=== PATIENT | male | born 1940 | race Caucasian/White ===

== ENCOUNTER 2018-10-15 21:47 | Emergency (ER) | payer MEDICARE, BC ==
[2018-10-15 22:12] LABS: Bilirubin Negative (Negative); Blood, Urine Negative (Negative); Clarity CLEAR (Clear); Glucose, Urine (Dipstick) Negative (Negative); Leukocyte Negative (Negative); Nitrite Negative (Negative); Protein, Urine (Dipstick) Negative (Neg-Trace); Urobilinogen 0.2 mg/dL (0.2-1.0); pH, Urine 6.5 (5.0-9.0)
[2018-10-15 23:38] LABS: Band 2 % (5-11); Eosinophils 27 % (0-10); Hemoglobin 13.1 g/dL (14.0-18.0); Lymphocytes 12 % (21-51); MDiff Complete? YES; Mean Corpuscular HGB CONC 35.3 g/dL (32.0-36.0); Mean Corpuscular Hemoglobin 30.9 pg (27.0-31.0); Mean Corpuscular Volume 87.5 fL (78.0-98.0); Mean Platelet Volume 6.9 fL (7.4-10.4); Monocytes 7 % (0-10); Neutrophil 52 % (42-75); PLT Morphology Comment Appears Adequate; Platelet Count 162 thou/uL (130-400); RBC Distribution Width 11.8 % (11.5-14.5); Red Blood Cell (RBC) Count 4.23 mill/uL (4.70-6.10); White Blood Cell (WBC) Count 9.7 thou/uL (4.8-10.8)
[2018-10-15 23:39] LABS: ALT (SGPT) 16 U/L (8-55); AST (SGOT) 17 U/L (5-34); Albumin 3.8 g/dL (3.4-4.8); Alkaline Phosphatase 55 U/L (40-150); Anion Gap 15 mmol/L (10-20); BUN (Urea Nitrogen) 11 mg/dL (8.4-25.7); Bilirubin, Total 0.4 mg/dL (0.2-1.2); Calc. Creatinine Clearance 0 mL/min (70-130); Calcium 8.9 mg/dL (7.8-10.44); Carbon Dioxide 23 mmol/L (23-31); Chloride 95 mmol/L (98-107); Estimated GFR-MDRD 65; Globulin 2.9 g/dL (2.4-3.5); Glucose 101 mg/dL (83-110); Potassium 4.1 mmol/L (3.5-5.1); Protein, Total 6.7 g/dL (5.8-8.1); Sodium 129 mmol/L (136-145)
--- NOTE | 2018-10-15 23:53 | RAD ---
CHEST TWO VIEWS: 10/15/18 HISTORY: Diminished right lower lobe breath sounds. COMPARISON: 09/08/17 FINDINGS: Normal cardiac silhouette. Lungs and pleural spaces are clear. No pneumothorax or osseous abnormaliti es. No evidence of a right lower lobe consolidation or atelectasis. IMPRESSION: No acute cardiopulmonary process. POS: [facility]
== END 2018-10-16 00:35 | disposition home or self-care (01) ==
LOC: ERS 21:47
DX: R30.0 Dysuria (principal); M54.9 Dorsalgia, unspecified; G89.29 Other chronic pain; R60.9 Edema, unspecified; I25.10 Atherosclerotic heart disease of native coronary artery without angina pectoris; I25.2 Old myocardial infarction; I48.91 Unspecified atrial fibrillation; E11.40 Type 2 diabetes mellitus with diabetic neuropathy, unspecified; E78.5 Hyperlipidemia, unspecified; I10 Essential (primary) hypertension; Z87.891 Personal history of nicotine dependence; Z79.82 Long term (current) use of aspirin; Z79.84 Long term (current) use of oral hypoglycemic drugs; Z79.899 Other long term (current) drug therapy
CPT/HCPCS: 36415; 71046; 80053; 81003; 83880; 85025; 87086

== ENCOUNTER 2018-11-02 15:56 | Inpatient (IN) | payer MEDICARE, BC ==
[~2018-11-02 15:56] MED LIST: ISOVUE-370 76%-LOCM 1 ML ONE
[2018-11-02 17:34] LABS: #Eosinphils 1.1 thou/uL (0.0-0.7); #Lymphocytes 0.9 thou/uL (1.20-3.40); #Monocytes 0.7 thou/uL (0.11-0.59); #Neutrophils 7.7 thou/uL (1.40-6.50); %Basophils 0.2 % (0.0-1.0); %Eosinophils 10.9 % (0.0-10.0); %Lymphocytes 8.7 % (21.0-51.0); %Monocytes 6.9 % (0.0-10.0); %Neutrophils 73.3 % (42.0-75.0); Hemoglobin 14.4 g/dL (14.0-18.0); Mean Corpuscular HGB CONC 34.7 g/dL (32.0-36.0); Mean Corpuscular Hemoglobin 30.5 pg (27.0-31.0); Mean Platelet Volume 6.7 fL (7.4-10.4); Platelet Count 189 thou/uL (130-400); White Blood Cell (WBC) Count 10.5 thou/uL (4.8-10.8)
[2018-11-02 17:55] LABS: ALT (SGPT) 19 U/L (8-55); AST (SGOT) 21 U/L (5-34); Albumin 3.9 g/dL (3.4-4.8); Alkaline Phosphatase 75 U/L (40-150); Anion Gap 16 mmol/L (10-20); BUN (Urea Nitrogen) 19 mg/dL (8.4-25.7); Bilirubin, Total 0.4 mg/dL (0.2-1.2); Calc. Creatinine Clearance 0 mL/min (70-130); Calcium 9.2 mg/dL (7.8-10.44); Carbon Dioxide 20 mmol/L (23-31); Chloride 96 mmol/L (98-107); Estimated GFR-MDRD 49; Glucose 147 mg/dL (83-110); Potassium 4.3 mmol/L (3.5-5.1); Protein, Total 6.9 g/dL (5.8-8.1); Sodium 128 mmol/L (136-145)
[2018-11-02 17:56] LABS: Bilirubin Small (Negative); Blood, Urine Negative (Negative); Clarity CLEAR (Clear); Glucose, Urine (Dipstick) Negative (Negative); Leukocyte Trace (Negative); Nitrite Negative (Negative); Protein, Urine (Dipstick) 30 mg/dL (Neg-Trace); Specific Gravity, Urine 1.022 (1.002-1.036); Urobilinogen 0.2 mg/dL (0.2-1.0); pH, Urine 5.5 (5.0-9.0)
[2018-11-02 17:57] LABS: Bacteria/HPF None Seen HPF (None Seen); Pathc Cast-AUWi Flag 1.88 (0-2.49)
--- NOTE | 2018-11-02 18:08 | CT ---
CT BRAIN NONCONTRAST: 11/02/18 HISTORY: 77-year-old male status post acute head trauma from fall. FINDINGS: There is no midline shift or any other mass effect. There is no evidence of acute intracranial hemor rhage, large cortical infarct, obstructive hydrocephalus, or extraaxial fluid collection. The calvar ium is intact. Visualized portions of the right maxillary sinus are severely partially opacified. IMPRESSION: 1. No acute intracranial findings. 2. Mucosal disease of right maxillary sinus. angie girard POS: [facility]
[2018-11-02 18:11] LABS: Hyaline Casts/LPF 0-3 HYALINE CAST LPF (0-3 Hyaline); RBC/HPF 0-3 HPF (0-3)
--- NOTE | 2018-11-02 19:13 | CT ---
CT CERVICAL SPINE NONCONTRAST: 11/02/18 HISTORY: 77-year-old male status post acute cervical trauma from fall. FINDINGS: There are no jumped or perched facets. There is no evidence of acute fracture. The vertebral body h eights are maintained. There is no prevertebral soft tissue swelling. IMPRESSION: No evidence of acute fracture or acute traumatic subluxation. angie [] POS: [facility]
--- NOTE | 2018-11-02 20:15 | CT ---
CT THORAX WITH CONTRAST CT ABDOMEN WITH CONTRAST CT PELVIS WITH CONTRAST: (trauma protocol) 11/02/18 HISTORY: 77-year-old male with metastatic melanoma, presents with trauma to the chest, abdomen and pelvis from fall. Low back pain, urinary frequency, dysuria, urinary retention, chills. COMPARISON: 01/09/16 CTs of the thorax, abdomen, and pelvis. TECHNIQUE: IV administration of iodinated contrast media. No oral contrast media. Single phase scans of thorax, abdomen, and pelvis. Sagittal reconstructions of thoracic and lumbar spine. FINDINGS: Thoracic and lumbar spine: No compression fracture. Vertebral body heights are maintained. DISH. Thorax: Lungs are clear. No pleural effusion or pneumothorax. No mediastinal or hilar lymphadenopathy. No med iastinal hematoma. No thoracic aortic aneurysm or dissection. There is a right thyroid nodule which is unchanged. Abdomen: Small, slightly greater than 1 cm round hypodense lesion at upper pole cortex of left kidney. Small, approximately 1 cm hypodense lesion at left renal lower pole cortex. These are too small to character ize definitively, but are probably cysts. They have both grown since the previous CT. No other abnorm ality of bilateral kidneys. Atherosclerotic calcification of nonaneurysmal abdominal aorta without di ssection or rupture. No retroperitoneal, ugo hepatis, or mesenteric lymphadenopathy. No retroperito naren hematoma or free intraperitoneal fluid. No small bowel dilation. The liver, pancreas, adrenals a nd spleen, are essentially normal. Pelvis: Distended urinary bladder. Enlarged prostate with process that extends superiorly into the base of th e bladder. Normal wall thickness of the bladder. Multiple sigmoid and descending colonic diverticulos is without diverticulitis. Normal appendix. No pelvic fracture or dislocation. No intrapelvic free fl uid or extrapelvic hematoma. IMPRESSION: 1. No evidence of acute traumatic injury in the chest, abdomen or pelvis. 2. Stable right thyroid nodule. 3. Benign prostatic hyperplasia associated with distended urinary bladder is evidence for chroni c bladder outlet obstruction. 4. Colonic diverticulosis without diverticulitis. 5. Two small left renal lesions that have grown since 2016. Too small to characterize but probab ly cysts. JULIA Arellano POS: [facility]
[2018-11-02 22:12] VITALS: BMI 33.9
[2018-11-03] MEDS ORDERED: Dextrose 50% Abboject 50 ML SYRINGE SLOW IVP PRN (07:38)
[2018-11-03] MEDS ORDERED: Artificial Tears 18 DROP/0.9 ML EA EYE PRN (07:38)
[2018-11-03] MEDS ORDERED: Acetaminophen 325 MG TAB PO PRN (07:38)
[2018-11-03] MEDS ORDERED: Senokot S 8.6-50 MG TAB PO PRN (07:38)
[2018-11-03] MEDS ORDERED: Zolpidem Tartrate 5 MG TAB PO PRN (07:38)
[2018-11-03] MEDS ORDERED: Eucerin (Mineral Oil/Petrolatum,White) 30 gm Jar TOP PRN (07:38)
[2018-11-03] MEDS ORDERED: Sodium Chloride 0.65% Nasal 44 ML BOT EA NARE PRN (07:38)
[2018-11-03] MEDS ORDERED: Cepastat Lozenges 1 LOZ PO PRN (07:38)
[2018-11-03] MEDS ORDERED: Bisacodyl 5 MG TAB PO PRN (07:38)
[2018-11-03] MEDS ORDERED: Dextrose 5% in Water 1,000 ML IV PRN (07:38)
[2018-11-03] MEDS ORDERED: Bisacodyl 10 MG SUPP PR PRN (07:38)
[2018-11-03] MEDS ORDERED: Metoclopramide HCl 10 MG/2 ML VIAL IVP PRN (07:38)
[2018-11-03] MEDS ORDERED: Calcium Carbonate 500 MG ChewTAB PO PRN (07:38)
[2018-11-03] MEDS ORDERED: HumaLOG 300 UNITS/3 ML VIAL SC PRN (07:38)
[2018-11-03] MEDS ORDERED: hydrALAZINE 20 MG/ML VIAL SLOW IVP PRN (07:38)
[2018-11-03] MEDS ORDERED: Loperamide HCl 2 MG CAP PO PRN (07:38)
[2018-11-03] MEDS ORDERED: Hydrocortisone 10 mg Tablet PO SCH (09:00)
[2018-11-03] MEDS ORDERED: Levothyroxine Sodium 50 MCG TAB PO SCH (09:00)
[2018-11-03] MEDS ORDERED: Dabigatran 150 mg Capsule PO SCH (09:00)
[2018-11-03] MEDS ORDERED: EXENATIDE MICROSPHERES 2 MG SQ SCH (09:00)
[2018-11-03] MEDS ORDERED: Prevnar 13-Val Conj/PF 0.5 ML SYRINGE IM ONE (09:00)
[2018-11-03] MEDS: Sodium Chloride 0.9% 1,000 ML IV SCH ×2 (09:32→21:35)
[2018-11-03] MEDS: Famotidine 20 MG TAB PO SCH ×2 (09:34→21:29)
[2018-11-03] MEDS: Gabapentin 300 MG CAP PO SCH ×2 (09:34→21:35)
[2018-11-03] MEDS: Amlodipine 10 MG TAB PO SCH (09:34)
[2018-11-03] MEDS: Sotalol HCl 80 MG TAB PO SCH ×2 (10:35→21:29)
[2018-11-03] MEDS: Levothyroxine Sodium 100 MCG TAB PO SCH (10:35)
--- NOTE | 2018-11-03 11:15 | HP ---
PRIMARY CARE PHYSICIAN: Brandy Montana MD REASON FOR ADMISSION: Gross hematuria, urinary retention, urinary tract infection, acute kidney injury, unsteadiness. HISTORY OF PRESENT ILLNESS: This is a 77-year-old male, who has multiple medical problems including metastatic malignant melanoma, on oral immunotherapy, who came to emergency room because, for last one week, he was having increasing unsteadiness and he was falling frequently at home. Last night, he had a fall and he had a scrap on posterior aspect of the head, did not require any suturing in the emergency room , and CT of brain in the emergency room did not show any acute process. He also had CT of cervical spine, which was negative for any fracture or dislocation. The patient was also having dysuria, increased frequency, and he was having difficulty with urination. In the emergency room, CT of chest, abdomen and pelvis showed bladder enlargement and obstructive uropathy. The patient also found with hyponatremia, acute kidney injury. The patient has chronic neck pain and back pain, and the patient's and the patient report that nowadays, he feels radicular symptoms with numbness in both hand, more on the left side. The patient's family member also reports that they evaluated by Dr. Wiggins, neurosurgeon, and they did MRI as an outpatient basis, and they wanted to see neurosurgeon while in hospital as well. At this point, the patient is unsteady and he appears very weak and that is why he was admitted overnight from ER to medical floor. When I saw this morning , the patient was having gross hematuria. He was unsteady on his feet and he appeared very weak. The patient denies any chest pain, palpitation, or shortness of breath. He denies any constipation, diarrhea, melena, or hematochezia. He denies any flu-like symptoms. Last night, he had retention with a significant amount of residual volume, that is why he required Chinchilla catheter. The patient is getting chemotherapy from [facility] for his metastatic melanoma, and the family member reports that he had all investigation done in recent past in August 2018 including MRI of brain. PAST MEDICAL HISTORY: 1. Metastatic malignant melanoma, on oral immunotherapy. 2. Chronic atrial fibrillation. 3. Chronic anticoagulation with Pradaxa. 4. Hypertension. 5. Coronary artery disease. 6. History of [place]. 7. Dyslipidemia. 8. Obesity. 9. Benign enlargement of prostate. 10. Former smoker. 11. Adrenal insufficiency. 12. Hypothyroidism. PAST SURGICAL HISTORY: Cardiac catheterization with a stent placement to RCA. PAST PSYCHIATRIC HISTORY: Reviewed and negative. ALLERGY: No known drug allergy. CURRENT HOME MEDICATIONS: 1. Exenatide 2 mg every 7 days. 2. Tylenol Arthritis at bedtime. 3. Amlodipine 10 mg daily. 4. Aspirin 81 mg daily. 5. Pradaxa 150 mg b.i.d. 6. Lasix 40 mg daily. 7. Gabapentin 300 mg at bedtime. 8. Glyburide 5 mg p.r.n. 9. Hydrocortisone 10 mg in the afternoon and 20 mg in the morning. 10. Synthroid 100 mcg daily. 11. Metformin 500 mg b.i.d. 12. Multivitamin 1 tablet daily. 13. Sotalol 80 mg b.i.d. 14. Terazosin 10 mg p.o. at bedtime. SOCIAL HISTORY: The patient is . Currently, lives at home with . No history of tobacco, alcohol, or illicit drug abuse at this point, but he is a former smoker, quit several years ago. FAMILY HISTORY: Positive for hypertension and diabetes. REVIEW OF SYSTEMS: CONSTITUTIONAL: Negative for weight loss or gain, ability to conduct usual activities. SKIN: Negative for rash, itching. EYES: Negative for double vision, pain. ENT/MOUTH: Negative for nose bleeding, neck stiffness, pain, tenderness. CARDIOVASCULAR: Negative for palpitations, dyspnea on exertion, orthopnea. RESPIRATORY: Negative for shortness of breath, wheezing, cough, hemoptysis, fever or night sweats. GASTROINTESTINAL: Negative for poor appetite, abdominal pain, heartburn, nausea , vomiting, constipation, or diarrhea. GENITOURINARY: Negative for urgency, frequency, dysuria, nocturia. MUSCULOSKELETAL: Negative for pain, swelling. NEUROLOGIC/PSYCHIATRIC: Negative for anxiety, depression. ALLERGY/IMMUNOLOGIC: Negative for skin rash, bleeding tendency. See my HPI for pertinent positive and negative. All other review of systems reviewed and negative except as mentioned in HPI. EMERGENCY ROOM COURSE: Reviewed. PHYSICAL EXAMINATION: VITAL SIGNS: On arrival, blood pressure 133/70, pulse 89 and irregular, respiratory rate 18, temperature 98.2, saturation 98% on room air. Weight 99.8 kg. GENERAL: The patient is currently alert, awake, appears weak. No obvious acute distress. HEENT: Head; normocephalic. The patient does have scrap from fall on the posterior aspect of occiput region, which is dressed. Eyes; pupils round, reactive to light. The patient feels diplopia with eye movement. ENT; oropharynx within normal limits. Moist mucous membranes. No oral lesion. No pharyngeal erythema. No exudate. NECK: Supple. No JVD. No thyromegaly. No carotid bruit. LUNGS: Clear to auscultation without any rhonchi or rales. CARDIAC: S1 and S2, irregular. No murmur elicited. No gallop. No rub. ABDOMEN: Soft. Bowel sounds present. Suprapubic discomfort noted. GENITALIA: Chinchilla catheter in place with gross hematuria. BACK: The patient does have scab wound on the right upper back, abrasion on right lower back. No point tenderness. EXTREMITIES: Upper extremities; passive movements of all joints are normal. Lower extremities; no edema. Good distal pulsation. SKIN: No skin rash. HEMATOLOGIC: No lymphadenopathy. NEUROLOGIC: The patient does have decreased sensation on the hand. The patient has unsteady gait. Cerebellar sign is difficult to perform. SIGNIFICANT IMAGING STUDIES: EKG showing normal sinus rhythm, nonspecific ST-T changes. CT of brain, based on my review, no acute intracranial process. CT of cervical spine negative for any fracture or dislocation. CT of chest, abdomen and pelvis showing benign enlargement of prostate, obstructive uropathy, and diverticulosis. SIGNIFICANT LABORATORY DATA: WBC 10.5, hemoglobin 14.4, platelets 189. BMP; sodium 128, potassium 4.3, chloride 96, carbon dioxide 20, anion gap 16, BUN 19, creatinine 1.41, glucose 147, calcium 9.2. LFT; AST 21, ALT 19, alkaline phosphatase 75, albumin 3.9. Cardiac enzyme negative. Urinalysis consistent with urinary tract infection. ASSESSMENT AND PLAN: Impression: 1. Acute kidney injury, likely due to prerenal etiology. The patient will be given IV fluid with NS 75 mL/hour, and we will repeat BMP tomorrow. 2. Hyponatremia, likely due to volume depletion. The patient will be given IV fluid with NS and we will repeat BMP. If the patient has persistent hyponatremia, then we will do necessary workup as needed. 3. Acute urinary retention due to benign enlargement of prostate. The patient requires Chinchilla catheterization. We will consult Urology for their opinion. We will continue with terazosin 10 mg p.o. daily. 4. Gross hematuria, likely due to urinary tract infection versus benign enlargement of prostate. The patient may need bladder irrigation that will be deferred to Urology. Urology consulted. Further plans will be deferred to them. 5. Urinary tract infection. We will send urine culture and start Rocephin 1 g q.24 hours. 6. Bladder outlet obstruction, which is chronic from benign enlargement of prostate. 7. Benign enlargement of prostate, which is chronic. We will continue with terazosin 10 mg daily. 8. Paroxysmal atrial fibrillation. The patient is on sotalol 80 mg p.o. b.i.d. and chronic anticoagulation with Pradaxa. Because of his gross hematuria, we will hold on Pradaxa therapy for now until bleeding stops. We will also discontinue aspirin because of gross hematuria. 9. Diabetes type 2, insulin as per sliding scale protocol. We will hold on metformin and glyburide because of renal failure. 10. Hypothyroidism. We will continue Synthroid 100 mcg p.o. daily. 11. Hypertension. We will continue amlodipine 10 mg p.o. daily. 12. Diabetic neuropathy. We will continue gabapentin 300 mg p.o. at bedtime. 13. Metastatic melanoma. The patient is taking immunotherapy, which we will continue while in hospital. 14. Adrenal insufficiency. We will continue hydrocortisone as per home dosage. 15. Obesity with BMI 33. Dietary education given. Weight loss education given. 16. Acute on chronic low back pain with radiculopathy. The patient and family member requesting neurosurgery consultation and that is why we will consult Dr. Wiggins. 17. Deep venous thrombosis prophylaxis, SCD boots. 18. GI prophylaxis, Pepcid 20 mg p.o. b.i.d. 19. Code Status, the patient is full code. The patient's is surrogate decision maker. DISPOSITION PLAN: The patient may need rehabilitation and that is why we will place PT/OT consultation and rehab screen. We are expecting the patient's stay in hospital more than two midnights. Plan of care discussed with the patient and family member at bedside. Job ID: [id number] [facility]
[2018-11-03] MEDS ORDERED: Finasteride 5 MG TAB PO SCH (12:45)
[2018-11-03] MEDS: Hydrocortisone 10 mg Tablet PO SCH (13:19)
[2018-11-03] MEDS: HumaLOG 300 UNITS/3 ML VIAL SC PRN (13:20)
[2018-11-03] MEDS: cefTRIAXone\\ROCEPHIN 1 GM in Sodium Chloride 0.9% 100 ML IVPB SCH (14:47)
--- NOTE | 2018-11-03 16:25 | CON ---
DATE OF CONSULTATION: HISTORY OF PRESENT ILLNESS: This is a 77-year-old gentleman with a past medical history of multiple medical issues who was recently seen in our office last week on 10/28/2018 for neck pain, arm dysesthesias and low back pain. During that visit, the patient reported a longstanding history of low back pain for greater than 20 years. He had seen Dr. Lim years ago and was diagnosed with lumbar degenerative disk disease, but no surgical recommendations were made at that time. Since then, he has had intermittent low back pain, which is mechanical in nature. He reports he was generally at his baseline until approximately two weeks ago when he was working on an [employer] desk. Following this activity, he developed some pain in the neck and numbness and tingling to bilateral upper extremities, left greater than right with elements of C7 and C8. He reports his left upper hand dysesthesias progressed to diffuse numbness and tingling throughout the hand and weakness with his left ambulatory technologist. He reported dropping things often and feeling off balance, particularly with walking. He has fallen several times and was using a wheelchair for longer distances and a cane or walker for shorter distances within his home. At that visit, he was also reporting increasing back pain, but no classic radicular features or new bowel or bladder issues. He was sent for outpatient noncontrast lumbar and cervical MRIs. He was supposed to follow up with us on 11/02/2018 in the office to go over these results and further formulate plan of care. However, he reports he became increasingly weak and was having difficulty urinating, so he presented to the emergency department instead. Upon evaluation in the emergency department, he was found to have some urinary retention, UA suggestive of UTI ,as well as acute kidney injury and hyponatremia. He was admitted to the hospitalist service for further management of these medical issues. Neurosurgery was also consulted to evaluate him with regard to his progressive upper extremity dysesthesias and overall difficulty ambulating. PAST MEDICAL HISTORY: Metastatic melanoma on oral immunotherapy, atrial fibrillation, hypertension, hyperlipidemia, coronary artery disease with prior ND, obesity, prostate enlargement, renal insufficiency, hypothyroidism. PAST SURGICAL HISTORY: Cardiac catheterization with cardiac stent placement. ALLERGIES: HE HAS NO KNOWN DRUG ALLERGIES. SOCIAL HISTORY: Lives at home with his . He is . He is a former smoker. He does not currently drink or use any drugs. FAMILY HISTORY: Noncontributory. REVIEW OF SYSTEMS: Per HPI. PHYSICAL EXAMINATION: VITAL SIGNS: Temperature is 98.7, pulse is 86. The patient is 98% on room air. His blood pressure is 120/67. CONSTITUTIONAL: Awake, alert, in no acute distress, lying in the bed comfortably. HEENT: HEAD, normocephalic, atraumatic. Eyes, PERRLA. Extraocular movements intact. ENT, oral mucosa is pink, intact and moist. He has normal voice. NECK: Nontender to palpation. Free active range of motion. No meningismus or nuchal rigidity. CARDIAC: Regular rate and rhythm. LUNGS: He is breathing comfortably with symmetric chest expansion. MUSCULOSKELETAL: He has free active range of motion of bilateral upper and lower extremity. He does have some slight weakness noted in the upper extremity, particularly over the left deltoid, biceps, triceps, and hand intrinsics. Deltoid triceps and biceps are 4+/5 and left hand intrinsics are 4-/5. On the right side, he has 5/5 strength throughout. He has normal reflexes throughout. He does not have Jurgen sign or ankle clonus. NEURO: He is A and O x4. He has weakness in the left upper extremity as noted on my musculoskeletal exam. ASSESSMENT AND PLAN: I reviewed his MRI images with Dr. Wiggins as well as the patient's presentation and current condition. MRI of the cervical spine is notable for multilevel degenerative changes, most pronounced at C5-C6 and C6-C7. There appears to be slightly more right-sided foraminal stenosis at these levels, but there is also an element of left-sided foraminal stenosis involved as well. With regard to the lumbar spine , he has degenerative disk disease, most pronounced at L5-L6 and L6-S1. There is no significant central compression; however, there is lateral recess stenosis bilaterally at these levels. Considering the patient's age and extensive medical comorbidities, Neurosurgery is recommending conservative approach with this current spinal pathology. We are recommending inpatient rehabilitation to help with mobilization. We will follow closely with outpatient followup in our office. We are in agreement with gabapentin 300 daily as well as p.r.n. hydrocodone as needed for pain. If this is not adequate in pain control, he may benefit from the Pain Management consult and consideration of RED. I have discussed this plan with Dr. Wiggins, who is in agreement. Please reach out Neurosurgery for additional questions or concerns. Job ID: [id number] [facility]
[2018-11-03] MEDS ORDERED: Non-Formulary Item 1 EACH (Terazosin Hcl [Hytrin] 10 MG) PO SCH (21:00)
[2018-11-03] MEDS: Terazosin HCl 5 MG CAP PO SCH (21:29)
[2018-11-03] MEDS: Tamsulosin HCl 0.4 MG CAP PO SCH (21:29)
[2018-11-03] MEDS: HYDROcodone/Acetaminophen 5/325 mg Tablet PO PRN (23:20)
--- NOTE | 2018-11-04 00:45 | CON ---
DATE OF CONSULTATION: 11/03/2018 REASON FOR CONSULTATION: Consultation was requested for retention and hematuria. HISTORY OF PRESENT ILLNESS: The patient is a 77-year-old male who normally has frequency every 1-2 hours and nocturia times 0-1. He does admit to hesitancy and weak stream, but denies that he has to strain and feels as though he empties. He has not taken medication for his urinary habits previously and this is the first time he has had retention. He denies any prior gross hematuria and prior to the hospitalization, he was not having any. He has no history of stones. He had UTI back in January of 2017, which he had to be reminded of it as this was not a significant occurrence for him, but agrees that was his only infection at that time. He is aware of prior PSAs and then being normal. At the time of the infection , it was elevated and he knows he has had it checked since then and subsequently they have been normal. PAST MEDICAL HISTORY: Significant for metastatic melanoma on oral immunotherapy at this time, which was diagnosed with in May of 2018. He has an adrenal insufficiency, atrial fibrillation, hypertension, high cholesterol, coronary artery disease and [place] in 2007 and hypothyroid and diabetes. PAST SURGICAL HISTORY: Includes a coronary artery stent x2 around 2007 and 2011 , none since. MEDICATIONS: Include: 1. Exenatide 2 mg every seven days. 2. Tylenol Arthritis. 3. Amlodipine 10 mg. 4. Aspirin 81 mg. 5. Pradaxa 150 mg b.i.d. 6. Lasix 40 mg. 7. Gabapentin 300 at bedtime. 8. Glyburide 5 mg as needed. 9. Hydrocortisone 10 mg in the afternoon and 20 in the morning. 10. Synthroid 100 mcg daily. 11. Metformin 500 mg b.i.d. 12. Multivitamin daily. 13. Sotalol 80 mg b.i.d. 14. Terazosin 10 mg at night. REVIEW OF SYSTEMS: Reveals he had a colonoscopy in the remote past that was normal. As previously mentioned, his PSAs have been normal. He has no shortness of breath, cough or chest pain. He has no nausea, vomiting, or diarrhea, but has had occasional constipation. He had a bowel movement today, but it has been worse in the past 2-3 weeks. He does admit to phimosis in last 3-4 months and he has been having more recent falls lately. SOCIAL HISTORY: Reveals 25 pack year, quit in 1985. Question on alcohol abuse , but now at this point he has maybe a six pack over summer. No other drugs. 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 FAMILY HISTORY: Significant for diabetes and hypertension. His mother and father in their 80s of old age and cancer. PHYSICAL EXAMINATION: VITAL SIGNS: Temperature 99.2, heart rate 85, blood pressure of 115/76, saturating 97% on room air. The patient had voided 300 in the ER and then early this morning had a PVR of 647, so a catheter was placed for 700, which was initially clear and then turned bloody. GENERAL: He is lying comfortably in bed. He does have pale skin, but no obvious scleral icterus or JVD. HEART: Regular rate and rhythm. No obvious murmurs, gallops, or rubs. LUNGS: Clear to auscultation bilaterally. ABDOMEN: Softly distended without any tenderness and normoactive bowel sounds. GENITOURINARY: Testes were descended bilaterally, but atrophic. The penis was uncircumcised with phimosis and I was unable to fully retract it to further inspect. There was Chinchilla catheter in place that was not secured appropriately, so I changed this and ensured that the balloon was not stuck in the prostate. There was burgundy colored urine draining without any clots. LABORATORY DATA: CBC reveals a normal blood count. His BUN and creatinine 19 and 1.4 with the highest it has been previously 1.37 in 2016. Otherwise, in September is 1.11. His PSA in January of 2017 was 12.72. I do not have any others, but again he does report that it has been checked since then and normal. Urinalysis from was inspected and grew Citrobacter koseri. Urinalysis this day revealed 4-6 wbc 's, 0-3 rbc's, no bacteria, and 4-6 squamous cells. DIAGNOSTIC STUDIES: CT scan from 11/02/2018 with contrast revealed a small simple cyst. No hydronephrosis, stones or masses. The distended bladder and enlarged prostate with an intravesical component more on the right than left. ASSESSMENT: We have a 77-year-old male admitted with retention, but no concern for urinary tract infection, so likely just related to BPH who now has hematuria after catheter placement only. So, again, is likely related to BPH and blood thinners. I will start tamsulosin and finasteride and hand irrigate the catheter as needed. I suspect this will clear with better hydration and/or diuresis. Certainly the catheter needs to be well secured and not on tension or pulled. Depending on how long his stay is, will decide whether he has a voiding trial before leaving. Otherwise, he will likely leave with the catheter and follow up in the office for both cystoscopy and voiding trial. Start tamsulosin and finsteride now. Job ID: [id number] [facility]
[2018-11-04 05:22] LABS: #Eosinphils 1.6 thou/uL (0.0-0.7); #Lymphocytes 1.1 thou/uL (1.20-3.40); #Monocytes 0.7 thou/uL (0.11-0.59); #Neutrophils 4.4 thou/uL (1.40-6.50); %Basophils 0.2 % (0.0-1.0); %Lymphocytes 14.1 % (21.0-51.0); %Monocytes 9.2 % (0.0-10.0); %Neutrophils 56.5 % (42.0-75.0); Hemoglobin 12.3 g/dL (14.0-18.0); Mean Corpuscular HGB CONC 33.9 g/dL (32.0-36.0); Mean Corpuscular Hemoglobin 30.1 pg (27.0-31.0); Mean Corpuscular Volume 88.7 fL (78.0-98.0); Mean Platelet Volume 6.5 fL (7.4-10.4); Platelet Count 176 thou/uL (130-400); RBC Distribution Width 11.9 % (11.5-14.5); Red Blood Cell (RBC) Count 4.09 mill/uL (4.70-6.10); White Blood Cell (WBC) Count 7.8 thou/uL (4.8-10.8)
[2018-11-04] MEDS: Levothyroxine Sodium 100 MCG TAB PO SCH (05:22)
[2018-11-04] MEDS: Hydrocortisone 10 mg Tablet PO SCH ×2 (05:27→13:24)
[2018-11-04 05:42] LABS: Anion Gap 14 mmol/L (10-20); BUN (Urea Nitrogen) 16 mg/dL (8.4-25.7); Calc. Creatinine Clearance 79 mL/min (70-130); Calcium 8.1 mg/dL (7.8-10.44); Carbon Dioxide 18 mmol/L (23-31); Chloride 102 mmol/L (98-107); Estimated GFR-MDRD 64; Glucose 131 mg/dL (83-110); Potassium 3.8 mmol/L (3.5-5.1); Sodium 130 mmol/L (136-145)
[2018-11-04] MEDS: HYDROcodone/Acetaminophen 5/325 mg Tablet PO PRN (09:30)
[2018-11-04] MEDS: Famotidine 20 MG TAB PO SCH ×2 (09:33→21:09)
[2018-11-04] MEDS: Amlodipine 10 MG TAB PO SCH (09:34)
[2018-11-04] MEDS: Finasteride 5 MG TAB PO SCH (09:34)
[2018-11-04] MEDS: cefTRIAXone\\ROCEPHIN 1 GM in Sodium Chloride 0.9% 100 ML IVPB SCH (09:34)
[2018-11-04] MEDS: Gabapentin 300 MG CAP PO SCH ×2 (09:34→22:02)
--- NOTE | 2018-11-04 10:18 | PRG ---
DATE OF SERVICE: 11/04/2018 SUBJECTIVE: The patient did well overnight. He has had no complaints. He has had no trouble with the catheter. His back pain is better. OBJECTIVE: VITAL SIGNS: His vitals have been stable. He has had 650 of urine output and vitals stable with a T-max of 99.8, and now it is 99.7, heart rate 85, blood pressure 128/79, and 96% on room air saturating with a respiratory rate of 18. The urine is now draining yellow in the tubing and is secured appropriately. LABORATORY DATA: His H and H has gone down slightly to 12.3 and 36.3, which is likely in part from the hematuria, but also hydration. His creatinine is back down to normal at 1.12 and his sodium has improved to 130. ASSESSMENT: We have a 77-year-old male with benign prostatic hypertrophy and retention for a bladder that was distended to 700 mL and hematuria that only started after the catheter was placed. Continue tamsulosin and finasteride. Ultimately need outpatient cystoscopy. If he is discharged to rehab tomorrow, then he would go with the catheter and follow up with me as an outpatient for both a voiding trial and cystoscopy. If he is not discharged until Thursday, then we can do a voiding trial at that time. Job ID: [id number]
--- NOTE | 2018-11-04 10:29 | PDOC.PN ---
- Subjective Encounter Start Date: 11/04/18 Encounter Start Time: 08:50 -: old records requested/rev Patient seen and examined. No new complaints. No overnight events has rey and hematuria clearing - Objective Resuscitation Status - Order Detail: 11/03/18 07:33 Resuscitation Status Routine Resuscitation Status: FULL: Full Resuscitation MAR Reviewed: Yes Vital Signs & Weight: Vital Signs (12 hours) Temp Pulse Resp BP BP BP Pulse Ox 11/04/18 09:34 85 128/79 11/04/18 07:40 99.7 F H 85 18 128/79 96 11/04/18 04:00 99.2 F 83 20 95/57 L 94 L Weight Weight 216 lb 11.43 oz I&O: 11/03/18 11/04/18 11/05/18 06:59 06:59 06:59 Intake Total 2940 Output Total 650 Balance 2290 Result Diagrams: 11/04/18 04:57 11/04/18 04:57 Additional Labs: Accuchecks 11/04/18 11/03/18 11/03/18 04:38 20:06 16:20 POC Glucose 139 H 148 H 147 H 11/03/18 12:05 POC Glucose 154 H Phys Exam - Physical Examination Constitutional: NAD HEENT: PERRLA, moist MMs, sclera anicteric Neck: no JVD, supple Respiratory: no wheezing, no rales, no rhonchi Cardiovascular: RRR, no significant murmur, no rub Gastrointestinal: soft, non-tender, no distention, positive bowel sounds Musculoskeletal: no edema, pulses present Neurological: non-focal, normal sensation Lymphatic: no nodes Psychiatric: normal affect, A&O x 3 Skin: no rash, normal turgor Dx/Plan (1) Acute kidney injury Code(s): N17.9 - ACUTE KIDNEY FAILURE, UNSPECIFIED Status: Resolved (2) Hyponatremia Code(s): E87.1 - HYPO-OSMOLALITY AND HYPONATREMIA Status: Acute Comment: improving (3) UTI (urinary tract infection) Status: Acute (4) Urinary retention due to benign prostatic hyperplasia Code(s): N40.1 - BENIGN PROSTATIC HYPERPLASIA WITH LOWER URINARY TRACT SYMP; R33.8 - OTHER RETENTION OF URINE Status: Acute (5) BPH (benign prostatic hypertrophy) Code(s): N40.0 - BENIGN PROSTATIC HYPERPLASIA WITHOUT LOWER URINRY TRACT SYMP Status: Chronic (6) Bladder outlet obstruction Code(s): N32.0 - BLADDER-NECK OBSTRUCTION Status: Chronic (7) CAD (coronary artery disease) Code(s): I25.10 - ATHSCL HEART DISEASE OF [place] CORONARY ARTERY W/O ANG PCTRS Status: Chronic (8) DM type 2 (diabetes mellitus, type 2) Status: Chronic (9) Diverticulosis of colon Code(s): K57.30 - DVRTCLOS OF LG INT W/O PERFORATION OR ABSCESS W/O BLEEDING Status: Chronic (10) Dyslipidemia Code(s): E78.5 - HYPERLIPIDEMIA, UNSPECIFIED Status: Chronic (11) HTN (hypertension) Code(s): I10 - ESSENTIAL (PRIMARY) HYPERTENSION Status: Chronic (12) Obesity (BMI 30.0-34.9) Code(s): E66.9 - OBESITY, UNSPECIFIED Status: Chronic (13) Chronic low back pain Code(s): M54.5 - LOW BACK PAIN; G89.29 - OTHER CHRONIC PAIN Status: Acute (14) Frequent falls Code(s): R29.6 - REPEATED FALLS Status: Acute - Plan cont current plan of care, plan discussed w/ family, continue antibiotics, PT/OT , social work msw * medication reviewed as below * symptomatic treatment * continue rey on discharge * will need rehab * continue rocephin * discussed with * all bank consultant recommendation appreciated. * DC IVF Review of Systems - Review of Systems Eyes: negative: Pain, Vision Change, Conjunctivae Inflammation, Eyelid Inflammation, Redness, Other ENT: negative: Ear Pain, Ear Discharge, Nose Pain, Nose Discharge, Nose Congestion, Mouth Pain, Mouth Swelling, Throat Pain, Throat Swelling, Other Respiratory: negative: Cough, Dry, Shortness of Breath, Hemoptysis, SOB with Excertion, Pleuritic Pain, Sputum, Wheezing Cardiovascular: negative: chest pain, palpitations, orthopnea, paroxysmal nocturnal dyspnea, edema, light headedness, other Gastrointestinal: negative: Nausea, Vomiting, Abdominal Pain, Diarrhea, Constipation, Melena, Hematochezia, Other Genitourinary: Hematuria, Retention. negative: Dysuria, Frequency, Incontinence , Other Musculoskeletal: Neck Pain, Back Pain. negative: Shoulder Pain, Arm Pain, Hand Pain, Leg Pain, Foot Pain, Other - Medications/Allergies Allergies/Adverse Reactions: Allergies Allergy/AdvReac Type Severity Reaction Status Date / Time No Known Allergies Allergy Verified 11/02/18 22:01 Medications: Current Medications Acetaminophen (Tylenol) 650 mg PO Q4H PRN PRN Reason: Headache/Fever/Mild Pain (1-3) Hydrocodone Bitart/Acetaminophen ([place] 5/325) 1 tab PO Q4H PRN PRN Reason: Moderate Pain (4-6) Last Admin: 11/04/18 09:30 Dose: 1 tab Amlodipine Besylate (Norvasc) 10 mg PO DAILY [facility] Last Admin: 11/04/18 09:34 Dose: 10 mg Artificial Tears (Tears Naturale) 2 drop EA EYE PRN PRN PRN Reason: Dry Eyes Bisacodyl (Dulcolax) 10 mg PO DAILYPRN PRN PRN Reason: Constipation Bisacodyl (Dulcolax) 10 mg [place] DAILYPRN PRN PRN Reason: Constipation Calcium Carbonate (Tums) 1,000 mg PO Q4H PRN PRN Reason: Heartburn or Indigestion Dextrose/Water (Dextrose 50%) 25 gm SLOW IVP PRN PRN PRN Reason: Hypoglycemia Famotidine (Pepcid) 20 mg PO BID [facility] Last Admin: 11/04/18 09:33 Dose: 20 mg Finasteride (Proscar) 5 mg PO DAILY [facility] Last Admin: 11/04/18 09:34 Dose: 5 mg Gabapentin (Neurontin) 300 mg PO DAILY [facility] Last Admin: 11/04/18 09:34 Dose: Not Given Glucagon (Glucagon) 1 mg IM PRN PRN PRN Reason: Hypoglycemia Guaifenesin (Robitussin Sf) 200 mg PO Q4H PRN PRN Reason: Cough Hydralazine HCl (Apresoline) 10 mg SLOW IVP Q4H PRN PRN Reason: SBP > 180 and HR < 70 Hydrocortisone (Cortef) 10 mg PO 1400 [facility] Last Admin: 11/03/18 13:19 Dose: 10 mg Hydrocortisone (Cortef) 20 mg PO DAILY [facility] Last Admin: 11/04/18 05:27 Dose: 20 mg Ceftriaxone Sodium 1 gm/ (Sodium Chloride) 100 mls @ 200 mls/hr IVPB Q24HR [facility] Last Admin: 11/04/18 09:34 Dose: 100 mls Dextrose/Water (D5w) 1,000 mls @ 0 mls/hr IV .Q0M PRN PRN Reason: Hypoglycemia Sodium Chloride (Normal Saline 0.9%) 1,000 mls @ 75 mls/hr IV .[id number] [facility] Last Admin: 11/03/18 21:35 Dose: 1,000 mls Insulin Human Lispro (Humalog) 0 units SC .MODERATE SLIDING SC PRN PRN Reason: Moderate Correctional Scale Last Admin: 11/03/18 13:20 Dose: 2 unit Insulin Human Lispro (Humalog) 0 units SC .BEDTIME SLIDING SC PRN PRN Reason: Bedtime Correctional Scale Levothyroxine Sodium (Synthroid) 100 mcg PO 0600 [facility] Last Admin: 11/04/18 05:22 Dose: 100 mcg Loperamide HCl (Imodium) 2 mg PO PRN PRN PRN Reason: Diarrhea/Loose Stools Metoclopramide HCl (Reglan) 10 mg IVP Q6H PRN PRN Reason: Nausea/Vomiting Mineral Oil/White Petrolatum (Eucerin Cream) 0 gm TOP BIDPRN PRN PRN Reason: Dry Skin [Bydureon] 2 Mg 0 each SC Q7DAYS [facility] Senna/Docusate Sodium (Senokot S) 2 tab PO BID PRN PRN Reason: Constipation Sodium Chloride ([place] Nasal [place] 0.65%) 0 ml EA NARE QIDPRN PRN PRN Reason: Nasal Congestion Sodium Chloride (Flush - Normal Saline) 10 ml IVF Q12HR [facility] Last Admin: 11/04/18 09:35 Dose: 10 ml Sodium Chloride (Flush - Normal Saline) 10 ml IVF PRN PRN PRN Reason: Saline Flush Sotalol HCl (Betapace) 80 mg PO BID [facility] Last Admin: 11/03/18 21:29 Dose: 80 mg Tamsulosin HCl (Flomax) 0.4 mg PO BID [facility] Last Admin: 11/03/18 21:29 Dose: 0.4 mg Terazosin HCl (Hytrin) 10 mg PO HS [facility] Last Admin: 11/03/18 21:29 Dose: 10 mg Throat Lozenges (Cepastat Lozenges) 1 coleen PO Q2H PRN PRN Reason: Sore Throat Zolpidem Tartrate (Ambien) 5 mg PO HSPRN PRN PRN Reason: Insomnia
[2018-11-04] MEDS: Sodium Chloride 0.9% 1,000 ML IV SCH (12:28)
[2018-11-04] MEDS: Tamsulosin HCl 0.4 MG CAP PO SCH ×2 (13:24→21:10)
[2018-11-04] MEDS: Sotalol HCl 80 MG TAB PO SCH ×2 (13:24→21:09)
[2018-11-04] MEDS: Diabetic Tussin 200 MG/10 ML UDCUP PO PRN ×2 (18:18→22:12)
[2018-11-04] MEDS: Terazosin HCl 5 MG CAP PO SCH (21:10)
[2018-11-05] MEDS: Levothyroxine Sodium 100 MCG TAB PO SCH (05:22)
[2018-11-05] MEDS: Amlodipine 10 MG TAB PO SCH (08:50)
[2018-11-05] MEDS: Famotidine 20 MG TAB PO SCH ×2 (08:51→20:23)
[2018-11-05] MEDS: Finasteride 5 MG TAB PO SCH (08:51)
[2018-11-05] MEDS: Tamsulosin HCl 0.4 MG CAP PO SCH ×2 (08:51→20:24)
[2018-11-05] MEDS: Hydrocortisone 10 mg Tablet PO SCH ×2 (08:52→14:38)
[2018-11-05] MEDS: Sotalol HCl 80 MG TAB PO SCH ×2 (09:42→20:23)
[2018-11-05] MEDS: cefTRIAXone\\ROCEPHIN 1 GM in Sodium Chloride 0.9% 100 ML IVPB SCH (09:42)
[2018-11-05] MEDS: Diabetic Tussin 200 MG/10 ML UDCUP PO PRN ×2 (09:43→20:28)
--- NOTE | 2018-11-05 09:47 | PDOC.PN ---
- Subjective Encounter Start Date: 11/05/18 Encounter Start Time: 08:10 Patient seen and examined. No new complaints. No overnight events - Objective Resuscitation Status - Order Detail: 11/03/18 07:33 Resuscitation Status Routine Resuscitation Status: FULL: Full Resuscitation MAR Reviewed: Yes Vital Signs & Weight: Vital Signs (12 hours) Temp Pulse Resp BP Pulse Ox 11/05/18 09:42 85 11/05/18 08:50 85 11/05/18 07:31 99.6 F 85 16 144/80 H 95 11/05/18 04:00 98.0 F Weight Weight 216 lb 11.43 oz I&O: 11/04/18 11/05/18 11/06/18 06:59 06:59 06:59 Intake Total 2940 350 Output Total 650 1300 Balance 2290 -950 Result Diagrams: 11/04/18 04:57 11/04/18 04:57 Additional Labs: Accuchecks 11/05/18 11/04/18 11/04/18 05:22 21:09 16:28 POC Glucose 166 H 219 H 167 H 11/04/18 11:38 POC Glucose 170 H Phys Exam - Physical Examination Constitutional: NAD HEENT: PERRLA, moist MMs, sclera anicteric Neck: no JVD, supple Respiratory: no wheezing, no rales, no rhonchi Cardiovascular: RRR, no significant murmur, no rub Gastrointestinal: soft, non-tender, no distention, positive bowel sounds Musculoskeletal: no edema, pulses present Neurological: non-focal, normal sensation, moves all 4 limbs Lymphatic: no nodes Psychiatric: normal affect Skin: no rash, normal turgor Dx/Plan (1) Acute kidney injury Code(s): N17.9 - ACUTE KIDNEY FAILURE, UNSPECIFIED Status: Resolved (2) Hyponatremia Code(s): E87.1 - HYPO-OSMOLALITY AND HYPONATREMIA Status: Acute Comment: improving (3) UTI (urinary tract infection) Status: Acute (4) Urinary retention due to benign prostatic hyperplasia Code(s): N40.1 - BENIGN PROSTATIC HYPERPLASIA WITH LOWER URINARY TRACT SYMP; R33.8 - OTHER RETENTION OF URINE Status: Acute (5) BPH (benign prostatic hypertrophy) Code(s): N40.0 - BENIGN PROSTATIC HYPERPLASIA WITHOUT LOWER URINRY TRACT SYMP Status: Chronic (6) Bladder outlet obstruction Code(s): N32.0 - BLADDER-NECK OBSTRUCTION Status: Chronic (7) CAD (coronary artery disease) Code(s): I25.10 - ATHSCL HEART DISEASE OF [place] CORONARY ARTERY W/O ANG PCTRS Status: Chronic (8) DM type 2 (diabetes mellitus, type 2) Status: Chronic (9) Diverticulosis of colon Code(s): K57.30 - DVRTCLOS OF LG INT W/O PERFORATION OR ABSCESS W/O BLEEDING Status: Chronic (10) Dyslipidemia Code(s): E78.5 - HYPERLIPIDEMIA, UNSPECIFIED Status: Chronic (11) HTN (hypertension) Code(s): I10 - ESSENTIAL (PRIMARY) HYPERTENSION Status: Chronic (12) Obesity (BMI 30.0-34.9) Code(s): E66.9 - OBESITY, UNSPECIFIED Status: Chronic (13) Chronic low back pain Code(s): M54.5 - LOW BACK PAIN; G89.29 - OTHER CHRONIC PAIN Status: Acute (14) Frequent falls Code(s): R29.6 - REPEATED FALLS Status: Acute - Plan cont current plan of care, plan discussed w/ family, continue antibiotics, 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 Review of Systems - Review of Systems ENT: negative: Ear Pain, Ear Discharge, Nose Pain, Nose Discharge, Nose Congestion, Mouth Pain, Mouth Swelling, Throat Pain, Throat Swelling, Other Respiratory: negative: Cough, Dry, Shortness of Breath, Hemoptysis, SOB with Excertion, Pleuritic Pain, Sputum, Wheezing Cardiovascular: negative: chest pain, palpitations, orthopnea, paroxysmal nocturnal dyspnea, edema, light headedness, other Gastrointestinal: negative: Nausea, Vomiting, Abdominal Pain, Diarrhea, Constipation, Melena, Hematochezia, Other Genitourinary: negative: Dysuria, Frequency, Incontinence, Hematuria, Retention , Other Musculoskeletal: negative: Neck Pain, Shoulder Pain, Arm Pain, Back Pain, Hand Pain, Leg Pain, Foot Pain, Other - Medications/Allergies Allergies/Adverse Reactions: Allergies Allergy/AdvReac Type Severity Reaction Status Date / Time No Known Allergies Allergy Verified 11/02/18 22:01 Medications: Current Medications Acetaminophen (Tylenol) 650 mg PO Q4H PRN PRN Reason: Headache/Fever/Mild Pain (1-3) Hydrocodone Bitart/Acetaminophen ([place] 5/325) 1 tab PO Q4H PRN PRN Reason: Moderate Pain (4-6) Last Admin: 11/04/18 09:30 Dose: 1 tab Amlodipine Besylate (Norvasc) 10 mg PO DAILY [facility] Last Admin: 11/05/18 08:50 Dose: 10 mg Artificial Tears (Tears Naturale) 2 drop EA EYE PRN PRN PRN Reason: Dry Eyes Bisacodyl (Dulcolax) 10 mg PO DAILYPRN PRN PRN Reason: Constipation Bisacodyl (Dulcolax) [address] DAILYPRN PRN PRN Reason: Constipation Calcium Carbonate (Tums) 1,000 mg PO Q4H PRN PRN Reason: Heartburn or Indigestion Dextrose/Water (Dextrose 50%) 25 gm SLOW IVP PRN PRN PRN Reason: Hypoglycemia Famotidine (Pepcid) 20 mg PO BID [facility] Last Admin: 11/05/18 08:51 Dose: 20 mg Finasteride (Proscar) 5 mg PO DAILY [facility] Last Admin: 11/05/18 08:51 Dose: 5 mg Gabapentin (Neurontin) 300 mg PO 2100 [facility] Last Admin: 11/04/18 22:02 Dose: 300 mg Glucagon (Glucagon) 1 mg IM PRN PRN PRN Reason: Hypoglycemia Guaifenesin (Robitussin Sf) 200 mg PO Q4H PRN PRN Reason: Cough Last Admin: 11/05/18 09:43 Dose: 200 mg Hydralazine HCl (Apresoline) 10 mg SLOW IVP Q4H PRN PRN Reason: SBP > 180 and HR < 70 Hydrocortisone (Cortef) 10 mg PO 1400 [facility] Last Admin: 11/04/18 13:24 Dose: 10 mg Hydrocortisone (Cortef) 20 mg PO DAILY [facility] Last Admin: 11/05/18 08:52 Dose: 20 mg Ceftriaxone Sodium 1 gm/ (Sodium Chloride) 100 mls @ 200 mls/hr IVPB Q24HR [facility] Last Admin: 11/05/18 09:42 Dose: 100 mls Dextrose/Water (D5w) 1,000 mls @ 0 mls/hr IV .Q0M PRN PRN Reason: Hypoglycemia Insulin Human Lispro (Humalog) 0 units SC .MODERATE SLIDING SC PRN PRN Reason: Moderate Correctional Scale Last Admin: 11/03/18 13:20 Dose: 2 unit Insulin Human Lispro (Humalog) 0 units SC .BEDTIME SLIDING SC PRN PRN Reason: Bedtime Correctional Scale Levothyroxine Sodium (Synthroid) 100 mcg PO 0600 [facility] Last Admin: 11/05/18 05:22 Dose: 100 mcg Loperamide HCl (Imodium) 2 mg PO PRN PRN PRN Reason: Diarrhea/Loose Stools Metoclopramide HCl (Reglan) 10 mg IVP Q6H PRN PRN Reason: Nausea/Vomiting Mineral Oil/White Petrolatum (Eucerin Cream) 0 gm TOP BIDPRN PRN PRN Reason: Dry Skin [Bydureon] 2 Mg 0 each SC Q7DAYS [facility] Senna/Docusate Sodium (Senokot S) 2 tab PO BID PRN PRN Reason: Constipation Sodium Chloride ([place] Nasal [place] 0.65%) 0 ml EA NARE QIDPRN PRN PRN Reason: Nasal Congestion Sodium Chloride (Flush - Normal Saline) 10 ml IVF Q12HR [facility] Last Admin: 11/05/18 08:52 Dose: 10 ml Sodium Chloride (Flush - Normal Saline) 10 ml IVF PRN PRN PRN Reason: Saline Flush Sotalol HCl (Betapace) 80 mg PO BID [facility] Last Admin: 11/05/18 09:42 Dose: 80 mg Tamsulosin HCl (Flomax) 0.4 mg PO BID [facility] Last Admin: 11/05/18 08:51 Dose: 0.4 mg Terazosin HCl (Hytrin) 10 mg PO HS [facility] Last Admin: 11/04/18 21:10 Dose: 10 mg Throat Lozenges (Cepastat Lozenges) 1 coleen PO Q2H PRN PRN Reason: Sore Throat Zolpidem Tartrate (Ambien) 5 mg PO HSPRN PRN PRN Reason: Insomnia
--- NOTE | 2018-11-05 10:32 | PRG ---
DATE OF SERVICE: 11/05/2018 SUBJECTIVE: The patient did well overnight. Urine has been clear. He has no trouble. We discussed changing to a leg bag and a large bag depending on how mobile he is as well as a voiding trial on Thursday whether he is in rehab or on in-house still. PHYSICAL EXAMINATION: He has been afebrile with vital signs stable. Urine is clear in the tubing. LABORATORY DATA: There are no new labs this morning. ASSESSMENT: We have a 77-year-old male with BPH, retention and hematuria related to catheter and presumably a prostate deserve a workup as an outpatient for cystoscopy and leave the catheter in over the weekend and try a voiding trial on Thursday if he is in the facility, we can follow up to ensure that he voids adequately. If he is in the hospital, I order for the catheter to come out Thursday morning and ensure he is adequately emptying. Of note, he has phimosis and ultimately would benefit from circumcision. Job ID: [id number]
[2018-11-05] MEDS: HumaLOG 300 UNITS/3 ML VIAL SC PRN (16:35)
[2018-11-05] MEDS: HYDROcodone/Acetaminophen 5/325 mg Tablet PO PRN (17:16)
[2018-11-05] MEDS: Gabapentin 300 MG CAP PO SCH (20:23)
[2018-11-05] MEDS: Terazosin HCl 5 MG CAP PO SCH (20:24)
[2018-11-06] MEDS: Levothyroxine Sodium 100 MCG TAB PO SCH (05:26)
[2018-11-06] MEDS: Famotidine 20 MG TAB PO SCH (09:09)
[2018-11-06] MEDS: Amlodipine 10 MG TAB PO SCH (09:09)
[2018-11-06] MEDS: Finasteride 5 MG TAB PO SCH (09:09)
[2018-11-06] MEDS: Sotalol HCl 80 MG TAB PO SCH (09:09)
[2018-11-06] MEDS: Tamsulosin HCl 0.4 MG CAP PO SCH (09:10)
[2018-11-06] MEDS: Hydrocortisone 10 mg Tablet PO SCH ×2 (09:10→14:24)
[2018-11-06] MEDS: cefTRIAXone\\ROCEPHIN 1 GM in Sodium Chloride 0.9% 100 ML IVPB SCH (09:14)
[2018-11-06] MEDS ORDERED: NORCO 7.5/325 PO PRN (09:31)
--- NOTE | 2018-11-06 09:46 | PDOC.PN ---
- Subjective Encounter Start Date: 11/06/18 Encounter Start Time: 08:20 Patient seen and examined. No new complaints. No overnight events - Objective Resuscitation Status - Order Detail: 11/03/18 07:33 Resuscitation Status Routine Resuscitation Status: FULL: Full Resuscitation MAR Reviewed: Yes Vital Signs & Weight: Vital Signs (12 hours) Temp Pulse Resp BP BP BP Pulse Ox 11/06/18 09:09 72 145/83 H 11/06/18 07:54 98.9 F 72 18 145/88 H 95 11/06/18 05:27 98.5 F 72 20 143/86 H 95 Weight Weight 216 lb 11.43 oz I&O: 11/05/18 11/06/18 11/07/18 06:59 06:59 06:59 Intake Total 350 240 Output Total 1300 200 500 Balance -950 40 -500 Result Diagrams: 11/04/18 04:57 11/04/18 04:57 Additional Labs: Accuchecks 11/05/18 11/05/18 11/05/18 20:01 15:44 11:20 POC Glucose 302 H 243 H 247 H Phys Exam - Physical Examination Constitutional: NAD HEENT: PERRLA, moist MMs, sclera anicteric Neck: no JVD, supple Respiratory: no wheezing, no rales, no rhonchi Cardiovascular: RRR, no significant murmur, no rub Gastrointestinal: soft, non-tender, no distention, positive bowel sounds Musculoskeletal: no edema, pulses present Neurological: non-focal, normal sensation, moves all 4 limbs Lymphatic: no nodes Psychiatric: normal affect, A&O x 3 Skin: no rash, normal turgor Dx/Plan (1) Acute kidney injury Code(s): N17.9 - ACUTE KIDNEY FAILURE, UNSPECIFIED Status: Resolved (2) Hyponatremia Code(s): E87.1 - HYPO-OSMOLALITY AND HYPONATREMIA Status: Acute Comment: improving (3) UTI (urinary tract infection) Status: Acute (4) Urinary retention due to benign prostatic hyperplasia Code(s): N40.1 - BENIGN PROSTATIC HYPERPLASIA WITH LOWER URINARY TRACT SYMP; R33.8 - OTHER RETENTION OF URINE Status: Acute (5) BPH (benign prostatic hypertrophy) Code(s): N40.0 - BENIGN PROSTATIC HYPERPLASIA WITHOUT LOWER URINRY TRACT SYMP Status: Chronic (6) Bladder outlet obstruction Code(s): N32.0 - BLADDER-NECK OBSTRUCTION Status: Chronic (7) CAD (coronary artery disease) Code(s): I25.10 - ATHSCL HEART DISEASE OF [place] CORONARY ARTERY W/O ANG PCTRS Status: Chronic (8) DM type 2 (diabetes mellitus, type 2) Status: Chronic (9) Diverticulosis of colon Code(s): K57.30 - DVRTCLOS OF LG INT W/O PERFORATION OR ABSCESS W/O BLEEDING Status: Chronic (10) Dyslipidemia Code(s): E78.5 - HYPERLIPIDEMIA, UNSPECIFIED Status: Chronic (11) HTN (hypertension) Code(s): I10 - ESSENTIAL (PRIMARY) HYPERTENSION Status: Chronic (12) Obesity (BMI 30.0-34.9) Code(s): E66.9 - OBESITY, UNSPECIFIED Status: Chronic (13) Chronic low back pain Code(s): M54.5 - LOW BACK PAIN; G89.29 - OTHER CHRONIC PAIN Status: Acute (14) Frequent falls Code(s): R29.6 - REPEATED FALLS Status: Acute - Plan cont current plan of care, plan discussed w/ family, PT/OT, social services designee * pt can take his home hydrocodone as he does not tolerate norco * medication reviewed as below * symptomatic treatment * await placement * stable medically. Review of Systems - Review of Systems ENT: negative: Ear Pain, Ear Discharge, Nose Pain, Nose Discharge, Nose Congestion, Mouth Pain, Mouth Swelling, Throat Pain, Throat Swelling, Other Respiratory: negative: Cough, Dry, Shortness of Breath, Hemoptysis, SOB with Excertion, Pleuritic Pain, Sputum, Wheezing Cardiovascular: negative: chest pain, palpitations, orthopnea, paroxysmal nocturnal dyspnea, edema, light headedness, other Gastrointestinal: negative: Nausea, Vomiting, Abdominal Pain, Diarrhea, Constipation, Melena, Hematochezia, Other Genitourinary: negative: Dysuria, Frequency, Incontinence, Hematuria, Retention , Other Musculoskeletal: negative: Neck Pain, Shoulder Pain, Arm Pain, Back Pain, Hand Pain, Leg Pain, Foot Pain, Other - Medications/Allergies Allergies/Adverse Reactions: Allergies Allergy/AdvReac Type Severity Reaction Status Date / Time No Known Allergies Allergy Verified 11/02/18 22:01 Medications: Current Medications Acetaminophen (Tylenol) 650 mg PO Q4H PRN PRN Reason: Headache/Fever/Mild Pain (1-3) Last Admin: 11/06/18 06:50 Dose: 650 mg Hydrocodone Bitart/Acetaminophen ([place] 5/325) 1 tab PO Q4H PRN PRN Reason: Moderate Pain (4-6) Last Admin: 11/05/18 17:16 Dose: 1 tab Amlodipine Besylate (Norvasc) 10 mg PO DAILY [facility] Last Admin: 11/06/18 09:09 Dose: 10 mg Artificial Tears (Tears Naturale) 2 drop EA EYE PRN PRN PRN Reason: Dry Eyes Bisacodyl (Dulcolax) 10 mg PO DAILYPRN PRN PRN Reason: Constipation Bisacodyl (Dulcolax) 10 mg HI DAILYPRN PRN PRN Reason: Constipation Calcium Carbonate (Tums) 1,000 mg PO Q4H PRN PRN Reason: Heartburn or Indigestion Dextrose/Water (Dextrose 50%) 25 gm SLOW IVP PRN PRN PRN Reason: Hypoglycemia Famotidine (Pepcid) 20 mg PO BID [facility] Last Admin: 11/06/18 09:09 Dose: 20 mg Finasteride (Proscar) 5 mg PO DAILY [facility] Last Admin: 11/06/18 09:09 Dose: 5 mg Gabapentin (Neurontin) 300 mg PO 2100 [facility] Last Admin: 11/05/18 20:23 Dose: 300 mg Glucagon (Glucagon) 1 mg IM PRN PRN PRN Reason: Hypoglycemia Guaifenesin (Robitussin Sf) 200 mg PO Q4H PRN PRN Reason: Cough Last Admin: 11/05/18 20:28 Dose: 200 mg Hydralazine HCl (Apresoline) 10 mg SLOW IVP Q4H PRN PRN Reason: SBP > 180 and HR < 70 Hydrocortisone (Cortef) 10 mg PO 1400 [facility] Last Admin: 11/05/18 14:38 Dose: 10 mg Hydrocortisone (Cortef) 20 mg PO DAILY [facility] Last Admin: 11/06/18 09:10 Dose: 20 mg Ceftriaxone Sodium 1 gm/ (Sodium Chloride) 100 mls @ 200 mls/hr IVPB Q24HR [facility] Last Admin: 11/06/18 09:14 Dose: 100 mls Dextrose/Water (D5w) 1,000 mls @ 0 mls/hr IV .Q0M PRN PRN Reason: Hypoglycemia Insulin Human Lispro (Humalog) 0 units SC .MODERATE SLIDING SC PRN PRN Reason: Moderate Correctional Scale Last Admin: 11/05/18 16:35 Dose: 4 unit Insulin Human Lispro (Humalog) 0 units SC .BEDTIME SLIDING SC PRN PRN Reason: Bedtime Correctional Scale Last Admin: 11/05/18 20:40 Dose: 4 unit Levothyroxine Sodium (Synthroid) 100 mcg PO 0600 [facility] Last Admin: 11/06/18 05:26 Dose: 100 mcg Loperamide HCl (Imodium) 2 mg PO PRN PRN PRN Reason: Diarrhea/Loose Stools Metoclopramide HCl (Reglan) 10 mg IVP Q6H PRN PRN Reason: Nausea/Vomiting Mineral Oil/White Petrolatum (Eucerin Cream) 0 gm TOP BIDPRN PRN PRN Reason: Dry Skin [Bydureon] 2 Mg 0 each SC Q7DAYS [facility] [place] 7.5/325 0 each PO Q6H PRN PRN Reason: Pain Senna/Docusate Sodium (Senokot S) 2 tab PO BID PRN PRN Reason: Constipation Sodium Chloride ([place] Nasal [place] 0.65%) 0 ml EA NARE QIDPRN PRN PRN Reason: Nasal Congestion Sodium Chloride (Flush - Normal Saline) 10 ml IVF Q12HR [facility] Last Admin: 11/06/18 09:16 Dose: 10 ml Sodium Chloride (Flush - Normal Saline) 10 ml IVF PRN PRN PRN Reason: Saline Flush Sotalol HCl (Betapace) 80 mg PO BID [facility] Last Admin: 11/06/18 09:09 Dose: 80 mg Tamsulosin HCl (Flomax) 0.4 mg PO BID [facility] Last Admin: 11/06/18 09:10 Dose: 0.4 mg Terazosin HCl (Hytrin) 10 mg PO HS [facility] Last Admin: 11/05/18 20:24 Dose: 10 mg Throat Lozenges (Cepastat Lozenges) 1 coleen PO Q2H PRN PRN Reason: Sore Throat Zolpidem Tartrate (Ambien) 5 mg PO HSPRN PRN PRN Reason: Insomnia
--- NOTE | 2018-11-06 11:14 | EKG ---
Test Reason : Blood Pressure : / mmHG Vent. Rate : 088 BPM Atrial Rate : 088 BPM P-R Int : 180 ms QRS Dur : 092 ms QT Int : 438 ms P-R-T Axes : 081 076 068 degrees QTc Int : 529 ms Normal sinus rhythm Nonspecific ST abnormality Prolonged QT Abnormal ECG Confirmed by GLENIS ALICEA ([id number]), editor in chief newspaper MARCOS CAMPOS ([id number]) on 11/06/2018 11:14:21 AM Referred By: Confirmed By:GLENIS ALICEA
[2018-11-06] MEDS: HumaLOG 300 UNITS/3 ML VIAL SC PRN ×2 (11:48→16:37)
--- NOTE | 2018-11-06 12:31 | DIS ---
DATE OF ADMISSION: 11/03/2018 DATE OF DISCHARGE: 11/06/2018 PRIMARY CARE PHYSICIAN: Brandy Montana MD. DISCHARGE DISPOSITION: [facility] rehab. PRIMARY DISCHARGE DIAGNOSES: 1. Acute urinary retention due to benign enlargement of prostate. 2. Gross hematuria, resolved. 3. Urinary tract infection. 4. Acute kidney injury, improved. 5. Frequent falls. 6. Hyponatremia. 7. Paroxysmal atrial fibrillation. 8. Adrenal insufficiency. 9. Hypothyroidism. 10. Chronic anticoagulation. SECONDARY DISCHARGE DIAGNOSIS: 1. Chronic low back pain. 2. Benign enlargement of prostate. 3. Obstructive uropathy. 4. Coronary artery disease. 5. Diabetes, type 2. 6. Diverticulosis of colon. 7. Dyslipidemia. 8. Hypertension. 9. Obesity with BMI 33. 10. History of metastatic malignant melanoma. PRIMARY PROCEDURE/OPERATION: None. RADIOLOGICAL INVESTIGATION: CT brain negative for any acute intracranial process. CT cervical spine negative for any fracture or dislocation. Chest, abdomen, and pelvis CT scan showed enlarged prostate, diverticulosis. SIGNIFICANT LABORATORY DATA: WBC 7.8, hemoglobin 12.3, and platelet 176. Sodium 130, potassium 3.8, BUN 16, creatinine 1.12, and calcium 8.1. LFT normal. Urinalysis suggestive of UTI. Urine culture negative. DISCHARGE MEDICATIONS: 1. Macrobid 100 mg p.o. b.i.d. for 7 days. 2. Flomax 0.4 mg p.o. b.i.d. 3. Proscar 5 mg p.o. daily. Continue following medication: 1. Exenatide 2 mg subcu every 7 days. 2. Amlodipine 10 mg daily. 3. Aspirin 81 mg daily. 4. Pradaxa 150 mg p.o. b.i.d. 5. Lasix 40 mg daily. 6. Gabapentin 300 mg p.o. at bedtime. 7. Glyburide 5 mg p.o. daily as directed. 8. Hydrocortisone 20 mg in the morning and 10 mg in the evening. 9. Synthroid 100 mcg p.o. daily. 10. Metformin 500 mg p.o. b.i.d. 11. Multivitamin 1 tablet daily. 12. Sotalol 80 mg p.o. b.i.d. CONTRAINDICATION: None. CODE STATUS: Full code. INPATIENT CHAINMAN: Dr. Francine Rodriguez was consulted for urinary retention. Katharina Mccray PA-C, saw this patient because the patient missed neurosurgery appointment as an outpatient basis while in the hospital. TEST RESULT PENDING ON DISCHARGE: None. ALLERGIES: NO KNOWN DRUG ALLERGIES. DISCHARGE PLAN: Posthospital, the patient is discharged to [facility] with Chinchilla catheter. The patient will need a voiding trial next week. HOSPITAL COURSE: A 77-year-old male with above-mentioned medical problem, who was having UTI symptoms. He was having frequent fall. He was found with dehydration and acute kidney injury. He was given IV fluid and his renal function improved. His sodium was also improving. We started empiric antibiotic therapy with Rocephin and Levaquin while in the hospital. Urology was consulted for gross hematuria and urinary retention. Dr. Francine Rodriguez recommended to leave Chinchilla catheter on discharge and she will follow up with him as an outpatient basis for voiding trial. While in hospital, he had chest, abdomen, and pelvis CT scan as well as CT cervical spine and CT of brain, which was essentially unremarkable for any acute major problem. The patient was having frequent fall and physical deconditioning and that is why family member requested to place him to rehab. With the help of assistant case manager, we arranged rehabilitation. The patient is seen and examined at bedside today. The patient will continue his metastatic malignant melanoma treatment at rehab. He prefers to take his own hydrocodone therapy. The patient is seen and examined at bedside today. Please see my progress note from today for further detail. Paperwork for discharge done and discharge medication reconciliation done. TIME SPENT: Total time spent on discharge day, 31 minutes. Job ID: [id number]
[2018-11-06] MEDS: Diabetic Tussin 200 MG/10 ML UDCUP PO PRN (12:42)
[2018-11-06 16:41] VITALS: BP 145/78; TEMP 97.7
== END 2018-11-06 17:58 | DRG 683 ==
LOC: ERS 15:56 → T4-A 21:20 → OBSVTOIN 11-03 09:53
PROVIDERS: ADMIT Emergency Medicine; ATTEND Emergency Medicine
DX: N17.9 Acute kidney failure, unspecified (principal); C79.9 Secondary malignant neoplasm of unspecified site; E87.1 Hypo-osmolality and hyponatremia; N39.0 Urinary tract infection, site not specified; E27.40 Unspecified adrenocortical insufficiency; I10 Essential (primary) hypertension; I25.10 Atherosclerotic heart disease of native coronary artery without angina pectoris; E78.5 Hyperlipidemia, unspecified; E66.9 Obesity, unspecified; N40.1 Benign prostatic hyperplasia with lower urinary tract symptoms; E03.9 Hypothyroidism, unspecified; R33.8 Other retention of urine; R31.0 Gross hematuria; N32.0 Bladder-neck obstruction; I48.0 Paroxysmal atrial fibrillation; E11.40 Type 2 diabetes mellitus with diabetic neuropathy, unspecified; G89.29 Other chronic pain; M54.5 Low back pain; M51.36 Other intervertebral disc degeneration, lumbar region; M50.323 Other cervical disc degeneration at C6-C7 level; K57.30 Diverticulosis of large intestine without perforation or abscess without bleeding; N13.9 Obstructive and reflux uropathy, unspecified; R29.6 Repeated falls; I25.2 Old myocardial infarction; Z92.21 Personal history of antineoplastic chemotherapy; Z79.01 Long term (current) use of anticoagulants; Z87.891 Personal history of nicotine dependence; Z98.61 Coronary angioplasty status; Z79.82 Long term (current) use of aspirin; Z79.899 Other long term (current) drug therapy; Z68.33 Body mass index [BMI] 33.0-33.9, adult
CPT/HCPCS: 36415; 36416; 70450; 71260; 72125; 74177; 80048; 80053; 81003; 81015; 84484; 85025; 87086; 93005; J0696; J7050

== ENCOUNTER 2018-11-24 16:11 | Inpatient (IN) | payer MEDICARE, BC ==
[2018-11-24 16:55] LABS: #Eosinphils 0.2 thou/uL (0.0-0.7); #Lymphocytes 1.6 thou/uL (1.20-3.40); #Monocytes 0.9 thou/uL (0.11-0.59); #Neutrophils 5.9 thou/uL (1.40-6.50); %Basophils 0.6 % (0.0-1.0); %Eosinophils 2.5 % (0.0-10.0); %Lymphocytes 18.3 % (21.0-51.0); %Monocytes 10.6 % (0.0-10.0); Hemoglobin 12.9 g/dL (14.0-18.0); Mean Corpuscular Hemoglobin 29.5 pg (27.0-31.0); Mean Corpuscular Volume 89.5 fL (78.0-98.0); Mean Platelet Volume 6.2 fL (7.4-10.4); Platelet Count 249 thou/uL (130-400); RBC Distribution Width 12.2 % (11.5-14.5); Red Blood Cell (RBC) Count 4.38 mill/uL (4.70-6.10); White Blood Cell (WBC) Count 8.6 thou/uL (4.8-10.8)
--- NOTE | 2018-11-24 17:01 | RAD ---
PORTABLE CHEST 1 VIEW: Date: 11/24/18 Time: 1642 hours HISTORY: Near syncope, dizziness. FINDINGS: Comparison made with exam of 11/15/18. The heart size is normal. The lungs are expanded without focal areas of consolidation, pneumothoraces , or pleural effusions. IMPRESSION: No radiographic evidence of acute cardiopulmonary process. POS: [facility]
[2018-11-24 17:17] LABS: ALT (SGPT) 21 U/L (8-55); AST (SGOT) 22 U/L (5-34); Albumin 3.8 g/dL (3.4-4.8); Alkaline Phosphatase 66 U/L (40-150); Anion Gap 15 mmol/L (10-20); BUN (Urea Nitrogen) 27 mg/dL (8.4-25.7); Bilirubin, Total 0.4 mg/dL (0.2-1.2); CK (CPK) 17 U/L (30-200); Calc. Creatinine Clearance 0 mL/min (70-130); Calcium 9.5 mg/dL (7.8-10.44); Carbon Dioxide 20 mmol/L (23-31); Chloride 98 mmol/L (98-107); Estimated GFR-MDRD 44; Glucose 131 mg/dL (83-110); Potassium 5.1 mmol/L (3.5-5.1); Protein, Total 6.8 g/dL (5.8-8.1); Sodium 128 mmol/L (136-145)
[2018-11-24 20:08] LABS: Bilirubin Small (Negative); Blood, Urine Large (Negative); Clarity CLOUDY (Clear); Glucose, Urine (Dipstick) Negative (Negative); Leukocyte Small (Negative); Nitrite Negative (Negative); Protein, Urine (Dipstick) 100 mg/dL (Neg-Trace); Specific Gravity, Urine 1.027 (1.002-1.036); Urobilinogen 0.2 mg/dL (0.2-1.0)
[2018-11-24 20:12] LABS: Bacteria/HPF None Seen HPF (None Seen); Hyaline Casts/LPF 4-6 HYALINE CAST LPF (0-3 Hyaline); RBC/HPF GREATER THAN 50-TNTC HPF (0-3); Squamous Epithelial 0-3 HPF (0-3); WBC/HPF 21-50 HPF (0-3)
[2018-11-24 20:15] LABS: Renal Epithelial None Seen HPF (0-3); Transitional Epithelial NONE SEEN HPF (0-3)
[2018-11-24 21:24] LABS: Troponin I Less than 0.010 ng/mL (< 0.028)
[2018-11-24 22:15] VITALS: BMI 31.9
[2018-11-24 23:49] LABS: Troponin I Less than 0.010 ng/mL (< 0.028)
--- NOTE | 2018-11-25 00:51 | HP ---
CHIEF COMPLAINT: 1. Dizziness. 2. Low blood pressure. PRIMARY CARE PHYSICIAN: Dr. Montana. HISTORY OF PRESENT ILLNESS: The patient is a 77-year-old male with past medical history of falls, AFib, CAD, BPH, diabetes type 2, hypertension, melanoma who presented to the Emergency Department for concerns of dizziness and syncope. The patient reported that his blood pressure was very low. The patient was discharged yesterday from the rehab after he was admitted 3 weeks ago for falls. Review of the chart indicated that patient's blood pressure medication was stopped at discharge. The patient's Lasix was also stopped at discharge. The patient decided to take his Pradaxa from today. The patient is also taking sotalol for his AFib at this point. The patient denies any chest pain, shortness of breath at this point right now. The patient does not have any further complaints at this point. The patient was seen in the ER and was admitted for further workup. PAST MEDICAL HISTORY: 1. AFib. 2. Coronary artery disease. 3. BPH. 4. Diabetes type 2. 5. Hypertension. PAST SURGICAL HISTORY: Stent placement to RCA. ALLERGIES: NO KNOWN DRUGS. SOCIAL HISTORY: Denies smoking, stopped years ago, . FAMILY HISTORY: Positive for hypertension and diabetes. CURRENT MEDICATIONS: 1. Pradaxa 150 mg b.i.d. 2. Metformin. 3. Sotalol. 4. Aspirin. 5. Hydrocodone. 6. Amitriptyline. 7. Levothyroxine. REVIEW OF SYSTEMS: CONSTITUTIONAL: No fevers or headache. HEENT: No headaches, no blurry vision. CARDIOVASCULAR: No chest pain. GASTROINTESTINAL: No abdominal pain, nausea or vomiting. RESPIRATORY: Denies any shortness of breath. GENITOURINARY: Denies dysuria. NEUROLOGIC: Dizziness. SKIN: Denies any new rashes. LOWER EXTREMITIES: Denies any edema. PHYSICAL EXAMINATION: VITAL SIGNS: Blood pressure 112/73, pulse 75, respirations 16, 100% on room air. GENERAL: Alert and oriented x3. HEENT: No acute changes with vision, PERRLA, atraumatic. NECK: No lymphadenopathy noted. RESPIRATORY: No wheezes heard bilaterally. CARDIOVASCULAR: No murmurs, rubs or gallops. Regular rate and rhythm. ABDOMEN: Bowel sounds positive. Soft, nontender. LOWER EXTREMITIES: No edema. Neurological: Cranial nerves II through XII grossly intact. Alert and oriented. SKIN: No acute rashes noted. PSYCHIATRIC: Normal mood. IMAGING: Chest x-ray negative. LABORATORY DATA: CBC negative for significant abnormalities. BMP: Sodium 128, potassium 5.1, chloride 98, carbon dioxide 20, anion gap 15, BUN is 27, creatinine 1.57, glucose 131, lactic acid 1.6, creatinine kinase 17, C-reactive protein 20. Other labs within normal limits. ASSESSMENT AND PLAN: 1. Syncope. Suspect orthostatic hypotension given patient's orthostatically positive. Blood pressure within normal limits. The patient's BP medication was stopped before discharge. Creatinine within normal limit at this point. We will get CT of the head without contrast, echocardiogram, ultrasound carotid, fall precautions, PT/OT. At this point gentle IV fluids. 2. Hyponatremia. [id number], seems to be chronic. Sodium 128, at this point, the patient's Lasix was stopped before he was discharged from the rehab yesterday, gentle IVF. We will get AM cortisol, TSH and trend labs in the morning. 3. Chronic atrial fibrillation. We will continue Pradaxa and sotalol. 4. Hypertension. Continue to hold home medications at this point. P.r.n. hydralazine. 5. Chronic kidney disease. It looks like the patient has a history of chronic kidney disease, creatinine seemed to around baseline. Trend labs. 6. Continue rest of home medications once it has been verified. 7. Diabetes type 2. We will hold metformin, low dose sliding scale insulin with hypoglycemia protocol. 8. The patient is a full code. 9. The patient's medical power of real estate attorney will be his and then his children. 10. Prophylaxis. We will continue home Pradaxa at this point. Job ID: [id number]
[2018-11-25] MEDS ORDERED: Dextrose 50% Abboject 50 ML SYRINGE IVP PRN (01:24)
[2018-11-25] MEDS ORDERED: HYDROcodone/Acetaminophen 7.5/325 mg Tablet PO PRN (01:24)
[2018-11-25] MEDS ORDERED: Dextrose 5% in Water 1,000 ML IV PRN (01:24)
[2018-11-25] MEDS: Sodium Chloride 0.9% 1,000 ML IV SCH ×2 (03:21→21:01)
[2018-11-25 06:07] LABS: #Basophils 0.1 thou/uL (0.0-0.2); #Eosinphils 0.4 thou/uL (0.0-0.7); #Lymphocytes 1.8 thou/uL (1.20-3.40); #Monocytes 0.8 thou/uL (0.11-0.59); #Neutrophils 3.6 thou/uL (1.40-6.50); %Basophils 1.1 % (0.0-1.0); %Eosinophils 6.4 % (0.0-10.0); %Lymphocytes 26.7 % (21.0-51.0); %Monocytes 12.2 % (0.0-10.0); %Neutrophils 53.5 % (42.0-75.0); Mean Corpuscular HGB CONC 34.5 g/dL (32.0-36.0); Mean Corpuscular Hemoglobin 30.8 pg (27.0-31.0); Mean Corpuscular Volume 89.2 fL (78.0-98.0); Mean Platelet Volume 6.1 fL (7.4-10.4); Platelet Count 244 thou/uL (130-400); RBC Distribution Width 12.2 % (11.5-14.5); White Blood Cell (WBC) Count 6.8 thou/uL (4.8-10.8)
[2018-11-25 06:24] LABS: Anion Gap 12 mmol/L (10-20); BUN (Urea Nitrogen) 24 mg/dL (8.4-25.7); Calc. Creatinine Clearance 63 mL/min (70-130); Calcium 9.1 mg/dL (7.8-10.44); Carbon Dioxide 22 mmol/L (23-31); Chloride 101 mmol/L (98-107); Estimated GFR-MDRD 52; Glucose 121 mg/dL (83-110); Potassium 4.1 mmol/L (3.5-5.1); Sodium 131 mmol/L (136-145)
[2018-11-25] MEDS ORDERED: Cosyntropin 250 MCG VIAL SLOW IVP SCH (08:30)
--- NOTE | 2018-11-25 08:41 | ULT ---
CAROTID DOPPLER ULTRASOUND: Date: 11/25/18 HISTORY: Orthostasis. Near syncope. COMPARISON: None. TECHNIQUE: Real-time Regan scale, color Doppler, and spectral analysis of the extracranial carotid and vertebral arteries was performed. FINDINGS: Mild atherosclerotic plaque both carotid bulbs. Antegrade flow both vertebral arteries. No elevated p eak systolic velocities within the internal carotid arteries. Right ICA/CCA ratio is 0.8. Left ICA/CCA ratio is 0.7. IMPRESSION: No hemodynamically significant stenosis. POS: [facility]
[2018-11-25] MEDS: Dabigatran 150 mg Capsule PO SCH ×2 (08:54→20:46)
--- NOTE | 2018-11-25 09:02 | PDOC.PN ---
- Subjective Encounter Start Date: 11/25/18 Encounter Start Time: 09:01 Patient has a history of metastatic melanoma. Has a confirmed diagnosis of adrenal insufficiency as a result of chemo and cancer therapy. On Hydrocortisone 20 q am and 10 q pm. - Objective Vital Signs & Weight: Vital Signs (12 hours) Temp Pulse Resp BP BP BP BP 11/25/18 07:21 98.6 F 78 16 102/55 L 92/60 152/70 H 11/25/18 03:44 98.8 F 75 13 124/59 L 11/24/18 21:22 98.7 F 80 18 147/73 H Pulse Ox 11/25/18 07:21 97 11/25/18 03:44 94 L 11/24/18 21:22 100 Weight Weight 204 lb 3.2 oz I&O: 11/24/18 11/25/18 11/26/18 06:59 06:59 06:59 Intake Total 480 Output Total 200 Balance 280 Result Diagrams: 11/25/18 05:38 11/25/18 05:38 Additional Labs: Accuchecks 11/25/18 05:48 POC Glucose 137 H Phys Exam - Physical Examination Constitutional: NAD Right lower lid crusting and atropy. (hx of melanoma lesion) Respiratory: no wheezing, no rales, no rhonchi Cardiovascular: RRR, no significant murmur, no rub Gastrointestinal: soft, non-tender, no distention, positive bowel sounds Musculoskeletal: no edema Psychiatric: normal affect, A&O x 3 Dx/Plan (1) Orthostasis Code(s): I95.1 - ORTHOSTATIC HYPOTENSION Status: Acute (2) Adrenal insufficiency ([place]'s disease) Code(s): E27.1 - PRIMARY ADRENOCORTICAL INSUFFICIENCY Status: Acute (3) Hyponatremia Code(s): E87.1 - HYPO-OSMOLALITY AND HYPONATREMIA Status: Acute Comment: improving (4) Urinary retention due to benign prostatic hyperplasia Code(s): N40.1 - BENIGN PROSTATIC HYPERPLASIA WITH LOWER URINARY TRACT SYMP; R33.8 - OTHER RETENTION OF URINE Status: Acute (5) BPH (benign prostatic hypertrophy) Code(s): N40.0 - BENIGN PROSTATIC HYPERPLASIA WITHOUT LOWER URINRY TRACT SYMP Status: Chronic (6) Bladder outlet obstruction Code(s): N32.0 - BLADDER-NECK OBSTRUCTION Status: Chronic (7) CAD (coronary artery disease) Code(s): I25.10 - ATHSCL HEART DISEASE OF [place] CORONARY ARTERY W/O ANG PCTRS Status: Chronic (8) DM type 2 (diabetes mellitus, type 2) Status: Chronic (9) Dyslipidemia Code(s): E78.5 - HYPERLIPIDEMIA, UNSPECIFIED Status: Chronic (10) HTN (hypertension) Code(s): I10 - ESSENTIAL (PRIMARY) HYPERTENSION Status: Chronic - Plan * Continuing workup with CT head. Carotids negative. * Looks like it is fairly well defined Fortino's. Will give higher dose of HCT today (20 tid) and see if his symptoms improve. * Will talk with his clay house worker (Lizy) to see if there may be an alternative to Sotalol as I am afraid it may be exacerbating the problem. * Continue gently hydration.
[2018-11-25] MEDS ORDERED: Sotalol HCl 80 MG TAB PO SCH ×2 (09:13→09:30)
[2018-11-25] MEDS ORDERED: metFORMIN 500 MG TAB PO SCH ×2 (09:13→09:30)
[2018-11-25] MEDS ORDERED: FLUTICASONE FUROATE 50 MCG IH SCH (09:13)
[2018-11-25] MEDS ORDERED: ENCORAFENIB 450 MG PO SCH (09:13)
[2018-11-25] MEDS ORDERED: Non-Formulary Item 1 EACH (Exenatide Microspheres [Bydureon Pen] 2 MG) SQ SCH (09:13)
--- NOTE | 2018-11-25 09:42 | CT ---
EXAM: BRAIN CT WITHOUT IV CONTRAST: History: Dizziness, injury following multiple falls. Comparison: 11-02-18 FINDINGS: Atrophy and chronic white matter ischemic change. No focal mass or midline shift. No intra or extraax ial hemorrhage. Bilateral maxillary sinus mucosal changes and probable left maxillary sinus fluid, wo rsening from the prior study of 11-02-18. The mastoids are clear of acute process. There is some very mild stable partial right mastoid opacification. IMPRESSION: Bilateral sinus mucosal disease, worsening from prior study. No mass or bleed or other significant ac tatum intracranial process. POS: [facility]
[2018-11-25] MEDS: Hydrocortisone 10 mg Tablet PO SCH ×3 (09:44→20:46)
[2018-11-25] MEDS: traMADol HCl 50 MG TAB PO PRN (10:41)
[2018-11-25] MEDS: metFORMIN 500 MG TAB PO SCH (17:21)
[2018-11-25] MEDS: cefTRIAXone\\ROCEPHIN 2 GM in Sodium Chloride 0.9% 100 ML IVPB SCH (17:26)
[2018-11-25] MEDS: Insulin Regular 300 UNITS/3 ML VIAL SC PRN (18:27)
[2018-11-25] MEDS: Gabapentin 300 MG CAP PO SCH (20:46)
[2018-11-25] MEDS: Sotalol HCl 80 MG TAB PO SCH (20:47)
[2018-11-25] MEDS ORDERED: BINIMETINIB 45 MG PO SCH (21:00)
--- NOTE | 2018-11-25 23:21 | CON ---
DATE OF CONSULTATION: 11/25/2018 HISTORY OF PRESENT ILLNESS: The patient was actually supposed to see me in the office which we need to check his emptying as I removed his catheter 2 days prior and wanted to ensure it was still adequately emptying because he had been urinating without difficulties. The patient was admitted with significant back pain, dizziness, and feeling as though he might pass out due to low blood pressure. He is not having any urinary complaints. He was still having some hematuria. He had no fever or chills. No nausea, vomiting, diarrhea, or constipation. Of note, the tamsulosin BID is new , and could be affecting his BP. As previously reviewed and his most recent consultation, he had a urinary tract infection back in January of 2017, but that was not something that he significantly remembered until it was brought up. He has had normal PSAs previously. He had not had prior retention, but did have obvious sounds of BPH and bladder outlet obstruction prior to his episode of retention and hematuria in the middle of October, at which point, he left with a catheter and saw him in the office for cystoscopy and then had it removed the next day. He also had concern for infections at that time and he is currently on antibiotics which was Bactrim and then I added Omnicef because there was still some bacteria present on the sample from 2018. PAST MEDICAL HISTORY: Significant for metastatic melanoma on oral immunotherapy was diagnosed in May 2018, adrenal insufficiency, atrial fibrillation, hypertension, high cholesterol, coronary artery disease and [place] in 2007, hypothyroid, and diabetes. PAST SURGICAL HISTORY: Includes coronary artery stents around 2007 and 2011. MEDICATIONS: Include, 1. Exenatide. 2. Tylenol Arthritis. 3. Amlodipine 10. 4. Aspirin 81. 5. Pradaxa 150 b.i.d. 6. Lasix 40. 7. Gabapentin 300 at bedtime. 8. Glyburide 5 mg. 9. Hydrocortisone 10 in the afternoon and 20 in the morning. 10. Synthroid 100 mcg daily. 11. Metformin 500 b.i.d. 12. Multivitamin daily. 13. Sotalol 80 b.i.d. 14. Terazosin 10 mg at night. 15. In the recent addition in the past month, the tamsulosin twice a day and finasteride once a day. 16. The above-mentioned Bactrim and Omnicef. SOCIAL HISTORY: He had a 25-pack year history, but quit in . Question of prior alcohol abuse, but at this point, he has a six pack over the summer. No other drugs. 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 FAMILY HISTORY: Significant for diabetes and hypertension. His mother and father in their 80s of old age and cancer. PHYSICAL EXAMINATION: GENERAL: He is afebrile at 98.4, blood pressure 102/55, heart rate 78, respiratory rate 16, saturating 96% on room air. He has urinated approximately 200, but there is not a bladder scan, so we will have to check that. HEART: He has regular rate and rhythm. No murmurs, gallops, or rubs. LUNGS: Actually coarse more on the right than left, and he did have a cough when asked to breathe deeply, but he denied any significant trouble with this or productive cough. ABDOMEN: Soft, nondistended, and nontender. There is no urgency with palpation in the suprapubic area. : Testes are descended bilaterally without masses. Phallus is uncircumcised with phimosis noted. RECTAL: Deferred. He had no lower extremity edema. HEENT: He had no scleral icterus. NECK: He had no JVD. LABORATORY VALUES: Reveal a CBC with mild anemia of 12.0 and 34.8, and a creatinine of 1.33, down from 1.56. Urinalysis upon admission showed 21 to 50 wbc's, pjx-[id number]-nr-count rbc's, but no bacteria and no squamous cells. Most recent culture was positive for Proteus on the 09 of November, but subsequent culture from the was negative and the sample from my office showing some Bettie. He had no new pertinent imaging this admission, but he did have the recent CT scan from last month which showed small simple cyst without any hydro, stones, or masses. The bladder was distended at that time with an enlarged prostate and intravesical component more on the right than left. ASSESSMENT: We have a 77-year-old male, admitted for other reasons other than with recent retention and catheter removal voiding adequately. We do need to document that this is the case of a bladder scan. He has been getting Bactrim and Omnicef, and I would keep him on these--or just give him Rocephin-- and finasteride for now. Hold the tamsulosin. If his hematuria increases, then his aspirin and/or Pradaxa may need to be held. Job ID: [id number] MTDD
[2018-11-25] MEDS: Mometasone/Formoterol 120 PUFF INHALER INH SCH (23:27)
[2018-11-26] MEDS: Sodium Chloride 0.9% 1,000 ML IV SCH ×2 (03:37→21:37)
[2018-11-26] MEDS: BINIMETINIB 15 MG PO SCH ×3 (05:01→20:15)
[2018-11-26] MEDS: Mometasone/Formoterol 120 PUFF INHALER INH SCH ×2 (07:08→19:56)
[2018-11-26] MEDS: Magnesium Oxide 400 MG TAB PO SCH (08:45)
[2018-11-26] MEDS: Sotalol HCl 80 MG TAB PO SCH ×2 (08:45→20:16)
[2018-11-26] MEDS: Aspirin Chewable 81 MG TAB PO SCH (08:45)
[2018-11-26] MEDS: Dabigatran 150 mg Capsule PO SCH ×2 (08:45→20:15)
[2018-11-26] MEDS: Glimepiride 2 MG TAB PO SCH (08:45)
[2018-11-26] MEDS: Levothyroxine Sodium 100 MCG TAB PO SCH (08:45)
[2018-11-26] MEDS: Hydrocortisone 10 mg Tablet PO SCH ×3 (08:45→20:15)
[2018-11-26] MEDS: metFORMIN 500 MG TAB PO SCH ×2 (08:46→17:16)
[2018-11-26] MEDS: Loratadine 10 MG TAB PO SCH (08:46)
[2018-11-26] MEDS: Finasteride 5 MG TAB PO SCH (08:46)
[2018-11-26] MEDS ORDERED: Cetirizine HCl 10 MG TAB PO SCH (09:00)
[2018-11-26] MEDS ORDERED: Non-Formulary Item 1 EACH (Magnesium Oxide [Magnesium] 400 MG) PO SCH (09:00)
[2018-11-26] MEDS ORDERED: Encorafenib [Braftovi] 75 MG PO SCH (09:00)
[2018-11-26] MEDS ORDERED: Fludrocortisone Acetate 0.1 MG TAB PO SCH (12:00)
--- NOTE | 2018-11-26 14:13 | PRG ---
DATE OF SERVICE: 11/26/2018 SUBJECTIVE: The patient was voiding hematuria yesterday, but the PVR was greater than 350, so I asked for the catheter to be replaced. It drained approximately whatever I guess is 400 since it was not completely documented and it was hematuric, but now is cleared. The patient still reports significant back pain, for which he cannot move air well and wants that addressed and is supposed to see Neurology. His orthostatic hypotension is still problematic, but his numbers are improving. He has continued the finasteride, but the tamsulosin is held right now, and I would hold off on any alpha blockers until his blood pressure is more stable. OBJECTIVE: VITAL SIGNS: Vitals have been stable with his blood pressure improved to 128/58. I think he had about 700 out after the catheter was placed and currently there is maroon urine in the bag, but the tubing is nice and clear, light yellow. LABORATORY DATA: There are no new labs. ASSESSMENT: We have a 77-year-old male with significant incomplete emptying and hematuria likely related to benign prostatic hypertrophy, unable tolerate alpha blockers at this time, but on finasteride. If he stays through the weekend, then I will order a voiding trial on Thursday. If not, then he will go home with a catheter, and he can call my office Thursday morning to get definitive followup for another voiding trial. Job ID: [id number]
[2018-11-26] MEDS: cefTRIAXone\\ROCEPHIN 2 GM in Sodium Chloride 0.9% 100 ML IVPB SCH (17:15)
[2018-11-26] MEDS: Insulin Regular 300 UNITS/3 ML VIAL SC PRN (17:16)
[2018-11-26] MEDS: Gabapentin 300 MG CAP PO SCH (20:15)
--- NOTE | 2018-11-26 20:26 | PDOC.PN ---
- Subjective Encounter Start Date: 11/26/18 Encounter Start Time: 11:00 Doing well in general. Still symptomatic with standing or sitting. Does not feel significantly improved. - Objective Vital Signs & Weight: Vital Signs (12 hours) Temp Pulse Pulse Pulse Resp BP BP 11/26/18 19:56 85 18 11/26/18 15:56 97.4 F L 82 16 11/26/18 12:10 82 78 146/70 H 137/73 11/26/18 11:48 98.2 F 79 18 11/26/18 08:45 73 BP BP BP Pulse Ox Pulse Ox Pulse Ox 11/26/18 19:56 97 11/26/18 15:56 146/70 H 96 11/26/18 12:10 98 96 11/26/18 11:48 116/59 L 125/57 L 142/66 H 97 11/26/18 08:45 Weight Weight 204 lb 3.2 oz I&O: 11/25/18 11/26/18 11/27/18 06:59 06:59 06:59 Intake Total 480 840 980 Output Total 200 700 500 Balance 280 140 480 Result Diagrams: 11/25/18 05:38 11/25/18 05:38 Additional Labs: Accuchecks 11/26/18 11/26/18 11/26/18 16:30 10:46 05:00 POC Glucose 195 H 201 H 146 H 11/25/18 20:18 POC Glucose 213 H Phys Exam - Physical Examination Constitutional: NAD Respiratory: no wheezing, no rales, no rhonchi, clear to auscultation bilateral Cardiovascular: RRR, no significant murmur Gastrointestinal: soft, non-tender, no distention, positive bowel sounds Musculoskeletal: no edema Dx/Plan (1) Orthostasis Code(s): I95.1 - ORTHOSTATIC HYPOTENSION Status: Acute (2) Adrenal insufficiency (Fortino's disease) Code(s): E27.1 - PRIMARY ADRENOCORTICAL INSUFFICIENCY Status: Acute (3) Hyponatremia Code(s): E87.1 - HYPO-OSMOLALITY AND HYPONATREMIA Status: Acute Comment: improving (4) Urinary retention due to benign prostatic hyperplasia Code(s): N40.1 - BENIGN PROSTATIC HYPERPLASIA WITH LOWER URINARY TRACT SYMP; R33.8 - OTHER RETENTION OF URINE Status: Acute (5) BPH (benign prostatic hypertrophy) Code(s): N40.0 - BENIGN PROSTATIC HYPERPLASIA WITHOUT LOWER URINRY TRACT SYMP Status: Chronic (6) Bladder outlet obstruction Code(s): N32.0 - BLADDER-NECK OBSTRUCTION Status: Chronic (7) CAD (coronary artery disease) Code(s): I25.10 - ATHSCL HEART DISEASE OF [place] CORONARY ARTERY W/O ANG PCTRS Status: Chronic (8) DM type 2 (diabetes mellitus, type 2) Status: Chronic (9) Dyslipidemia Code(s): E78.5 - HYPERLIPIDEMIA, UNSPECIFIED Status: Chronic (10) HTN (hypertension) Code(s): I10 - ESSENTIAL (PRIMARY) HYPERTENSION Status: Chronic - Plan * Still symptomatic with orthostasis. * Did not improve with holding the tamsulosin, increasing the hydrocortisone and gently hydrating. * Discussed with Dr. Rodriguez. Continue to hold tamsulosin. * Neuro consult. * Add abhishek.
[2018-11-27] MEDS: Mometasone/Formoterol 120 PUFF INHALER INH SCH ×2 (07:31→19:47)
[2018-11-27] MEDS: Dabigatran 150 mg Capsule PO SCH ×2 (09:07→21:45)
[2018-11-27] MEDS: Hydrocortisone 10 mg Tablet PO SCH ×3 (09:08→21:46)
[2018-11-27] MEDS: Fludrocortisone Acetate 0.1 MG TAB PO SCH (09:08)
[2018-11-27] MEDS: metFORMIN 500 MG TAB PO SCH ×2 (09:08→18:02)
[2018-11-27] MEDS: Glimepiride 2 MG TAB PO SCH (09:08)
[2018-11-27] MEDS: Finasteride 5 MG TAB PO SCH (09:08)
[2018-11-27] MEDS: Magnesium Oxide 400 MG TAB PO SCH (09:08)
[2018-11-27] MEDS: Loratadine 10 MG TAB PO SCH (09:08)
[2018-11-27] MEDS: Sotalol HCl 80 MG TAB PO SCH ×2 (09:08→21:48)
[2018-11-27] MEDS: BINIMETINIB 15 MG PO SCH ×2 (09:09→21:43)
[2018-11-27] MEDS: Aspirin Chewable 81 MG TAB PO SCH (09:10)
[2018-11-27] MEDS: Levothyroxine Sodium 100 MCG TAB PO SCH (09:15)
[2018-11-27 09:16] LABS: #Eosinphils 0.1 thou/uL (0.0-0.7); #Lymphocytes 3.2 thou/uL (1.20-3.40); #Monocytes 0.8 thou/uL (0.11-0.59); #Neutrophils 4.5 thou/uL (1.40-6.50); %Basophils 0.1 % (0.0-1.0); %Monocytes 9.3 % (0.0-10.0); %Neutrophils 52.6 % (42.0-75.0); Hemoglobin 11.3 g/dL (14.0-18.0); Mean Corpuscular HGB CONC 33.8 g/dL (32.0-36.0); Mean Corpuscular Hemoglobin 30.3 pg (27.0-31.0); Mean Corpuscular Volume 89.7 fL (78.0-98.0); Mean Platelet Volume 6.2 fL (7.4-10.4); Platelet Count 264 thou/uL (130-400); RBC Distribution Width 12.1 % (11.5-14.5); Red Blood Cell (RBC) Count 3.74 mill/uL (4.70-6.10); White Blood Cell (WBC) Count 8.6 thou/uL (4.8-10.8)
[2018-11-27 09:29] LABS: Anion Gap 12 mmol/L (10-20); BUN (Urea Nitrogen) 14 mg/dL (8.4-25.7); Calc. Creatinine Clearance 90 mL/min (70-130); Calcium 8.7 mg/dL (7.8-10.44); Carbon Dioxide 21 mmol/L (23-31); Chloride 108 mmol/L (98-107); Estimated GFR-MDRD 81; Glucose 120 mg/dL (83-110); Sodium 137 mmol/L (136-145)
[2018-11-27] MEDS: traMADol HCl 50 MG TAB PO PRN ×2 (09:30→21:51)
[2018-11-27] MEDS ORDERED: ISOVUE-370 76%-LOCM 1 ML ONE (12:41)
--- NOTE | 2018-11-27 12:55 | PDOC.PN ---
- Subjective Encounter Start Date: 11/27/18 Encounter Start Time: 11:00 Doing ok, but still has significant postural lightheadedness. Has not had any improvement with fludrocortisone so far. Is able to sit up and stay that way or to lie down and stay that way. Changing from lying to sitting is problematic. - Objective Vital Signs & Weight: Vital Signs (12 hours) Temp Pulse Resp BP Pulse Ox 11/27/18 09:08 69 11/27/18 08:00 98.2 F 84 18 164/85 H 96 11/27/18 07:31 69 16 11/27/18 04:00 97.5 F L 69 20 165/74 H 97 Weight Weight 204 lb 3.2 oz I&O: 11/26/18 11/27/18 11/28/18 06:59 06:59 06:59 Intake Total 840 1940 Output Total 700 1300 Balance 140 640 Result Diagrams: 11/27/18 08:27 11/27/18 08:27 Additional Labs: Accuchecks 11/27/18 11/26/18 11/26/18 05:30 20:14 16:30 POC Glucose 166 H 160 H 195 H Phys Exam - Physical Examination Constitutional: NAD Respiratory: no wheezing, no rales, no rhonchi, clear to auscultation bilateral Cardiovascular: no significant murmur, irregular Gastrointestinal: soft, non-tender, no distention, positive bowel sounds Musculoskeletal: no edema Psychiatric: normal affect Skin: no rash, normal turgor Dx/Plan (1) Orthostasis Code(s): I95.1 - ORTHOSTATIC HYPOTENSION Status: Acute (2) Adrenal insufficiency ([place]'s disease) Code(s): E27.1 - PRIMARY ADRENOCORTICAL INSUFFICIENCY Status: Acute (3) Hyponatremia Code(s): E87.1 - HYPO-OSMOLALITY AND HYPONATREMIA Status: Resolved Comment: improving (4) Urinary retention due to benign prostatic hyperplasia Code(s): N40.1 - BENIGN PROSTATIC HYPERPLASIA WITH LOWER URINARY TRACT SYMP; R33.8 - OTHER RETENTION OF URINE Status: Acute (5) BPH (benign prostatic hypertrophy) Code(s): N40.0 - BENIGN PROSTATIC HYPERPLASIA WITHOUT LOWER URINRY TRACT SYMP Status: Chronic (6) Bladder outlet obstruction Code(s): N32.0 - BLADDER-NECK OBSTRUCTION Status: Chronic (7) CAD (coronary artery disease) Code(s): I25.10 - ATHSCL HEART DISEASE OF [place] CORONARY ARTERY W/O ANG PCTRS Status: Chronic (8) DM type 2 (diabetes mellitus, type 2) Status: Chronic (9) Dyslipidemia Code(s): E78.5 - HYPERLIPIDEMIA, UNSPECIFIED Status: Chronic (10) HTN (hypertension) Code(s): I10 - ESSENTIAL (PRIMARY) HYPERTENSION Status: Chronic - Plan * Orthostatic symptoms not resolved with increasing the hydrocortisone, holding the tamsulosin, IVF and fludrocortisone. * Consult Neuro for any further suggestions. * May just be substantial autonomic dysfunction. * Leaving Chinchilla in. May be able to try to DC on Thursday for a definitive voiding trial per Urology. * Blood sugars well controlled.
--- NOTE | 2018-11-27 12:59 | CT ---
CT ARTERIOGRAM NECK WITH IV CONTRAST AND 3D MIP IMAGING CT ARTERIOGRAM HEAD WITH IV CONTRAST AND 3D MIP IMAGING CT BRAIN WITH AND WITHOUT IV CONTRAST: HISTORY: Dizziness. Melanoma. COMPARISON: 11/25/2018. FINDINGS: There is no evidence of acute intracranial hemorrhage or infarct. The ventricles appear normal in si ze, shape, and position. There is no mass effect or shift of midline structures. No abnormal areas of contrast enhancement. Fluid layers within the left maxillary sinus. There is complete opacificat ion of the right maxillary sinus. Normal branching of the great vessels at the aortic arch. Good flow into each carotid and vertebral system. Mild calcification at each proximal internal carotid artery without significant stenosis. Calcificat ion is also present within the carotid siphons intracranially. [place] is intact. Good joshua w into each cerebral system. No evidence of aneurysm or embolus. IMPRESSION: 1. Minimal atherosclerosis. No acute vascular abnormalities are demonstrated. 2. Severe bilateral maxillary sinusitis. POS: [facility]
--- NOTE | 2018-11-27 14:00 | CON ---
DATE OF CONSULTATION: CHIEF COMPLAINT: Fall. HISTORY OF PRESENT ILLNESS: The patient thinks he sat for a very long time before he got up. He is a very pleasant 78-year-old right-handed man who reports he has had low blood pressures, but no prior dizziness. He thinks this started of this year on October 20. He was going to [facility], [place]. He stopped at a gas station. He stepped off the curb and fell. The week of 04 of November, he fell 2 to 3 times in his bedroom. His back flared up all at once. It has been hurting. He has excruciating back pain and it is affecting his back muscles. He was admitted to the hospital at that time and had x-rays. From the information he showed he has degenerative changes in the lumbar spine with spurs. He had a bladder infection and was in [facility], [place]. He had fallen this time and came into this hospital. Right now, he has taken a pain medication as well. 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 He has lymph node and lung METS from it. He goes to [facility], [place] for treatment of this melanoma which has remained stable since 06/2017, and patient also has previous medical history of cardiac problems with atrial fibrillation, hypertension, hypercholesterolemia, coronary artery disease and HI in 2007, hypothyroidism, diabetes, and adrenal insufficiency. PAST SURGICAL HISTORY: Includes coronary artery disease with stent placement in 2007 and 2011. MEDICATIONS: At home include exenatide, Tylenol, amlodipine, aspirin, Pradaxa, Lasix, gabapentin, glyburide, hydrocortisone, Synthroid, metformin, multivitamin, sotalol, terazosin, tamsulosin, Bactrim, and Omnicef. SOCIAL HISTORY: He quit smoking in 1985. Question of prior alcohol use, but not drinking now. He has been drinking 6 pack over the summer. No other drugs. 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 FAMILY HISTORY: Positive for hypertension and diabetes. His parents in their 80s from old age and cancer. LABORATORY DATA: Workup so far, white count 8.6, hemoglobin 11.3, hematocrit 33.5, platelet count 264. Sodium 137, potassium 4.0, chloride 108, bicarb 21, and BUN 14, creatinine 0.91, glucose 120. Urine positive for small leukocyte esterase. In other workup, CT of the head was completed which showed bilateral sinus disease. No mass or bleed or any acute intracranial findings. Carotid Dopplers were completed and noted there is no hemodynamically significant stenosis. Echocardiogram showed EF of 60% to 65%. REVIEW OF SYSTEMS: PULMONARY: Negative for shortness of breath or cough. CARDIAC: Negative for any chest pain. GI: Negative for nausea, vomiting, or diarrhea. NEUROLOGICAL: Positive for a fall and dizziness in the past. ENDOCRINE: Positive for adrenal insufficiency and diabetes. DERMATOLOGIC: Negative for any acute rash. HEMATOLOGIC: Negative for bleeding diatheses or clotting disorder. PHYSICAL EXAMINATION: VITAL SIGNS: Blood pressure 164/85, temperature 98.2, pulse 84, respiratory rate 18. CHEST: Clear vesicular breathing. CARDIOVASCULAR: S1, S2 heard. No murmurs. ABDOMEN: Soft and nontender. NEUROLOGICAL: Higher intellectual functions. Normal orientation to time, place, and person. Cranial nerves, pupils are 3 mm. No facial asymmetry. He had mild slight change in the left nasolabial fold. Extraocular movements, he had mild weakness of the medial rectus muscle. He has decreased hearing bilaterally. Tongue midline. No atrophy noted. Normal elevation of palate. Motor exam, he is unable to lift his left shoulder. He has 5/5 strength in the right upper extremity in deltoid, biceps, triceps on the left side. He has 5/5 strength in triceps and biceps and strength was 5/5 in wrist extension, flexion, finger extension, flexion, iliopsoas, hamstrings, quadriceps, ankle dorsiflexion and plantar flexion bilaterally. Sensory examination was normal bilaterally. He had loss of sensation on the left side to touch. Proprioception was normal except for his right toe. Cerebellar exam normal [id number], [id number]. IMPRESSION: The patient is a 78-year-old man who fell. He has had prior history of melanoma for which he has been receiving treatment at [facility], [place] and he has remained stable with regards to his melanoma. He thinks he sat down for too long and might have had low blood pressure. He has no prior history of dizziness. He fell a few times in the past. His neurological examination shows mild sensory loss in the right lower extremity to touch and impairment of proprioception in the right toe. Differential diagnosis for fall would be unstable gait due to lower lumbar pain, which he is reporting as severe low back pain. He might have fallen due to orthostatic hypotension and his carotid are clear. Echocardiogram is normal. RECOMMENDATIONS: I will go ahead and request a CT angiogram of the head and neck to look at his posterior circulation as well. If that is normal, we can consider obtaining an MRI of the lower back to see why he has this much pain in the lower back. He also will need EMG nerve conduction studies as outpatient to evaluate for neuropathy. Please obtain orthostatic vitals. I will follow up the patient with you tomorrow. Job ID: [id number]
[2018-11-27] MEDS: cefTRIAXone\\ROCEPHIN 2 GM in Sodium Chloride 0.9% 100 ML IVPB SCH (18:02)
[2018-11-27] MEDS ORDERED: Encorafenib [Braftovi] 75 MG PO SCH (21:00)
[2018-11-27] MEDS: Encorafenib [Braftovi] 75 MG PO SCH (21:43)
[2018-11-27] MEDS: Gabapentin 300 MG CAP PO SCH (21:46)
[2018-11-28] MEDS: hydrALAZINE 20 MG/ML VIAL SLOW IVP PRN (04:38)
[2018-11-28] MEDS: Mometasone/Formoterol 120 PUFF INHALER INH SCH ×2 (08:39→19:22)
[2018-11-28] MEDS: Ondansetron PF 4 MG/2 ML Vial SLOW IVP PRN (09:09)
[2018-11-28] MEDS: metFORMIN 500 MG TAB PO SCH ×2 (09:30→18:20)
[2018-11-28] MEDS: Sotalol HCl 80 MG TAB PO SCH ×2 (09:31→21:47)
[2018-11-28] MEDS: Finasteride 5 MG TAB PO SCH (09:31)
[2018-11-28] MEDS: Aspirin Chewable 81 MG TAB PO SCH (09:31)
[2018-11-28] MEDS: Fludrocortisone Acetate 0.1 MG TAB PO SCH (09:31)
[2018-11-28] MEDS: Glimepiride 2 MG TAB PO SCH (09:31)
[2018-11-28] MEDS: Magnesium Oxide 400 MG TAB PO SCH (09:31)
[2018-11-28] MEDS: Hydrocortisone 10 mg Tablet PO SCH ×2 (09:31→21:47)
[2018-11-28] MEDS: Loratadine 10 MG TAB PO SCH (09:31)
[2018-11-28] MEDS: Dabigatran 150 mg Capsule PO SCH ×2 (09:32→21:47)
[2018-11-28] MEDS: Levothyroxine Sodium 100 MCG TAB PO SCH (09:36)
[2018-11-28] MEDS: BINIMETINIB 15 MG PO SCH ×2 (09:36→21:46)
--- NOTE | 2018-11-28 10:50 | PDOC.PN ---
- Subjective Encounter Start Date: 11/28/18 Encounter Start Time: 10:35 Feeling some better today. Less lightheaded with sitting up. Has some nausea associated with his oral chemo meds. Chronic, brief. Resolved now. Denies any current maxillary sinus pain. Reports long standing problems with his sinuses. - Objective Vital Signs & Weight: Vital Signs (12 hours) Temp Pulse Resp BP BP Pulse Ox 11/28/18 09:31 82 161/72 H 11/28/18 08:00 97.8 F 18 98 11/28/18 04:38 87 11/28/18 04:00 98.3 F 72 20 96 11/27/18 23:40 98.3 F 87 18 165/78 H 97 Weight Weight 195 lb 8 oz I&O: 11/27/18 11/28/18 11/29/18 06:59 06:59 06:59 Intake Total 1940 1160 Output Total 1300 1725 Balance 640 -565 Result Diagrams: 11/27/18 08:27 11/27/18 08:27 Additional Labs: Accuchecks 11/28/18 11/27/18 11/27/18 05:50 20:18 16:45 POC Glucose 151 H 164 H 256 H 11/27/18 10:59 POC Glucose 139 H Phys Exam - Physical Examination Constitutional: NAD HEENT: PERRLA No maxillary sinus TTP. Respiratory: no wheezing, no rales, no rhonchi Cardiovascular: RRR, no significant murmur Gastrointestinal: soft, non-tender, no distention, positive bowel sounds Musculoskeletal: no edema Psychiatric: normal affect, A&O x 3 Skin: normal turgor Dx/Plan (1) Orthostasis Code(s): I95.1 - ORTHOSTATIC HYPOTENSION Status: Acute (2) Adrenal insufficiency (Fortino's disease) Code(s): E27.1 - PRIMARY ADRENOCORTICAL INSUFFICIENCY Status: Acute (3) Hyponatremia Code(s): E87.1 - HYPO-OSMOLALITY AND HYPONATREMIA Status: Resolved Comment: improving (4) Urinary retention due to benign prostatic hyperplasia Code(s): N40.1 - BENIGN PROSTATIC HYPERPLASIA WITH LOWER URINARY TRACT SYMP; R33.8 - OTHER RETENTION OF URINE Status: Acute (5) BPH (benign prostatic hypertrophy) Code(s): N40.0 - BENIGN PROSTATIC HYPERPLASIA WITHOUT LOWER URINRY TRACT SYMP Status: Chronic (6) Bladder outlet obstruction Code(s): N32.0 - BLADDER-NECK OBSTRUCTION Status: Chronic (7) CAD (coronary artery disease) Code(s): I25.10 - ATHSCL HEART DISEASE OF [place] CORONARY ARTERY W/O ANG PCTRS Status: Chronic (8) DM type 2 (diabetes mellitus, type 2) Status: Chronic (9) Dyslipidemia Code(s): E78.5 - HYPERLIPIDEMIA, UNSPECIFIED Status: Chronic (10) HTN (hypertension) Code(s): I10 - ESSENTIAL (PRIMARY) HYPERTENSION Status: Chronic (11) Chronic low back pain Code(s): M54.5 - LOW BACK PAIN; G89.29 - OTHER CHRONIC PAIN Status: Acute (12) Frequent falls Code(s): R29.6 - REPEATED FALLS Status: Acute (13) Sinusitis Code(s): J32.9 - CHRONIC SINUSITIS, UNSPECIFIED Status: Acute - Plan * Neuro ordered CTA. No obstructive disease, but confirms the sinusitis. * Continue abx for sinusitis. * Rechecking orthostatic BP's * Continue the florinef. Hold on adding midodrine. * Change the hydrocortisone dose back to his usual. * PT/INR, PTT for the LP ordered by neuro. * May need L-spine MRI as well. * Will need outpatient follow up for EMG/PNCV * Chinchilla drainage is much clearer. * Anticipate removing the Chinchilla tomorrow to definitively determine if he will continue to retain. If so, will need Urologic intervention.
[2018-11-28] MEDS: Acetaminophen 325 MG TAB PO PRN ×2 (12:55→18:20)
[2018-11-28] MEDS: Insulin Regular 300 UNITS/3 ML VIAL SC PRN (12:55)
[2018-11-28 14:04] LABS: INR-International Normal Ratio 1.4; Prothrombin Time 16.9 SEC (12.0-14.7)
[2018-11-28 14:05] LABS: PTT 45.6 SEC (22.9-36.1)
--- NOTE | 2018-11-28 14:05 | MRI ---
MRI OF THE LUMBAR SPINE WITHOUT CONTRAST: COMPARISON: None. HISTORY: Low back pain for several years. TECHNIQUE: Multiplanar, multisequence MRI images were obtained of the lumbar spine without contrast. FINDINGS: There is disk desiccation of L4-5 and L5-S1 intervertebral disks. Height loss is seen at L5-S1 with end plate degenerative changes surrounding this level. Vertebral bodies demonstrate normal height wi thout fracture or subluxation. The conus medullaris terminates normally at T12. There is a cyst in the left kidney. The other prev ertebral and paraspinal soft tissues are unremarkable. T12-L1: No significant posterior bulge or protrusion. Moderate posterior facet arthrosis. Mild misty tral canal stenosis. Mild bilateral neural foraminal stenosis. L1-2: Unremarkable. L2-3: Unremarkable. L3-4: A minimal generalized concentric disk bulge is seen. Mild bilateral posterior facet arthrosis . No central canal stenosis. Mild bilateral neural foraminal stenosis. L4-5: A minimal generalized concentric disk bulge is seen. Mild bilateral posterior facet arthrosis . Mild central canal stenosis. Mild left and moderate right neural foraminal stenosis. L5-S1: A moderate disk-osteophyte complex is seen. No posterior facet arthrosis. Mild central roque l stenosis. Moderate bilateral neural foraminal stenosis. IMPRESSION: Degenerative changes of the lumbar spine as above. POS: [facility]
--- NOTE | 2018-11-28 14:33 | RAD ---
THREE VIEWS OF THE LEFT SHOULDER: COMPARISON: None. HISTORY: Left shoulder pain. FINDINGS: Three views of the left shoulder show no evidence of acute fracture or dislocation. No degenerative changes are seen. No soft tissue swelling is present. IMPRESSION: Unremarkable exam. POS: [facility]
--- NOTE | 2018-11-28 19:37 | PRG ---
DATE OF SERVICE: 11/28/2018 CHIEF COMPLAINT: Syncope. INTERVAL HISTORY: I spoke to his primary admitting physician as well. The patient has reported syncope and he has orthostatic hypotension and the plan was to start him on Florinef. At this time, the patient is reporting he is stable, but he still is worried about his back as well as left shoulder. LABORATORY DATA: Today, white count 8.6, hemoglobin 11.3, hematocrit 33.5, platelets 264. Chemistry: Sodium 137, potassium 4, chloride 108, bicarb 21, BUN 14, creatinine 0.91, glucose 120. Urine, leukocyte esterase is positive, bilirubin in urine is positive, urine protein 100. His MRI of the lumbar spine was reviewed and he has multilevel degenerative changes on the MRI, which could contribute to his back pain. His shoulder x-ray on the left side was unremarkable. PHYSICAL EXAMINATION: VITAL SIGNS: Orthostatics, sitting blood pressure 133/63, standing blood pressure 132/72, supine 137/70, temperature 98.4, pulse 83. NEUROLOGIC: Higher intellectual functions. Normal orientation to time, place, person. Cranial nerves: Normal extraocular movements. No facial asymmetry. Tongue midline. Motor, bulk normal, tone normal. Strength 5/5 in upper and lower extremities. IMPRESSION: The patient is a 78-year-old man with orthostatic hypotension and syncopal event. He is currently being started on Florinef once a day, which seems to help with this situation and for now, please continue the plan of management with Florinef. He will need EMG nerve conduction studies as outpatient to look into neuropathy. The patient reports he does have neuropathy and he might have autonomic dysfunction along with his peripheral neuropathy and he can see Dr. Stanford for the same. Please call Neurology if you have any further questions. Job ID: [id number]
[2018-11-28] MEDS: Gabapentin 300 MG CAP PO SCH (21:47)
[2018-11-28] MEDS: Encorafenib [Braftovi] 75 MG PO SCH (21:47)
[2018-11-29] MEDS: hydrALAZINE 20 MG/ML VIAL SLOW IVP PRN (04:06)
[2018-11-29] MEDS: Mometasone/Formoterol 120 PUFF INHALER INH SCH ×2 (07:08→19:09)
[2018-11-29] MEDS: metFORMIN 500 MG TAB PO SCH ×2 (08:13→16:49)
[2018-11-29] MEDS: Dabigatran 150 mg Capsule PO SCH ×2 (08:14→20:55)
[2018-11-29] MEDS: Loratadine 10 MG TAB PO SCH (08:14)
[2018-11-29] MEDS: Magnesium Oxide 400 MG TAB PO SCH (08:14)
[2018-11-29] MEDS: Fludrocortisone Acetate 0.1 MG TAB PO SCH (08:14)
[2018-11-29] MEDS: Hydrocortisone 10 mg Tablet PO SCH ×2 (08:14→20:55)
[2018-11-29] MEDS: Sotalol HCl 80 MG TAB PO SCH ×2 (08:14→20:56)
[2018-11-29] MEDS: Glimepiride 2 MG TAB PO SCH (08:14)
[2018-11-29] MEDS: Aspirin Chewable 81 MG TAB PO SCH (08:14)
[2018-11-29] MEDS: Levothyroxine Sodium 100 MCG TAB PO SCH (08:14)
[2018-11-29] MEDS: Finasteride 5 MG TAB PO SCH (08:14)
[2018-11-29] MEDS: BINIMETINIB 15 MG PO SCH ×2 (08:17→20:56)
--- NOTE | 2018-11-29 10:14 | RAD ---
PORTABLE CHEST: Date: 11-29-18 Provided Clinical History: Adventitious breath sounds. FINDINGS: Comparison 11-24-18. Cardiac and mediastinal silhouette is unchanged in appearance. No focal consolidation, pleural fluid or pneumothorax apparent. IMPRESSION: No evidence for an acute cardiopulmonary process. POS: [facility]
[2018-11-29] MEDS: Acetaminophen 325 MG TAB PO PRN ×2 (10:59→23:24)
--- NOTE | 2018-11-29 13:04 | DIS ---
DATE OF ADMISSION: 11/25/2018 DATE OF DISCHARGE: 11/29/2018 DISCHARGE DIAGNOSES: 1. Orthostatic hypotension, multifactorial, improved. 2. Adrenal insufficiency, improved. 3. Hyponatremia, resolved. 4. Urinary retention secondary to benign prostatic hyperplasia. 5. Diabetes mellitus type 2, insulin requiring. 6. Hypertension, stable. 7. Coronary artery disease, chronic and stable. 8. Deconditioning. 9. Bilateral maxillary sinusitis. CONSULTATIONS: Dr. Adamson with Neurology Service. PERTINENT LAB AND X-RAY FINDINGS: Sodium ranged between 128 and 137, creatinine ranged between 0.91 and 1.56, estimated GFR ranged between 44 and 81. Troponin I negative x3. TSH 1.85. Serum cortisol level 1.70. CBC showed a white blood cell count ranged between 6.8 and 8.6, hemoglobin ranged between 11.3 and 12.9. Urine culture dated 11/22/2018 showed presumptive Bettie albicans. Portable chest x-ray dated 11/24/2018 showed no acute cardiopulmonary process. Carotid Doppler study dated 11/25/2018 showed no hemodynamically significant stenosis. CT of the brain without contrast dated 11/25/2018 showed bilateral sinus mucosal disease without acute process. 2D transthoracic echocardiogram dated 11/25/2018 showed ejection fraction of 60% to 65%. Diastolic dysfunction noted. CT angiogram of the head and neck dated 11/27/2018 showed severe bilateral maxillary sinusitis with minimal atherosclerosis. Lumbar spine MRI dated 11/28/2018 showed degenerative changes of the lumbar spine. Three views of the left shoulder dated 11/28/2018 negative. HOSPITAL COURSE: The patient was initially admitted after presenting with dizziness and hypotension with near syncope. The patient underwent extensive evaluation with multiple studies to include neurogenic and cardiogenic workup. The patient was noted with orthostatic hypotension, likely mediated due to dehydration in addition to adrenal insufficiency. The patient was initiated on Florinef 0.1 mg daily in addition to adjustment to current hydrocortisone dosing to 30 mg total daily. The patient was evaluated by the Neurology Service, undergoing multiple evaluations including angiograms of the head and neck showing no focal stenosis. The patient was noted with mild hyponatremia, correcting with discontinuation of hydrochlorothiazide and low volume intravenous fluids. The patient continued to receive general supportive management and was also evaluated by the Urology Service due to an indwelling Chinchilla catheter inserted due to bladder outlet obstruction due to benign prostatic hyperplasia. The patient underwent subsequent Chinchilla catheter removal and has been monitored for voiding after removal of the catheter. The patient was also noted with severe bilateral maxillary sinusitis, initiated on Augmentin 500 mg b.i.d. Current recommendations are to complete a 14-day course of antibiotics on an outpatient basis. The patient was also evaluated by the Physical Therapy and Occupational Therapy Services and deemed an appropriate candidate for ongoing home physical therapy after discharge. I have examined the patient at the time of discharge and discussed followup instructions. The patient verbalizes understanding and agreement and ready for discharge on 11/29/2018. DISCHARGE MEDICATIONS: 1. Augmentin 500 mg 1 tablet p.o. b.i.d. x14 days. 2. Albuterol sulfate 3 mL nebulized q.4 hours p.r.n. 3. Enteric-coated aspirin 81 mg p.o. daily. 4. Mektovi 45 mg p.o. b.i.d. 5. Zyrtec 10 mg p.o. daily. 6. Braftovi 450 mg p.o. daily. 7. Exenatide 2 mg subcutaneously q.7 days. 8. Finasteride 5 mg p.o. daily. 9. Arnuity Ellipta 50 mcg inhaled daily. 10. Neurontin 300 mg p.o. at bedtime. 11. Amaryl 2 mg p.o. q.a.m. 12. Levothyroxine 100 mcg p.o. daily. 13. Magnesium oxide 400 mg p.o. daily. 14. Metformin 1000 mg p.o. b.i.d. 15. Multivitamin 1 tablet p.o. daily. 16. [place]-3 fatty acids 1000 mg p.o. daily. 17. Sotalol 80 mg p.o. b.i.d. 18. Flomax 0.4 mg p.o. b.i.d. 19. Tramadol 50 mg p.o. q.4 hours p.r.n. 20. Florinef 0.1 mg p.o. daily. 21. Hydrocortisone 10 mg p.o. b.i.d. FOLLOWUP: The patient may follow up with his primary care provider, Dr. Brandy Montana, within 7 days of discharge. The patient may follow up with Dr. Max Leggett with Neurology Service. CONDITION ON DISCHARGE: Fair. ACTIVITY: Rolling walker with standby/contact guard assistance with ongoing physical and occupational therapy through home health services. DIET: ADA and heart healthy. CODE STATUS: Full. DISPOSITION: Home with home health with [facility] including physical and occupational therapy. TIME SPENT: Total time preparing and coordinating discharge is 35 minutes. Job ID: [id number]
--- NOTE | 2018-11-29 14:26 | PRG ---
DATE OF SERVICE: 11/29/2018 SUBJECTIVE: The patient did well over the weekend and the urine cleared. The catheter was removed about 6 o'clock this morning. He has had the urge, but the urinal was close by so he did not go and no longer has the urge. He has not voided yet. We reviewed clean intermittent catheterization and if he is in-house, this may be better for him, at which point, he may be able to void and not need the catheter versus learning how to do it himself, which would eliminate the need for the indwelling; however, if he does void and have less than 250 or so continuously, then I am okay with leaving the catheter out. I just do not want that amount to increase over time. We reviewed all of this today. OBJECTIVE: His vitals have been stable. He has had good urine output. Previously, it was clear. There was no catheter currently and he has not voided yet. LABORATORY DATA: Most recent labs from the showed H and H 11.3 and 33.3 with a creatinine of 0.91 and a PTT of 45.6 and INR of 1.4. ASSESSMENT: We have a 78-year-old male with benign prostatic hypertrophy and retention and gross hematuria, likely related to that as outpatient cystoscopy ruled out another source already. He may or may not be voiding adequately at this time, and we are still awaiting his current voiding trial. Depending on his discharge situation, he may or may not need to go home with an indwelling versus learning and doing clean intermittent catheteriation (CIC). Otherwise, if he does go home with an indwelling, we can do a voiding trial as an outpatient. If he goes home doing intermittent catheterization, then he can continue this as long as he is getting consistently more than 200 each time. Job ID: [id number] [facility]
[2018-11-29] MEDS: traMADol HCl 50 MG TAB PO PRN ×2 (14:35→21:10)
--- NOTE | 2018-11-29 15:53 | PDOC.PN ---
- Subjective Encounter Start Date: 11/29/18 Encounter Start Time: 15:00 Subjective: f/u for orthostasis, deconditioning and adrenal insufficiency. Feels weak -: but overall better. Appetite ok. Chinchilla catheter removed today and -: now with voiding trial. - Objective MAR Reviewed: Yes Vital Signs & Weight: Vital Signs (12 hours) Temp Pulse Pulse Pulse Resp BP BP 11/29/18 12:30 98.3 F 84 19 11/29/18 10:41 78 92 113/68 11/29/18 08:14 83 120/71 11/29/18 08:08 98.5 F 83 18 11/29/18 07:08 86 18 11/29/18 04:06 83 11/29/18 04:00 97.9 F 80 20 BP BP BP Pulse Ox Pulse Ox Pulse Ox 11/29/18 12:30 142/80 H 98 11/29/18 10:41 140/69 116/71 96 96 11/29/18 08:14 11/29/18 08:08 120/71 95 11/29/18 07:08 96 11/29/18 04:06 11/29/18 04:00 186/109 H 94 L Weight Weight 195 lb 8 oz I&O: 11/28/18 11/29/18 11/30/18 06:59 06:59 06:59 Intake Total 1160 1147 Output Total 1725 1380 Balance -565 -233 Result Diagrams: 11/27/18 08:27 11/27/18 08:27 Additional Labs: Accuchecks 11/29/18 11/29/18 11/29/18 11:03 10:34 06:06 POC Glucose 118 H 111 H 112 H 11/28/18 11/28/18 20:05 17:14 POC Glucose 192 H 133 H Radiology Reviewed by me: Yes (PCXR - no acute process) EKG Reviewed by me: Yes (Tele - SR) Phys Exam - Physical Examination Constitutional: NAD HEENT: PERRLA, sclera anicteric, oral pharynx no lesions Neck: no nodes, no JVD, supple, full ROM few scatttered coarse sounds bilat Respiratory: no wheezing S1, S2 Cardiovascular: RRR, no significant murmur, no rub, gallop Gastrointestinal: soft, non-tender, no distention, positive bowel sounds Musculoskeletal: no edema, pulses present Neurological: normal sensation, moves all 4 limbs Psychiatric: A&O x 3 Skin: normal turgor, cap refill <2 seconds Dx/Plan (1) Urinary retention due to benign prostatic hyperplasia Code(s): N40.1 - BENIGN PROSTATIC HYPERPLASIA WITH LOWER URINARY TRACT SYMP; R33.8 - OTHER RETENTION OF URINE Status: Acute Comment: Chinchilla catheter removed today, voiding trials, education on CIC (2) Adrenal insufficiency (Fortino's disease) Code(s): E27.1 - PRIMARY ADRENOCORTICAL INSUFFICIENCY Status: Acute Comment : Continue Hydrocortisone, Florinef (3) Orthostasis Code(s): I95.1 - ORTHOSTATIC HYPOTENSION Status: Acute Comment: Improving overall trend, continue Florinef, Hydrocortisone (4) Sinusitis Code(s): J32.9 - CHRONIC SINUSITIS, UNSPECIFIED Status: Acute Qualifiers: Sinusitis location: maxillary Comment: Augementin 500mg BID (5) Chronic low back pain Code(s): M54.5 - LOW BACK PAIN; G89.29 - OTHER CHRONIC PAIN Status: Chronic Qualifiers: Back pain laterality: bilateral Comment: Supportive mgmt, PT for mobilization, MRI L-spine without spinal stenosis (6) DM type 2 (diabetes mellitus, type 2) Status: Chronic Comment: ISS, continue Metformin 1000mg BID, serial accuchecks - Plan plan discussed w/ family, continue antibiotics, 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
[2018-11-29] MEDS: Ondansetron PF 4 MG/2 ML Vial SLOW IVP PRN (19:41)
[2018-11-29] MEDS: Gabapentin 300 MG CAP PO SCH (20:55)
[2018-11-29] MEDS: Encorafenib [Braftovi] 75 MG PO SCH (20:57)
[2018-11-30] MEDS: traMADol HCl 50 MG TAB PO PRN ×2 (03:33→09:59)
[2018-11-30] MEDS: Acetaminophen 325 MG TAB PO PRN (06:15)
[2018-11-30] MEDS: Mometasone/Formoterol 120 PUFF INHALER INH SCH (07:18)
[2018-11-30] MEDS ORDERED: Lidocaine 5% Patch TD PRN (09:00)
[2018-11-30] MEDS: Ondansetron PF 4 MG/2 ML Vial SLOW IVP PRN (09:02)
[2018-11-30] MEDS: Finasteride 5 MG TAB PO SCH (10:01)
[2018-11-30] MEDS: hydrALAZINE 20 MG/ML VIAL SLOW IVP PRN (10:22)
[2018-11-30] MEDS: Hydrocortisone 10 mg Tablet PO SCH (11:08)
[2018-11-30] MEDS: Glimepiride 2 MG TAB PO SCH (11:08)
[2018-11-30] MEDS: metFORMIN 500 MG TAB PO SCH ×2 (11:08→18:20)
[2018-11-30] MEDS: Fludrocortisone Acetate 0.1 MG TAB PO SCH (11:08)
[2018-11-30] MEDS: Aspirin Chewable 81 MG TAB PO SCH (11:09)
[2018-11-30] MEDS: Magnesium Oxide 400 MG TAB PO SCH (11:09)
[2018-11-30] MEDS: Levothyroxine Sodium 100 MCG TAB PO SCH (11:09)
[2018-11-30] MEDS: BINIMETINIB 15 MG PO SCH (11:09)
[2018-11-30] MEDS: Loratadine 10 MG TAB PO SCH (11:09)
[2018-11-30] MEDS: Sotalol HCl 80 MG TAB PO SCH (11:09)
[2018-11-30] MEDS: Dabigatran 150 mg Capsule PO SCH (11:09)
--- NOTE | 2018-11-30 11:36 | PRG ---
DATE OF SERVICE: 11/30/2018 SUBJECTIVE: The patient voided some yesterday evening, but he was not drinking a significant amount and had poor output and ultimately was straight cathed for about 300 around 6:00 to 7:00 p.m. that was grossly bloody. He did not void overnight, at around 5 in the morning had less than 250 remaining. Then he had significant back pain and pressure and there was concern that possibly this was from the bladder and so an 18-English catheter was placed for hematuria at 400, irrigated and draining fine, thereafter. Unfortunately, did not relieve his pain. PHYSICAL EXAMINATION: VITAL SIGNS: His vitals had been stable up until his pain episode at which point, he had a significant increase in blood pressure, but he has otherwise been afebrile. His heart rate in the 70s and 80s. Blood pressure up to 225/110. His total output has been only about 700 to 800 in the past 24 hours. GENERAL: On exam, he is lying flat in the bed, seems to be uncomfortable, but is able to remain still. The catheter is in place. I ensured that the balloon was not stuck in the prostate and it is now draining clear urine after irrigation. LABORATORY DATA: No new labs. ASSESSMENT: We have a 78-year-old male with significant back pain that is making it more difficult to void in addition to his BPH, with a catheter back in for now until his back pain is under better control, I would leave indwelling as well as continue his finasteride. Job ID: [id number]
--- NOTE | 2018-11-30 15:22 | DIS ---
DATE OF ADMISSION: 11/25/2018 DATE OF DISCHARGE: 11/30/2018 ADDENDUM: HOSPITAL COURSE: The patient's discharge was held for approximately 24 hours due to concern for labile blood pressure as well as urinary retention. The patient was given a voiding trial for approximately 24 hours, but was unable to successfully void consistently. The patient developed increasing low back pain secondarily to urinary retention, at which point, a bladder scan did reveal elevated urine volumes. The patient subsequently underwent Chinchilla catheter replacement with current recommendations to continue Chinchilla catheter for bladder decompression and to follow up on an outpatient basis for voiding trials with his primary urologist. The patient's blood pressure did remain stable through the remainder of the hospital course, and the patient's overall pain control was achieved with oral medications. I have discussed followup instructions with the patient at the time of discharge. He verbalized understanding and in agreement. The patient overall clinically stable and ready for discharge on 11/30/2018. Please see dictated discharge summary on 11/29/2018, for full details and medication history. One additional medication is lidocaine patch transdermally daily. Job ID: [id number]
[2018-11-30 16:19] VITALS: BP 133/73; TEMP 97.1
[2018-11-30] MEDS ORDERED: Lidocaine Patch Removal 1 EACH TOP SCH (21:00)
[2018-12-02] MEDS ORDERED: [Bydureon Pen] 2 MG SC SCH (09:00)
== END 2018-11-30 18:59 | disposition home health service (06) | DRG 644 ==
LOC: ERS 16:11 → 2NO 20:24 → OBSVTOIN 11-25 15:33
PROVIDERS: ADMIT Emergency Medicine; ATTEND Emergency Medicine
DX: E27.1 Primary adrenocortical insufficiency (principal); E87.1 Hypo-osmolality and hyponatremia; I95.1 Orthostatic hypotension; I25.10 Atherosclerotic heart disease of native coronary artery without angina pectoris; E11.22 Type 2 diabetes mellitus with diabetic chronic kidney disease; I12.9 Hypertensive chronic kidney disease with stage 1 through stage 4 chronic kidney disease, or unspecified chronic kidney disease; N18.9 Chronic kidney disease, unspecified; N40.1 Benign prostatic hyperplasia with lower urinary tract symptoms; R33.8 Other retention of urine; E86.0 Dehydration; N32.0 Bladder-neck obstruction; E78.5 Hyperlipidemia, unspecified; M54.5 Low back pain; G89.29 Other chronic pain; R29.6 Repeated falls; J32.9 Chronic sinusitis, unspecified; I48.2 Chronic atrial fibrillation; Z79.01 Long term (current) use of anticoagulants; Z79.84 Long term (current) use of oral hypoglycemic drugs; Z79.82 Long term (current) use of aspirin; I25.2 Old myocardial infarction; Z85.820 Personal history of malignant melanoma of skin; Z95.5 Presence of coronary angioplasty implant and graft; Z83.3 Family history of diabetes mellitus; Z82.49 Family history of ischemic heart disease and other diseases of the circulatory system
CPT/HCPCS: 36415; 36416; 52000; 70450; 70496; 70498; 71045; 72148; 80048; 80053; 81001; 81003; 81015; 82533; 82550; 83605; 84443; 84484; 85025; 85610; 85730; 87086; 93005; 93306; 93880; 94664; 96360; 99213; G0463; J0360; J0696; J1815; J2405; J7050; Q9966

== ENCOUNTER 2018-12-04 16:53 | Emergency (ER) | payer MEDICARE, BC ==
[2018-12-04 18:46] LABS: Bilirubin Moderate (Negative); Blood, Urine Moderate (Negative); Glucose, Urine (Dipstick) Negative (Negative); Leukocyte Trace (Negative); Nitrite Negative (Negative); Protein, Urine (Dipstick) 30 mg/dL (Neg-Trace); Urobilinogen 0.2 mg/dL (0.2-1.0)
[2018-12-04 18:47] LABS: #Basophils 0.1 thou/uL (0.0-0.2); #Lymphocytes 1.5 thou/uL (1.20-3.40); #Monocytes 0.6 thou/uL (0.11-0.59); #Neutrophils 3.4 thou/uL (1.40-6.50); %Basophils 0.8 % (0.0-1.0); %Eosinophils 15.4 % (0.0-10.0); %Lymphocytes 23.6 % (21.0-51.0); %Monocytes 8.5 % (0.0-10.0); %Neutrophils 51.8 % (42.0-75.0); Hemoglobin 13.8 g/dL (14.0-18.0); Mean Corpuscular HGB CONC 33.9 g/dL (32.0-36.0); Mean Corpuscular Volume 88.4 fL (78.0-98.0); Mean Platelet Volume 6.5 fL (7.4-10.4); Platelet Count 254 thou/uL (130-400); RBC Distribution Width 12.7 % (11.5-14.5); Red Blood Cell (RBC) Count 4.58 mill/uL (4.70-6.10); White Blood Cell (WBC) Count 6.5 thou/uL (4.8-10.8)
[2018-12-04 18:49] LABS: Clarity HAZY (Clear)
[2018-12-04 18:59] LABS: Bacteria/HPF 1+ HPF (None Seen); Hyaline Casts/LPF NONE SEEN LPF (0-3 Hyaline); Specific Gravity, Urine 1.022 (1.002-1.036); Squamous Epithelial 0-3 HPF (0-3); Yeast-All Forms 2+ HPF (None Seen)
[2018-12-04 19:09] LABS: ALT (SGPT) 14 U/L (8-55); AST (SGOT) 21 U/L (5-34); Albumin 3.6 g/dL (3.4-4.8); Alkaline Phosphatase 70 U/L (40-150); Anion Gap 18 mmol/L (10-20); BUN (Urea Nitrogen) 12 mg/dL (8.4-25.7); Bilirubin, Total 0.3 mg/dL (0.2-1.2); Calc. Creatinine Clearance 0 mL/min (70-130); Carbon Dioxide 21 mmol/L (23-31); Chloride 94 mmol/L (98-107); Estimated GFR-MDRD 76; Glucose 84 mg/dL (83-110); Lipase 71 U/L (8-78); Potassium 4.7 mmol/L (3.5-5.1); Protein, Total 6.6 g/dL (5.8-8.1); Sodium 128 mmol/L (136-145)
--- NOTE | 2018-12-04 19:26 | CT ---
CT ABDOMEN AND PELVIS WITH IV CONTRAST: 12/04/18 HISTORY: Abdominal pain, diarrhea. FINDINGS: Comparison is made with exam of 11/02/18. The lung bases are unremarkable. The liver, spleen, pancreas, adrenal glands, and right kidney are no rmal. Small cysts in the left kidney are again seen as on 11/02/18. No calcified gallstones are noted. No free air, free fluid, or lymphadenopathy seen in the abdomen or pelvis. There are vascular calcif ications in the aorta without evidence of aneurysmal dilatation of the abdominal aorta. A normal appe aring appendix is seen. There is sigmoid diverticulosis without evidence of diverticulitis. There is a Chinchilla catheter in the urinary bladder. There is fluid in the small bowel loops and the colon and re ctum. Small fat containing inguinal hernia is present. There are degenerative changes in the spine. T here are vascular calcifications without evidence of aneurysmal dilatation of the aorta. IMPRESSION: 1. Fluid in the loops of small and large bowel, consistent with diarrhea. 2. Sigmoid diverticulosis without evidence of diverticulitis. POS: [facility]
== END 2018-12-05 00:19 | disposition home or self-care (01) ==
LOC: ERS 16:53
DX: R19.7 Diarrhea, unspecified (principal); E11.40 Type 2 diabetes mellitus with diabetic neuropathy, unspecified; E78.5 Hyperlipidemia, unspecified; I48.91 Unspecified atrial fibrillation; I10 Essential (primary) hypertension; I25.10 Atherosclerotic heart disease of native coronary artery without angina pectoris; I25.2 Old myocardial infarction; Z85.820 Personal history of malignant melanoma of skin; Z79.84 Long term (current) use of oral hypoglycemic drugs; Z79.899 Other long term (current) drug therapy
CPT/HCPCS: 74177; 80053; 81003; 81015; 82274; 83690; 85025; 87324; 87449; 96360; 96361; Q9966

== ENCOUNTER 2019-01-08 14:59 | Observation (INO) | payer MEDICARE, BC ==
[2019-01-08 15:41] LABS: #Eosinphils 0.1 thou/uL (0.0-0.7); #Monocytes 0.5 thou/uL (0.11-0.59); #Neutrophils 3.7 thou/uL (1.40-6.50); %Basophils 0.4 % (0.0-1.0); %Monocytes 8.5 % (0.0-10.0); %Neutrophils 58.1 % (42.0-75.0); Hemoglobin 11.6 g/dL (14.0-18.0); Mean Corpuscular HGB CONC 32.9 g/dL (32.0-36.0); Mean Corpuscular Hemoglobin 30.7 pg (27.0-31.0); Mean Corpuscular Volume 93.3 fL (78.0-98.0); Mean Platelet Volume 6.5 fL (7.4-10.4); Platelet Count 197 thou/uL (130-400); RBC Distribution Width 13.1 % (11.5-14.5); Red Blood Cell (RBC) Count 3.76 mill/uL (4.70-6.10); White Blood Cell (WBC) Count 6.3 thou/uL (4.8-10.8)
[2019-01-08 16:06] LABS: ALT (SGPT) 12 U/L (8-55); AST (SGOT) 11 U/L (5-34); Albumin 3.2 g/dL (3.4-4.8); Alkaline Phosphatase 63 U/L (40-150); Anion Gap 12 mmol/L (10-20); BUN (Urea Nitrogen) 17 mg/dL (8.4-25.7); Bilirubin, Total 0.4 mg/dL (0.2-1.2); Calc. Creatinine Clearance 0 mL/min (70-130); Calcium 8.8 mg/dL (7.8-10.44); Carbon Dioxide 23 mmol/L (23-31); Chloride 104 mmol/L (98-107); Estimated GFR-MDRD 69; Globulin 2.4 g/dL (2.4-3.5); Glucose 164 mg/dL (83-110); Potassium 3.6 mmol/L (3.5-5.1); Protein, Total 5.6 g/dL (5.8-8.1); Sodium 135 mmol/L (136-145)
[2019-01-08 16:30] LABS: Bilirubin Negative (Negative); Blood, Urine Negative (Negative); Clarity CLOUDY (Clear); Glucose, Urine (Dipstick) 250 mg/dL (Negative); Leukocyte Moderate (Negative); Nitrite Negative (Negative); Protein, Urine (Dipstick) 30 mg/dL (Neg-Trace); Urobilinogen 0.2 mg/dL (0.2-1.0); pH, Urine 7.5 (5.0-9.0)
[2019-01-08 16:33] LABS: Hyaline Casts/LPF 7-10 HYALINE CAST LPF (0-3 Hyaline); Pathc Cast-AUWi Flag 0.81 (0-2.49); RBC/HPF 0-3 HPF (0-3); Squamous Epithelial None Seen HPF (0-3)
[2019-01-08 16:34] LABS: Yeast-AUWi Flag 32.2 (0-25.0)
--- NOTE | 2019-01-08 16:36 | RAD ---
PORTABLE CHEST: 01/08/19 PROVIDED CLINICAL HISTORY: Anemia. FINDINGS: Comparison 11/29/18. The cardiac and mediastinal silhouette is within normal limits. No focal consolidation, pleural fluid or pneumothorax apparent. IMPRESSION: No evidence for an acute cardiopulmonary process. POS: [facility]
[2019-01-08 16:40] LABS: Bacteria/HPF 4+ HPF (None Seen)
[2019-01-08] MEDS ORDERED: Zolpidem Tartrate 5 MG TAB PO PRN (21:27)
[2019-01-08] MEDS ORDERED: HYDROcodone/Acetaminophen 5/325 mg Tablet PO PRN (21:27)
[2019-01-08] MEDS ORDERED: Acetaminophen 325 MG TAB PO PRN (21:27)
[2019-01-08] MEDS ORDERED: Ondansetron PF 4 MG/2 ML Vial IVP PRN (21:27)
[2019-01-08] MEDS ORDERED: HumaLOG 300 UNITS/3 ML VIAL SC PRN ×2 (21:29)
[2019-01-08] MEDS ORDERED: Dextrose 50% Abboject 50 ML SYRINGE SLOW IVP PRN (21:29)
[2019-01-08] MEDS ORDERED: Dextrose 5% in Water 1,000 ML IV PRN (21:29)
[2019-01-08] MEDS ORDERED: Sodium Chloride 0.9% 1,000 ML IV SCH (21:30)
--- NOTE | 2019-01-08 22:51 | HP ---
CHIEF COMPLAINT: Hypotension and dizziness. HISTORY OF PRESENT ILLNESS: This is a 78-year-old male who actually presented to the ER with complaints of fatigue. The patient has had a prior history of melanoma and has been taking oral chemotherapy for this and was found to be hypotensive, has had prior history of hypotension as well, was given 2 L IV fluid and advised to continue with liberal salt intake, was being prepared for discharge from the ER. However, upon the patient standing up, he felt extremely dizzy and almost passed out, so admission was recommended to the observation floor by ER physician. The patient evaluated by the IM team at bedside and the patient states that he feels dizzy, unable to walk and when he stands up, he is feeling extremely, extremely unstable. The patient states that this has recently started to happen. Denies any other associated symptoms. No alleviating or aggravating factors. The patient is seen and examined in the ER. All questions answered. ALLERGIES: NO KNOWN DRUG ALLERGIES. PAST MEDICAL HISTORY: Positive for melanoma as well as neuropathy, diabetes type 2, hypertension, hyperlipidemia. SOCIAL HISTORY: Social drinker. Former smoker, quit about 10 years ago. HOME MEDICATIONS: See MAR. FAMILY HISTORY: Positive for diabetes and hypertension. REVIEW OF SYSTEMS: All systems reviewed, pertinent positives in HPI, otherwise negative. PHYSICAL EXAMINATION: VITAL SIGNS: Blood pressure 105/58, respiratory rate of 16, pulse of 58, O2 saturation 97% on room air, temperature of 97.3. GENERAL: The patient lying in bed, in no acute discomfort. HEENT: Pupils equal, round, and reactive to light and accommodation. Oral cavity moist and pink. NECK: Supple, mobile, nontender. Thyroid appreciated. PULMONARY: Regular respiratory rate. No tachypnea. No wheals, wheezing, rhonchi appreciated. No increase in AP diameter. CARDIOVASCULAR: S1, S2. Borderline sinus bradycardia. No murmurs, rubs, or gallops appreciated. ABDOMEN: Positive bowel sounds. Soft, nontender, nondistended. EXTREMITIES: 2+ peripheral pulses noted bilaterally. No cyanosis, clubbing, edema. NEUROLOGICAL: Cranial nerves 2 through 12 intact. No loss of sensory function. LABORATORY DATA: CBCs within normal limits. Basic metabolic panel within normal limits. Urinalysis shows proteinuria, glucosuria, moderate leukocyte esterase, wbc count, 4+ bacteria and hyaline casts. Chest x-ray shows no cardiopulmonary abnormalities. ASSESSMENT: 1. Fatigue, weakness, and dizziness. 2. Urinary tract infection. 3. History of melanoma. 4. Diabetes mellitus type 2. 5. Hypertension. 6. Hyperlipidemia. 7. Unsteady gait. PLAN: 1. At this point in time, admit the patient to observation unit under Internal Medicine services. We will do insulin sliding scale for diabetes mellitus type 2. 2. We will get Physical Therapy involved for further evaluation and plan as well. 3. We will continue with IV fluids. 4. Advised to have liberal salt intake diet to increase blood pressure. 5. Continue home blood pressure medications to be held if systolic blood pressure less than 120. 6. Repeat blood work tomorrow morning. Case and plan discussed with patient and family at length. They understand and agreed with this plan. Job ID: [id number]
[2019-01-08] MEDS: cefTRIAXone\\ROCEPHIN 1 GM in Sodium Chloride 0.9% 100 ML IVPB SCH (23:01)
[2019-01-09 02:58] VITALS: BMI 26.9
[2019-01-09] MEDS: Levothyroxine Sodium 100 MCG TAB PO SCH (05:59)
[2019-01-09 06:13] LABS: #Eosinphils 0.3 thou/uL (0.0-0.7); #Lymphocytes 2.2 thou/uL (1.20-3.40); #Monocytes 0.6 thou/uL (0.11-0.59); %Basophils 0.5 % (0.0-1.0); %Eosinophils 3.2 % (0.0-10.0); %Lymphocytes 27.1 % (21.0-51.0); %Monocytes 7.3 % (0.0-10.0); %Neutrophils 61.8 % (42.0-75.0); Hemoglobin 10.6 g/dL (14.0-18.0); Mean Corpuscular HGB CONC 33.4 g/dL (32.0-36.0); Mean Corpuscular Volume 92.7 fL (78.0-98.0); Mean Platelet Volume 6.8 fL (7.4-10.4); Platelet Count 182 thou/uL (130-400); RBC Distribution Width 12.9 % (11.5-14.5); Red Blood Cell (RBC) Count 3.41 mill/uL (4.70-6.10)
[2019-01-09 06:35] LABS: Anion Gap 12 mmol/L (10-20); BUN (Urea Nitrogen) 16 mg/dL (8.4-25.7); Calc. Creatinine Clearance 66 mL/min (70-130); Calcium 8.4 mg/dL (7.8-10.44); Carbon Dioxide 23 mmol/L (23-31); Chloride 105 mmol/L (98-107); Estimated GFR-MDRD 66; Glucose 177 mg/dL (83-110); Potassium 3.3 mmol/L (3.5-5.1); Sodium 137 mmol/L (136-145)
[2019-01-09] MEDS ORDERED: Lidocaine 5% Patch TD PRN (07:36)
[2019-01-09] MEDS ORDERED: traMADol HCl 50 MG TAB PO PRN (07:36)
[2019-01-09] MEDS ORDERED: Albuterol Sulfate 2.5 mg/3 ml Neb NEB PRN (07:36)
[2019-01-09] MEDS ORDERED: Sodium Chloride 0.65% Nasal 44 ML BOT EA NARE PRN (07:37)
[2019-01-09] MEDS ORDERED: Calcium Carbonate 500 MG ChewTAB PO PRN (07:37)
[2019-01-09] MEDS ORDERED: Diabetic Tussin 200 MG/10 ML UDCUP PO PRN (07:37)
[2019-01-09] MEDS ORDERED: Eucerin (Mineral Oil/Petrolatum,White) 30 gm Jar TOP PRN (07:37)
[2019-01-09] MEDS ORDERED: Loratadine 10 MG TAB PO PRN (07:37)
[2019-01-09] MEDS ORDERED: Senokot S 8.6-50 MG TAB PO PRN (07:37)
[2019-01-09] MEDS ORDERED: Cepastat Lozenges 1 LOZ PO PRN (07:37)
[2019-01-09] MEDS ORDERED: Loperamide HCl 2 MG CAP PO PRN (07:37)
[2019-01-09] MEDS ORDERED: Artificial Tears 18 DROP/0.9 ML EA EYE PRN (07:37)
[2019-01-09] MEDS ORDERED: Metoclopramide HCl 10 MG/2 ML VIAL IVP PRN (07:38)
[2019-01-09] MEDS ORDERED: HYDROcodone/Acetaminophen 5/325 mg Tablet PO PRN (08:13)
[2019-01-09] MEDS ORDERED: Glimepiride 2 MG TAB PO SCH (08:30)
[2019-01-09] MEDS ORDERED: Hydrocortisone 10 mg Tablet PO SCH (09:00)
[2019-01-09] MEDS: NS 0.9% w/ 20 MEQ KCL 1,000 ML/1,000 ML BAG IV SCH ×2 (09:07→21:11)
[2019-01-09] MEDS: Magnesium Oxide 400 MG TAB PO SCH (09:08)
[2019-01-09] MEDS: Multivitamin W/ Minerals 1 TAB PO SCH (09:08)
[2019-01-09] MEDS: metFORMIN 500 MG TAB PO SCH ×2 (09:08→16:27)
[2019-01-09] MEDS: Fish Oil 1,000 MG CAP PO SCH (09:08)
[2019-01-09] MEDS: Finasteride 5 MG TAB PO SCH (09:09)
[2019-01-09] MEDS: Fludrocortisone Acetate 0.1 MG TAB PO SCH (09:09)
[2019-01-09] MEDS: Sotalol HCl 80 MG TAB PO SCH ×2 (09:09→20:15)
[2019-01-09] MEDS: DULoxetine 30 MG CAP PO SCH ×2 (09:10→20:14)
[2019-01-09] MEDS: Tamsulosin HCl 0.4 MG CAP PO SCH ×2 (09:10→20:15)
[2019-01-09] MEDS: Aspirin Chewable 81 MG TAB PO SCH (09:10)
[2019-01-09] MEDS: Dabigatran 150 mg Capsule PO SCH ×2 (09:10→20:14)
--- NOTE | 2019-01-09 12:43 | PDOC.PN ---
- Subjective Encounter Start Date: 01/09/19 Encounter Start Time: 09:30 -: old records requested/rev Patient seen and examined. No new complaints. No overnight events - Objective MAR Reviewed: Yes Vital Signs & Weight: Vital Signs (12 hours) Temp Pulse Resp BP BP Pulse Ox 01/09/19 10:53 98.3 F 71 16 123/81 96 01/09/19 09:09 64 130/79 01/09/19 07:40 97.9 F 64 16 130/79 97 01/09/19 04:20 97.3 F L 69 16 98/64 95 Weight Weight 177 lb I&O: 01/08/19 01/09/19 01/10/19 06:59 06:59 06:59 Intake Total 1025 Balance 1025 Result Diagrams: 01/09/19 05:31 01/09/19 05:31 Additional Labs: Accuchecks 01/08/19 21:20 POC Glucose 95 Phys Exam - Physical Examination Constitutional: NAD HEENT: PERRLA, moist MMs, sclera anicteric Neck: no JVD, supple Respiratory: no wheezing, no rales, no rhonchi Cardiovascular: RRR, no significant murmur, no rub Gastrointestinal: soft, non-tender, no distention, positive bowel sounds Musculoskeletal: no edema, pulses present Neurological: non-focal, normal sensation Lymphatic: no nodes Psychiatric: normal affect Skin: no rash, normal turgor Dx/Plan (1) Hypokalemia Code(s): E87.6 - HYPOKALEMIA Status: Acute (2) Orthostatic hypotension Code(s): I95.1 - ORTHOSTATIC HYPOTENSION Status: Acute (3) UTI (urinary tract infection) Status: Acute (4) Adrenal insufficiency ([place]'s disease) Code(s): E27.1 - PRIMARY ADRENOCORTICAL INSUFFICIENCY Status: Chronic Comment: Continue Hydrocortisone, Florinef (5) Anemia, normocytic normochromic Code(s): D64.9 - ANEMIA, UNSPECIFIED Status: Chronic (6) BPH (benign prostatic hypertrophy) Code(s): N40.0 - BENIGN PROSTATIC HYPERPLASIA WITHOUT LOWER URINRY TRACT SYMP Status: Chronic (7) Bladder outlet obstruction Code(s): N32.0 - BLADDER-NECK OBSTRUCTION Status: Chronic (8) CAD (coronary artery disease) Code(s): I25.10 - ATHSCL HEART DISEASE OF [place] CORONARY ARTERY W/O ANG PCTRS Status: Chronic (9) Chronic low back pain Code(s): M54.5 - LOW BACK PAIN; G89.29 - OTHER CHRONIC PAIN Status: Chronic Comment: (10) DM type 2 (diabetes mellitus, type 2) Status: Chronic Comment: ISS, continue Metformin 1000mg BID, serial accuchecks (11) Diverticulosis of colon Code(s): K57.30 - DVRTCLOS OF LG INT W/O PERFORATION OR ABSCESS W/O BLEEDING Status: Chronic (12) Dyslipidemia Code(s): E78.5 - HYPERLIPIDEMIA, UNSPECIFIED Status: Chronic (13) HTN (hypertension) Code(s): I10 - ESSENTIAL (PRIMARY) HYPERTENSION Status: Chronic - Plan cont current plan of care, plan discussed w/ family, continue antibiotics, PT/OT * continue IVF * home meds reconciled * continue iv antibiotics * follow culture * check orthostatic vitals * medication reviewed as below * symptomatic treatment * discussed with * expecting discharge tomorrow. Review of Systems - Review of Systems ENT: negative: Ear Pain, Ear Discharge, Nose Pain, Nose Discharge, Nose Congestion, Mouth Pain, Mouth Swelling, Throat Pain, Throat Swelling, Other Respiratory: negative: Cough, Dry, Shortness of Breath, Hemoptysis, SOB with Excertion, Pleuritic Pain, Sputum, Wheezing Cardiovascular: negative: chest pain, palpitations, orthopnea, paroxysmal nocturnal dyspnea, edema, light headedness, other Gastrointestinal: negative: Nausea, Vomiting, Abdominal Pain, Diarrhea, Constipation, Melena, Hematochezia, Other Genitourinary: negative: Dysuria, Frequency, Incontinence, Hematuria, Retention , Other Musculoskeletal: negative: Neck Pain, Shoulder Pain, Arm Pain, Back Pain, Hand Pain, Leg Pain, Foot Pain, Other - Medications/Allergies Allergies/Adverse Reactions: Allergies Allergy/AdvReac Type Severity Reaction Status Date / Time No Known Allergies Allergy Verified 01/08/19 22:39 Medications: Current Medications Acetaminophen (Tylenol) 650 mg PO Q4H PRN PRN Reason: Headache/Fever/Mild Pain (1-3) Hydrocodone Bitart/Acetaminophen ([place] 5/325) 1 tab PO Q4H PRN PRN Reason: Severe Pain (7-10) Albuterol Sulfate (Ventolin) 2.5 mg NEB Q8H PRN PRN Reason: SOB &/or Wheezing Artificial Tears (Tears Naturale) 2 drop EA EYE PRN PRN PRN Reason: Dry Eyes Aspirin (Aspirin Chewable) 81 mg PO DAILY [facility] Last Admin: 01/09/19 09:10 Dose: 81 mg Calcium Carbonate (Tums) 1,000 mg PO Q4H PRN PRN Reason: Heartburn or Indigestion Dabigatran (Pradaxa) 150 mg PO BID [facility] Last Admin: 01/09/19 09:10 Dose: 150 mg Dextrose/Water (Dextrose 50%) 25 gm SLOW IVP PRN PRN PRN Reason: Hypoglycemia Duloxetine HCl (Cymbalta) 30 mg PO BID [facility] Last Admin: 01/09/19 09:10 Dose: 30 mg Finasteride (Proscar) 5 mg PO DAILY [facility] Last Admin: 01/09/19 09:09 Dose: 5 mg Fish Oil (Fish Oil) 1,000 mg PO DAILY [facility] Last Admin: 01/09/19 09:08 Dose: 1,000 mg Fludrocortisone Acetate (Florinef) 0.1 mg PO DAILY [facility] Last Admin: 01/09/19 09:09 Dose: 0.1 mg Gabapentin (Neurontin) 600 mg PO HS [facility] Glimepiride (Amaryl) 2 mg PO DAILY-AC [facility] Glucagon (Glucagon) 1 mg IM PRN PRN PRN Reason: Hypoglycemia Guaifenesin (Robitussin Sf) 200 mg PO Q4H PRN PRN Reason: Cough Hydrocortisone (Cortef) 20 mg PO QAM-WM ROBERT Hydrocortisone (Cortef) 10 mg PO QPM [facility] Dextrose/Water (D5w) 1,000 mls @ 0 mls/hr IV .Q0M PRN PRN Reason: Hypoglycemia Ceftriaxone Sodium 1 gm/ (Sodium Chloride) 100 mls @ 200 mls/hr IVPB Q24HR [facility] Last Admin: 01/08/19 23:01 Dose: 100 mls Potassium Chloride/Sodium Chloride (Ns 0.9% W/ 20 Meq Kcl) 1,000 ml in 1,000 mls @ 75 mls/hr IV .[id number] [facility] Last Admin: 01/09/19 09:07 Dose: 1,000 mls Insulin Human Lispro (Humalog) 0 units SC .MILD SLIDING SCALE PRN PRN Reason: Mild Correctional Scale Insulin Human Lispro (Humalog) 0 units SC .BEDTIME SLIDING SC PRN PRN Reason: Bedtime Correctional Scale Iron/Minerals/Multivitamins (Theragran M) 1 tab PO DAILY [facility] Last Admin: 01/09/19 09:08 Dose: 1 tab Levothyroxine Sodium (Synthroid) 100 mcg PO 0600 [facility] Last Admin: 01/09/19 05:59 Dose: 100 mcg Lidocaine (Lidoderm 5% Patch) 1 patch TD DAILY PRN PRN Reason: Pain Loperamide HCl (Imodium) 2 mg PO PRN PRN PRN Reason: Diarrhea/Loose Stools Loratadine (Claritin) 10 mg PO DAILYPRN PRN PRN Reason: Sinus Symptoms Magnesium Oxide (Magnesium Oxide) 400 mg PO DAILY [facility] Last Admin: 01/09/19 09:08 Dose: 400 mg Metformin HCl (Glucophage) 1,000 mg PO BID-[facility] Last Admin: 01/09/19 09:08 Dose: 1,000 mg Metoclopramide HCl (Reglan) 10 mg IVP Q6H PRN PRN Reason: Nausea/Vomiting Mineral Oil/White Petrolatum (Eucerin Cream) 0 gm TOP BIDPRN PRN PRN Reason: Dry Skin Miscellaneous Medication (Lidocaine Patch Removal) 1 each TOP HS [facility] Mometasone Furoate/Formoterol Fumar (Dulera 200 Mcg/5 Mcg Inhaler) 2 puff INH BID-RT [facility] Senna/Docusate Sodium (Senokot S) 2 tab PO BID PRN PRN Reason: Constipation Sodium Chloride ([place] Nasal [place] 0.65%) 0 ml EA NARE QIDPRN PRN PRN Reason: Nasal Congestion Sotalol HCl (Betapace) 80 mg PO BID [facility] Last Admin: 01/09/19 09:09 Dose: 80 mg Tamsulosin HCl (Flomax) 0.4 mg PO BID [facility] Last Admin: 01/09/19 09:10 Dose: 0.4 mg Throat Lozenges (Cepastat Lozenges) 1 coleen PO Q2H PRN PRN Reason: Sore Throat Tramadol HCl (Ultram) 50 mg PO Q4H PRN PRN Reason: Moderate Pain (4-6) Zolpidem Tartrate (Ambien) 5 mg PO HSPRN PRN PRN Reason: Insomnia
[2019-01-09] MEDS: Mometasone/Formoterol 120 PUFF INHALER INH SCH (18:33)
[2019-01-09] MEDS ORDERED: Lidocaine Patch Removal 1 EACH TOP SCH (21:00)
[2019-01-09] MEDS ORDERED: Gabapentin 300 MG CAP PO SCH ×2 (21:00)
[2019-01-09] MEDS: cefTRIAXone\\ROCEPHIN 1 GM in Sodium Chloride 0.9% 100 ML IVPB SCH (21:11)
[2019-01-10] MEDS: Levothyroxine Sodium 100 MCG TAB PO SCH (05:35)
[2019-01-10] MEDS ORDERED: Levothyroxine 150 MCG TAB PO SCH (06:00)
[2019-01-10] MEDS: Mometasone/Formoterol 120 PUFF INHALER INH SCH (07:18)
[2019-01-10] MEDS ORDERED: Glimepiride 2 MG TAB PO SCH (07:30)
[2019-01-10] MEDS ORDERED: Hydrocortisone 10 mg Tablet PO SCH ×2 (08:00→18:00)
[2019-01-10] MEDS: Fish Oil 1,000 MG CAP PO SCH (08:38)
[2019-01-10] MEDS: Aspirin Chewable 81 MG TAB PO SCH (08:39)
[2019-01-10] MEDS: metFORMIN 500 MG TAB PO SCH (08:39)
[2019-01-10] MEDS: Magnesium Oxide 400 MG TAB PO SCH (08:39)
[2019-01-10] MEDS: DULoxetine 30 MG CAP PO SCH (08:39)
[2019-01-10] MEDS: Dabigatran 150 mg Capsule PO SCH (08:40)
[2019-01-10] MEDS: Multivitamin W/ Minerals 1 TAB PO SCH (08:40)
[2019-01-10] MEDS: Tamsulosin HCl 0.4 MG CAP PO SCH (08:40)
[2019-01-10] MEDS: Finasteride 5 MG TAB PO SCH (08:40)
[2019-01-10] MEDS: Sotalol HCl 80 MG TAB PO SCH (08:42)
[2019-01-10] MEDS: Fludrocortisone Acetate 0.1 MG TAB PO SCH (09:43)
--- NOTE | 2019-01-10 11:00 | PDOC.PN ---
- Subjective Encounter Start Date: 01/10/19 Encounter Start Time: 09:30 Patient seen and examined. No new complaints. No overnight events - Objective MAR Reviewed: Yes Vital Signs & Weight: Vital Signs (12 hours) Temp Pulse Resp BP BP Pulse Ox 01/10/19 08:42 64 181/96 H 01/10/19 07:00 98.0 F 64 16 181/96 H 97 01/10/19 04:08 97.7 F 69 14 153/87 H 95 01/10/19 00:15 97.9 F 83 16 161/87 H 97 Weight Weight 177 lb I&O: 01/09/19 01/10/19 01/11/19 06:59 06:59 06:59 Intake Total 1025 1410 180 Balance 1025 1410 180 Result Diagrams: 01/09/19 05:31 01/09/19 05:31 Additional Labs: Accuchecks 01/09/19 01/09/19 01/09/19 16:22 10:54 05:48 POC Glucose 94 115 H 174 H Phys Exam - Physical Examination Constitutional: NAD HEENT: PERRLA, moist MMs, sclera anicteric Neck: no JVD, supple Respiratory: no wheezing, no rales, no rhonchi Cardiovascular: RRR, no significant murmur, no rub Gastrointestinal: soft, non-tender, no distention, positive bowel sounds Musculoskeletal: no edema, pulses present Neurological: non-focal, normal sensation, moves all 4 limbs Lymphatic: no nodes Psychiatric: normal affect, A&O x 3 Skin: no rash, normal turgor Dx/Plan (1) Hypokalemia Code(s): E87.6 - HYPOKALEMIA Status: Acute (2) Orthostatic hypotension Code(s): I95.1 - ORTHOSTATIC HYPOTENSION Status: Acute (3) UTI (urinary tract infection) Status: Acute (4) Adrenal insufficiency ([place]'s disease) Code(s): E27.1 - PRIMARY ADRENOCORTICAL INSUFFICIENCY Status: Chronic Comment: Continue Hydrocortisone, Florinef (5) Anemia, normocytic normochromic Code(s): D64.9 - ANEMIA, UNSPECIFIED Status: Chronic (6) BPH (benign prostatic hypertrophy) Code(s): N40.0 - BENIGN PROSTATIC HYPERPLASIA WITHOUT LOWER URINRY TRACT SYMP Status: Chronic (7) Bladder outlet obstruction Code(s): N32.0 - BLADDER-NECK OBSTRUCTION Status: Chronic (8) CAD (coronary artery disease) Code(s): I25.10 - ATHSCL HEART DISEASE OF [place] CORONARY ARTERY W/O ANG PCTRS Status: Chronic (9) Chronic low back pain Code(s): M54.5 - LOW BACK PAIN; G89.29 - OTHER CHRONIC PAIN Status: Chronic Comment: (10) DM type 2 (diabetes mellitus, type 2) Status: Chronic Comment: ISS, continue Metformin 1000mg BID, serial accuchecks (11) Diverticulosis of colon Code(s): K57.30 - DVRTCLOS OF LG INT W/O PERFORATION OR ABSCESS W/O BLEEDING Status: Chronic (12) Dyslipidemia Code(s): E78.5 - HYPERLIPIDEMIA, UNSPECIFIED Status: Chronic (13) HTN (hypertension) Code(s): I10 - ESSENTIAL (PRIMARY) HYPERTENSION Status: Chronic - Plan cont current plan of care, plan discussed w/ family, continue antibiotics * medication reviewed as below * symptomatic treatment * change to macrobid * see discharge bess. Review of Systems - Review of Systems ENT: negative: Ear Pain, Ear Discharge, Nose Pain, Nose Discharge, Nose Congestion, Mouth Pain, Mouth Swelling, Throat Pain, Throat Swelling, Other Respiratory: negative: Cough, Dry, Shortness of Breath, Hemoptysis, SOB with Excertion, Pleuritic Pain, Sputum, Wheezing Cardiovascular: negative: chest pain, palpitations, orthopnea, paroxysmal nocturnal dyspnea, edema, light headedness, other Gastrointestinal: negative: Nausea, Vomiting, Abdominal Pain, Diarrhea, Constipation, Melena, Hematochezia, Other Genitourinary: negative: Dysuria, Frequency, Incontinence, Hematuria, Retention , Other Musculoskeletal: negative: Neck Pain, Shoulder Pain, Arm Pain, Back Pain, Hand Pain, Leg Pain, Foot Pain, Other - Medications/Allergies Allergies/Adverse Reactions: Allergies Allergy/AdvReac Type Severity Reaction Status Date / Time No Known Allergies Allergy Verified 01/08/19 22:39 Medications: Current Medications Acetaminophen (Tylenol) 650 mg PO Q4H PRN PRN Reason: Headache/Fever/Mild Pain (1-3) Hydrocodone Bitart/Acetaminophen ([place] 5/325) 1 tab PO Q4H PRN PRN Reason: Severe Pain (7-10) Albuterol Sulfate (Ventolin) 2.5 mg NEB Q8H PRN PRN Reason: SOB &/or Wheezing Artificial Tears (Tears Naturale) 2 drop EA EYE PRN PRN PRN Reason: Dry Eyes Aspirin (Aspirin Chewable) 81 mg PO DAILY [facility] Last Admin: 01/10/19 08:39 Dose: 81 mg Calcium Carbonate (Tums) 1,000 mg PO Q4H PRN PRN Reason: Heartburn or Indigestion Dabigatran (Pradaxa) 150 mg PO BID [facility] Last Admin: 01/10/19 08:40 Dose: 150 mg Dextrose/Water (Dextrose 50%) 25 gm SLOW IVP PRN PRN PRN Reason: Hypoglycemia Duloxetine HCl (Cymbalta) 30 mg PO BID [facility] Last Admin: 01/10/19 08:39 Dose: 30 mg Finasteride (Proscar) 5 mg PO DAILY [facility] Last Admin: 01/10/19 08:40 Dose: 5 mg Fish Oil (Fish Oil) 1,000 mg PO DAILY [facility] Last Admin: 01/10/19 08:38 Dose: 1,000 mg Fludrocortisone Acetate (Florinef) 0.1 mg PO DAILY [facility] Last Admin: 01/10/19 09:43 Dose: 0.1 mg Gabapentin (Neurontin) 600 mg PO HS [facility] Last Admin: 01/09/19 20:15 Dose: 600 mg Glimepiride (Amaryl) 2 mg PO DAILY-AC [facility] Last Admin: 01/10/19 08:44 Dose: Not Given Glucagon (Glucagon) 1 mg IM PRN PRN PRN Reason: Hypoglycemia Guaifenesin (Robitussin Sf) 200 mg PO Q4H PRN PRN Reason: Cough Hydrocortisone (Cortef) 20 mg PO QAM-WM [facility] Last Admin: 01/10/19 08:38 Dose: 20 mg Hydrocortisone (Cortef) 10 mg PO 1800 [facility] Dextrose/Water (D5w) 1,000 mls @ 0 mls/hr IV .Q0M PRN PRN Reason: Hypoglycemia Ceftriaxone Sodium 1 gm/ (Sodium Chloride) 100 mls @ 200 mls/hr IVPB Q24HR [facility] Last Admin: 01/09/19 21:11 Dose: 100 mls Potassium Chloride/Sodium Chloride (Ns 0.9% W/ 20 Meq Kcl) 1,000 ml in 1,000 mls @ 75 mls/hr IV .[id number] [facility] Last Admin: 01/09/19 21:11 Dose: 1,000 mls Insulin Human Lispro (Humalog) 0 units SC .MILD SLIDING SCALE PRN PRN Reason: Mild Correctional Scale Insulin Human Lispro (Humalog) 0 units SC .BEDTIME SLIDING SC PRN PRN Reason: Bedtime Correctional Scale Iron/Minerals/Multivitamins (Theragran M) 1 tab PO DAILY [facility] Last Admin: 01/10/19 08:40 Dose: 1 tab Levothyroxine Sodium (Synthroid) 100 mcg PO 0600 [facility] Last Admin: 01/10/19 05:35 Dose: 100 mcg Lidocaine (Lidoderm 5% Patch) 1 patch TD DAILY PRN PRN Reason: Pain Loperamide HCl (Imodium) 2 mg PO PRN PRN PRN Reason: Diarrhea/Loose Stools Loratadine (Claritin) 10 mg PO DAILYPRN PRN PRN Reason: Sinus Symptoms Magnesium Oxide (Magnesium Oxide) 400 mg PO DAILY [facility] Last Admin: 01/10/19 08:39 Dose: 400 mg Metformin HCl (Glucophage) 1,000 mg PO BID-WM [facility] Last Admin: 01/10/19 08:39 Dose: 1,000 mg Metoclopramide HCl (Reglan) 10 mg IVP Q6H PRN PRN Reason: Nausea/Vomiting Mineral Oil/White Petrolatum (Eucerin Cream) 0 gm TOP BIDPRN PRN PRN Reason: Dry Skin Miscellaneous Medication (Lidocaine Patch Removal) 1 each TOP HS [facility] Last Admin: 01/09/19 22:05 Dose: Not Given Mometasone Furoate/Formoterol Fumar (Dulera 200 Mcg/5 Mcg Inhaler) 2 puff INH BID-RT [facility] Last Admin: 01/10/19 07:18 Dose: Not Given Senna/Docusate Sodium (Senokot S) 2 tab PO BID PRN PRN Reason: Constipation Sodium Chloride ([place] Nasal [place] 0.65%) 0 ml EA NARE QIDPRN PRN PRN Reason: Nasal Congestion Sotalol HCl (Betapace) 80 mg PO BID [facility] Last Admin: 01/10/19 08:42 Dose: 80 mg Tamsulosin HCl (Flomax) 0.4 mg PO BID [facility] Last Admin: 01/10/19 08:40 Dose: 0.4 mg Throat Lozenges (Cepastat Lozenges) 1 coleen PO Q2H PRN PRN Reason: Sore Throat Tramadol HCl (Ultram) 50 mg PO Q4H PRN PRN Reason: Moderate Pain (4-6) Zolpidem Tartrate (Ambien) 5 mg PO HSPRN PRN PRN Reason: Insomnia
--- NOTE | 2019-01-10 11:55 | DIS ---
DATE OF ADMISSION: 01/08/2019 DATE OF DISCHARGE: 01/10/2019 PRIMARY CARE PHYSICIAN: [facility] Call admission. DISCHARGE DISPOSITION: Home. PRIMARY DISCHARGE DIAGNOSES: 1. Hypokalemia, corrected. 2. Orthostatic hypotension, corrected. 3. Urinary tract infection due to Enterococcus. SECONDARY DISCHARGE DIAGNOSES: Hypertension, dyslipidemia, diabetes type 2, diverticulosis of colon, chronic low back pain, history of melanoma, coronary artery disease, benign enlargement of prostate, bladder outlet obstruction, normocytic normochromic anemia, and adrenal insufficiency. PRIMARY PROCEDURE/OPERATION: None. RADIOLOGICAL INVESTIGATION: Chest x-ray. SIGNIFICANT LABORATORY DATA: Hemoglobin 10.6. Creatinine 1.08. Cortisol 1.10. Urinalysis suggestive of UTI. Urine culture grew enterococcus. DISCHARGE MEDICATIONS: New medication, Macrobid 100 mg p.o. b.i.d. for 7 days. Continue following medication; 1. Dulera 2 puff inhalation b.i.d. 2. Lidoderm patch topical application daily. 3. Solu-Cortef 20 mg in the morning and 10 mg in the evening. 4. Florinef 0.1 mg daily. 5. Pradaxa 150 mg b.i.d. 6. Flomax 0.4 mg p.o. daily. 7. Sotalol 80 mg p.o. b.i.d. 8. Fish oil 1000 mg p.o. daily. 9. Multivitamin 1 tablet p.o. daily. 10. Metformin 1000 mg p.o. b.i.d. 11. Magnesium oxide 400 mg p.o. daily. 12. Synthroid 100 mcg p.o. daily. 13. Amaryl 2 mg p.o. daily. 14. Gabapentin 600 mg p.o. at bedtime and 300 mg in the morning. 15. Proscar 5 mg p.o. daily. 16. Cymbalta 30 mg p.o. b.i.d. 17. Cetirizine 10 mg p.o. daily. 18. Aspirin 81 mg p.o. daily. 19. Ventolin nebulization q.8 hourly p.r.n. 20. Exenatide 2 mg subcu every 7 days. 21. Tramadol 50 mg q.4 hourly p.r.n. 22. Tylenol 650 mg p.o. q.4 hourly p.r.n. CONTRAINDICATION: None. CODE STATUS: Full code. INPATIENT MEDICAL APPLIANCE MAKER: None. ALLERGIES: NO KNOWN DRUG ALLERGIES. DISCHARGE PLAN: Posthospital, the patient will follow up with primary care physician. HOSPITAL COURSE: A 78-year-old male with above-mentioned medical problem, who was brought to emergency room for dizziness and weakness. He was having UTI symptoms. He was having orthostatic hypotension. He was given IV fluid in the emergency room. The patient was admitted to medical floor for UTI. His urine culture grew Enterococcus faecalis. Based on culture and sensitivity result, we changed to Macrobid on discharge. While in the hospital, he was given Rocephin. The patient's orthostatic hypotension improved. The patient was doing very well with PT/OT while in hospital. The patient is completely asymptomatic today and he wants to go home today. He will continue all his previous medication. We changed to Macrobid upon discharge. The patient is seen and examined at bedside today. Please see my progress note from today for further detail. Job ID: [id number]
[2019-01-10 12:16] VITALS: BP 147/73; TEMP 97.2
== END 2019-01-10 12:47 | disposition home or self-care (01) ==
LOC: ERS 14:59 → T4-B 21:17
PROVIDERS: ADMIT Internal Medicine; ATTEND Internal Medicine
DX: E87.6 Hypokalemia (principal); I95.1 Orthostatic hypotension; N39.0 Urinary tract infection, site not specified; B95.2 Enterococcus as the cause of diseases classified elsewhere; I10 Essential (primary) hypertension; E78.5 Hyperlipidemia, unspecified; G89.29 Other chronic pain; M54.5 Low back pain; I25.10 Atherosclerotic heart disease of native coronary artery without angina pectoris; D64.9 Anemia, unspecified; E11.40 Type 2 diabetes mellitus with diabetic neuropathy, unspecified; N32.0 Bladder-neck obstruction; C43.9 Malignant melanoma of skin, unspecified; E27.1 Primary adrenocortical insufficiency; K57.30 Diverticulosis of large intestine without perforation or abscess without bleeding; N40.1 Benign prostatic hyperplasia with lower urinary tract symptoms; N13.8 Other obstructive and reflux uropathy; Z87.891 Personal history of nicotine dependence; Z79.82 Long term (current) use of aspirin; Z79.52 Long term (current) use of systemic steroids; Z79.84 Long term (current) use of oral hypoglycemic drugs; Z79.02 Long term (current) use of antithrombotics/antiplatelets; Z79.899 Other long term (current) drug therapy
CPT/HCPCS: 71045; 80048; 80053; 82533; 82947; 82962 ×3; 83605; 84484; 85025 ×2; 87077; 87086; 87186; 94640; 96361 ×2; 96365; 96366 ×2; 96367; 96368; 97116; 97139 ×3; 99291; G0378 ×2; 36415; 36416; 81003; 81015; J0696; J1956; J7050

== ENCOUNTER 2019-03-03 12:16 | Outpatient (CLI) | payer MEDICARE, BC ==
--- NOTE | 2019-03-03 14:14 | PET ---
EXAM: PET CT skull apex to the feet COMPARISON : report from Kandy San 09/07/2018 HISTORY: Malignant melanoma of the right eyelid TECHNIQUE: A PET/CT was performed from the apex of the skull through the feet after administration of 11.0 millicuries of F-18 FDG. Evaluation was performed on a [employer] workstation. FINDINGS: INTRACRANIAL: No areas of increased or decreased metabolic activity. NECK: No areas of hypermetabolic activity CHEST: There are trace bilateral pleural effusions. Areas of nodularity are seen in the anterior aspe ct of the lungs. This is more prominent in the lingula and in the right middle lobe. None of these areas of peripheral nodularity have hypermetabolic activity. No areas of hypermetabolic activity ABDOMEN/PELVIS: No areas of hypermetabolic activity SKELETON: No areas of hypermetabolic activity UPPER EXTREMITIES: Uptake in the right wrist soft tissues is from the site of radiopharmaceutical inj ection. LOWER EXTREMITIES: No areas of hypermetabolic activity CT images used for attenuation correction show scattered diverticula in the colon. There are calcific ations in the aorta.. IMPRESSION: No evidence of residual disease
== END 2019-03-03 12:17 | disposition home or self-care (01) ==
LOC: PET 12:16
PROVIDERS: ATTEND Internal Medicine Hematology & Oncology
DX: C43.1 Malignant melanoma of eyelid, including canthus (principal)
CPT/HCPCS: 78816; A9552

== ENCOUNTER 2019-04-11 09:12 | Day surgery (SDC) | payer MEDICARE, BC ==
[2019-04-08 13:30] VITALS: BMI 30.1
[2019-04-11 10:40] LABS: #Eosinphils 0.1 thou/uL (0.0-0.7); #Lymphocytes 1.2 thou/uL (1.20-3.40); #Monocytes 0.5 thou/uL (0.11-0.59); #Neutrophils 7.4 thou/uL (1.40-6.50); %Basophils 0.4 % (0.0-1.0); %Eosinophils 1.5 % (0.0-10.0); %Lymphocytes 12.5 % (21.0-51.0); %Monocytes 5.7 % (0.0-10.0); Mean Corpuscular HGB CONC 30.9 g/dL (32.0-36.0); Mean Corpuscular Hemoglobin 25.7 pg (27.0-31.0); Mean Corpuscular Volume 83.4 fL (78.0-98.0); Mean Platelet Volume 6.4 fL (7.4-10.4); Platelet Count 367 thou/uL (130-400); RBC Distribution Width 15.3 % (11.5-14.5); Red Blood Cell (RBC) Count 3.11 mill/uL (4.70-6.10); White Blood Cell (WBC) Count 9.2 thou/uL (4.8-10.8)
[2019-04-11] MEDS ORDERED: Lidocaine 1% PF 5 ML VIAL ONE (10:45)
[2019-04-11] MEDS ORDERED: PROPOFOL 200 MG/20 ML VIAL ONE (10:45)
--- NOTE | 2019-04-11 13:48 | OP ---
DATE OF PROCEDURE: 04/11/2019 PROCEDURES PERFORMED: Esophagogastroduodenoscopy with biopsy and colonoscopy with biopsy. PREOPERATIVE DIAGNOSES: Anemia on anticoagulation and chronic diarrhea. DESCRIPTION OF PROCEDURE: Informed consent was obtained from the patient. He was sedated with total intravenous anesthesia. The bite block was placed and the endoscope was advanced easily to the second portion of the duodenum and retroflexion was performed in the stomach. The esophagus was normal. The GE junction was normal. The stomach was normal including retroflex views. The pylorus and first and second portions of the duodenum were normal. Biopsies were taken from the second portion of the duodenum to rule out celiac disease. The patient was turned around. Rectal exam was performed and was normal. The colonoscope was advanced easily to the terminal ileum. The mucosa of the terminal ileum was normal. The ileocecal valve and appendiceal orifice were clearly identified. The preparation quality was good. There was moderate diverticulosis in the sigmoid and descending colon. The remainder of the colonic mucosa was normal throughout. Random biopsies were taken from the ascending and descending colon to rule out microscopic colitis. Retroflexed views in the rectum were normal. IMPRESSION: 1. Normal esophagogastroduodenoscopy. Duodenal biopsies taken to rule out celiac disease. 2. Left-sided diverticulosis. 3. Otherwise, normal colonoscopy to the terminal ileum. Random biopsies taken from the colon to rule out microscopic colitis. RECOMMENDATIONS: 1. Await histopathology. 2. Follow up in GI clinic. Job ID: [id number]
== END 2019-04-11 15:16 | disposition home or self-care (01) ==
LOC: SDC 09:12
PROVIDERS: ATTEND Internal Medicine Gastroenterology
PROC: 0DB98ZX Excision of Duodenum, Via Natural or Artificial Opening Endoscopic, Diagnostic (ICD-10-PCS; principal; 2019-04-11)
PROC: 0DBG8ZX Excision of Left Large Intestine, Via Natural or Artificial Opening Endoscopic, Diagnostic (ICD-10-PCS; 2019-04-11)
PROC: 0DBF8ZX Excision of Right Large Intestine, Via Natural or Artificial Opening Endoscopic, Diagnostic (ICD-10-PCS; 2019-04-11)
DX: K52.9 Noninfective gastroenteritis and colitis, unspecified (principal); D64.9 Anemia, unspecified; K57.30 Diverticulosis of large intestine without perforation or abscess without bleeding; K29.80 Duodenitis without bleeding; E11.9 Type 2 diabetes mellitus without complications; E78.00 Pure hypercholesterolemia, unspecified; I25.10 Atherosclerotic heart disease of native coronary artery without angina pectoris; I48.91 Unspecified atrial fibrillation; G47.30 Sleep apnea, unspecified; M19.90 Unspecified osteoarthritis, unspecified site; Z79.82 Long term (current) use of aspirin; Z79.84 Long term (current) use of oral hypoglycemic drugs; Z79.899 Other long term (current) drug therapy; Z87.891 Personal history of nicotine dependence
CPT/HCPCS: 85025; 88305

== ENCOUNTER 2019-05-09 18:09 | Observation (INO) | payer MEDICARE, BC ==
[2019-05-09 19:36] LABS: #Basophils 0.1 thou/uL (0.0-0.2); #Eosinphils 0.3 thou/uL (0.0-0.7); #Lymphocytes 2.1 thou/uL (1.20-3.40); #Monocytes 0.7 thou/uL (0.11-0.59); #Neutrophils 6.2 thou/uL (1.40-6.50); %Basophils 0.6 % (0.0-1.0); %Lymphocytes 22.8 % (21.0-51.0); %Monocytes 7.5 % (0.0-10.0); %Neutrophils 66.1 % (42.0-75.0); Hemoglobin 6.8 g/dL (14.0-18.0); Mean Corpuscular HGB CONC 28.9 g/dL (32.0-36.0); Mean Corpuscular Hemoglobin 22.7 pg (27.0-31.0); Mean Corpuscular Volume 78.7 fL (78.0-98.0); Mean Platelet Volume 6.7 fL (7.4-10.4); Platelet Count 270 thou/uL (130-400); RBC Distribution Width 16.8 % (11.5-14.5); Red Blood Cell (RBC) Count 2.98 mill/uL (4.70-6.10); White Blood Cell (WBC) Count 9.4 thou/uL (4.8-10.8)
[2019-05-09 19:48] LABS: ALT (SGPT) 21 U/L (8-55); AST (SGOT) 11 U/L (5-34); Albumin 3.6 g/dL (3.4-4.8); Alkaline Phosphatase 76 U/L (40-150); Anion Gap 13 mmol/L (10-20); BUN (Urea Nitrogen) 22 mg/dL (8.4-25.7); Bilirubin, Total 0.3 mg/dL (0.2-1.2); Calc. Creatinine Clearance 0 mL/min (70-130); Calcium 8.6 mg/dL (7.8-10.44); Carbon Dioxide 25 mmol/L (23-31); Chloride 103 mmol/L (98-107); Estimated GFR-MDRD 64; Globulin 2.5 g/dL (2.4-3.5); Glucose 119 mg/dL (83-110); Lipase 39 U/L (8-78); Protein, Total 6.1 g/dL (5.8-8.1); Sodium 137 mmol/L (136-145)
--- NOTE | 2019-05-09 19:50 | RAD ---
PORTABLE CHEST: HISTORY: Mental status change. Anxiety and agitation. FINDINGS: The lungs are clear. The heart and mediastinum are unremarkable. Vascular markings are normal. IMPRESSION: Unremarkable chest. POS: [facility]
[2019-05-09 20:04] LABS: Bilirubin Negative (Negative); Blood, Urine Negative (Negative); Clarity Clear (Clear); Glucose, Urine (Dipstick) 50 mg/dL (Negative); Leukocyte Negative Leu/uL (Negative); Nitrite Negative (Negative); Protein, Urine (Dipstick) 10 mg/dL (Neg-Trace); Urobilinogen Normal mg/dL (Less than 2)
--- NOTE | 2019-05-09 20:05 | CT ---
CT HEAD WITHOUT CONTRAST: INDICATIONS: Mental status change. COMPARISON: 11/25/2018 FINDINGS: Mild cortical volume loss is again noted and is stable. No intracranial mass, hemorrhage, or evidenc e of acute infarct. Mild mucosal edema in the right maxillary sinus. The left maxillary sinus is cl ear today. The left maxillary sinus showed diffuse mucosal opacity on the last exam. IMPRESSION: 1. No acute intracranial process. 2. Persistent mucosal edema in the right maxillary sinus. POS: [facility]
[2019-05-09 21:01] LABS: INR-International Normal Ratio 1.6; PTT 47.2 SEC (22.9-36.1); Prothrombin Time 18.5 SEC (12.0-14.7)
[2019-05-10 00:01] VITALS: BMI 31.8
[2019-05-10] MEDS ORDERED: Acetaminophen 325 MG TAB PO PRN (00:18)
[2019-05-10] MEDS ORDERED: Acetaminophen 650 MG Suppository PR PRN (00:18)
[2019-05-10] MEDS ORDERED: Ondansetron ODT 4 MG TAB PO PRN (00:19)
[2019-05-10] MEDS ORDERED: Prochlorperazine Maleate 5 MG TAB PO PRN (00:19)
[2019-05-10] MEDS ORDERED: Magnesium Oxide 400 MG TAB PO PRN (00:19)
[2019-05-10] MEDS ORDERED: Hydrocortisone 10 mg Tablet PO SCH ×3 (00:30→15:00)
[2019-05-10] MEDS ORDERED: Dabigatran 150 mg Capsule PO SCH ×2 (01:00→09:00)
[2019-05-10] MEDS ORDERED: Sotalol HCl 80 MG TAB PO SCH ×2 (01:00→09:00)
[2019-05-10] MEDS: Acetaminophen/Codeine 30-300mg Tablet PO PRN ×2 (01:15→09:27)
[2019-05-10] MEDS ORDERED: Gabapentin 300 MG CAP PO SCH ×4 (01:45→21:00)
[2019-05-10] MEDS ORDERED: Dextrose 50% Abboject 50 ML SYRINGE SLOW IVP PRN (03:50)
[2019-05-10] MEDS ORDERED: Dextrose 5% in Water 1,000 ML IV PRN (03:50)
[2019-05-10] MEDS ORDERED: HumaLOG 300 UNITS/3 ML VIAL SC PRN (03:50)
--- NOTE | 2019-05-10 04:48 | HP ---
PRIMARY CARE PHYSICIAN: Brandy Montana MD CODE STATUS: Full code. TIME OF EVALUATION: 11:20 p.m. CHIEF COMPLAINT: Change in mental status. HISTORY OF PRESENT ILLNESS: This is a 78-year-old male patient with past medical history of coronary artery disease, atrial fibrillation, previous stents, diabetes type 2, hyperlipidemia, came to the hospital after having an episode of change in mental status associated with shaking. No clear triggers, no alleviating factors, symptoms were reported as severe and lasted for a couple of minutes, improved by self. No clear etiology for the symptoms. He was concerned about having symptoms related to chemo/radiation for melanoma that he got before. The patient is following up with Dr. Mederos as outpatient for cancer. REVIEW OF SYSTEMS: CONSTITUTIONAL: No fever, chills, or generalized weakness. RESPIRATORY: No cough, sputum production, or shortness of breath. CARDIOVASCULAR: No chest pain or palpitation. GASTROINTESTINAL: No nausea. No vomiting, diarrhea or abdominal pain. ENDOSCOPY TECHNICAN: The patient has change in mental status. No dizziness, headache, or feeling lightheaded. GENITOURINARY: No burning on urination. EXTREMITIES: No leg swelling. All other systems were reviewed and negative except for the findings mentioned above. PAST MEDICAL HISTORY: As mentioned in the HPI. PAST SURGICAL HISTORY: History of vasectomy. Melanoma removal of the right eye. PSYCHIATRIC HISTORY: No previous psychiatric history. SOCIAL HISTORY: No alcohol. No drugs. No smoking history. FAMILY HISTORY: Reviewed and noncontributory to current presentation. KNOWN ALLERGIES: No known drug allergies. REPORTED MEDICATIONS: 1. Amlodipine. 2. Aspirin. 3. Furosemide. 4. Gabapentin. 5. Levothyroxine. 6. Metformin. 7. Multivitamin. 8. Potassium chloride. 9. Tamsulosin. 10. Zofran. 11. Hydrocortisone. 12. Duloxetine. 13. Finasteride. 14. Glimepiride. 15. Pradaxa. 16. Sotalol. 17. Magnesium. 18. Zyrtec. PHYSICAL EXAMINATION: VITAL SIGNS: On presentation, blood pressure 144/88 with heart rate 87, respiratory rate was 17, temperature 97.9, pain was 0/10, oxygen saturation was 100% on room air. GENERAL APPEARANCE: The patient is alert, oriented, in no acute distress. HEENT: Eyes, normal conjunctivae. Moist oral mucosa. Anicteric. No JVD. RESPIRATORY: Bilateral air entry. No rales or wheezes. Symmetric expansion. CARDIOVASCULAR: Normal rate, regular rhythm. No murmurs. No gallop. No edema. ABDOMEN: Soft, normal bowel sounds. MUSCULOSKELETAL: Baseline range of motion and strength. SKIN: Warm, intact. No pallor. No rash. No redness. Capillary refill seems to be intact. NEURO: No evidence of any new focal weakness. Cranial nerves seems to be intact. Mentation is back to normal. PSYCH: The patient is in good mood. No anxiety. Optimal judgment. DIAGNOSTIC STUDIES: EKG was reviewed. The patient has atrial fibrillation with a rate of 86, QRS 86, QT corrected 459. Brain CT was done. The patient has no acute intracranial process, but seemed to be mucosal edema in the right maxillary sinus. Chest x-ray was done, the patient has a negative chest x-ray. LABORATORY DATA: Labs were reviewed. The patient has white count 9.4, MCV 78.7, platelet count 270. Coagulation 18.5, INR 1.6, PTT 47.2. Sodium 137, potassium 4.0, chloride 103, carbon dioxide 25, anion gap 13, BUN 22, creatinine 1.12, GFR 64, glucose 119, calcium 9.6, total bilirubin 0.3. LFTs were negative. Troponin was negative. TSH was normal. Urine was done, was normal. ASSESSMENT AND PLAN: The patient will be placed in the hospital with following medical problems: 1. Acute encephalopathy that was transient. No clear triggers. No alleviating factors. The patient is back to normal. We will monitor overnight, possible etiologies could be a transient ischemic attack. However, no findings are seen during my examination. The patient is basically back to normal, talking to his . We will treat him accordingly. He is concerned that the chemo and radiation that he got for melanoma has been affecting him. 2. Chronic anticoagulation for atrial fibrillation. The patient is on Pradaxa. No evidence of acute bleeding. We will continue for now. 3. Chronic normocytic anemia, hemoglobin 6.8, previous admission was around 7 to 8. We will monitor. The patient received two PRBCs. No hypotension, no tachycardia, no evidence of acute bleeding, we will treat accordingly. 4. Deep venous thrombosis prophylaxis. 5. History of coronary artery disease. This is chronic, stable, reconcile home medications. 6. History of atrial fibrillation, rate is controlled, this is chronic, stable, reconcile home medications. Continue anticoagulation for now. 7. Uncontrolled diabetes with sugar 119. We will place the patient on sliding scale for optimal control. 8. Hyperlipidemia. Low-cholesterol diet is advised. Reconcile home medications. 9. Uncontrolled hypertension with systolic blood pressure in the 170s, diastolic 110, reconcile home medications. Adjust treatment as needed. 10. Deep venous thrombosis prophylaxis. 11. History of melanoma. The patient has been treated by Dr. Mederos as outpatient. Job ID: [id number]
[2019-05-10] MEDS ORDERED: Levothyroxine Sodium 100 MCG TAB PO SCH (06:00)
[2019-05-10] MEDS ORDERED: Mometasone/Formoterol 120 PUFF INHALER INH SCH (06:30)
[2019-05-10 07:55] VITALS: TEMP 97.7
[2019-05-10 08:49] LABS: #Basophils 0.1 thou/uL (0.0-0.2); #Eosinphils 0.4 thou/uL (0.0-0.7); #Lymphocytes 2.3 thou/uL (1.20-3.40); #Monocytes 0.8 thou/uL (0.11-0.59); #Neutrophils 5.6 thou/uL (1.40-6.50); %Basophils 0.7 % (0.0-1.0); %Eosinophils 4.6 % (0.0-10.0); %Lymphocytes 25.2 % (21.0-51.0); %Monocytes 8.3 % (0.0-10.0); %Neutrophils 61.3 % (42.0-75.0); Hemoglobin 9.6 g/dL (14.0-18.0); Mean Corpuscular HGB CONC 30.5 g/dL (32.0-36.0); Mean Corpuscular Hemoglobin 24.5 pg (27.0-31.0); Mean Corpuscular Volume 80.4 fL (78.0-98.0); Mean Platelet Volume 6.9 fL (7.4-10.4); Platelet Count 274 thou/uL (130-400); RBC Distribution Width 16.6 % (11.5-14.5); Red Blood Cell (RBC) Count 3.93 mill/uL (4.70-6.10); White Blood Cell (WBC) Count 9.1 thou/uL (4.8-10.8)
[2019-05-10 08:59] LABS: Anion Gap 11 mmol/L (10-20); BUN (Urea Nitrogen) 23 mg/dL (8.4-25.7); Calc. Creatinine Clearance 85 mL/min (70-130); Calcium 9.2 mg/dL (7.8-10.44); Carbon Dioxide 25 mmol/L (23-31); Chloride 106 mmol/L (98-107); Estimated GFR-MDRD 73; Glucose 131 mg/dL (83-110); Potassium 4.2 mmol/L (3.5-5.1); Sodium 138 mmol/L (136-145)
[2019-05-10] MEDS ORDERED: Furosemide 20 MG TAB PO SCH (09:00)
[2019-05-10] MEDS ORDERED: Multivitamin W/ Minerals 1 TAB PO SCH (09:00)
[2019-05-10] MEDS ORDERED: Finasteride 5 MG TAB PO SCH (09:00)
[2019-05-10] MEDS ORDERED: Tamsulosin HCl 0.4 MG CAP PO SCH (09:00)
[2019-05-10] MEDS ORDERED: Aspirin Chewable 81 MG TAB PO SCH (09:00)
[2019-05-10] MEDS ORDERED: DULoxetine 30 MG CAP PO SCH (09:00)
[2019-05-10] MEDS ORDERED: Potassium Chloride 20 MEQ TAB PO SCH (09:00)
[2019-05-10] MEDS ORDERED: Amlodipine 10 MG TAB PO SCH (09:00)
[2019-05-10 09:33] LABS: Hypochromia MODERATE=16-30 cells (100X) (0-5/hpf); MDiff Complete? YES; Platelet Morphology Comment Appears Adequate; Polychromasia SLIGHT = 2-3 cells (100X) (0-2/hpf)
[2019-05-10 11:26] VITALS: BP 162/89
--- NOTE | 2019-05-10 11:48 | DIS ---
DATE OF ADMISSION: 05/09/2019 DATE OF DISCHARGE: 05/10/2019 TRANSFER OF CARE. DISPOSITION: Discharged to home. PRIMARY CARE PROVIDER: Brandy Montana MD. FINAL DIAGNOSES: 1. Symptomatic anemia. 2. Day's disease. 3. Benign prostatic hypertrophy. 4. Coronary artery disease. 5. Dyslipidemia. 6. Hypertension. 7. Chronic anticoagulation, post atrial flutter. 8. History of melanoma, metastatic, post chemotherapy and immunotherapy. DISCHARGE MEDICATIONS: 1. Cortef 10 mg two twice a day. 2. Gabapentin 600 mg at bedtime, 300 mg in the morning. 3. Amlodipine 5 mg a day. 4. . 5. Lasix 20 mg once a day. 6. Zofran 8 mg p.o. t.i.d. p.r.n. 7. Levothyroxine 100 mcg a day. 8. Sotalol 80 mg twice a day. 9. Dulera 200/5 two puffs b.i.d. 10. Tylenol with codeine 1 p.o. q.6 hours p.r.n. 11. Aspirin 81 mg a day. 12. Cymbalta 60 mg a day. 13. Proscar 5 mg a day. 14. Pradaxa 150 mg twice a day. 15. Amaryl 2 mg a day. 16. Potassium chloride 20 mEq a day. 17. Metformin 1000 mg p.o. b.i.d. 18. Flomax 0.4 mg two twice a day. ALLERGIES: HYDROCODONE. CODE STATUS: Full. DIET: Diabetic. PENDING AT TIME OF DISCHARGE: Nothing. HOSPITAL COURSE: The patient presented after a brief episode of mental confusion and shaking, resolved rapidly, was seen in the emergency room, found to have a hemoglobin of 6.8. He was given 2 units of packed red blood cells. Hemoglobin is now 9.6. The patient has had upper GI endoscopy and colonoscopy. As I mentioned before, he is post chemotherapy and immunotherapy for metastatic melanoma. Currently feels well, doing well. I have discussed followup with Dr. Montana to follow up his hemoglobin. It is certainly a possibility that he has a slow leak secondary to his chronic anticoagulation, which may have to be reviewed. I would recommend hemoglobin and hematocrit followup. I have discussed with him about his Cortef for Day's disease. No consultations. No procedures. Job ID: [id number]
[2019-05-10] MEDS ORDERED: Loratadine 10 MG TAB PO SCH (21:00)
== END 2019-05-10 11:41 | disposition home or self-care (01) ==
LOC: ERS 18:09 → T4-A 20:45
PROVIDERS: ADMIT Hospitalist; ATTEND Hospitalist
DX: D64.9 Anemia, unspecified (principal); E27.1 Primary adrenocortical insufficiency; N40.0 Benign prostatic hyperplasia without lower urinary tract symptoms; I25.10 Atherosclerotic heart disease of native coronary artery without angina pectoris; E78.5 Hyperlipidemia, unspecified; I10 Essential (primary) hypertension; G93.40 Encephalopathy, unspecified; I48.91 Unspecified atrial fibrillation; E11.9 Type 2 diabetes mellitus without complications; I25.2 Old myocardial infarction; Z95.5 Presence of coronary angioplasty implant and graft; Z85.820 Personal history of malignant melanoma of skin; Z88.5 Allergy status to narcotic agent; Z79.84 Long term (current) use of oral hypoglycemic drugs; Z79.82 Long term (current) use of aspirin; Z79.899 Other long term (current) drug therapy; Z79.01 Long term (current) use of anticoagulants
CPT/HCPCS: 36430; 70450; 71045; 80048; 81003; 82728; 82962; 83540; 83550; 83690; 84484; 85025; 85610; 85730; 86850; 86900; 86901; 86920; 93005; 94640; 94664; 94760; 99285; G0378 ×3; P9016; 36415; 36416; 80053; 84443

== ENCOUNTER 2019-06-02 10:04 | Outpatient (CLI) | payer MEDICARE, BC ==
--- NOTE | 2019-06-02 15:03 | PET ---
Nuclear medicine FDG PET/CT: (Positron emission tomography and computed tomography) DATE: 06/02/2019 HISTORY: 78-year-old male with metastatic melanoma. COMPARISON: 03/03/2019. TECHNIQUE: IV injection of F-18 fluorodeoxyglucose (FDG) dose: 11.0 mCi. PET scan and attenuation correction CT performed from skull base to proximal thighs. PET scan and attenuation correction CT thinner slices performed through head and neck. FINDINGS: SUV (standard uptake values) numbers given are maximum SUVs. QCLR used. There is a new focus of hypermetabolic activity in the soft tissues directly superior to the left gle nohumeral joint with SUV of 6.4. This could represent acute inflammation associated with calcific tendinitis of the rotator cuff. However, with history of melanoma, unusual location of metastasis suc h as this, is another possibility. There is a new noncalcified pulmonary nodule straddling the superior aspect of the left major fissure , involving the adjacent posterior segment of left upper lobe and superior segment of left lower lobe with SUV of 10.3. There is a new finding of a thin, subtle band of soft tissue density along the right lateral edge of the mediastinum with increased uptake, SUV 6.3. There is no hypermetabolic activity involving mediastinal lymph nodes or hilar lymph nodes. Bilateral gynecomastia. No suspicious hypermetabolic activity within the abdominal cavity or pelvic cavity. Subtle finding of mild cutaneous FDG uptake in the skin of right lower quadrant superficial to the ab dominal wall, and also on the left more laterally. SUVs up to 1.8. Nonspecific. No suspicious hypermetabolic activity in the soft tissues of the bilateral lower extremities, upper e xtremities, (except for the left shoulder lesion mentioned above), or skeleton. IMPRESSION: 1) new hypermetabolic pulmonary metastasis straddling the major fissure of the left lung. 2) new hypermetabolic thin band of tissue probably representing metastatic disease involving the righ t medial pleural surface abutting the mediastinum. 3) new hypermetabolic focus in the soft tissues directly superior to the left glenohumeral joint. Pos sibilities include acute tendinitis of the left rotator cuff, inflammation involving recent left rotator cuff tear, or melanoma metastatic deposit.
== END 2019-06-02 10:05 | disposition home or self-care (01) ==
LOC: PET 10:04
PROVIDERS: ATTEND Internal Medicine Hematology & Oncology
DX: C43.1 Malignant melanoma of eyelid, including canthus (principal)
CPT/HCPCS: 78816; A9552

== ENCOUNTER 2019-06-08 13:45 | Outpatient (CLI) | payer MEDICARE, BC | END 2019-06-08 13:46 | disposition home or self-care (01) | LOC: ULT 13:45 | PROVIDERS: ATTEND Internal Medicine Hematology & Oncology | DX: Z51.11 Encounter for antineoplastic chemotherapy (principal); C43.1 Malignant melanoma of eyelid, including canthus; D50.0 Iron deficiency anemia secondary to blood loss (chronic); I08.1 Rheumatic disorders of both mitral and tricuspid valves; I70.0 Atherosclerosis of aorta; Z79.899 Other long term (current) drug therapy | CPT/HCPCS: 93306 ==

== ENCOUNTER 2019-06-20 15:18 | Emergency (ER) | payer MEDICARE, BC ==
[2019-06-20] MEDS ORDERED: Lidocaine 1% (PF) 30 ML VIAL ONE (15:29)
--- NOTE | 2019-06-20 15:53 | RAD ---
Exam: Left hand 3 views: HISTORY: Finger amputation, laceration FINDINGS: There is extensive bandage material over the middle finger. Generalized degenerative changes of the w rist and hand. Minimal intraosseous lucency within several carpal bones including the navicular bone. IMPRESSION: Evidence for soft tissue injury involving the distal fourth finger with overlying bandage material. N o acute fracture or dislocation although subtle injury may be obscured by the bandage material.
[2019-06-20] MEDS ORDERED: Adacel (T-DAP) 0.5 ML SYRINGE ONE (16:45)
== END 2019-06-20 17:04 | disposition home or self-care (01) ==
LOC: ERS 15:18
DX: S61.213A Laceration without foreign body of left middle finger without damage to nail, initial encounter (principal); Z23 Encounter for immunization; I25.10 Atherosclerotic heart disease of native coronary artery without angina pectoris; I25.2 Old myocardial infarction; I49.9 Cardiac arrhythmia, unspecified; I48.91 Unspecified atrial fibrillation; E11.40 Type 2 diabetes mellitus with diabetic neuropathy, unspecified; E78.5 Hyperlipidemia, unspecified; E78.00 Pure hypercholesterolemia, unspecified; I10 Essential (primary) hypertension; Z95.5 Presence of coronary angioplasty implant and graft; Z85.828 Personal history of other malignant neoplasm of skin; W26.0XXA Contact with knife, initial encounter; Z79.82 Long term (current) use of aspirin; Z79.84 Long term (current) use of oral hypoglycemic drugs; Z79.899 Other long term (current) drug therapy
CPT/HCPCS: 12001; 90471; 90715; J2001

== ENCOUNTER 2019-09-01 13:06 | Outpatient (CLI) | payer MEDICARE, BC | END 2019-09-01 13:07 | disposition home or self-care (01) | LOC: ULT 13:06 | PROVIDERS: ATTEND Internal Medicine Hematology & Oncology | DX: Z51.11 Encounter for antineoplastic chemotherapy (principal); C43.1 Malignant melanoma of eyelid, including canthus; D50.0 Iron deficiency anemia secondary to blood loss (chronic); I08.1 Rheumatic disorders of both mitral and tricuspid valves; Z79.899 Other long term (current) drug therapy | CPT/HCPCS: 93306 ==

== ENCOUNTER 2019-09-06 14:07 | Outpatient (CLI) | payer MEDICARE, BC ==
--- NOTE | 2019-09-06 13:32 | PET ---
Nuclear medicine FDG PET/CT whole body: (Positron emission tomography and computed tomography) DATE: 09/06/2019 HISTORY: 78-year-old male with metastatic melanoma. Follow-up. Evaluate response to treatment. COMPARISON: 06/02/2019 TECHNIQUE: IV injection of F-18 fluorodeoxyglucose (FDG) dose: 12.8 mCi. PET scan and attenuation correction CT performed from vertex of head to bottom of feet. FINDINGS: SUV (standard uptake values) numbers given are maximum SUVs. QCLR used. Focus of increased uptake at the left glenohumeral joint with current SUV 4.0 (previous 6.4). Previously demonstrated hypermetabolic neoplastic tumor mass straddling the major fissure of left akbar g has completely resolved. New multifocal soft tissue masses at the interface between the medial aspect of the pleura abutting t he right upper lobe and the right mediastinum, all contiguous with each other. In gradient, this measures approximately 8 x 2 x 6 cm, and is very hypermetabolic, with SUV 9.2. New small right pleural effusion. Within the far medial aspect of the right pleural effusion is a new small focus of increased uptake w ith SUV of 4.5, consistent with metastatic pleural lesion just outside of the right prevertebral space. No suspicious hypermetabolic activity in the neck, abdomen, or pelvis. IMPRESSION: 1) new metastatic large tumor mass at right medial pleural, between right upper lobe and right medias tinum. 2) new small focal right posterior medial pleural metastatic deposit with associated small right pleu ral effusion. 3) interval complete resolution of the previously demonstrated left pulmonary metastatic mass. 4) interval decrease in the degree of uptake, but not resolution, of uptake in the left glenohumeral joint. This could represent degenerative or inflammatory change, or melanoma metastatic deposit, with mild interval improvement.
== END 2019-09-06 14:08 | disposition home or self-care (01) ==
LOC: PET 14:07
PROVIDERS: ATTEND Internal Medicine Hematology & Oncology
DX: C43.9 Malignant melanoma of skin, unspecified (principal); C34.11 Malignant neoplasm of upper lobe, right bronchus or lung; C41.9 Malignant neoplasm of bone and articular cartilage, unspecified; J90 Pleural effusion, not elsewhere classified
CPT/HCPCS: 78816; A9552

== ENCOUNTER 2019-09-20 16:27 | Emergency (ER) | payer MEDICARE, BC ==
[2019-09-20 17:39] LABS: #Basophils 0.1 thou/uL (0.0-0.2); #Lymphocytes 1.4 thou/uL (1.20-3.40); #Monocytes 1.1 thou/uL (0.11-0.59); #Neutrophils 3.9 thou/uL (1.40-6.50); %Basophils 0.7 % (0.0-1.0); %Eosinophils 13.5 % (0.0-10.0); %Lymphocytes 19.1 % (21.0-51.0); %Monocytes 14.3 % (0.0-10.0); %Neutrophils 52.3 % (42.0-75.0); Mean Corpuscular HGB CONC 34.3 g/dL (32.0-36.0); Mean Corpuscular Hemoglobin 30.6 pg (27.0-31.0); Mean Platelet Volume 7.7 fL (7.4-10.4); Platelet Count 158 thou/uL (130-400); RBC Distribution Width 13.3 % (11.5-14.5); Red Blood Cell (RBC) Count 4.27 mill/uL (4.70-6.10); White Blood Cell (WBC) Count 7.5 thou/uL (4.8-10.8)
--- NOTE | 2019-09-20 17:50 | RAD ---
Exam: Chest one view HISTORY:Syncope Comparison: 05/09/2019 FINDINGS: Cardiac silhouette: Normal Aorta: Unremarkable Pulmonary vessels: Normal Costophrenic angles: Clear LUNGS: Bibasilar opacities due to aspiration, atelectasis or pneumonia. Lung volumes are diminished. Pneumothorax: None Osseous abnormalities: None IMPRESSION: 1. Diminished lung volumes, likely due to a poor inspiratory effort. 2. Bibasilar opacities, right greater than left. Correlate for aspiration, atelectasis or pneumonia.
[2019-09-20 18:08] LABS: ALT (SGPT) 9 U/L (8-55); AST (SGOT) 11 U/L (5-34); Albumin 3.8 g/dL (3.4-4.8); Alkaline Phosphatase 60 U/L (40-110); Anion Gap 17 mmol/L (10-20); BUN (Urea Nitrogen) 18 mg/dL (8.4-25.7); Bilirubin, Total 0.3 mg/dL (0.2-1.2); Calc. Creatinine Clearance 0 mL/min (70-130); Calcium 8.7 mg/dL (7.8-10.44); Carbon Dioxide 24 mmol/L (23-31); Chloride 100 mmol/L (98-107); Estimated GFR-MDRD 47; Globulin 2.6 g/dL (2.4-3.5); Glucose 173 mg/dL (83-110); Potassium 3.5 mmol/L (3.5-5.1); Protein, Total 6.4 g/dL (5.8-8.1); Sodium 137 mmol/L (136-145)
== END 2019-09-20 19:05 | disposition home or self-care (01) ==
LOC: ERS 16:27
DX: R55 Syncope and collapse (principal); I25.10 Atherosclerotic heart disease of native coronary artery without angina pectoris; I48.91 Unspecified atrial fibrillation; E11.9 Type 2 diabetes mellitus without complications; E78.5 Hyperlipidemia, unspecified; E78.00 Pure hypercholesterolemia, unspecified; I10 Essential (primary) hypertension; Z79.899 Other long term (current) drug therapy; Z79.82 Long term (current) use of aspirin; Z79.84 Long term (current) use of oral hypoglycemic drugs
CPT/HCPCS: 36415; 71045; 80053; 84484; 85025; 93005

== ENCOUNTER 2019-09-22 08:19 | Inpatient (IN) | payer MEDICARE, BC ==
[2019-09-21 12:34] VITALS: BMI 30.1
[2019-09-22] MEDS ORDERED: Fentanyl 100 MCG/2 ML VIAL ONE ×3 (10:32→15:02)
[2019-09-22] MEDS ORDERED: PROPOFOL 200 MG/20 ML VIAL ONE (12:17)
[2019-09-22] MEDS ORDERED: Rocuronium Bromide 10 MG/ML (10ML VIAL) ONE (12:17)
[2019-09-22] MEDS ORDERED: Dexamethasone 20 MG/5 ML VIAL ONE (12:17)
[2019-09-22] MEDS ORDERED: Glycopyrrolate 0.2 MG/ML 5 ML SYRINGE ONE (12:17)
[2019-09-22] MEDS ORDERED: PHENYLEPHRINE-NS 100 MCG/ML 10 ML SYRINGE ONE (12:17)
[2019-09-22] MEDS ORDERED: Ondansetron PF 4 MG/2 ML Vial ONE (12:17)
[2019-09-22] MEDS ORDERED: ePHEDrine/0.9% NaCl/PF SYRINGE 50 mg/10 ml ONE (12:17)
[2019-09-22] MEDS ORDERED: Lidocaine 1% PF 5 ML VIAL ONE (12:17)
[2019-09-22] MEDS ORDERED: Bupivacaine PF 0.5% 30 ML VIAL ONE (13:02)
[2019-09-22] MEDS ORDERED: Lidocaine 1% w/Epinephrine 1:100K 20 ML VIAL ONE (13:02)
[2019-09-22] MEDS ORDERED: Ondansetron PF 4 MG/2 ML Vial IVP PRN (14:07)
[2019-09-22] MEDS ORDERED: Glimepiride 2 MG TAB PO PRN (14:07)
[2019-09-22] MEDS ORDERED: hydrALAZINE 20 MG/ML VIAL SLOW IVP PRN (14:07)
[2019-09-22] MEDS ORDERED: Fentanyl 100 MCG/2 ML VIAL SLOW IVP PRN (14:07)
[2019-09-22] MEDS ORDERED: PACU-Morphine 4MG/ML VIAL SLOW IVP PRN (14:18)
[2019-09-22] MEDS ORDERED: Promethazine HCl 25 MG/ML VIAL IM PRN (14:18)
[2019-09-22] MEDS ORDERED: Ondansetron HCl/PF 4 MG/2 ML Vial IVP PRN (14:18)
[2019-09-22] MEDS ORDERED: Promethazine HCl 25 MG/ML VIAL SLOW IVP PRN (14:18)
--- NOTE | 2019-09-22 14:34 | RAD ---
PORTABLE AP CHEST XRAY: HISTORY: Post thoracotomy. COMPARISON: 09/20/2019. FINDINGS: There has been interval postsurgical change involving the right hemithorax with surgical clips overly ing the right hilar region. Parenchymal changes are seen within the right perihilar region and right mid lung zone with linear densities of the right lung base which may be related to volume loss and s econdary to recent postsurgical changes. Radiopaque catheter likely related to thoracostomy tube ove rlies the right hemithorax. The left lung remains clear. Cardiac silhouette is magnified by project ion. No other interval change. IMPRESSION: Interval postsurgical changes right hemithorax with associated volume loss and right-sided thoracosto my tube in place. No pneumothorax or pleural fluid is appreciated. POS: OFF
[2019-09-22] MEDS: Sodium Chloride 0.9% 1,000 ML IV SCH (16:30)
[2019-09-22] MEDS: Insulin Regular 300 UNITS/3 ML VIAL SC PRN (16:30)
[2019-09-22] MEDS: Acetaminophen/Codeine 30-300mg Tablet PO PRN (16:40)
[2019-09-22] MEDS: metFORMIN 500 MG TAB PO SCH (16:40)
[2019-09-22] MEDS ORDERED: CEFAZOLIN 2 GM in Premix Bag 1 BAG IVPB SCH (18:00)
[2019-09-22] MEDS: Mometasone/Formoterol 120 PUFF INHALER INH SCH (20:10)
[2019-09-22] MEDS: Sotalol HCl 80 MG TAB PO SCH (20:15)
[2019-09-22] MEDS: CEFAZOLIN 2 GM in Premix Bag 1 BAG IVPB SCH (20:17)
[2019-09-22] MEDS ORDERED: Gabapentin 300 MG CAP PO SCH (21:00)
--- NOTE | 2019-09-22 22:03 | OP ---
DATE OF PROCEDURE: 09/22/2019 PREOPERATIVE DIAGNOSIS: Right-sided mediastinal PET positive lymph nodes in the setting of metastatic melanoma with regression on immunotherapy of primary tumors and all metastatic sites except this new site. POSTOPERATIVE DIAGNOSIS: Metastatic melanoma. PROCEDURES PERFORMED: Right anterior thoracotomy with biopsy of mediastinal lymph nodes. ANESTHESIA: General endotracheal. ESTIMATED BLOOD LOSS: 100. DRAIN: A 19-Bermudian Austyn drain. DESCRIPTION OF PROCEDURE: After consent was obtained, the patient was brought to the operating room and placed in supine position on the operating table. Appropriate central line and monitors were placed, and general endotracheal anesthesia was induced. A flexible fiberoptic bronchoscopy was used to position the double-lumen tube. Right chest wall was prepped and draped in usual sterile fashion. Skin incision was made over the third interspace, and the third rib was divided. Right internal mammary artery and vein were divided between clips. On spreading the ribs, the area in question was easily visible. This abutted the pericardium medially and the lung laterally. It was very friable and fragmented very easily. There were multiple fragments that were sent for frozen section, which returned as metastatic melanoma. We sent another segment, so that special studies could be performed. After hemostasis had been ensured, a 19-Bermudian drain was placed. A pericostal block was performed with ropivacaine mixed with Decadron and lidocaine. The rib was reapproximated with #1 Vicryl. Wounds were then closed in multiple layers, and Dermabond was applied to skin. The patient tolerated the procedure well, was awakened, extubated, and transferred to recovery room in stable condition. Needle, sponge, and instrument counts were all reported as correct at the end of procedure. Job ID: [id number]
[2019-09-22] MEDS ORDERED: Tamsulosin HCl 0.4 MG CAP PO SCH (22:30)
[2019-09-22] MEDS: Fentanyl 100 MCG/2 ML VIAL SLOW IVP PRN (22:57)
[2019-09-23] MEDS: Fentanyl 100 MCG/2 ML VIAL SLOW IVP PRN (04:40)
[2019-09-23] MEDS: Sodium Chloride 0.9% 1,000 ML IV SCH ×2 (04:40→10:42)
[2019-09-23] MEDS: CEFAZOLIN 2 GM in Premix Bag 1 BAG IVPB SCH (05:02)
[2019-09-23 05:42] LABS: #Lymphocytes 0.9 thou/uL (1.20-3.40); #Monocytes 1.3 thou/uL (0.11-0.59); #Neutrophils 8.5 thou/uL (1.40-6.50); %Basophils 0.2 % (0.0-1.0); %Eosinophils 0.3 % (0.0-10.0); %Lymphocytes 8.5 % (21.0-51.0); %Monocytes 11.8 % (0.0-10.0); %Neutrophils 79.2 % (42.0-75.0); Mean Corpuscular HGB CONC 33.7 g/dL (32.0-36.0); Mean Corpuscular Hemoglobin 30.3 pg (27.0-31.0); Mean Platelet Volume 7.2 fL (7.4-10.4); Platelet Count 160 thou/uL (130-400); Red Blood Cell (RBC) Count 3.63 mill/uL (4.70-6.10); White Blood Cell (WBC) Count 10.8 thou/uL (4.8-10.8)
[2019-09-23] MEDS ORDERED: Hydrocortisone 10 mg Tablet PO SCH ×3 (06:00→13:00)
[2019-09-23] MEDS ORDERED: Levothyroxine Sodium 50 MCG TAB PO SCH (06:00)
[2019-09-23] MEDS: Insulin Regular 300 UNITS/3 ML VIAL SC PRN (06:01)
[2019-09-23 06:15] LABS: Anion Gap 12 mmol/L (10-20); BUN (Urea Nitrogen) 16 mg/dL (8.4-25.7); Calc. Creatinine Clearance 73 mL/min (70-130); Calcium 7.9 mg/dL (7.8-10.44); Carbon Dioxide 23 mmol/L (23-31); Chloride 105 mmol/L (98-107); Estimated GFR-MDRD 66; Glucose 262 mg/dL (83-110); Potassium 3.7 mmol/L (3.5-5.1); Sodium 136 mmol/L (136-145)
[2019-09-23] MEDS: Mometasone/Formoterol 120 PUFF INHALER INH SCH (07:18)
[2019-09-23 07:19] VITALS: BP 151/85; TEMP 98.5
--- NOTE | 2019-09-23 07:52 | RAD ---
Chest AP view INDICATION: Status post thoracotomy COMPARISON: September 22, 2019 FINDINGS: Lungs:Right upper lobe lung opacity has diminished. There is improved aeration of the right upper lob e. There is new subsegmental volume loss within the left lower lobe. There is persistent area of scarring versus subsegmental volume loss within the right lower lobe. Cardiac silhouette:Mild cardiac megaly is stable Pulmonary vasculature:Normal Pleural spaces:Right-sided thoracostomy tube is unchanged. No pneumothorax is demonstrated. There are tiny bilateral pleural effusions which are stable. Upper abdomen:No abnormality seen. Osseous structures: No acute osseous abnormality. Additional findings:Surgical clips along the right lateral margin of the mediastinum is stable. IMPRESSION: Improved aeration of the right upper lobe. New subsegmental volume loss within the left l ower lobe. Persistent scar versus subsegmental loss in the right lower lobe. No pneumothorax.
[2019-09-23] MEDS: metFORMIN 500 MG TAB PO SCH (08:04)
[2019-09-23] MEDS: Sotalol HCl 80 MG TAB PO SCH (08:04)
[2019-09-23] MEDS: Acetaminophen/Codeine 30-300mg Tablet PO PRN (08:14)
[2019-09-23] MEDS ORDERED: Tamsulosin HCl 0.4 MG CAP PO SCH (09:00)
[2019-09-23] MEDS ORDERED: Aspirin Chewable 81 MG TAB PO SCH (09:00)
[2019-09-23] MEDS ORDERED: Finasteride 5 MG TAB PO SCH (09:00)
[2019-09-23] MEDS ORDERED: DULoxetine 30 MG CAP PO SCH (09:00)
[2019-09-23] MEDS ORDERED: metFORMIN 500 MG TAB PO SCH (09:00)
[2019-09-23] MEDS ORDERED: Furosemide 40 MG TAB PO SCH (09:00)
--- NOTE | 2019-09-23 12:22 | DIS ---
DATE OF ADMISSION: 09/22/2019 DATE OF DISCHARGE: 09/23/2019 DIAGNOSIS: Recurrent malignant melanoma. PROCEDURE: Right anterior thoracotomy for biopsy of mediastinal mass with frozen section revealing recurrent malignant melanoma. DISCHARGE MEDICATIONS: Per his home regimen. DESCRIPTION OF HOSPITAL STAY: Mr. Bernal was brought in for a biopsy. Excisional biopsy was performed on 09/22 through an anterior thoracotomy approach. Chest tube was left overnight and discontinued today. He is being discharged to home in good condition to follow up with Dr. Mederos for further treatment regimen manipulation for his malignant melanoma. Job ID: [id number]
== END 2019-09-23 11:38 | disposition home or self-care (01) | DRG 825 ==
LOC: SURG A 09:47
PROVIDERS: ADMIT Thoracic Surgery (Cardiothoracic Vascular Surgery); ATTEND Thoracic Surgery (Cardiothoracic Vascular Surgery)
PROC: 07B70ZX Excision of Thorax Lymphatic, Open Approach, Diagnostic (ICD-10-PCS; principal; 2019-09-22)
DX: C77.1 Secondary and unspecified malignant neoplasm of intrathoracic lymph nodes (principal); I10 Essential (primary) hypertension; E11.9 Type 2 diabetes mellitus without complications; C43.111 Malignant melanoma of right upper eyelid, including canthus; E78.2 Mixed hyperlipidemia; Z98.52 Vasectomy status
CPT/HCPCS: 36415; 36416; 71045; 80048; 80053; 84484; 85025; 86850; 86900; 86901; 88307; 88331; 88334; 88341; 88342; 93005; 94664; J0690; J1100; J1642; J1815; J2001; J2405; J2704; J3010; S0020

== ENCOUNTER 2019-09-24 15:12 | Observation (INO) | payer MEDICARE, BC ==
[2019-09-24 15:59] LABS: #Basophils 0.1 thou/uL (0.0-0.2); #Eosinphils 0.3 thou/uL (0.0-0.7); #Monocytes 1.2 thou/uL (0.11-0.59); #Neutrophils 9.8 thou/uL (1.40-6.50); %Basophils 0.5 % (0.0-1.0); %Eosinophils 2.5 % (0.0-10.0); %Lymphocytes 7.7 % (21.0-51.0); %Monocytes 9.8 % (0.0-10.0); %Neutrophils 79.5 % (42.0-75.0); Hemoglobin 12.2 g/dL (14.0-18.0); Mean Corpuscular HGB CONC 33.6 g/dL (32.0-36.0); Mean Corpuscular Hemoglobin 30.8 pg (27.0-31.0); Mean Corpuscular Volume 91.6 fL (78.0-98.0); Mean Platelet Volume 7.3 fL (7.4-10.4); Platelet Count 148 thou/uL (130-400); Red Blood Cell (RBC) Count 3.97 mill/uL (4.70-6.10); White Blood Cell (WBC) Count 12.3 thou/uL (4.8-10.8)
[2019-09-24 16:18] LABS: ALT (SGPT) 8 U/L (8-55); AST (SGOT) 13 U/L (5-34); Albumin 3.6 g/dL (3.4-4.8); Alkaline Phosphatase 58 U/L (40-110); Anion Gap 16 mmol/L (10-20); BUN (Urea Nitrogen) 13 mg/dL (8.4-25.7); Bilirubin, Total 0.7 mg/dL (0.2-1.2); CK (CPK) 61 U/L (30-200); Calc. Creatinine Clearance 0 mL/min (70-130); Calcium 8.5 mg/dL (7.8-10.44); Carbon Dioxide 20 mmol/L (23-31); Chloride 102 mmol/L (98-107); Estimated GFR-MDRD 85; Glucose 270 mg/dL (83-110); Magnesium 1.6 mg/dL (1.6-2.6); Protein, Total 6.6 g/dL (5.8-8.1); Sodium 134 mmol/L (136-145)
[2019-09-24 16:39] LABS: CKMB 0.8 ng/mL (0-6.6)
--- NOTE | 2019-09-24 16:41 | RAD ---
Chest one view HISTORY: Dyspnea. Lung mass. COMPARISON: 09/23/2019. FINDINGS: Cardiac silhouette is magnified and upper limits of normal in size. Pulmonary vasculature r emains upper limits of normal. Opacity at the medial aspect of the right upper lobe and patchy areas of parenchymal opacity througho ut each lung are similar in appearance to the previous exam. No evidence of pneumothorax. IMPRESSION: Right upper lobe atelectasis, borderline pulmonary vascular congestion, and other finding s are stable.
[2019-09-24] MEDS ORDERED: Acetaminophen 325 MG TAB PO PRN (16:50)
[2019-09-24] MEDS ORDERED: Ondansetron ODT 4 MG TAB SL PRN (16:50)
[2019-09-24] MEDS ORDERED: Ondansetron PF 4 MG/2 ML Vial IVP PRN (16:50)
[2019-09-24] MEDS ORDERED: Piperacillin/Tazobactam 4.5 GM VIAL ONE (16:59)
[2019-09-24] MEDS ORDERED: Sodium Chloride For Inhalation 0.9% 3 ML NEB ONE (17:47)
[2019-09-24 19:08] LABS: Bacteria/HPF None Seen HPF (None Seen); Bilirubin Negative (Negative); Blood, Urine Negative (Negative); Clarity Clear (Clear); Glucose, Urine (Dipstick) Greater than 1000 mg/dL (Negative); Leukocyte Negative Leu/uL (Negative); Nitrite Negative (Negative); Protein, Urine (Dipstick) 50 mg/dL (Neg-Trace); RBC/HPF 0-3 HPF (0-3); Squamous Epithelial None Seen HPF (0-3); Urobilinogen Normal mg/dL (Less than 2); WBC/HPF 0-3 HPF (0-3)
--- NOTE | 2019-09-24 20:18 | HP ---
HISTORY OF PRESENT ILLNESS: Mr. Bernal is a 78-year-old man who came to this facility earlier today because of generalized weakness and inability to walk. He was evaluated and found to be in atrial fibrillation with rapid ventricular response. He was admitted for management. He is known to have a history of atrial fibrillation. He is also known to have hypertension, noninsulin dependent diabetes mellitus, and coronary artery disease. PAST SURGICAL HISTORY: Remarkable for tonsillectomy. Right lower eyelid surgery due to melanoma, vasectomy and about two days ago he had some mediastinotomy due to what they think is a metastatic melanoma. He had melanoma involving his right lower eyelid. ALLERGIES: HE DESCRIBES SOME SIDE EFFECT TO HYDROCODONE. SOCIAL HISTORY: He is a former smoker. No history of EtOH abuse. No history of substance abuse. FAMILY HISTORY: Reviewed and is not contributory. HOME MEDICATIONS: Reviewed. REVIEW OF SYSTEMS: CONSTITUTIONAL: He admits to generalized weakness. There is no fever. HEENT: No headache. No ocular pain. No sore throat. No rhinorrhea. No earache. No epistaxis. NECK: No neck pain. No neck stiffness. CARDIOVASCULAR: Some shortness of breath and also some chest pain associated with the recent surgery. PULMONARY: Some dry cough. GASTROINTESTINAL: No nausea. No vomiting. No diarrhea. No abdominal pain. GENITOURINARY: No dysuria. No hematuria. ENDOCRINOLOGY: No heat or cold intolerance. No polyuria, polydipsia, or polyphagia. MUSCULOSKELETAL: Some arthralgia, on and off. HEMATOLOGY: No abnormal bleeding. No ecchymosis. LYMPHATIC: No palpable lymphadenopathy. No painful lymphadenopathy. SKIN: No rash. No itching. ALLERGY: No hay fever. NEUROLOGIC: No seizure. PSYCHIATRIC: Some depression at times. PHYSICAL EXAMINATION: GENERAL: At the current time, he is alert, oriented, in no acute distress. VITAL SIGNS: His latest vital signs show a pulse rate of 104, respiratory rate 18, blood pressure 114/87, and he is afebrile. HEENT: His head is normocephalic and atraumatic. Both his pupils are equal and reactive. He has some edema in the right lower eyelid. Ears and nose are normal. Oral mucosa is moist. Pharyngeal area is clear. NECK: Supple. There is no distention of the jugular vein. No lymphadenopathy felt. Thyroid gland not palpable. There is no carotid bruit. CHEST: Symmetrical with regular S1, S2. LUNGS: Clear. ABDOMEN: Soft. Bowel sounds heard. We could not appreciate any organomegaly. LIMBS: Show +1 edema. NEUROLOGIC: He moves all extremities. LABORATORY DATA: Chemistry and lytes show a sodium of 134, potassium of 4, chloride 102, CO2 20, BUN 13, creatinine 0.87, glucose 270, lactic acid 1.8. Troponin was noticed to be elevated at 0.29. CBC showed WBC of 13.3, hemoglobin of 12.3, hematocrit of 36.4, MCV of 91.6, platelets of 148. Chest x-ray was reported to show borderline pulmonary vascular congestion. Right upper lobe atelectasis, otherwise stable. ASSESSMENT: This is a 78-year-old man with a history of hypertension, diabetes mellitus, coronary artery disease. He was diagnosed with melanoma in his right lower eyelid about 2 years ago and he was treated with chemotherapy. A few days ago, he underwent a mediastinoscopy due to possible melanoma involving the mediastinum for biopsy. He is also known to have hypertension, diabetes mellitus, and coronary artery disease. He came in with atrial fibrillation with rapid ventricular response. His troponin was noticed to be elevated, most likely possible demand ischemia. We will follow up with trend and we will consult Cardiology for further evaluation. He will be on insulin via sliding scale and we will hold his metformin for now. We will continue his glimepiride. Further evaluation and management will depend on the course of his hospitalization and his response to therapy. Job ID: [id number] MTDD
[2019-09-24] MEDS ORDERED: Dextrose 5% in Water 1,000 ML IV PRN (20:55)
[2019-09-24] MEDS ORDERED: Glimepiride 2 MG TAB PO PRN (20:55)
[2019-09-24] MEDS ORDERED: Dextrose 50% Abboject 50 ML SYRINGE SLOW IVP PRN (20:55)
[2019-09-24] MEDS ORDERED: Mometasone/Formoterol 120 PUFF INHALER INH SCH (21:00)
[2019-09-24 21:42] LABS: Troponin I 0.043 ng/mL (< 0.028)
[2019-09-24] MEDS: Dabigatran 150 mg Capsule PO SCH (22:51)
[2019-09-24] MEDS: Sotalol HCl 80 MG TAB PO SCH (22:51)
[2019-09-24] MEDS: Tamsulosin HCl 0.4 MG CAP PO SCH (22:53)
[2019-09-25] MEDS: Levothyroxine Sodium 100 MCG TAB PO SCH (06:18)
[2019-09-25] MEDS: Mometasone/Formoterol 120 PUFF INHALER INH SCH ×2 (07:54→19:25)
[2019-09-25] MEDS: Furosemide 40 MG TAB PO SCH (08:50)
[2019-09-25] MEDS: Tamsulosin HCl 0.4 MG CAP PO SCH ×2 (08:50→20:37)
[2019-09-25] MEDS: Oseltamivir 75 MG CAP PO SCH ×2 (08:50→20:44)
[2019-09-25] MEDS: DULoxetine 60 MG CAP PO SCH (08:51)
[2019-09-25] MEDS: Hydrocortisone 10 mg Tablet PO SCH ×2 (08:51→13:55)
[2019-09-25] MEDS: Aspirin Chewable 81 MG TAB PO SCH (08:51)
[2019-09-25] MEDS: Finasteride 5 MG TAB PO SCH (08:51)
[2019-09-25] MEDS: Sotalol HCl 80 MG TAB PO SCH ×2 (08:51→20:37)
[2019-09-25] MEDS: Dabigatran 150 mg Capsule PO SCH ×2 (08:52→20:37)
--- NOTE | 2019-09-25 10:16 | PDOC.HOSPP ---
- Subjective Encounter Date: 09/25/19 Encounter Time: 08:10 Subjective: Feels better.. Serology positive for influenza - Objective Vital Signs & Weight: Vital Signs (12 hours) Temp Pulse Resp BP BP Pulse Ox 09/25/19 08:45 98.5 F 107 H 18 163/78 H 96 09/25/19 07:54 96 16 09/25/19 04:00 98.9 F 96 20 138/82 91 L 09/24/19 22:51 94 107/59 L Weight Weight 207 lb 3.752 oz I&O: 09/24/19 09/25/19 09/26/19 06:59 06:59 06:59 Intake Total 120 Balance 120 Result Diagrams: 09/24/19 15:28 09/24/19 15:28 Additional Labs: Accuchecks 09/25/19 09/24/19 05:38 23:40 POC Glucose 249 H 254 H Hospitalist ROS - Medication Medications: Active Medications Generic Name Dose Route Start Last Admin Trade Name Freq PRN Reason Stop Dose Admin Aspirin 81 mg 09/25/19 09:00 09/25/19 08:51 Aspirin Chewable PO 81 mg DAILY ROBERT Administration Dabigatran 150 mg 09/24/19 21:00 09/25/19 08:52 Pradaxa PO 150 mg BID ROBERT Administration Duloxetine HCl 60 mg 09/25/19 09:00 09/25/19 08:51 Cymbalta PO 60 mg DAILY ROBERT Administration Finasteride 5 mg 09/25/19 09:00 09/25/19 08:51 Proscar PO 5 mg DAILY ROBERT Administration Furosemide 20 mg 09/25/19 09:00 09/25/19 08:50 Lasix PO 20 mg DAILY ROBERT Administration Hydrocortisone 20 mg 09/25/19 09:00 09/25/19 08:51 Cortef PO 20 mg QAM ROBERT Administration Levothyroxine Sodium 100 mcg 09/25/19 06:00 09/25/19 06:18 Synthroid PO 100 mcg 0600 ROBERT Administration Mometasone Furoate/Formoterol Fumar 2 puff 09/25/19 06:30 09/25/19 07:54 Dulera 200 Mcg/5 Mcg Inhaler INH 2 puff BID-RT ROBERT Administration Oseltamivir Phosphate 75 mg 09/25/19 09:00 09/25/19 08:50 Tamiflu PO 75 mg BID ROBERT Administration Sotalol HCl 80 mg 09/24/19 21:00 09/25/19 08:51 Betapace PO 80 mg BID ROBERT Administration Tamsulosin HCl 0.4 mg 09/24/19 21:00 09/25/19 08:50 Flomax PO 0.4 mg BID ROBERT Administration - Exam General Appearance: NAD Neck: no JVD Heart: irregular Respiratory: CTAB Gastrointestinal: soft Extremities: 1+ LE edema Neurological: no weakness Psychiatric: normal affect Hosp A/P (1) Atrial fibrillation with rapid ventricular response Code(s): I48.91 - UNSPECIFIED ATRIAL FIBRILLATION Status: Acute (2) Metastatic 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 Cardiology to see. On Tamiflu. Home soon.
[2019-09-25] MEDS: Insulin Regular 300 UNITS/3 ML VIAL SC PRN ×2 (13:21→17:56)
[2019-09-25] MEDS ORDERED: Magnesium 2 GM/50 ML 3 GM in Premix Bag 1 BAG IVPB SCH (15:45)
[2019-09-25] MEDS ORDERED: Magnesium Sulfate 3 GM in Sodium Chloride 0.9% 100 ML IVPB SCH (16:00)
[2019-09-25] MEDS ORDERED: Hydrocortisone 10 mg Tablet PO SCH (17:00)
--- NOTE | 2019-09-25 18:27 | CON ---
DATE OF CONSULTATION: PRIMARY SLIVER MACHINE OPERATOR: Alvaro Medel MD REASON FOR CONSULTATION: Atrial fibrillation with a rapid ventricular response. HISTORY OF PRESENT ILLNESS: Mr. Bernal is a very pleasant 78-year-old patient, who recently had a procedure with mediastinoscopy. The patient developed weakness and fatigue, brought back to the emergency room, found to be in atrial fibrillation with a rapid ventricular response. Also later found to have the influenza. PAST SURGICAL HISTORY: 1. Tonsillectomy. 2. Mediastinoscopy. According to the notes, there is a possibility that there is metastatic melanoma. PAST MEDICAL HISTORY: 1. History of coronary artery disease. 2. Paroxysmal atrial fibrillation, followed by Dr. Medel, has undergone cardioversion multiple times and the says the patient also goes in and out of fibrillation. SOCIAL HISTORY: Former smoker. No alcohol. FAMILY HISTORY: Noncontributory. MEDICATIONS: Home medicines reviewed and include; 1. Pradaxa. 2. Sotalol 80 mg twice a day. REVIEW OF SYSTEMS: GENERAL: Generalized weakness. VISION: No changes. HEARING: No changes. PULMONARY: No shortness of breath. CARDIAC: No chest pain. GASTROINTESTINAL: No nausea, vomiting, or diarrhea. SKIN: No rashes. NEUROLOGIC: No unilateral weakness or numbness. PSYCHIATRIC: No unusual depression or anxiety. PHYSICAL EXAMINATION: GENERAL: This is a chronically ill-appearing, pleasant elderly gentleman. VITAL SIGNS: Blood pressure 159/84 and pulse it is 100 to 110, atrial fibrillation. LUNGS: Clear. CARDIAC: Irregularly irregular. ABDOMEN: Soft and nontender. EXTREMITIES: No clubbing or cyanosis. There is mild edema. LABORATORY DATA: Troponin 0.043 indeterminate, probably demand ischemia. EKG, atrial fibrillation. ASSESSMENT: 1. Atrial fibrillation, paroxysmal, now sustained. 2. Recent mediastinoscopy. 3. Influenza infection. PLAN: 1. Continue Pradaxa. 2. Continue sotalol. 3. Add beta jaron. 4. Discussed if we do cardioversion, we would have to do transesophageal echo first as he has had the Pradaxa interrupted for his recent surgery. They prefer not to do that. We will give him beta blockers, try to control the rate. If he does not convert to sinus rhythm at a later time, could be a cardioverted after being on Pradaxa for 3 weeks. 5. Low magnesium. We will replete magnesium. Job ID: [id number]
[2019-09-25] MEDS: Metoprolol Tartrate 25 MG TAB PO SCH (20:45)
[2019-09-25] MEDS: Acetaminophen/Codeine 30-300mg Tablet PO PRN (20:53)
[2019-09-25] MEDS ORDERED: Metoprolol Tartrate 25 MG TAB PO SCH (21:00)
[2019-09-25] MEDS ORDERED: Gabapentin 300 MG CAP PO SCH (21:45)
[2019-09-25] MEDS: Ondansetron PF 4 MG/2 ML Vial IVP PRN (22:06)
[2019-09-26] MEDS: Levothyroxine Sodium 100 MCG TAB PO SCH (05:38)
[2019-09-26] MEDS: DULoxetine 60 MG CAP PO SCH (08:47)
[2019-09-26] MEDS: Hydrocortisone 10 mg Tablet PO SCH ×2 (08:47→14:09)
[2019-09-26] MEDS: Tamsulosin HCl 0.4 MG CAP PO SCH ×2 (08:47→21:10)
[2019-09-26] MEDS: Sotalol HCl 80 MG TAB PO SCH ×2 (08:47→21:10)
[2019-09-26] MEDS: Metoprolol Tartrate 25 MG TAB PO SCH ×2 (08:49→21:10)
[2019-09-26] MEDS: Acetaminophen/Codeine 30-300mg Tablet PO PRN ×2 (08:49→18:47)
[2019-09-26] MEDS: Furosemide 40 MG TAB PO SCH (08:49)
[2019-09-26] MEDS: Aspirin Chewable 81 MG TAB PO SCH (08:49)
[2019-09-26] MEDS: Finasteride 5 MG TAB PO SCH (08:50)
[2019-09-26] MEDS: Oseltamivir 75 MG CAP PO SCH ×2 (08:51→21:10)
[2019-09-26 10:20] LABS: Hemoglobin 10.2 g/dL (14.0-18.0); Mean Corpuscular HGB CONC 33.5 g/dL (32.0-36.0); Mean Corpuscular Hemoglobin 30.4 pg (27.0-31.0); Mean Corpuscular Volume 90.7 fL (78.0-98.0); Mean Platelet Volume 7.3 fL (7.4-10.4); Platelet Count 159 thou/uL (130-400); RBC Distribution Width 12.5 % (11.5-14.5); Red Blood Cell (RBC) Count 3.37 mill/uL (4.70-6.10); White Blood Cell (WBC) Count 8.7 thou/uL (4.8-10.8)
[2019-09-26 10:51] LABS: Anion Gap 13 mmol/L (10-20); BUN (Urea Nitrogen) 15 mg/dL (8.4-25.7); Calc. Creatinine Clearance 105 mL/min (70-130); Calcium 8.3 mg/dL (7.8-10.44); Carbon Dioxide 26 mmol/L (23-31); Chloride 100 mmol/L (98-107); Estimated GFR-MDRD Greater than 90; Glucose 250 mg/dL (83-110); Potassium 3.6 mmol/L (3.5-5.1); Sodium 135 mmol/L (136-145)
[2019-09-26] MEDS: Mometasone/Formoterol 120 PUFF INHALER INH SCH ×2 (10:51→19:11)
--- NOTE | 2019-09-26 10:56 | PRG ---
DATE OF SERVICE: 09/26/2019 SUBJECTIVE: Mr. Bernal is doing better today. No chest pain or pressure. His heart rate is better on the metoprolol. OBJECTIVE: VITAL SIGNS: Blood pressure 139/71 followed by 163/87. Pulse is in the 80s with atrial fibrillation. LUNGS: Clear. CARDIAC: Irregularly irregular. ASSESSMENT: 1. Persistent atrial fibrillation. 2. Recent thoracotomy. PLAN: Continue current medical regimen. Okay to me to discontinue telemetry and go to medical floor. From a cardiac standpoint, could also go home to follow up with Dr. Medel. I will sign off. Job ID: [id number]
[2019-09-26] MEDS: Insulin Regular 300 UNITS/3 ML VIAL SC PRN ×2 (12:13→18:23)
[2019-09-26] MEDS: Dabigatran 150 mg Capsule PO SCH (12:23)
[2019-09-26 15:03] VITALS: BMI 31.6
--- NOTE | 2019-09-26 15:28 | PDOC.EVN ---
Event Note - Event Note Event Note: Patient discussed with CM and provider. IP order was errant and inadvertent. Appropriate for Code 44.
--- NOTE | 2019-09-26 17:41 | PDOC.HOSPP ---
- Subjective Encounter Date: 09/26/19 Encounter Time: 11:00 Subjective: The patient reports some mild shortness of breath and persistent cough. States he is unable to bring up his phlegm but he wants to. Chest does not feel congested but patient asking for mucinex Patient was on 2L of oxygen this morning, did not wear it at home. He has not gotten out of bed. . The patient reports feeling weak, hasn't ambulated yet. - Objective Vital Signs & Weight: Vital Signs (12 hours) Temp Pulse Resp BP Pulse Ox 09/26/19 15:33 98.1 F 97 18 141/69 H 92 L 09/26/19 11:26 98.2 F 100 18 143/63 H 94 L 09/26/19 10:51 99 16 09/26/19 08:47 99 09/26/19 08:28 96.9 F L 99 18 163/87 H 97 Weight Admit Weight 207 lb 3.752 oz Weight 208 lb 5.389 oz I&O: 09/25/19 09/26/19 09/27/19 06:59 06:59 06:59 Intake Total 1200 240 Output Total 550 Balance 650 240 Result Diagrams: 09/26/19 10:09 09/26/19 10:09 Additional Labs: Accuchecks 09/26/19 09/26/19 09/26/19 16:46 10:49 05:50 POC Glucose 356 H 275 H 216 H 09/25/19 20:58 POC Glucose 329 H Hospitalist ROS - Review of Systems Constitutional: denies: fever Eyes: denies: pain, vision change ENT: denies: mouth pain Respiratory: denies: cough - Medication Medications: Active Medications Generic Name Dose Route Start Last Admin Trade Name Freq PRN Reason Stop Dose Admin Acetaminophen/Codeine Phosphate 1 tab 09/24/19 20:55 09/26/19 08:49 Tylenol #3 PO 1 tab Q6H PRN Administration Mild-Moderate Pain (1-6) Aspirin 81 mg 09/25/19 09:00 09/26/19 08:49 Aspirin Chewable PO 81 mg DAILY ROBERT Administration Duloxetine HCl 60 mg 09/25/19 09:00 09/26/19 08:47 Cymbalta PO 60 mg DAILY ROBERT Administration Finasteride 5 mg 09/25/19 09:00 09/26/19 08:50 Proscar PO 5 mg DAILY ROBERT Administration Furosemide 20 mg 09/25/19 09:00 09/26/19 08:49 Lasix PO 20 mg DAILY ROBERT Administration Hydrocortisone 20 mg 09/25/19 09:00 09/26/19 08:47 Cortef PO 20 mg QAM ROBERT Administration Hydrocortisone 10 mg 09/25/19 14:00 09/26/19 14:09 Cortef PO 10 mg 1400 ROBERT Administration Insulin Human Regular 0 units 09/24/19 20:55 09/26/19 12:13 Humulin R SC 4 unit .MILD SLIDING SCALE PRN Administration Mild Correctional Scale Levothyroxine Sodium 100 mcg 09/25/19 06:00 09/26/19 05:38 Synthroid PO 100 mcg 0600 [facility] Administration Metoprolol Tartrate 25 mg 09/25/19 21:00 09/26/19 08:49 Lopressor PO 25 mg BID ROBERT Administration Mometasone Furoate/Formoterol Fumar 2 puff 09/25/19 06:30 09/26/19 10:51 Dulera 200 Mcg/5 Mcg Inhaler INH 2 puff BID-RT ROBERT Administration Ondansetron HCl 4 mg 09/25/19 21:38 09/25/19 22:06 Zofran IVP 4 mg Q6H PRN Administration Nausea/Vomiting Oseltamivir Phosphate 75 mg 09/25/19 09:00 09/26/19 08:51 Tamiflu PO 75 mg BID ROBERT Administration Sotalol HCl 80 mg 09/24/19 21:00 09/26/19 08:47 Betapace PO 80 mg BID ROBERT Administration Tamsulosin HCl 0.4 mg 09/24/19 21:00 09/26/19 08:47 Flomax PO 0.4 mg BID ROBERT Administration - Exam General Appearance: NAD, awake alert Eye: PERRL, anicteric sclera ENT: normocephalic atraumatic, no oropharyngeal lesions, dry oral mucosa Neck: supple, symmetric, no JVD, no thyromegaly Heart: RRR, no murmur, no gallops, no rubs Respiratory: CTAB, no wheezes, no rales Respiratory - other findings: mild rhonchi when coughing Gastrointestinal: soft, non-tender, non-distended Extremities: no cyanosis, no clubbing, no edema Skin: normal turgor, no lesions, no rashes Neurological: cranial nerve grossly intact, normal sensation to touch, no focal deficits, no new deficit Musculoskeletal: normal tone, normal strength, no muscle wasting Hosp A/P - Plan This is a 78 year old male with influenza, also had afib with RVR who presented with generalized weakness and inability to walk #Acute hypoxic respiratory failure from pulmonary edeme - resolved, on room air now - chest X ray showed pulmonary vascular congestion. On po lasix 40 mg - ECHO in August shows EF 50-55% #Afib with RVR - on pradaxa, sotalol, metoprolol. Rate controlled, stable for d/c per cardiology - may need outpatient cardioversion in three weeks #Influenza #Cough - continue tamiflu day 2 - add mucinex and tessalon pearls Physical deconditioning - PT Hypothyroidism - continue levothyroxine Leukocytosis - resolved Anemia - stable, hemoglobin 10.2 Dispo: PT eval, likely d/c in am
[2019-09-26] MEDS ORDERED: guaiFENesin ER 600 MG TAB PO SCH ×3 (17:45→21:00)
[2019-09-26] MEDS ORDERED: Insulin Regular 300 UNITS/3 ML VIAL SC PRN (20:57)
[2019-09-26] MEDS ORDERED: Gabapentin 300 MG CAP PO SCH (21:00)
[2019-09-26] MEDS: Benzonatate 100 MG CAP PO PRN (21:10)
[2019-09-26] MEDS: Ondansetron PF 4 MG/2 ML Vial IVP PRN (21:23)
[2019-09-27] MEDS: Benzonatate 100 MG CAP PO PRN (04:50)
[2019-09-27] MEDS: Acetaminophen/Codeine 30-300mg Tablet PO PRN (04:50)
[2019-09-27] MEDS: Levothyroxine Sodium 100 MCG TAB PO SCH (04:51)
[2019-09-27 05:05] LABS: Hemoglobin 10.6 g/dL (14.0-18.0); Mean Corpuscular HGB CONC 33.4 g/dL (32.0-36.0); Mean Corpuscular Hemoglobin 30.1 pg (27.0-31.0); Mean Corpuscular Volume 90.2 fL (78.0-98.0); Mean Platelet Volume 7.5 fL (7.4-10.4); Platelet Count 192 thou/uL (130-400); RBC Distribution Width 12.7 % (11.5-14.5); Red Blood Cell (RBC) Count 3.52 mill/uL (4.70-6.10); White Blood Cell (WBC) Count 7.5 thou/uL (4.8-10.8)
[2019-09-27 05:51] LABS: Anion Gap 11 mmol/L (10-20); BUN (Urea Nitrogen) 19 mg/dL (8.4-25.7); Calc. Creatinine Clearance 97 mL/min (70-130); Calcium 8.6 mg/dL (7.8-10.44); Carbon Dioxide 30 mmol/L (23-31); Chloride 98 mmol/L (98-107); Estimated GFR-MDRD 88; Glucose 252 mg/dL (83-110); Potassium 3.6 mmol/L (3.5-5.1); Sodium 135 mmol/L (136-145)
[2019-09-27] MEDS: Mometasone/Formoterol 120 PUFF INHALER INH SCH ×2 (07:35→18:35)
[2019-09-27] MEDS ORDERED: guaiFENesin ER 600 MG TAB PO SCH (09:00)
[2019-09-27] MEDS: Insulin Regular 300 UNITS/3 ML VIAL SC PRN ×3 (09:23→18:05)
[2019-09-27] MEDS: Sotalol HCl 80 MG TAB PO SCH (09:23)
[2019-09-27] MEDS: Furosemide 40 MG TAB PO SCH (09:24)
[2019-09-27] MEDS: Metoprolol Tartrate 25 MG TAB PO SCH (09:24)
[2019-09-27] MEDS: Oseltamivir 75 MG CAP PO SCH (09:24)
[2019-09-27] MEDS: Hydrocortisone 10 mg Tablet PO SCH ×2 (09:25→15:00)
[2019-09-27] MEDS: Aspirin Chewable 81 MG TAB PO SCH (09:25)
[2019-09-27] MEDS: Finasteride 5 MG TAB PO SCH (09:25)
[2019-09-27] MEDS: Tamsulosin HCl 0.4 MG CAP PO SCH (09:25)
[2019-09-27] MEDS: DULoxetine 60 MG CAP PO SCH (09:25)
[2019-09-27 15:44] VITALS: BP 142/89; TEMP 98.1
--- NOTE | 2019-09-27 17:37 | DIS ---
DATE OF ADMISSION: 09/24/2019 DATE OF DISCHARGE: 09/27/2019 DISCHARGE DIAGNOSES: Acute hypoxic respiratory failure secondary to pulmonary edema, influenza B, atrial fibrillation with rapid ventricular response, cough, physical deconditioning. CONSULTATIONS: Cardiology with Dr. Alicja Rowe. PROCEDURES: None. BRIEF HISTORY OF PRESENT ILLNESS: This is a 78-year-old man who presented to the ER due to generalized weakness and inability to walk. The patient was noted to have a heart rate of 107 and was noted to be in atrial fibrillation with RVR. The patient had a recent biopsy done a few days ago due to history of melanoma and is currently getting chemotherapy. Upon arrival to the emergency room, the patient was noted to have a pulse of 135. He had O2 saturation of 92% on 2 L of oxygen. The patient was admitted for further workup. HOSPITAL COURSE: Acute hypoxic respiratory failure, possibly secondary to pulmonary edema/ Influenza A: The patient was initially on 2 L of oxygen. His chest x-ray showed some mild pulmonary vascular congestion. In the emergency room, he was given IV vancomycin and Zosyn. Blood cultures were negative x2. The patient did test positive for influenza, so antibiotics were not continued. The patient was started on Tamiflu for influenza A. The patient was weaned off on oxygen on 09/26, however, reported persistent cough and inability to bring up his phlegm. The patient was started on Mucinex and Tessalon Perles with improvement. The patient will be discharged with Tamiflu for 2 more days and will be given a prescription for Mucinex and Tessalon Perles for cough. He will f/u with PCP in a week. Atrial fibrillation with RVR: The patient is on Pradaxa and sotalol. Cardiology was consulted and the patient was started on metoprolol. The patient's rate remained controlled. Per Cardiology, the patient can follow up as an outpatient and may need outpatient cardioversion within 3 weeks. Physical deconditioning: The patient was seen by Physical Therapy who had recommended rehab. Referral to rehab was sent, however, the patient was declined from rehab. The patient will be discharged home with a rollating walker. He will be given a script for PT. Leukocytosis: The patient presented with a white count of 12.3. This resolved to 7.5 on the day of discharge. Antibiotics were discontinued. Blood cultures were negative. UA was unremarkable for infection. Anemia: The patient had a hemoglobin of 10.6. This was stable and can be followed up as an outpatient. Elevated troponin: The patient was noted to have elevated troponin on admission. He denied any chest pain. Cardiology was consulted, did not have any recommendations for further workup. The patient did have an echocardiogram done in August, which showed an EF of 50% to 55%. The patient can follow up with Dr. Rowe as an outpatient in a week. DISCHARGE PHYSICAL EXAMINATION: VITAL SIGNS: Temperature 98.1, heart rate 84, respiratory rate 18, O2 saturation 92% on room air, blood pressure 142/89. GENERAL: The patient is alert, awake, oriented x3. He is saturating well on room air. CVS: Irregular rate and rhythm with no murmurs, rubs, or gallops. LUNGS: Clear to auscultation bilaterally. ABDOMEN: Positive bowel sounds, soft, nontender, nondistended. EXTREMITIES: No edema. PERTINENT LABORATORY DATA: CBC 09/27: Hemoglobin 10.6, hematocrit 31.7, white blood cell count 7.5, platelet count 192. BMP, 09/27: Shows a sodium of 135. Rest of BMP is unremarkable. LFTs: Were unremarkable. Troponin I: Was 0.029, which increased to 0.043 and then 0.010. PERTINENT IMAGING: Chest x-ray, 09/24: Shows some mild pulmonary vascular congestion. DISCHARGE CONDITION: Stable. ACTIVITY: As tolerated. DIET: Diabetic and heart healthy diet. DISCHARGE MEDICATIONS: New medications: mucinex 600 mg po 12 hours for 14 tablets, tessalon pearls 100 mg po tid prn for 21 tablets, metoprolol 25 mg po bid for 60 tablets, tamiflu 75 mg po bid for 5 capsules No other medication changes made, please refer to discharge med worksheet. DISCHARGE INSTRUCTIONS: The patient is to follow up with his PCP in a week. He should follow up with Cardiology, Dr. Rowe in 3 weeks for evaluation of cardioversion. The patient should follow up with PCP for further workup of anemia. Job ID: [id number] MTDD
--- NOTE | 2019-10-08 15:45 | EKG ---
Test Reason : WEAKNESS Blood Pressure : / mmHG Vent. Rate : 137 BPM Atrial Rate : 122 BPM P-R Int : 000 ms QRS Dur : 086 ms QT Int : 334 ms P-R-T Axes : 000 079 100 degrees QTc Int : 504 ms Atrial fibrillation with rapid ventricular response Nonspecific ST abnormality , probably digitalis effect Abnormal ECG Confirmed by IMMANUEL BAKER D.O. ([id number]), production editor MARCOS CAMPOS ([id number]) on 10/08/2019 3:45:33 PM Referred By: SAMUEL Confirmed By:IMMANUEL BAKER D.O.
== END 2019-09-27 21:05 | disposition home or self-care (01) ==
LOC: ERS 15:12 → INTOOBSV 20:37 → 2NO 20:37
PROVIDERS: ADMIT Hospitalist; ATTEND Hospitalist
DX: I48.0 Paroxysmal atrial fibrillation (principal); J96.01 Acute respiratory failure with hypoxia; J81.1 Chronic pulmonary edema; D64.9 Anemia, unspecified; I25.10 Atherosclerotic heart disease of native coronary artery without angina pectoris; D72.829 Elevated white blood cell count, unspecified; I10 Essential (primary) hypertension; E11.9 Type 2 diabetes mellitus without complications; Z87.891 Personal history of nicotine dependence; Z98.890 Other specified postprocedural states; Z88.5 Allergy status to narcotic agent; Z79.899 Other long term (current) drug therapy; Z85.820 Personal history of malignant melanoma of skin; Z92.21 Personal history of antineoplastic chemotherapy; J10.1 Influenza due to other identified influenza virus with other respiratory manifestations; E03.9 Hypothyroidism, unspecified
CPT/HCPCS: 71045; 80048 ×2; 80053; 82550; 82553; 82962 ×4; 83605; 83735; 84484 ×3; 85025; 85027 ×2; 87040; 87804 ×2; 93005; 94150; 94640 ×5; 94664; 96361; 96365; 96367; 96375 ×2; 96376; 97116; 99285; G0378 ×4; 36415; 36416; 81003; 81015; J1815; J2405; J2543; J3370; J3475; J3490

== ENCOUNTER 2019-10-13 01:27 | Inpatient (IN) | payer MEDICARE, BC ==
[2019-10-13 02:10] LABS: #Basophils 0.1 thou/uL (0.0-0.2); #Eosinphils 0.5 thou/uL (0.0-0.7); #Lymphocytes 1.2 thou/uL (1.20-3.40); #Monocytes 0.8 thou/uL (0.11-0.59); #Neutrophils 4.7 thou/uL (1.40-6.50); %Basophils 0.9 % (0.0-1.0); %Eosinophils 6.9 % (0.0-10.0); %Lymphocytes 16.8 % (21.0-51.0); %Monocytes 11.2 % (0.0-10.0); %Neutrophils 64.2 % (42.0-75.0); Hemoglobin 11.6 g/dL (14.0-18.0); Mean Corpuscular HGB CONC 33.2 g/dL (32.0-36.0); Mean Corpuscular Hemoglobin 30.7 pg (27.0-31.0); Mean Corpuscular Volume 92.4 fL (78.0-98.0); Mean Platelet Volume 6.6 fL (7.4-10.4); Platelet Count 230 thou/uL (130-400); RBC Distribution Width 12.5 % (11.5-14.5); Red Blood Cell (RBC) Count 3.77 mill/uL (4.70-6.10); White Blood Cell (WBC) Count 7.3 thou/uL (4.8-10.8)
[2019-10-13 02:36] LABS: ALT (SGPT) 11 U/L (8-55); AST (SGOT) 25 U/L (5-34); Albumin 3.5 g/dL (3.4-4.8); Alkaline Phosphatase 102 U/L (40-110); Anion Gap 15 mmol/L (10-20); BUN (Urea Nitrogen) 16 mg/dL (8.4-25.7); Bilirubin, Total 0.2 mg/dL (0.2-1.2); Calc. Creatinine Clearance 0 mL/min (70-130); Calcium 8.9 mg/dL (7.8-10.44); Carbon Dioxide 30 mmol/L (23-31); Chloride 97 mmol/L (98-107); Estimated GFR-MDRD 56; Globulin 3.6 g/dL (2.4-3.5); Glucose 167 mg/dL (83-110); Potassium 4.7 mmol/L (3.5-5.1); Protein, Total 7.1 g/dL (5.8-8.1); Sodium 137 mmol/L (136-145)
--- NOTE | 2019-10-13 05:01 | HP ---
CHIEF COMPLAINT: Chest pain, shortness of breath. HISTORY OF PRESENT ILLNESS: This patient is a 78-year-old male, who has a history of melanoma, treated at [facility] and followed locally by Dr. Mederos. The patient had been seen here on 09/22/2019, for which he underwent a right anterior approach thoracotomy, open biopsy of a lung lesion, pathology returning as recurrent malignant melanoma. The patient had a chest tube left overnight. Subsequently, it was removed and he was discharged home only to return with bouts of influenza on 09/24/2019. The patient was subsequently discharged from there. Said he has continued to be profoundly weak since that discharge. Yesterday, he started developing some central chest pain and shortness of breath that has become progressively worse until today. He has no lightheadedness, diaphoresis, or significant radiation of the pain. He has a modest dry cough. Denies any fevers or chills. REVIEW OF SYSTEMS: All other systems reviewed. All pertinent positives and negatives are noted in the history of present illness. PAST MEDICAL HISTORY: Notable for the malignant melanoma, atrial fibrillation, coronary artery disease, diabetes mellitus, hyperlipidemia, hypertension, adrenal insufficiency and hypothyroidism. He has the above-mentioned malignant melanoma being treated at [facility], was on Keytruda, now is on oral immunotherapy. He had an appointment to follow up with Dr. Mederos on Thursday. PAST SURGICAL HISTORY: Vasectomy. The right anterior thoracotomy as stated above on 09/22/2019. Also had several skin lesions removed, felt to be related to melanoma. FAMILY HISTORY: Mother had hypertension and of a blood clot complication from surgery. Father had CHF and at 82. SOCIAL HISTORY: The patient is a former smoker, quit in 1985. Has no history of alcohol or drug abuse. He has been for 52 years. He is full code. His would be his surrogate decision maker. ALLERGIES: HYDROCODONE. MEDICATIONS: 1. Metoprolol 25 mg b.i.d. 2. Glimepiride 2 mg daily. 3. Finasteride 5 mg daily. 4. Metformin 500 mg b.i.d. 5. Sotalol 80 mg b.i.d. 6. Aspirin 81 mg daily. 7. Pradaxa 150 mg b.i.d. 8. Dulera 200/5 two puffs b.i.d. 9. Duloxetine 60 mg two p.o. daily. 10. Lasix 20 mg daily. 11. Tylenol No. 3 q.6 hours p.r.n. 12. Hydrocortisone 10 mg two q.a.m. and one q.p.m. 13. Levothyroxine 200 mcg p.o. daily. 14. Gabapentin 300 mg q.a.m. and 600 mg at bedtime. 15. Tamsulosin 0.4 mg b.i.d. 16. Zofran 8 mg t.i.d. p.r.n. 17. Magnesium 400 mg daily. 18. Cetirizine 10 mg daily. PHYSICAL EXAMINATION: VITAL SIGNS: Initial BP was 198/118, currently improved, pulse 89, respirations 14, temperature 98.1, O2 saturation was 96% on 2 L nasal cannula. GENERAL APPEARANCE: Age-appropriate male. He is in no distress. He is awake and alert. He does have a weak and hoarse voice. HEENT: KEVIN. No OP lesions. NECK: Supple and symmetric. No lymphadenopathy, JVD, or carotid bruits. HEART: Regular rate and rhythm without murmurs, gallops, or rubs. LUNGS: Clear on the left with no wheezes or rales. Profoundly diminished throughout the entire right side. ABDOMEN: Soft, nontender, and nondistended. Positive bowel sounds. No masses. No organomegaly. EXTREMITIES: No cyanosis or clubbing. He does have 1+ pitting edema with some evidence of mild chronic stasis dermatitis. PSYCH: Normal affect and behavior. NEURO: Appears to be generally weak, but has normal movement spontaneously of all extremities with normal cranial nerve function and cognition. LABORATORY DATA: White count 7.3, hemoglobin 11.6, platelets 230. Sodium 137, potassium 4.7, chloride 97, CO2 is 30, BUN 16, creatinine 1.26, glucose 167. Troponin less than 0.01. BNP 398. Chest x-ray shows a significant right-sided pleural effusion. Official read is pending. It was my review of the film. IMPRESSION AND PLAN: 1. Chest pain: Suspect this is due to the development of the right-sided pleural effusion. However, the patient does have underlying coronary artery disease. He will be admitted to the hospital. Keep him on telemetry. Continue to monitor serial cardiac isoenzymes. He does follow with Dr. Rowe should cardiology input be needed. 2. Right-sided pleural effusion, likely the source of the patient's chest pain and shortness of breath. He has a number of potential reasons for having the pleural effusion, most likely being the recent right-sided thoracotomy for biopsy. However, he does have the underlying metastatic melanoma in the lung. He also has a history of congestive heart failure and recently had influenza. We will get a CT of the chest to ensure there is no loculation. Assuming that is the case, he may need a thoracentesis. We will hold his Pradaxa right now in anticipation of possibly having that procedure. 3. Acute hypoxic respiratory failure secondary to the pleural effusion. 4. Metastatic melanoma, confirmed on open lung biopsy. He has been following with MD San and is supposed to follow up with Dr. Mederos here in the next few days. We will go ahead and get him involved given that I am not familiar with what he is taking currently as treatment. 5. Adrenal insufficiency. We will bump his hydrocortisone up slightly. 6. Diabetes mellitus. Continue with his home regimen, Accu-Cheks, sliding scale if that appears to be needed. 7. Possible congestive heart failure. His BNP is elevated at 394, which is higher than his previous level last checked in July, which was 155, appears to be relatively mild. If in fact it is failure, going to hold off on being aggressive with any diuretics at this time. 8. Coronary artery disease. Continue with his aspirin. 9. History of atrial fibrillation. Continue with the sotalol and beta blockers. 10. History of BPH. Continue the tamsulosin. 11. Hypertension. Continue his usual home medications. Job ID: [id number]
[2019-10-13 06:11] LABS: Troponin I Less than 0.010 ng/mL (< 0.028)
[2019-10-13] MEDS ORDERED: Acetaminophen 325 MG TAB ONE (06:42)
[2019-10-13] MEDS: Levothyroxine Sodium 100 MCG TAB PO SCH (06:51)
[2019-10-13] MEDS: Acetaminophen 325 MG TAB PO PRN (06:51)
--- NOTE | 2019-10-13 07:51 | CT ---
PRELIMINARY REPORT/[facility]/EMERGENCY AFTER HOURS PROCEDURE: Receipt of this report by the clinical staff was confirmed with MARIAH YEE MD by Argelia Jackson on Oct 13, 2019 05:14:00 INDUSTRIAL ECOLOGY TECHNICIAN. Addendum electronically signed by Argelia Jackson on October 13, 2019 5:14:36 AM INDUSTRIAL ECOLOGY TECHNICIAN CT CHEST WO CON History: Patient presents for evaluation of chest pain, Patient presents for evaluation of Chest pain , progressive shortness of breath x3 days. Comparison: None available. Procedure: Multiple axial sections were obtained through the chest without administration of intrave nous contrast. Coronal and sagittal reconstruction images were obtained as well. Findings: Chest: Large right pleural effusion appearing at least partly loculated. There is intervening atelec tatic right lung. There is a mass like lesion in the right upper lobe extending to the hilum. Lesio n is difficult to measure but together measures approximately 9.8 cm x 5.5 cm. There is mild mediast inal lymphadenopathy. There is right lung septal thickening. There is mild diffuse narrowing of the right upper lobe bronchial branches. The heart is normal in size. Moderate coronary artery and aor tic atherosclerotic disease. Scattered parenchymal lung scarring. A few small lung nodules primaril y in the left and measuring up to 5 mm in size. There is at least one right thyroid nodule measuring up to 2.1 cm. Upper abdomen: Without contrast, no focal mass lesion is seen. A linear lucency in the right lateral second rib could represent a nondisplaced fracture. Degenerati ve disease in the spine. Impression: 1. Mass like lesion in the right upper lobe of the lung extending to the hilum. Mild mediastinal ly mphadenopathy. These have the appearance of malignancy. 2. Findings suggesting nondisplaced right second rib fracture. 3. Loculated large right pleural effusion. Intervening atelectatic right lung. Mild diffuse narrow ing of the right upper lobe bronchial branches. 4. Septal thickening in the right lung. Depending on the patient's clinical history, this could rep resent sequela of radiation treatment or could represent spread of tumor. 5. A few small left lung nodules. These could be malignant. Attention to these nodules is recommen ded on subsequent follow-up imaging. 6. Indeterminate right thyroid nodule. If a diagnosis is not already known, further evaluation with ultrasound examination is recommended. ELECTRONICALLY SIGNED BY: Nayeli Grey MD Oct 13, 2019 5:08:04 AM INDUSTRIAL ECOLOGY TECHNICIAN This report is intended for review by the ordering physician only, in accordance of law. If you recei ve this report in error, please call [facility] at [phone]. FINAL REPORT EMERGENCY AFTER HOURS CT CHEST WITHOUT CONTRAST: COMPARISON: PET/CT 09/06/19. FINDINGS/IMPRESSION: I agree with the findings and impression given in the preliminary report per [facility] physici an. 1. Moderate right pleural effusion with adjacent atelectasis. 2. There are masses in the right hilar region and along the superior right mediastinum. These likely represent malignancy. When compared to the prior PET/CT, these have worsened.
--- NOTE | 2019-10-13 08:10 | RAD ---
SINGLE VIEW CHEST: Date: 10/13/19 COMPARISON: 09/24/19. HISTORY: Chest pain and shortness of breath. FINDINGS: Single view of the chest shows an enlarged but stable cardiomediastinal silhouette. There is a modera te right pleural effusion with adjacent atelectasis. There is fullness in the right hilar region. IMPRESSION: 1. Moderate right pleural effusion with adjacent atelectasis. 2. Right hilar fullness may represent a mass. POS: [facility]
[2019-10-13] MEDS ORDERED: Hydrocortisone 10 mg Tablet PO SCH (09:00)
[2019-10-13] MEDS: metFORMIN 500 MG TAB PO SCH ×2 (09:30→17:24)
[2019-10-13] MEDS: Aspirin 81 mg Enteric Coated Tablet PO SCH (09:33)
[2019-10-13] MEDS: Furosemide 20 MG TAB PO SCH (09:34)
[2019-10-13] MEDS: DULoxetine 60 MG CAP PO SCH (09:34)
[2019-10-13] MEDS: Finasteride 5 MG TAB PO SCH (09:34)
[2019-10-13] MEDS: Gabapentin 300 MG CAP PO SCH ×2 (09:35→21:31)
[2019-10-13] MEDS: Metoprolol Tartrate 25 MG TAB PO SCH ×2 (09:35→21:34)
[2019-10-13] MEDS: Sotalol HCl 80 MG TAB PO SCH ×2 (09:36→21:32)
[2019-10-13] MEDS: Tamsulosin HCl 0.4 MG CAP PO SCH ×2 (09:36→21:32)
[2019-10-13 09:48] LABS: Troponin I Less than 0.010 ng/mL (< 0.028)
[2019-10-13] MEDS: Mometasone/Formoterol 120 PUFF INHALER INH SCH ×2 (12:40→19:08)
--- NOTE | 2019-10-13 17:35 | PDOC.EVN ---
Event Note - Event Note Event Note: HOSPITALIST EVENT NOTE patient new to me. seen/examined at bedside. chart, labs, imaging results reviewed. 78 male with history metastatic melanoma followed by MD San with prior treatment who was thought to be in remission until recent PET CT scan showed concerns for recurrence in right lung who is s/p thoracotomy with biopsy and recent admission for Flu, hx afib on Pradaxa who presented with 2 days of worsening dyspnea and fatigue. admitted for acute respiratory failure with hypoxia. continue oxygen nasal canula. patient noted to have right pleural effusion with loculaton and large RUL mass. pulm and oncology consulted. recent pathology shows poorly differentiated metasatic melanoma. hold pradaxa. maintain NPO in case any interventions necessary tomorrow.
--- NOTE | 2019-10-13 19:18 | CON ---
DATE OF CONSULTATION: REASON FOR CONSULTATION: Melanoma. HISTORY OF PRESENT ILLNESS: A 78-year-old male with metastatic melanoma, presenting to the hospital with chest pain and shortness of breath. The patient was initially diagnosed with melanoma of the right eyelid in 2016, treated with surgery and was then found to have metastatic melanoma in lymph node in June 2017 and the lung. He eventually started on Keytruda plus Yervoy in July 2017 and finished this in May 2018 and then started on Braftovi and Mektovi as he had a BRAF mutation. He had almost complete resolution of disease in the lung after 3 months of treatment, but this was stopped in October 2018 due to lumbar disk fractures. The patient was then found to have progression and recurrence of disease in May 2019, and restarted Braftovi and Mektovi. Three months later on PET scan in August 2019, he had resolution of most of disease, but did have a new multifocal soft tissue mass measuring 8 x 2 x 6 cm abutting the right upper lobe and right mediastinum and biopsy confirmed metastatic melanoma. This biopsy was done via open thoracotomy on 09/22. The patient had a chest tube left in and discharged home and came back to the hospital on 09/24 with influenza. Since then, he has been continued to be very weak and yesterday, began having shortness of breath and chest pain and he was brought to the ER overnight. CT chest done in the ER shows a large right pleural effusion, partly loculated and the mass is 9.8 x 5.5 cm with mild mediastinal lymphadenopathy. The patient states since arrival to the hospital, his symptoms have improved, however, still gets short of breath when talking. He has not tried walking since admission. Dr. Thompson of Pulmonology has been consulted. REVIEW OF SYSTEMS: Ten-point review of systems negative except as per HPI. PAST MEDICAL HISTORY: Melanoma, atrial fibrillation, CAD, diabetes, hyperlipidemia, hypertension, adrenal insufficiency, and hypothyroidism. PAST SURGICAL HISTORY: Vasectomy, right anterior thoracotomy for biopsy, melanoma resections. FAMILY HISTORY: No cancer. SOCIAL HISTORY: Former smoker. No alcohol abuse. Lives with his . ALLERGIES: HYDROCODONE. CURRENT MEDICATIONS: Reviewed. PHYSICAL EXAMINATION: VITAL SIGNS: Temperature 97.2, pulse 76, respirations 18, saturating 96% on 1.5 L nasal cannula, blood pressure 138/78. GENERAL APPEARANCE: The patient is lying in bed, in no acute distress. Does have trouble speaking in full sentences due to dyspnea. HEENT: Normocephalic and atraumatic. NECK: Supple. No lymphadenopathy. HEART: Regular rhythm and rate. LUNGS: Diminished breath sounds on the right side. ABDOMEN: Soft, nondistended, nontender. EXTREMITIES: 1+ pitting edema. NEUROLOGICAL: Cranial nerves 2 through 12 grossly intact. LABORATORY DATA: White blood cell 7.3, hemoglobin 11.6, platelets 230. BNP 398. Sodium 137, potassium 4.7, BUN 16, creatinine 1.26. Troponin less than 0.010. ASSESSMENT AND PLAN: A 78-year-old male with metastatic melanoma to the lungs, large right upper lobe lesion and associated large right pleural effusion , presenting with chest pain and shortness of breath. The patient is comfortable at rest, but with speaking, becomes severely short of breath even while on oxygen. He appears very weak. I think he would benefit from a thoracentesis and his Pradaxa is currently on hold in prep for this and Dr. Thompson has been consulted. Regarding his melanoma, he has progressed on immunotherapy and BRAF inhibitors and the next treatment is chemotherapy, which can be IV or oral. I checked [facility] on his tumor and he has multiple mutations, some of which may have targeted therapies or clinical trials available for treatment, otherwise would require chemotherapy. We will re-evaluate his status after oral fluid drainage. I discussed the findings of his biopsies in [facility] with him and his and we will discuss with MD San as well. We will follow along with you. Job ID: [id number] MTDD
[2019-10-13] MEDS: Ondansetron ODT 4 MG TAB PO PRN (19:36)
[2019-10-13] MEDS: Acetaminophen/Codeine 30-300mg Tablet PO PRN (19:37)
[2019-10-13] MEDS ORDERED: [UNRECOGNIZED DRUG - OTHER] PO SCH (21:00)
[2019-10-13] MEDS ORDERED: [UNRECOGNIZED DRUG - OTHER] PO SCH (21:00)
[2019-10-14 05:33] LABS: #Basophils 0.1 thou/uL (0.0-0.2); #Eosinphils 0.5 thou/uL (0.0-0.7); #Lymphocytes 1.1 thou/uL (1.20-3.40); #Monocytes 0.9 thou/uL (0.11-0.59); #Neutrophils 4.1 thou/uL (1.40-6.50); %Basophils 0.9 % (0.0-1.0); %Eosinophils 7.6 % (0.0-10.0); %Lymphocytes 15.8 % (21.0-51.0); %Monocytes 14.2 % (0.0-10.0); %Neutrophils 61.5 % (42.0-75.0); Hemoglobin 11.5 g/dL (14.0-18.0); Mean Corpuscular HGB CONC 32.7 g/dL (32.0-36.0); Mean Corpuscular Hemoglobin 30.5 pg (27.0-31.0); Mean Corpuscular Volume 93.2 fL (78.0-98.0); Platelet Count 195 thou/uL (130-400); RBC Distribution Width 12.6 % (11.5-14.5); Red Blood Cell (RBC) Count 3.78 mill/uL (4.70-6.10); White Blood Cell (WBC) Count 6.7 thou/uL (4.8-10.8)
[2019-10-14 05:49] LABS: ALT (SGPT) 10 U/L (8-55); AST (SGOT) 18 U/L (5-34); Albumin 3.2 g/dL (3.4-4.8); Alkaline Phosphatase 70 U/L (40-110); Anion Gap 14 mmol/L (10-20); BUN (Urea Nitrogen) 16 mg/dL (8.4-25.7); Bilirubin, Total 0.2 mg/dL (0.2-1.2); Calc. Creatinine Clearance 80 mL/min (70-130); Calcium 8.4 mg/dL (7.8-10.44); Carbon Dioxide 26 mmol/L (23-31); Chloride 100 mmol/L (98-107); Estimated GFR-MDRD 68; Globulin 3.1 g/dL (2.4-3.5); Glucose 94 mg/dL (83-110); Potassium 4.7 mmol/L (3.5-5.1); Protein, Total 6.3 g/dL (5.8-8.1); Sodium 135 mmol/L (136-145)
[2019-10-14] MEDS: Levothyroxine Sodium 100 MCG TAB PO SCH (06:21)
[2019-10-14] MEDS: Acetaminophen/Codeine 30-300mg Tablet PO PRN (06:22)
[2019-10-14] MEDS: Mometasone/Formoterol 120 PUFF INHALER INH SCH ×2 (07:35→19:20)
[2019-10-14] MEDS: DULoxetine 60 MG CAP PO SCH (08:46)
[2019-10-14] MEDS: Aspirin 81 mg Enteric Coated Tablet PO SCH (08:46)
[2019-10-14] MEDS: Furosemide 20 MG TAB PO SCH (08:47)
[2019-10-14] MEDS: Sotalol HCl 80 MG TAB PO SCH ×2 (08:47→21:46)
[2019-10-14] MEDS: Tamsulosin HCl 0.4 MG CAP PO SCH ×2 (08:47→21:47)
[2019-10-14] MEDS: Hydrocortisone 10 mg Tablet PO SCH ×3 (08:47→14:32)
[2019-10-14] MEDS: metFORMIN 500 MG TAB PO SCH ×2 (08:47→16:25)
[2019-10-14] MEDS: Finasteride 5 MG TAB PO SCH (08:48)
[2019-10-14] MEDS: Metoprolol Tartrate 25 MG TAB PO SCH ×2 (08:48→21:47)
[2019-10-14] MEDS: Gabapentin 300 MG CAP PO SCH ×2 (08:49→21:47)
--- NOTE | 2019-10-14 09:45 | PDOC.HOSPP ---
- Subjective Encounter Date: 10/14/19 Encounter Time: 09:45 Subjective: cc: f/u for hypoxic respiratory failure, right pleural effusion, metastatic melanoma subjective: seen and examined this morning. probably feels a little better. still short of breath with minimal exertion and still has some right sided chest discomfort. still on oxygen nasal canula. noted plans for bedside thoracentesis this morning - Objective Vital Signs & Weight: Vital Signs (12 hours) Temp Pulse Resp BP BP Pulse Ox 10/14/19 09:23 84 20 98 10/14/19 08:47 90 140/76 10/14/19 07:36 96 10/14/19 07:35 90 16 96 10/14/19 07:21 97.8 F 87 12 140/76 98 10/14/19 04:41 97.3 F L 83 12 163/93 H 97 10/14/19 04:02 100 10/14/19 02:09 97 10/14/19 02:04 95 16 99 10/14/19 00:06 97.6 F 90 16 162/83 H 99 10/14/19 00:00 97 Weight Weight 210 lb I&O: 10/13/19 10/14/19 10/15/19 06:59 06:59 06:59 Intake Total 480 300 Balance 480 300 Result Diagrams: 10/14/19 05:09 10/14/19 05:09 Additional Labs: Accuchecks 10/14/19 10/13/19 10/13/19 05:45 20:05 17:09 POC Glucose 96 113 H 127 H 10/13/19 11:58 POC Glucose 146 H Hospitalist ROS - Review of Systems Other: ROS: pertinent positive per SUBJECTIVE. remainder ROS negative - Medication Medications: Active Medications Generic Name Dose Route Start Last Admin Trade Name Freq PRN Reason Stop Dose Admin Acetaminophen 650 mg 10/13/19 04:02 10/13/19 06:51 Tylenol PO 650 mg Q4H PRN Administration Headache/Fever/Mild Pain (1-3) Acetaminophen/Codeine Phosphate 1 tab 10/13/19 19:19 10/14/19 06:22 Tylenol #3 PO 1 tab Q6H PRN Administration Severe Pain (7-10) Albuterol/Ipratropium 3 ml 10/14/19 01:42 10/14/19 09:23 Duoneb NEB 3 ml [id number] PRN Administration SOB &/or Wheezing Aspirin 81 mg 10/13/19 09:00 10/14/19 08:46 Ecotrin PO 81 mg DAILY ROBERT Administration Duloxetine HCl 120 mg 10/13/19 09:00 10/14/19 08:46 Cymbalta PO 120 mg DAILY ROBERT Administration Finasteride 5 mg 10/13/19 09:00 10/14/19 08:48 Proscar PO 5 mg DAILY ROBERT Administration Furosemide 20 mg 10/13/19 09:00 10/14/19 08:47 Lasix PO 20 mg DAILY ROBERT Administration Gabapentin 300 mg 10/13/19 09:00 10/14/19 08:49 Neurontin PO 300 mg QAM ROBERT Administration Gabapentin 600 mg 10/13/19 21:00 10/13/19 21:31 Neurontin PO 600 mg HS ROBERT Administration Hydrocortisone 20 mg 10/14/19 09:00 10/14/19 08:47 Cortef PO 20 mg QAM ROBERT Administration Levothyroxine Sodium 200 mcg 10/13/19 06:00 10/14/19 06:21 Synthroid PO 200 mcg 0600 ROBERT Administration Metformin HCl 500 mg 10/13/19 08:00 10/14/19 08:47 Glucophage PO 500 mg BID-WM ROBERT Administration Metoprolol Tartrate 25 mg 10/13/19 09:00 10/14/19 08:48 Lopressor PO 25 mg BID ROBERT Administration Mometasone Furoate/Formoterol Fumar 2 puff 10/13/19 06:30 10/14/19 07:35 Dulera 200 Mcg/5 Mcg Inhaler INH 2 puff BID-RT ROBERT Administration Ondansetron HCl 4 mg 10/13/19 19:20 10/13/19 19:36 Zofran Odt PO 4 mg Q6H PRN Administration Nausea/Vomiting Sotalol HCl 80 mg 10/13/19 09:00 10/14/19 08:47 Betapace PO 80 mg BID ROBERT Administration Tamsulosin HCl 0.4 mg 10/13/19 09:00 10/14/19 08:47 Flomax PO 0.4 mg BID ROBERT Administration - Exam General Appearance: NAD, awake alert General - other findings: mild dyspnea at rest worse with exertion Eye: PERRL, anicteric sclera ENT: normocephalic atraumatic, no oropharyngeal lesions, moist mucosa Neck: supple Heart - other findings: s1 and s2 irreg irreg, no chest wall TTP Respiratory: no wheezes Respiratory - other findings: decreased breath sounds along right posterior lung. tachypenic. Gastrointestinal: soft, non-tender, non-distended, normal bowel sounds Extremities: no cyanosis, no clubbing, 1+ LE edema Skin: normal turgor, no lesions Neurological: cranial nerve grossly intact, normal sensation to touch Musculoskeletal: normal tone, normal strength, generalized weakness Psychiatric: normal affect, normal behavior, A&O x 3 Hosp A/P - Plan Acute respiratory failure with hypoxia. due to large right pleural effusion. continue oxygen nasal canula. wean as tolerated. will probably need home oxygen evaluation. await pulmonary evaluation for thoracentesis. Large right pleural effusion. NPO for thoracentesis today by pulmonology. s/p bedside thoracentesis and await pleural fluid studies. suspect exudate probably due to malignant pleural effusion. post-thoracentesis CXR noted. pradaxa on hold. patient had recent thoracotomy for right upper lobe lung mass Poorly differentiated metastatic melanoma. noted on recent RUL biopsy. oncology on consultation. recommends currently holding oral cancer medications per family. patient had recent abnormal PET scan. was following up with MD clark and has previously undergone chemotherapy. chronic a. fib: monitor for ventricular rate control on Lopressor and Sotalol. hold DOAC History recent hospitalization for right thoracotomy and biopsy and recurrent hospitalization for Flu generalized weakness and deconditioning : PT and OT consult BPH, continue proscar DVT px: SCD check AM labs code status: full code. Dispo: continue inpatient monitoring
--- NOTE | 2019-10-14 11:05 | OP ---
DATE OF PROCEDURE: 10/14/2019 PROCEDURE PERFORMED: Right thoracentesis. PREOPERATIVE DIAGNOSIS: Right pleural effusion. POSTOPERATIVE DIAGNOSIS: Right pleural effusion. ANESTHESIA: 1% lidocaine without epinephrine. DESCRIPTION OF PROCEDURE: Informed consent was obtained prior to the procedure. The patient understood the risks including bleeding, infection, external lung puncture and agreed to proceed. A time-out was taken prior to the procedure. The patient was identified. The right side of his chest was labeled. 1% lidocaine was used to anesthetize the operative site at the 5th and 6th interspace posteriorly on the right at the midscapular line. Chlorhexidine had been used to scrub the area prior to that. After anesthesia was applied, a Ppsb-[id number] catheter was placed in the pleural space, approximately 1.5 L of brown pleural fluid was removed and sent for appropriate studies. He tolerated the procedure well. Job ID: [id number]
--- NOTE | 2019-10-14 11:17 | CON ---
DATE OF CONSULTATION: 10/14/2019 CONSULTING PHYSICIAN: [facility]. REASON FOR CONSULTATION: Right pleural effusion. HISTORY OF PRESENT ILLNESS: The patient is a 78-year-old, who has a history of metastatic melanoma. He originally presented with melanoma of the right eyelid in 2017, which was treated surgically. He later had metastasis to lymph node and then, metastasis to his lung. He recently underwent biopsy of a right mediastinal mass, which was confirmed to be metastatic melanoma. Over the last two weeks, he has been experiencing increasing shortness of breath. On admission, he was found to have a fairly substantial right pleural effusion. I have been asked to see him in regard to thoracentesis. PAST MEDICAL HISTORY: 1. Melanoma. 2. Chronic atrial fibrillation on anticoagulation. 3. Coronary artery disease. 4. Diabetes mellitus. 5. Hyperlipidemia. 6. Hypertension. 7. Adrenal insufficiency. 8. Hypothyroidism. PAST SURGICAL HISTORY: 1. Vasectomy. 2. Right Dillingham procedure. 3. Melanoma resection. FAMILY MEDICAL HISTORY: Unremarkable. SOCIAL HISTORY: Nonsmoker. Does not consume alcohol. Lives at home with his . ALLERGIES: HYDROCODONE. MEDICATIONS: As an outpatient, he was taking; 1. Amlodipine 5 mg daily. 2. Metformin 1000 mg b.i.d. 3. Sotalol 80 mg b.i.d. 4. Pradaxa 150 mg b.i.d. 5. Compazine 10 mg as needed. 6. Metoprolol 25 mg b.i.d. 7. Encorafenib nightly. 8. Binimetinib b.i.d. 9. Tessalon Perles 100 mg t.i.d. p.r.n. 10. Dulera inhaler two puffs b.i.d. 11. Zofran 8 mg as needed. 12. Potassium chloride 20 mEq daily. 13. Tylenol No. 3 one tablet every 6 hours as needed for pain. 14. Zyrtec 10 mg daily. 15. Magnesium 400 mg daily. 16. Aspirin 81 mg daily. 17. Flomax 0.4 mg b.i.d. 18. Mucinex 600 mg b.i.d. 19. Amaryl 2 mg b.i.d. 20. Gabapentin 600 mg nightly and 300 mg daily. 21. Furosemide 20 mg daily. 22. Finasteride 5 mg daily. 23. Cymbalta 60 mg daily. 24. Levothyroxine daily. 25. Cortef 10 mg daily. His inpatient medications were reviewed and include; 1. Aspirin. 2. Duloxetine. 3. Finasteride. 4. Furosemide. 5. Gabapentin. 6. Hydrocortisone. 7. Levothyroxine. 8. Metformin. 9. Metoprolol. 10. Zofran. 11. Sotalol. 12. Flomax. 13. He is not taking the Pradaxa for the last 48 hours. REVIEW OF SYSTEMS: Remarkable for shortness of breath. No fever, chills, nausea, vomiting, hematemesis, melena, hematochezia, hematuria, or dysuria. PHYSICAL EXAMINATION: VITAL SIGNS: Temperature 97.8, pulse 84, respirations 20, O2 saturation 98% on 2 L, and blood pressure 140/76. He is 5 feet 7 inches and weighs 210 pounds. GENERAL: Does not appear to be in any distress. HEENT: Unremarkable. NECK: No adenopathy or JVD. LUNGS: He has almost absent breath sounds on the right, clear on the left. CARDIOVASCULAR: S1 and S2. Regular without murmur. ABDOMEN: Soft and nontender to palpation. EXTREMITIES: No clubbing, cyanosis, or edema. LABORATORY DATA: White blood cell count 6.7, hematocrit 35.2, and platelet count 195. Sodium 135, potassium 4.7, chloride 100, CO2 of 26, BUN 16, creatinine 1.1, glucose 68, LDH 189, and albumin 3.2. ASSESSMENT: Chest x-ray and CT showed a fairly substantial right-sided pleural effusion. This is probably metastatic for melanoma. I discussed the findings with the patient. PLAN: 1. Diagnostic therapeutic right thoracentesis. Explained risks to the patient including bleeding, infection, and external lung puncture. He understands that he has been on Pradaxa, he is at somewhat increased risk for bleeding. He is agreeable to proceed. 2. He understands that this may require more definitive therapy in the future, especially if it is malignant. We will follow. Job ID: [id number]
[2019-10-14 11:24] LABS: Pleural Fluid, Protein 3.3 g/dL
--- NOTE | 2019-10-14 11:43 | RAD ---
EXAM: Single view of the chest HISTORY: Status post right thoracocentesis COMPARISON: 10/13/2019 FINDINGS: Single view of the chest shows an enlarged but stable cardiomediastinal silhouette. There is decreased size of the right pleural effusion. A moderate residual pleural effusion remains. No pneumothorax is seen. There is a right hilar mass. The bones are unremarkable. IMPRESSION: Decreased size of right pleural effusion status post thoracocentesis.
[2019-10-14 13:40] LABS: RBC Count-Automated (BF) 9589 /cumm; WBC/Nucleated-Auto (BF) 1238 uL
[2019-10-14 13:50] LABS: Body Fluid Source Pleural Fluid
[2019-10-14 13:51] LABS: BF Color Yellow; Clarity Hazy (Clear); Tube # 2
[2019-10-14 13:54] LABS: BF Segmented Neutrophils 5 %; Cell Count Non Hematic 16 %; Eosinophils 8 %; Lymphocytes 69 %
[2019-10-14 16:08] LABS: Fluid, pH - Pleural Fld Greater than 7.50 (7.60 - 7.66)
[2019-10-15] MEDS: Levothyroxine Sodium 100 MCG TAB PO SCH (06:40)
[2019-10-15 06:42] LABS: Hemoglobin 11.5 g/dL (14.0-18.0)
[2019-10-15 07:01] LABS: Anion Gap 12 mmol/L (10-20); BUN (Urea Nitrogen) 20 mg/dL (8.4-25.7); Calc. Creatinine Clearance 86 mL/min (70-130); Carbon Dioxide 31 mmol/L (23-31); Chloride 98 mmol/L (98-107); Estimated GFR-MDRD 74; Glucose 121 mg/dL (83-110); Potassium 4.3 mmol/L (3.5-5.1); Sodium 137 mmol/L (136-145)
[2019-10-15] MEDS: Mometasone/Formoterol 120 PUFF INHALER INH SCH ×2 (07:30→19:46)
[2019-10-15] MEDS: Tamsulosin HCl 0.4 MG CAP PO SCH ×2 (08:28→20:08)
[2019-10-15] MEDS: Sotalol HCl 80 MG TAB PO SCH ×2 (08:29→20:08)
[2019-10-15] MEDS: Furosemide 20 MG TAB PO SCH (08:29)
[2019-10-15] MEDS: Finasteride 5 MG TAB PO SCH (08:29)
[2019-10-15] MEDS: DULoxetine 60 MG CAP PO SCH (08:29)
[2019-10-15] MEDS: Gabapentin 300 MG CAP PO SCH ×2 (08:29→20:09)
[2019-10-15] MEDS: Metoprolol Tartrate 25 MG TAB PO SCH ×2 (08:29→20:08)
[2019-10-15] MEDS: metFORMIN 500 MG TAB PO SCH ×2 (08:32→16:19)
[2019-10-15] MEDS: Aspirin 81 mg Enteric Coated Tablet PO SCH (08:32)
[2019-10-15] MEDS: Hydrocortisone 10 mg Tablet PO SCH ×2 (08:34→13:47)
--- NOTE | 2019-10-15 10:35 | PDOC.HOSPP ---
- Subjective Encounter Date: 10/15/19 Encounter Time: 10:35 Subjective: cc: f/u for hypoxic respiratory failure, right pleural effusion, metastatic melanoma subjective: seen and examined this morning. feels better today. less short of breath. improved when sitting upright. nurse notes patient had 1.5L thoracentesis yesterday and is still on 2L oxygen nasal canula. - Objective Vital Signs & Weight: Vital Signs (12 hours) Temp Pulse Resp BP BP Pulse Ox 10/15/19 08:32 97.6 F 87 16 151/81 H 98 10/15/19 08:29 87 151/81 H 10/15/19 07:32 97 10/15/19 07:30 90 16 97 10/15/19 04:20 97.8 F 87 14 157/79 H 96 10/15/19 02:33 98 10/15/19 02:32 90 18 98 10/15/19 00:17 97.7 F 88 16 153/78 H 99 Weight Weight 210 lb I&O: 10/14/19 10/15/19 10/16/19 06:59 06:59 06:59 Intake Total 480 900 Output Total 75 Balance 480 825 Result Diagrams: 10/15/19 06:20 10/15/19 06:20 Additional Labs: Accuchecks 10/15/19 10/14/19 05:34 20:03 POC Glucose 126 H 146 H Hospitalist ROS - Review of Systems Other: ROS: pertinent positive per SUBJECTIVE; remainder ROS negative - Medication Medications: Active Medications Generic Name Dose Route Start Last Admin Trade Name Freq PRN Reason Stop Dose Admin Acetaminophen 650 mg 10/13/19 04:02 10/13/19 06:51 Tylenol PO 650 mg Q4H PRN Administration Headache/Fever/Mild Pain (1-3) Acetaminophen/Codeine Phosphate 1 tab 10/13/19 19:19 10/14/19 06:22 Tylenol #3 PO 1 tab Q6H PRN Administration Severe Pain (7-10) Albuterol/Ipratropium 3 ml 10/14/19 01:42 10/15/19 02:32 Duoneb NEB 3 ml [id number] PRN Administration SOB &/or Wheezing Aspirin 81 mg 10/13/19 09:00 10/15/19 08:32 Ecotrin PO 81 mg DAILY ROBERT Administration Duloxetine HCl 120 mg 10/13/19 09:00 10/15/19 08:29 Cymbalta PO 120 mg DAILY ROBERT Administration Finasteride 5 mg 10/13/19 09:00 10/15/19 08:29 Proscar PO 5 mg DAILY ROBERT Administration Furosemide 20 mg 10/13/19 09:00 10/15/19 08:29 Lasix PO 20 mg DAILY ROBERT Administration Gabapentin 300 mg 10/13/19 09:00 10/15/19 08:29 Neurontin PO 300 mg QAM ROBERT Administration Gabapentin 600 mg 10/13/19 21:00 10/14/19 21:47 Neurontin PO 600 mg HS ROBERT Administration Hydrocortisone 20 mg 10/14/19 09:00 10/15/19 08:34 Cortef PO 20 mg QAM ROBERT Administration Hydrocortisone 10 mg 10/14/19 14:00 10/14/19 14:32 Cortef PO 10 mg 1400 ROBRET Administration Levothyroxine Sodium 200 mcg 10/13/19 06:00 10/15/19 06:40 Synthroid PO 200 mcg 0600 ROBERT Administration Metformin HCl 500 mg 10/13/19 08:00 10/15/19 08:32 Glucophage PO 500 mg BID-WM ROBERT Administration Metoprolol Tartrate 25 mg 10/13/19 09:00 10/15/19 08:29 Lopressor PO 25 mg BID ROBERT Administration Mometasone Furoate/Formoterol Fumar 2 puff 10/13/19 06:30 10/15/19 07:30 Dulera 200 Mcg/5 Mcg Inhaler INH 2 puff BID-RT ROBERT Administration Ondansetron HCl 4 mg 10/13/19 19:20 10/13/19 19:36 Zofran Odt PO 4 mg Q6H PRN Administration Nausea/Vomiting Sotalol HCl 80 mg 10/13/19 09:00 10/15/19 08:29 Betapace PO 80 mg BID ROBERT Administration Tamsulosin HCl 0.4 mg 10/13/19 09:00 10/15/19 08:28 Flomax PO 0.4 mg BID ROBERT Administration Hosp A/P - Plan PHYSICAL EXAMINATION: General Appearance: NAD, awake alert, less short of breath with movement in bed Eye: PERRL, anicteric sclera ENT: normocephalic atraumatic, no oropharyngeal lesions, moist mucosa Neck: supple Heart - other findings: s1 and s2 irreg irreg, no chest wall TTP Respiratory: no wheezes Respiratory - other findings: decreased breath sounds along right posterior lung. less short of breath with inspiration. Gastrointestinal: soft, non-tender, non-distended, normal bowel sounds Extremities: no cyanosis, no clubbing, 1+ LE edema Skin: normal turgor, no lesions Neurological: cranial nerve grossly intact, normal sensation to touch Musculoskeletal: normal tone, normal strength, generalized weakness Psychiatric: normal affect, normal behavior, A&O x 3 PLEURAL FLUID STUDIES: LDH 151, T.protein 3.3 SERUM STUDIES: LDH 189, T. protein 6.3 pleural fluid culture and AFB: pending Hosp A/P - ASSESSMENT AND PLAN Acute respiratory failure with hypoxia. due to large right pleural effusion. continue oxygen nasal canula. wean as tolerated. will probably need home oxygen evaluation and check ambulatory pulse oximetry. s/p bedside thoracentesis 1.5L on 10/14/19 by pulmonology suggestive of exudative effusion. Large right pleural effusion. s/p bedside thoracentesis 1.5 L on 10/14/19 suggestive of exudative effusion probably due to malignant pleural effusion. post-thoracentesis CXR noted. pradaxa on hold. patient had recent thoracotomy for right upper lobe lung mass Poorly differentiated metastatic melanoma. noted on recent RUL biopsy. oncology on consultation. recommends currently holding oral cancer medications per family. patient had recent abnormal PET scan. was following up with [facility] and has previously undergone chemotherapy. chronic a. fib: monitor for ventricular rate control on Lopressor and Sotalol. hold DOAC for now History recent hospitalization for right thoracotomy and biopsy and recurrent hospitalization for Flu generalized weakness and deconditioning : PT and OT consult. check ambulatory pulse oximetry for any home DME needs. BPH, continue proscar DVT px: SCD. start LMWH code status: full code. Dispo: continue inpatient monitoring. discharge planning home with HHC and possibly home oxygen.
--- NOTE | 2019-10-15 14:01 | PRG ---
DATE OF SERVICE: SUBJECTIVE: He continues to be very short of breath despite the large volume thoracentesis yesterday. OBJECTIVE: VITAL SIGNS: Temperature 98.5, pulse 92, respirations 13, O2 saturation 95% on 2 L, blood pressure 141/77. HEENT: Remarkable for alopecia. NECK: No adenopathy or JVD. LUNGS: He has decreased air entry on the right with dullness to percussion at the right base, left side is clear. CARDIAC: S1, S2. Regular. ABDOMEN: Soft. EXTREMITIES: No edema. His pleural fluid was exudative and with a lymphocytic predominance. His postop chest x-ray demonstrated some improvement in aeration, but the right perihilar mass was enlarged and quite concerning. ASSESSMENT: This patient has a large right hilar mass which is probably impinging on his airway externally leading to atelectatic lung. He also has a malignant pleural effusion and metastatic melanoma. RECOMMENDATIONS: This patient basically needs chemotherapy for the melanoma. It would be of little good to insert a PleurX catheter if the reason for his effusion is atelectatic lung and subsequent filling of the space. I have recommended that he consider going down to [facility] if he has seen them in the past. He would likely need home O2 for the transport. There were also some psychosocial factors involved. His cannot help him with ambulation and the patient has become quite unstable on his feet. The alternative to all of these is hospice care. Job ID: [id number]
[2019-10-16] MEDS: Levothyroxine Sodium 100 MCG TAB PO SCH (05:09)
[2019-10-16] MEDS: Mometasone/Formoterol 120 PUFF INHALER INH SCH ×2 (06:40→18:33)
[2019-10-16] MEDS: Gabapentin 300 MG CAP PO SCH ×2 (08:55→20:59)
[2019-10-16] MEDS: Sotalol HCl 80 MG TAB PO SCH ×2 (08:55→20:59)
[2019-10-16] MEDS: Metoprolol Tartrate 25 MG TAB PO SCH ×2 (08:55→20:59)
[2019-10-16] MEDS: Hydrocortisone 10 mg Tablet PO SCH ×2 (08:56→14:34)
[2019-10-16] MEDS: Tamsulosin HCl 0.4 MG CAP PO SCH ×2 (08:56→21:00)
[2019-10-16] MEDS: Aspirin 81 mg Enteric Coated Tablet PO SCH (08:56)
[2019-10-16] MEDS: DULoxetine 60 MG CAP PO SCH (08:56)
[2019-10-16] MEDS: Enoxaparin Sodium 40 MG/0.4 ML SYRINGE SC SCH (08:56)
[2019-10-16] MEDS: Furosemide 20 MG TAB PO SCH (08:56)
[2019-10-16] MEDS: Finasteride 5 MG TAB PO SCH (08:57)
[2019-10-16] MEDS: metFORMIN 500 MG TAB PO SCH ×2 (08:58→17:45)
[2019-10-16] MEDS: Ondansetron ODT 4 MG TAB PO PRN (10:45)
--- NOTE | 2019-10-16 13:26 | PRG ---
DATE OF SERVICE: 10/16/2019 SUBJECTIVE: This patient is fairly short of breath. He has had no change since yesterday. He is still pending oncologic disposition. OBJECTIVE: VITAL SIGNS: His heart rate is 87, blood pressure 153/78, temperature 98.0, O2 saturation 96% on nasal cannula. HEENT: Unremarkable. NECK: No JVD. LUNGS: He has almost no air entry on the right, clear left. ABDOMEN: Soft and nontender. CARDIAC: S1 and S2. Regular. ASSESSMENT: 1. Likely malignant right pleural effusion from melanoma, cytology pending. 2. Metastatic melanoma. PLAN: This is basically an oncologic issue that will not resolve until his melanoma is responding to treatment. I think he has circumferential narrowing of his bronchus from extrinsic compression from the melanoma in the right hilar area. See yesterday's note. Job ID: [id number]
--- NOTE | 2019-10-16 17:58 | PDOC.HOSPP ---
- Subjective Encounter Date: 10/16/19 Encounter Time: 17:58 Subjective: cc: f/u for hypoxic respiratory failure, right pleural effusion, metastatic melanoma subjective: seen and examined at bedside. spouse and multiple family members present. patient complains of shortness of breath with minimal activity. feels fatigued and weak. RN notes patient ambulated with PT yesterday on room air and without desaturation - Objective Vital Signs & Weight: Vital Signs (12 hours) Temp Pulse Resp BP BP Pulse Ox 10/16/19 16:01 98.5 F 99 20 161/81 H 97 10/16/19 11:17 98.0 F 87 24 H 153/85 H 96 10/16/19 08:55 93 153/78 H 10/16/19 08:00 97 10/16/19 07:40 99.0 F 93 16 153/78 H 97 Weight Weight 210 lb I&O: 10/15/19 10/16/19 10/17/19 06:59 06:59 06:59 Intake Total 900 720 Output Total 75 Balance 825 720 Result Diagrams: 10/15/19 06:20 10/15/19 06:20 Additional Labs: Accuchecks 10/16/19 10/15/19 06:07 20:13 POC Glucose 132 H 163 H Hospitalist ROS - Review of Systems Other: ROS: positive for dyspnea and abdominal pain. pertinent positive per SUBJECTIVE. remainder ROS is negative. - Medication Medications: Active Medications Generic Name Dose Route Start Last Admin Trade Name Freq PRN Reason Stop Dose Admin Acetaminophen 650 mg 10/13/19 04:02 10/13/19 06:51 Tylenol PO 650 mg Q4H PRN Administration Headache/Fever/Mild Pain (1-3) Acetaminophen/Codeine Phosphate 1 tab 10/13/19 19:19 10/14/19 06:22 Tylenol #3 PO 1 tab Q6H PRN Administration Severe Pain (7-10) Albuterol/Ipratropium 3 ml 10/14/19 01:42 10/15/19 19:47 Duoneb NEB 3 ml [id number] PRN Administration SOB &/or Wheezing Aspirin 81 mg 10/13/19 09:00 10/16/19 08:56 Ecotrin PO 81 mg DAILY ROBERT Administration Duloxetine HCl 120 mg 10/13/19 09:00 10/16/19 08:56 Cymbalta PO 120 mg DAILY ROBERT Administration Enoxaparin Sodium 40 mg 10/16/19 09:00 10/16/19 08:56 Lovenox SC 40 mg 0900 ROBERT Administration Finasteride 5 mg 10/13/19 09:00 10/16/19 08:57 Proscar PO 5 mg DAILY ROBERT Administration Furosemide 20 mg 10/13/19 09:00 10/16/19 08:56 Lasix PO 20 mg DAILY ROBERT Administration Gabapentin 300 mg 10/13/19 09:00 10/16/19 08:55 Neurontin PO 300 mg QAM ROBERT Administration Gabapentin 600 mg 10/13/19 21:00 10/15/19 20:09 Neurontin PO 600 mg HS ROBERT Administration Hydrocortisone 20 mg 10/14/19 09:00 10/16/19 08:56 Cortef PO 20 mg QAM ROBERT Administration Hydrocortisone 10 mg 10/14/19 14:00 10/16/19 14:34 Cortef PO 10 mg 1400 ROBERT Administration Levothyroxine Sodium 200 mcg 10/13/19 06:00 10/16/19 05:09 Synthroid PO 200 mcg 0600 ROBERT Administration Metformin HCl 500 mg 10/13/19 08:00 10/16/19 17:45 Glucophage PO 500 mg BID-WM ROBERT Administration Metoprolol Tartrate 25 mg 10/13/19 09:00 10/16/19 08:55 Lopressor PO 25 mg BID ROBERT Administration Mometasone Furoate/Formoterol Fumar 2 puff 10/13/19 06:30 10/16/19 06:40 Dulera 200 Mcg/5 Mcg Inhaler INH 2 puff BID-RT ROBERT Administration Ondansetron HCl 4 mg 10/13/19 19:20 10/16/19 10:45 Zofran Odt PO 4 mg Q6H PRN Administration Nausea/Vomiting Sotalol HCl 80 mg 10/13/19 09:00 10/16/19 08:55 Betapace PO 80 mg BID ROBERT Administration Tamsulosin HCl 0.4 mg 10/13/19 09:00 10/16/19 08:56 Flomax PO 0.4 mg BID ROBERT Administration Hosp A/P - Plan PHYSICAL EXAMINATION: General Appearance: awake alert, short of breath with minimal movement in bed and speaking in broken sentences. Eye: PERRL, anicteric sclera ENT: normocephalic atraumatic, no oropharyngeal lesions, moist mucosa Neck: supple Heart - other findings: s1 and s2 irreg irreg, no chest wall TTP Respiratory: no wheezes Respiratory - other findings: decreased breath sounds across the right posterior lung with tachypnea and speaking in broken sentences. Gastrointestinal: soft, non-tender, non-distended, normal bowel sounds Extremities: no cyanosis, no clubbing, 1+ LE edema Skin: normal turgor, no lesions Neurological: cranial nerve grossly intact, normal sensation to touch Musculoskeletal: generalized weakness with minimal movement Psychiatric: normal affect, normal behavior, A&O x 3 PLEURAL FLUID STUDIES: LDH 151, T.protein 3.3 SERUM STUDIES: LDH 189, T. protein 6.3 pleural fluid culture and AFB: pending Hosp A/P - ASSESSMENT AND PLAN Acute respiratory failure with hypoxia. due to metastatic melanoma lung tumor and right pleural effusion. s/p bedside thoracentesis 1.5L on 10/14/19 by pulmonology suggestive of exudative effusion. await pathology. pulmonology following and noted concern for extrinisic bronchus compression. continue oxygen nasal canula. repeat 1 view CXR in AM Large right pleural effusion. 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 patient had recent thoracotomy for right upper lobe lung mass showing poorly differentiated melanoma. repeat 1 view CXR in AM. Poorly differentiated metastatic melanoma. noted on recent RUL biopsy. oncology initial consultation note reviewed but now await further recommendations. Pulmonology concerned about extrinsic right bronchus compression. patient had recent abnormal outpatient PET scan and was following up [facility] and has previously undergone chemotherapy. Will await inpatient recommendations regarding ?palliative treatments, ?hospice chronic a. fib: monitor for ventricular rate control on Lopressor and Sotalol. hold DOAC for now. History recent hospitalization for right thoracotomy and biopsy and recurrent hospitalization for Flu generalized weakness and deconditioning : PT and OT on consult. will need SNF BPH, continue proscar DVT px: SCD. LMWH code status: full code. discussed with patient and spouse today at bedside. Dispo: continue inpatient monitoring. discharge planning eventually to SNF.
[2019-10-17] MEDS: Levothyroxine Sodium 100 MCG TAB PO SCH (06:05)
[2019-10-17] MEDS: Mometasone/Formoterol 120 PUFF INHALER INH SCH ×2 (08:03→19:16)
--- NOTE | 2019-10-17 08:20 | RAD ---
PORTABLE CHEST 1 VIEW: DATE: 10/17/2019. TIME: 8:00 a.m. HISTORY: Pleural effusion. FINDINGS: Comparison is made with the exam of 10/14/2019. Right-sided pleural effusion is stable. Right hilar mass is again seen. No pneumothoraces identifie d. The heart size is stable. The left lung is clear. POS: OFF
[2019-10-17] MEDS: Sotalol HCl 80 MG TAB PO SCH ×2 (09:08→21:01)
[2019-10-17] MEDS: Enoxaparin Sodium 40 MG/0.4 ML SYRINGE SC SCH (09:08)
[2019-10-17] MEDS: Hydrocortisone 10 mg Tablet PO SCH ×2 (09:08→14:31)
[2019-10-17] MEDS: Acetaminophen/Codeine 30-300mg Tablet PO PRN ×2 (09:09→15:12)
[2019-10-17] MEDS: DULoxetine 60 MG CAP PO SCH (09:09)
[2019-10-17] MEDS: Metoprolol Tartrate 25 MG TAB PO SCH ×2 (09:10→21:14)
[2019-10-17] MEDS: Gabapentin 300 MG CAP PO SCH ×2 (09:10→21:01)
[2019-10-17] MEDS: metFORMIN 500 MG TAB PO SCH ×2 (09:10→16:54)
[2019-10-17] MEDS: Furosemide 20 MG TAB PO SCH (09:10)
[2019-10-17] MEDS: Finasteride 5 MG TAB PO SCH (09:10)
[2019-10-17] MEDS: Tamsulosin HCl 0.4 MG CAP PO SCH ×2 (09:10→21:01)
[2019-10-17] MEDS: Aspirin 81 mg Enteric Coated Tablet PO SCH (09:10)
--- NOTE | 2019-10-17 10:03 | PDOC.HOSPP ---
- Subjective Encounter Date: 10/17/19 Encounter Time: 10:03 Subjective: cc: f/u for hypoxic respiratory failure, right pleural effusion, metastatic melanoma subjective: seen and examined at bedside. feels about the same as yesterday. short of breath with minimal movement and with speaking only a few words. states he and his spouse discuss his code status on a nightly basis. nurse notes no acute overnight events. discussed with oncology BOAT DOCK OPERATOR this afternoon who will consult radiation oncology to evaluate right hilar tumor and recommends patient follow-up as outpatient with MD clark to discuss chemotherapy options as no inpatient treatments are recommended. - Objective Vital Signs & Weight: Vital Signs (12 hours) Temp Pulse Resp BP BP Pulse Ox 10/17/19 09:08 101 H 173/92 H 10/17/19 08:05 98 10/17/19 08:03 105 H 16 98 10/17/19 07:54 97.6 F 102 H 22 H 189/108 H 100 10/17/19 03:42 98.1 F 94 20 181/95 H 96 10/16/19 23:22 98.8 F 90 20 167/87 H 98 Weight Weight 210 lb I&O: 10/16/19 10/17/19 10/18/19 06:59 06:59 06:59 Intake Total 720 360 Output Total 675 Balance 720 -315 Result Diagrams: 10/15/19 06:20 10/15/19 06:20 Hospitalist ROS - Review of Systems Other: ROS: pertinent positive per SUBJECTIVE; remainder ROS negative - Medication Medications: Active Medications Generic Name Dose Route Start Last Admin Trade Name Freq PRN Reason Stop Dose Admin Acetaminophen 650 mg 10/13/19 04:02 10/13/19 06:51 Tylenol PO 650 mg Q4H PRN Administration Headache/Fever/Mild Pain (1-3) Acetaminophen/Codeine Phosphate 1 tab 10/13/19 19:19 10/17/19 09:09 Tylenol #3 PO 1 tab Q6H PRN Administration Severe Pain (7-10) Albuterol/Ipratropium 3 ml 10/14/19 01:42 10/15/19 19:47 Duoneb NEB 3 ml [id number] PRN Administration SOB &/or Wheezing Aspirin 81 mg 10/13/19 09:00 10/17/19 09:10 Ecotrin PO 81 mg DAILY ROBERT Administration Duloxetine HCl 120 mg 10/13/19 09:00 10/17/19 09:09 Cymbalta PO 120 mg DAILY ROBERT Administration Enoxaparin Sodium 40 mg 10/16/19 09:00 10/17/19 09:08 Lovenox SC 40 mg 0900 ROBERT Administration Finasteride 5 mg 10/13/19 09:00 10/17/19 09:10 Proscar PO 5 mg DAILY ROBERT Administration Furosemide 20 mg 10/13/19 09:00 10/17/19 09:10 Lasix PO 20 mg DAILY ROBERT Administration Gabapentin 300 mg 10/13/19 09:00 10/17/19 09:10 Neurontin PO 300 mg QAM ROBERT Administration Gabapentin 600 mg 10/13/19 21:00 10/16/19 20:59 Neurontin PO 600 mg HS ROBERT Administration Hydrocortisone 20 mg 10/14/19 09:00 10/17/19 09:08 Cortef PO 20 mg QAM ROBERT Administration Hydrocortisone 10 mg 10/14/19 14:00 10/16/19 14:34 Cortef PO 10 mg 1400 ROBERT Administration Levothyroxine Sodium 200 mcg 10/13/19 06:00 10/17/19 06:05 Synthroid PO 200 mcg 0600 ROBERT Administration Metformin HCl 500 mg 10/13/19 08:00 10/17/19 09:10 Glucophage PO 500 mg BID-WM ROBERT Administration Metoprolol Tartrate 25 mg 10/13/19 09:00 10/17/19 09:10 Lopressor PO 25 mg BID ROBERT Administration Mometasone Furoate/Formoterol Fumar 2 puff 10/13/19 06:30 10/17/19 08:03 Dulera 200 Mcg/5 Mcg Inhaler INH 2 puff BID-RT ROBERT Administration Ondansetron HCl 4 mg 10/13/19 19:20 10/16/19 10:45 Zofran Odt PO 4 mg Q6H PRN Administration Nausea/Vomiting Sotalol HCl 80 mg 10/13/19 09:00 10/17/19 09:08 Betapace PO 80 mg BID ROBERT Administration Tamsulosin HCl 0.4 mg 10/13/19 09:00 10/17/19 09:10 Flomax PO 0.4 mg BID ROBERT Administration Hosp A/P - Plan PHYSICAL EXAMINATION: General Appearance: awake alert, short of breath with minimal movement in bed and speaking in broken sentences. Eye: PERRL, anicteric sclera ENT: normocephalic atraumatic, no oropharyngeal lesions, moist mucosa Neck: supple Heart - other findings: s1 and s2 irreg irreg, no chest wall TTP Respiratory: no wheezes Respiratory - other findings: decreased breath sounds across the right posterior lung with tachypnea and speaking in broken sentences. Gastrointestinal: soft, non-tender, non-distended, normal bowel sounds Extremities: no cyanosis, no clubbing, 1+ LE edema Skin: normal turgor, no lesions Neurological: cranial nerve grossly intact, normal sensation to touch Musculoskeletal: generalized weakness with minimal movement Psychiatric: normal affect, normal behavior, A&O x 3 PLEURAL FLUID STUDIES: LDH 151, T.protein 3.3 SERUM STUDIES: LDH 189, T. protein 6.3 pleural fluid culture and AFB: pending Hosp A/P - ASSESSMENT AND PLAN Acute respiratory failure with hypoxia. due to metastatic melanoma lung tumor and right pleural effusion. s/p bedside thoracentesis 1.5L on 10/14/19 by pulmonology suggestive of exudative effusion. pathology negative for maligant cells pulmonology following and noted concern for extrinisic bronchus compression fro metastatic melanoma. discussed with oncology BOAT DOCK OPERATOR who will consult radiation oncologist for further recommendations. continue oxygen nasal canula as patient extremely dyspneic with minimal movement. repeat 1 view CXR in AM Large right pleural effusion. 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 patient had recent thoracotomy for right upper lobe lung mass showing poorly differentiated melanoma. repeat 1 view CXR in AM. Poorly differentiated metastatic melanoma. noted on recent RUL biopsy. oncology recomends outpatient follow-up with MD clark to discuss chemotherapy options. discussed pulmonology concerns that mass was compressing bronchus and radiation oncologist was consulted for evaluation. patient had recent abnormal outpatient PET scan and was following up with MD clark and has previously undergone chemotherapy. Will await inpatient recommendations regarding ? palliative treatments, ?hospice chronic a. fib: monitor for ventricular rate control on Lopressor and Sotalol. hold DOAC for now. History recent hospitalization for right thoracotomy and biopsy and recurrent hospitalization for Flu generalized weakness and deconditioning : PT and OT on consult. approved to SNF this afternoon. BPH, continue proscar DVT px: SCD. LMWH code status: full code. discussed with patient today at bedside about consideration for palliative options. Dispo: continue inpatient monitoring and await radiation oncology input. patient accepted to SNF and will be discharged once okay with all consultants.
--- NOTE | 2019-10-17 10:19 | PRG ---
DATE OF SERVICE: 10/17/2019 SUBJECTIVE: Mr. Bernal is still suffering and looks quite dyspneic at rest. He is awaiting an oncologic disposition. OBJECTIVE: VITAL SIGNS: He is currently on 2 L nasal cannula and his O2 saturations are 98%, his pulse is 101, blood pressure 133/92, temperature 97.6. HEENT: Unremarkable. NECK: No adenopathy or JVD. LUNGS: Almost absent breath sounds on the right. Clear on the left. CARDIAC: S1 and S2. Regular. ABDOMEN: Soft. EXTREMITIES: No edema. LABORATORY DATA: X-ray from today demonstrates moderate-sized effusion with a huge right hilar mass. ASSESSMENT: Right lung atelectasis/effusion from metastatic melanoma. PLAN: As per my previous notes. This is going to require response to chemotherapy in order to improve. I do not see much role for PleurX catheter until the hilar tumor has reduced in size. In truth, there may not be much therapy to offer the patient and palliative care/hospice should be strongly considered. Pulmonary will see the patient on an as-needed basis. Please call. Job ID: [id number]
--- NOTE | 2019-10-17 14:28 | PDOC.MOPN ---
Interval History: SOB when lying flat. otherwise feels well. - Vital Signs Vital Signs: Vital Signs (12 hours) Temp Pulse Resp BP BP Pulse Ox 10/17/19 11:58 94 133/87 95 10/17/19 11:24 102 H 20 96 10/17/19 11:12 97.7 F 100 20 160/82 H 96 10/17/19 09:08 101 H 173/92 H 10/17/19 08:05 98 10/17/19 08:03 105 H 16 98 10/17/19 08:00 100 10/17/19 07:54 97.6 F 102 H 22 H 189/108 H 100 10/17/19 03:42 98.1 F 94 20 181/95 H 96 Weight Weight 210 lb - Physical Exam General: Alert, Oriented x3, No acute distress HEENT: Atraumatic, PERRLA, EOMI, Mucous membr. moist/pink Cardiovascular: Regular rate, Normal S1, Normal S2, No murmurs, Gallops, Rubs Abdomen: Normal bowel sounds, Soft, No tenderness, No hepatospenomegaly, No masses Extremities: Other (BLE edema) Neurological: Normal speech - Labs Result Diagrams: 10/15/19 06:20 10/15/19 06:20 Lab results: Laboratory Results - last 24 hr 10/14/19 10:48: Fluid Diff Path Review Status: lab reviewed by me A/P - Problem (1) Metastatic melanoma to lung Current Visit: No Code(s): C78.00 - SECONDARY MALIGNANT NEOPLASM OF UNSPECIFIED LUNG Status: Acute - Plan Plan: Patient wishes to be aggressive with treatment for melanoma Await return phone call/email from [facility] physician to discuss treatment options. Encourage rehab before treatment. discussed with Dr. Mederos
[2019-10-18] MEDS: hydrALAZINE 20 MG/ML VIAL SLOW IVP PRN (02:44)
[2019-10-18] MEDS: Sotalol HCl 80 MG TAB PO SCH ×2 (06:10→20:51)
[2019-10-18] MEDS: Metoprolol Tartrate 25 MG TAB PO SCH ×2 (06:14→20:50)
[2019-10-18] MEDS: Levothyroxine Sodium 100 MCG TAB PO SCH (06:14)
[2019-10-18] MEDS: Mometasone/Formoterol 120 PUFF INHALER INH SCH ×2 (06:54→18:24)
[2019-10-18] MEDS: Furosemide 20 MG TAB PO SCH (08:35)
[2019-10-18] MEDS: Acetaminophen/Codeine 30-300mg Tablet PO PRN (08:35)
[2019-10-18] MEDS: Tamsulosin HCl 0.4 MG CAP PO SCH ×2 (08:36→20:50)
[2019-10-18] MEDS: DULoxetine 60 MG CAP PO SCH (08:36)
[2019-10-18] MEDS: Finasteride 5 MG TAB PO SCH (08:36)
[2019-10-18] MEDS: metFORMIN 500 MG TAB PO SCH ×2 (08:37→17:29)
[2019-10-18] MEDS: Gabapentin 300 MG CAP PO SCH ×2 (08:37→20:50)
[2019-10-18] MEDS: Enoxaparin Sodium 40 MG/0.4 ML SYRINGE SC SCH (08:37)
[2019-10-18] MEDS: Aspirin 81 mg Enteric Coated Tablet PO SCH (08:37)
[2019-10-18] MEDS: Hydrocortisone 10 mg Tablet PO SCH ×2 (08:37→14:12)
--- NOTE | 2019-10-18 10:22 | CON ---
DATE OF CONSULTATION: 10/18/2019 REASON FOR CONSULTATION: Mr. Bernal is a 78-year-old gentleman with metastatic melanoma to the lung. I was asked to see him for possible radiation therapy. HISTORY OF PRESENT ILLNESS: Mr. Bernal has a long history of melanoma. He was diagnosed with a melanoma of the right eyelid in 2016, treated with surgery. He then was found to have a metastatic melanoma involving the lymph node in June 2007, and also the lung. He was treated with immunotherapy and had excellent response to this. He did have a BRAF mutation. He had to stop his therapy in October 2018, secondary to lumbar disk fractures. By May of 2019, he was felt to have progression recurrence of disease. On PET scan in August 2019, he had resolution of much of his disease, but had a new multifocal soft tissue mass measuring 8 x 2 x 6 cm abutting the right upper lobe and right mediastinum. This was biopsied by open thoracotomy in early September and confirmed to be metastatic melanoma. He then had a diagnosis of influenza. More recently, he presented to the emergency room with chest pain and progressive shortness of breath. He had a CT scan of the chest, which showed some atelectasis of the right lower lobe of the lung and a large right pleural effusion. The mass in the right upper lobe was much larger. He has had a thoracentesis on this hospitalization with cytology being negative. I am seeing him today to discuss his options with radiation therapy. He does feel that his shortness of breath has really not improved much and perhaps even slightly worse since his admission. He denies any chest pain. He does have some pain in his left shoulder, which he has had for nine months. He has no back pain. He has no headaches or nausea or vomiting. He denies any focal weakness or numbness. He voices no other complaints. He denies any recent weight loss. PAST MEDICAL HISTORY: 1. Melanoma as mentioned above. 2. Atrial fibrillation. 3. Coronary artery disease. 4. Diabetes. 5. Hypercholesterolemia. 6. Hypertension. 7. Adrenal insufficiency. 8. Hypothyroidism. 9. Status post vasectomy. 10. Status post recent right anterior thoracotomy. MEDICATIONS: 1. DuoNeb nebulizers. 2. Aspirin. 3. Cymbalta. 4. Lovenox. 5. Proscar. 6. Lasix. 7. Neurontin. 8. Hydralazine. 9. Hydrocortisone. 10. Synthroid. 11. Metformin. 12. Metoprolol. 13. Dulera inhaler. 14. Betapace. 15. Flomax. ALLERGIES: HYDROCODONE, WHICH CAUSED HIM TO BE "WILD." SOCIAL HISTORY: He is a former smoker, used to smoke up to two packs per day but he has not smoked since 1985. No alcohol use. He lives with his here in town. He is retired. FAMILY HISTORY: His mother at age 82 from stroke. His father at age 84 from congestive heart failure. There is no family history of malignancy. REVIEW OF SYSTEMS: A 12-point review of systems is otherwise negative. PHYSICAL EXAMINATION: VITAL SIGNS: Height 5 feet 7 inches, weight 210 pounds. Blood pressure is 166/82, pulse is 96, respirations 16. Temperature 98.3, O2 saturation is 97%. CONSTITUTIONAL: He is alert and oriented and in mild distress. Karnofsky performance status is 70%. HEENT: Eyes, pupils are equal, round, and reactive to light. Extraocular movements are intact. ENT, oral cavity and oropharynx normal without lesion or erythema. Palate elevates symmetrically. Gingiva is intact. NECK: Supple without cervical or supraclavicular adenopathy. No thyromegaly. Larynx midline. LUNGS: Breathing mildly labored. Clear to auscultation and percussion on the left. He has diminished breath sounds in the right mid and lower lung. There is dullness to percussion at least senior care up the lung. HEART: Regular rate and rhythm without murmur. He has mild bilateral pedal edema. BACK: No tenderness on fist percussion of the spine. LYMPHATIC: No axillary or inguinal adenopathy. ABDOMEN: Soft, nontender, nondistended without mass or hepatosplenomegaly. Liver percusses to normal size. SKIN: Without rash or purpura. NEUROLOGIC: Cranial nerves 2-12 grossly intact. Motor strength is 5/5 in both upper and lower extremities in all muscle groups tested. Gait was not tested. RADIOLOGIC DATA: I did review his PET scan from August and his recent CT scan on this admission. He has had enlargement of disease. He has a right upper lobe lung mass that is abutting the mediastinum. He has some atelectasis of the right lower lobe, presumably from the hilar disease. He had a large pleural effusion. PET scan showed this area to be hypermetabolic. He also had uptake in the left glenohumeral joint of unknown significance. LABORATORY DATA: Recent pathology from his biopsy confirmed metastatic melanoma. CBC reveals white blood count of 6700, hemoglobin 11.5, hematocrit 35.2, platelet count 195,000. Chemistry group showed fairly normal electrolytes. Creatinine is 0.98. ASSESSMENT: Mr. Bernal is a 78-year-old gentleman with metastatic melanoma to the right upper lobe of the lung. He has progressive shortness of breath, which is likely related to a combination of his pleural effusion and his disease compressing some on his airway. PLAN: I did have a good discussion today with Mr. Bernal. I have discussed the case with Dr. Mederos. His progressive shortness of breath is multifactorial. Some of this is related to the pleural effusion and some of it is related to the compressive changes on his airway at the hilum. I can offer him radiation therapy to the right upper lobe/hilar mass in hopes of improving his aeration of his lung. I am not sure that this will change his pleural effusion much. There is perhaps a 50% chance that he will respond to therapy and improve his symptomatology. Otherwise, his only option would be that of chemotherapy, which I think he would have difficulty tolerating. The logistics of radiation as well as the benefits and risk of treatment were discussed. The simulation and daily treatment procedure were discussed. Side effects would include but not be limited to skin reaction, fatigue, lower blood counts, difficulty or pain with swallowing, weight loss, small risk of radiation pneumonitis, small risk of damage to any other structure, which receives radiation therapy. Time was taken to answer to all the questions regarding his treatment options. He does wish to discuss this with his before making a final decision. Hopefully, he will let me know later today whether he wants to pursue radiation therapy. We can then make arrangements for him to begin therapy in the near future. Thank you for this interesting consultation. Job ID: [id number]
[2019-10-18] MEDS: Ondansetron ODT 4 MG TAB PO PRN (11:00)
--- NOTE | 2019-10-18 14:05 | PDOC.EVN ---
Event Note - Event Note Event Note: [id number] Progress
--- NOTE | 2019-10-18 14:35 | PRG ---
DATE OF SERVICE: 10/18/2019 SUBJECTIVE: The patient looks terrible today compared to what he has looked the last couple of days. He could barely talk to me. He could not sit up without assistance. He was about to be taken over to radiation for treatment of the hilar tumor. I stopped that from happening because I felt the patient was at too high risk for cardiopulmonary arrest on transport. PHYSICAL EXAMINATION: VITAL SIGNS: Temperature is 98, pulse 109, respirations 18, O2 saturation was listed 98% on room air, blood pressure 141/97. GENERAL: I find the patient obtunded. LUNGS: He has poor air entry into his right lung. He is fairly clear on the left. CARDIOVASCULAR: S1 and S2. Slightly tachycardic. ABDOMEN: Soft. EXTREMITIES: No edema. ASSESSMENT: 1. Recurrent right pleural effusion, which incidentally had negative cytology on the first tap. 2. Metastatic melanoma. PLAN: This patient is rapidly progressing toward . This is likely from the underlying cancer. I called Dr. Mota and discussed the situation with him that I felt the patient should not be transported due to his high risk for arrest. Dr. Mota came back over and talked to the patient. I have decided to go ahead and perform a right-sided therapeutic thoracentesis hoping this would improve the patient's breathing. I am not confident that it will. At some point, he could need a PleurX catheter placed, but he is not in good enough shape to tolerate the procedure at this time. I discussed with the patient and his . I advocated for a do not resuscitate status as I think that we are in a situation where we need to focus more on comfort care than treating a disease that cannot be fixed. The patient's and the patient were agreeable to DNR status. Therapeutic thoracentesis was performed. See operative note. Job ID: [id number]
--- NOTE | 2019-10-18 15:05 | PDOC.MOPN ---
Interval History: Events this am noted - Vital Signs Vital Signs: Vital Signs (12 hours) Temp Pulse Resp BP BP Pulse Ox 10/18/19 12:00 141/97 H 10/18/19 11:44 98 F 109 H 18 98 10/18/19 11:24 102 H 22 H 96 10/18/19 08:00 96 10/18/19 07:16 98.3 F 96 16 166/82 H 97 10/18/19 06:10 115 H 200/95 H 10/18/19 05:40 107 H 20 95 10/18/19 04:07 98.6 F 96 16 170/92 H 96 Weight Weight 210 lb - Physical Exam General: Alert Neurological: Normal speech - Labs Result Diagrams: 10/15/19 06:20 10/15/19 06:20 Lab results: Laboratory Results - last 24 hr 10/18/19 10:45: POC Glucose 176 H 10/18/19 05:45: POC Glucose 158 H 10/17/19 20:23: POC Glucose 191 H Status: lab reviewed by me A/P - Problem (1) Metastatic melanoma to lung Current Visit: No Code(s): C78.00 - SECONDARY MALIGNANT NEOPLASM OF UNSPECIFIED LUNG Status: Acute - Plan Plan: Patient had respiratory decline today. No XRT today. Discussed hospice and quality of life with family. They will have discussion regarding choice and let us know. Patient is DNR.
--- NOTE | 2019-10-18 15:27 | OP ---
DATE OF PROCEDURE: 10/18/2019 PROCEDURE PERFORMED: Right thoracentesis. PREOPERATIVE DIAGNOSIS: Right pleural effusion. POSTOPERATIVE DIAGNOSIS: Right pleural effusion. ANESTHESIA: 1% lidocaine without epinephrine. DESCRIPTION OF PROCEDURE: Informed consent was obtained from the patient. The patient has undergone the procedure several days before, understood the risks and agreed to proceed. The patient was placed in the sitting position with assistance nurses. The right 5th and 6th interspace at the midscapular line was cleansed with chlorhexidine and draped sterilely. 1% lidocaine was used to anesthetize the entry site. The pleural space was entered with a [id number]-C-[id number] catheter. 1.5 L of bloody pleural fluid was removed. The patient tolerated the procedure well. Job ID: [id number]
[2019-10-18] MEDS ORDERED: Dextrose 5% in Water 1,000 ML IV PRN (16:20)
[2019-10-18] MEDS ORDERED: Dextrose 50% Abboject 50 ML SYRINGE SLOW IVP PRN (16:20)
[2019-10-18] MEDS: HumaLOG 300 UNITS/3 ML VIAL SC PRN (17:28)
[2019-10-19] MEDS: Levothyroxine Sodium 100 MCG TAB PO SCH (05:30)
[2019-10-19] MEDS: Mometasone/Formoterol 120 PUFF INHALER INH SCH ×2 (08:24→19:08)
[2019-10-19] MEDS: Gabapentin 300 MG CAP PO SCH ×3 (09:30→21:26)
[2019-10-19] MEDS: Hydrocortisone 10 mg Tablet PO SCH ×2 (09:51→14:46)
[2019-10-19] MEDS: DULoxetine 60 MG CAP PO SCH (09:51)
[2019-10-19] MEDS: Furosemide 20 MG TAB PO SCH (09:51)
[2019-10-19] MEDS: Aspirin 81 mg Enteric Coated Tablet PO SCH (09:51)
[2019-10-19] MEDS: Sotalol HCl 80 MG TAB PO SCH ×2 (09:51→21:26)
[2019-10-19] MEDS: Tamsulosin HCl 0.4 MG CAP PO SCH ×2 (09:51→21:26)
[2019-10-19] MEDS: metFORMIN 500 MG TAB PO SCH ×2 (09:51→17:28)
[2019-10-19] MEDS: Metoprolol Tartrate 25 MG TAB PO SCH ×2 (09:51→21:26)
[2019-10-19] MEDS: Finasteride 5 MG TAB PO SCH (09:51)
[2019-10-19] MEDS: Enoxaparin Sodium 40 MG/0.4 ML SYRINGE SC SCH (09:52)
[2019-10-19] MEDS: Acetaminophen/Codeine 30-300mg Tablet PO PRN (12:14)
--- NOTE | 2019-10-19 13:35 | PDOC.EVN ---
Event Note - Event Note Event Note: [id number] Progress
--- NOTE | 2019-10-19 13:57 | PRG ---
DATE OF SERVICE: 10/19/2019 CHIEF COMPLAINT: The patient continues to be short of breath. The patient had thoracentesis with 1.5 L removed. The patient was seen by Medical Oncology and Radiation Oncology. The patient is a DNR. PHYSICAL EXAMINATION: GENERAL: Continues to be in [id number] respiratory distress. On nasal cannula. VITAL SIGNS: Blood pressure is 148/90, temperature 98.1, pulse is 93, respiratory rate is 20, oxygen saturation 92% on nasal cannula. HEAD AND NECK: Normocephalic, atraumatic. Neck is supple. CHEST: Decreased air entry, right lung. HEART: S1, S2. Regular. ABDOMEN: Soft. Bowel sounds present. NEUROLOGIC: Awake, alert, and oriented. PSYCHIATRY: Unable to assess. EXTREMITIES: No clubbing. No cyanosis. REVIEW OF SYSTEMS: Negative except what is mentioned in history of present illness. MEDICATIONS: Reviewed. ASSESSMENT AND PLAN: 1. Acute respiratory failure with hypoxia due to metastatic melanoma to the lung and right pleural effusion, status post thoracentesis. 2. Large right pleural effusion, status post thoracentesis. 3. Poorly differentiated metastatic melanoma. 4. Chronic atrial fibrillation. 5. Generalized weakness and deconditioning. 6. Deep vein thrombosis prophylaxis as appropriate. 7. Code status, the patient currently is DNR. PLAN: 1. Continue with supportive care, oxygen. Appreciate Medical Oncology and Radiation Oncology input, appreciate Pulmonary help. 2. Case Management consulted for placement. Job ID: [id number]
[2019-10-19] MEDS ORDERED: Fluticasone Propionate Nasal Spray 16 gm Bottle NASAL SCH (16:00)
[2019-10-19] MEDS: HumaLOG 300 UNITS/3 ML VIAL SC PRN (17:30)
--- NOTE | 2019-10-19 18:42 | PRG ---
DATE OF SERVICE: 10/19/2019 INTERVAL HISTORY: The patient is doing okay from respiratory standpoint. He is breathing comfortably. There has been no interval change to his condition. Otherwise, he indicates he is not having any shortness of breath, chest pain, or other discomforts. He is awaiting radiation therapy. Apparently, this is going to be initiated on the inpatient basis. OBJECTIVE: VITAL SIGNS: Afebrile, pulse 99, blood pressure 144/93, respirations 17, saturation 97% on 2 L nasal cannula. GENERAL: The patient is awake and alert, in no apparent distress. LUNGS: Good air entry. Dependent crackles are noted. No prolonged expiratory phase or wheezing is appreciated. HEART: Normal rate. Regular. ABDOMEN: Soft, nontender, and nondistended. Bowel sounds are positive. MUSCULOSKELETAL: No cyanosis or clubbing. There is no pitting in the bilateral lower extremities. NEUROLOGIC: Grossly nonfocal. LABORATORY DATA: Body fluid has an elevated pH, LDH of 151, total protein of 3.3. ASSESSMENT: 1. Acute hypoxic respiratory failure. 2. Pleural effusion on the right, recurrent (tap x1, was negative on cytology). 3. Metastatic melanoma. DISCUSSION AND PLAN: Supportive care will be continued for the time being. It looks like we are going up to expedite radiation therapy. Pulmonary will follow intermittently while during the hospital stay. Cytology on repeat tap is currently pending. Job ID: [id number] MTDD
[2019-10-20] MEDS: Levothyroxine Sodium 100 MCG TAB PO SCH (05:22)
[2019-10-20] MEDS: Mometasone/Formoterol 120 PUFF INHALER INH SCH ×2 (07:45→18:12)
[2019-10-20] MEDS: Acetaminophen/Codeine 30-300mg Tablet PO PRN ×3 (07:50→21:38)
[2019-10-20] MEDS: DULoxetine 60 MG CAP PO SCH (07:51)
[2019-10-20] MEDS: Metoprolol Tartrate 25 MG TAB PO SCH ×2 (07:51→21:25)
[2019-10-20] MEDS: Hydrocortisone 10 mg Tablet PO SCH ×2 (07:51→15:07)
[2019-10-20] MEDS: Tamsulosin HCl 0.4 MG CAP PO SCH ×2 (07:51→21:25)
[2019-10-20] MEDS: Finasteride 5 MG TAB PO SCH (07:51)
[2019-10-20] MEDS: Gabapentin 300 MG CAP PO SCH ×2 (07:51→21:25)
[2019-10-20] MEDS: Furosemide 20 MG TAB PO SCH (07:51)
[2019-10-20] MEDS: Enoxaparin Sodium 40 MG/0.4 ML SYRINGE SC SCH (07:52)
[2019-10-20] MEDS: Aspirin 81 mg Enteric Coated Tablet PO SCH (07:52)
[2019-10-20] MEDS: Fluticasone Propionate Nasal Spray 16 gm Bottle NASAL SCH (07:58)
--- NOTE | 2019-10-20 09:10 | PRG ---
DATE OF SERVICE: 10/20/2019 SUBJECTIVE: Mr. Bernal is re-evaluated today. He has metastatic melanoma to the lung. His breathing is improved since Thursday afternoon after the thoracentesis. He does not think his breathing is quite as good as it was yesterday. Nevertheless, he is breathing much more comfortably. He is not having chest pain or other complaints at this time. OBJECTIVE: VITAL SIGNS: Height 5 feet 7 inches, weight 210 pounds, blood pressure 166/101, pulse is 101, respirations are 20, temperature is 98.3, O2 saturation is 97%. GENERAL: He is alert and oriented and is able to talk more comfortably. His breathing is much more comfortable. Karnofsky performance status ia 50%. ASSESSMENT: Mr. Bernal appears to have had some symptomatic improvement since the thoracentesis. He does have metastatic melanoma to the lungs, which is causing some obstruction of the airway. He also has a large pleural effusion. PLAN: We will make plans to proceed with radiation therapy today. I discussed this with the patient and his and he wishes to initiate radiation therapy on a palliative basis. The logistics, benefits, and risks of radiation were again discussed with them. They are agreeable to proceed. We will make arrangements for the radiation therapy later today. He may need thoracentesis periodically for symptom improvement. Job ID: [id number]
[2019-10-20] MEDS: metFORMIN 500 MG TAB PO SCH ×2 (10:39→16:22)
[2019-10-20] MEDS: Sotalol HCl 80 MG TAB PO SCH ×2 (10:39→21:25)
--- NOTE | 2019-10-20 10:45 | PRG ---
DATE OF SERVICE: I had visited with Mr. Bernal earlier this morning to discuss possible radiation therapy for his malignant melanoma to see if this would improve his airway. We actually had discussed this with the patient and his family and we were going to make plans to proceed this afternoon with the initiation of radiation therapy. However, I was notified that the patient was not doing well and I subsequently visited with the patient and with the family and also discussed the case with Dr. Keller just a little while ago. He does look much worse than he did earlier this morning. He is much more short of breath. He has difficulty speaking more than just a few words. At this time, after discussion with the patient and the family and Dr. Keller, the decision has been made for us not to take him over to the cancer center this afternoon to try and set up the radiation field and actually initiate his treatment. It was felt that he likely was not stable enough at the present time to transfer given his marketed shortness of breath. Dr. Keller is going to try a thoracentesis on the patient to see if this will improve his breathing. If he does get improvement from this, then we could consider trying some palliative radiation therapy on . If his breathing does not improve, there simply may be no further options for treatment for him. Again, I discussed this with the patient and his . They understand that at this point, he is not stable enough to transport for treatment out of the hospital to the cancer center. We hope that his breathing will improve so that we can initiate treatment but if it does not, then likely we will have to do hospice care or something along those lines. Job ID: [id number]
--- NOTE | 2019-10-20 10:46 | CT ---
CT Chest WO Con HISTORY: Metastatic melanoma. Radiation planning. COMPARISON: 10/13/2019 study and a PET/CT study of 09/06/2019. FINDINGS: There is been significant worsening to the right chest disease as compared to the previous 09/06/2019 PET scan. The right-sided paramediastinal mass has significantly increased in size. It now measures approximately 5.4 x 9.2 cm in transverse and AP dimension. It extends from the level of the great vessels to the right hilar region. There is a large right pleural effusion now present there is evidence of pleural-based masses associated with this effusion. On the left side there are tiny subcentimeter pulmonary nodules very suspicious for metastatic diseas e. A small left pleural effusion is seen. There is mediastinal lymphadenopathy demonstrated. A prevascular node measuring 2.7 cm in size is pre sent. The visualized liver parenchyma appears unremarkable. Right and left adrenal glands are normal. IMPRESSION: Interval significant enlargement in the right paramediastinal mass now extending from the right lung apex to the right hilum. There is also evidence of metastatic pleural implants associated with a moderate loculated appearing right pleural effusion. There are also pulmonary nodul es present, the largest of which is a 1.7 cm right upper lobe nodule with multiple small 3 to 4 mm nodules within the left lung. There is associated mediastinal lymphadenopathy within an enlarged prev ascular lymph node.
[2019-10-20] MEDS: HumaLOG 300 UNITS/3 ML VIAL SC PRN ×2 (12:14→17:41)
--- NOTE | 2019-10-20 12:31 | PRG ---
DATE OF SERVICE: 10/20/2019 SUBJECTIVE: Surprisingly, he looks much better than he did 2 days ago. He is very communicative. He says thoracentesis helped him immensely. PHYSICAL EXAMINATION: VITAL SIGNS: He is afebrile. Vitals are stable. HEENT: Unremarkable. NECK: No adenopathy or JVD. LUNGS: Diminished breath sounds at right base compared to left. CARDIAC: S1 and S2. Regular. ABDOMEN: Soft. EXTREMITIES: No edema. IMAGING STUDIES: His repeat CT scan showed metastatic pleural implants as well as the persistent right effusion and rapidly expanding right paramediastinal mass. ASSESSMENT: 1. Metastatic melanoma-aggressive. 2. Pleural effusion-initial cytology negative, but likely malignant given apparent CT. PLAN: Discussed with Dr. Braun. Plan for a PleurX catheter at some point. The patient's prognosis is very poor. Job ID: [id number]
--- NOTE | 2019-10-20 12:47 | PDOC.EVN ---
Event Note - Event Note Event Note: [id number] progress
--- NOTE | 2019-10-20 13:04 | PRG ---
DATE OF SERVICE: 10/20/2019 SUBJECTIVE: The patient says he continues to be short of breath, but overall, he is feeling better after thoracentesis. The patient was seen by Dr. Mota and plans to start radiation therapy. PHYSICAL EXAMINATION: GENERAL: The patient is awake, in [id number] respiratory distress. VITAL SIGNS: Temperature is 98.3, pulse is 101, respiratory rate is 20, pulse oximetry 97% on nasal cannula, and blood pressure 160/90. HEAD AND NECK: Normocephalic, atraumatic. NECK: Supple. CHEST: Decreased air entry at right lung. HEART: S1, S2. Regular. ABDOMEN: Soft, nontender. Bowel sounds present. NEUROLOGIC: Awake, alert, oriented. PSYCH: Unable to assess. EXTREMITIES: No cyanosis. REVIEW OF SYSTEMS: Negative except what is mentioned above in the History of Present Illness. MEDICATIONS: Reviewed. ASSESSMENT: 1. Acute respiratory failure with hypoxia due to metastatic melanoma to the lung and right pleural effusion, status post thoracentesis. 2. Large right pleural effusion, status post thoracentesis. Management as per Pulmonary. 3. Poorly-differentiated metastatic melanoma. 4. Chronic atrial fibrillation. 5. Generalized weakness and deconditioning. 6. Deep venous thrombosis prophylaxis as appropriate. 7. Code status. The patient is currently DNR. PLAN: 1. Continue with supportive care, oxygen. Appreciate Medical Oncology, Radiation Oncology, and Pulmonary help and input. 2. Case Management consulted for placement. Job ID: [id number]
--- NOTE | 2019-10-20 13:43 | CON ---
DATE OF CONSULTATION: 10/20/2019 REASON FOR CONSULTATION: Evaluate the patient for right PleurX catheter. HISTORY OF PRESENT ILLNESS: Mr. Bernal is a 78-year-old gentleman, well known to me from previous encounters. He has had heroic treatment for widely metastatic melanoma. He has had a long survival since his initial diagnosis. He has had a growing mediastinal mass in spite of immunotherapy and underwent open Aptos procedure to biopsy this mass, which returned as metastatic melanoma. Since that time, he has had recurrent right pleural effusions. He has had thoracenteses performed by Dr. Keller with re-expansion of his lung, but continues to reaccumulate. I have been asked to see him to place a right PleurX catheter. PAST MEDICAL HISTORY: 1. Metastatic melanoma. 2. History of atrial fibrillation. 3. Coronary artery disease. 4. Diabetes mellitus. 5. Dyslipidemia. 6. Hypertension. 7. Adrenal insufficiency. 8. Hypothyroidism. PAST SURGICAL HISTORY: 1. Vasectomy. 2. Aptos procedure. SOCIAL HISTORY: He is a former smoker. He has no history of alcohol or drug use. He is and accompanied by his . ALLERGIES: HYDROCODONE. CURRENT MEDICATIONS: Reviewed. PHYSICAL EXAMINATION: GENERAL: This is a well-developed gentleman, resting comfortably in bed. He is conversant and able to give consent. VITAL SIGNS: His height is 5 feet 7 inches, weight is 210 pounds. Temperature is 98.3, pulse is 100, and blood pressure is 166/100. LUNGS: Clear bilaterally. CARDIAC: Heart rhythm is regular. ABDOMEN: Soft and nontender. EXTREMITIES: No edema. DIAGNOSTIC DATA: I reviewed his chest x-ray and CT scan series. He currently has a recurrent right pleural effusion. ASSESSMENT AND PLAN: I have discussed right PleurX catheter placement with he and his . They feel they are able to manage the drainage as an outpatient if he gets to that point. We will plan to place tomorrow. We will hold his Lovenox tomorrow morning. Job ID: [id number]
[2019-10-20] MEDS: CEFAZOLIN 2 GM in Premix Bag 1 BAG IVPB SCH ×2 (15:09→22:28)
[2019-10-20] MEDS: Ondansetron ODT 4 MG TAB PO PRN (17:49)
[2019-10-21] MEDS: Acetaminophen 325 MG TAB PO PRN (00:32)
[2019-10-21] MEDS: Levothyroxine Sodium 100 MCG TAB PO SCH (03:32)
[2019-10-21] MEDS: CEFAZOLIN 2 GM in Premix Bag 1 BAG IVPB SCH ×3 (06:11→23:32)
[2019-10-21] MEDS: Sotalol HCl 80 MG TAB PO SCH ×2 (06:11→20:05)
[2019-10-21] MEDS: Metoprolol Tartrate 25 MG TAB PO SCH ×2 (06:12→23:32)
[2019-10-21] MEDS: Mometasone/Formoterol 120 PUFF INHALER INH SCH ×2 (06:54→18:27)
--- NOTE | 2019-10-21 09:52 | PRG ---
DATE OF SERVICE: 10/21/2019 SUBJECTIVE: He appears much more dyspneic today. He is scheduled to have a right PleurX catheter placed. OBJECTIVE: VITAL SIGNS: Temperature 97.6, pulse 78, respirations 20, O2 saturation 96%, and blood pressure 177/91. HEENT: Unremarkable. NECK: No adenopathy or JVD. LUNGS: Almost absent breath sounds on the right, clear on the left. CARDIAC: S1 and S2. Regular. ABDOMEN: Soft. EXTREMITIES: No edema. ASSESSMENT: Recurrent right pleural effusion, which is almost certainly due to metastatic melanoma. PLAN: PleurX catheter insertion today. Further disposition to follow. Job ID: [id number]
[2019-10-21] MEDS: DULoxetine 60 MG CAP PO SCH (10:07)
[2019-10-21] MEDS: Finasteride 5 MG TAB PO SCH (10:07)
[2019-10-21] MEDS: Aspirin 81 mg Enteric Coated Tablet PO SCH (10:07)
[2019-10-21] MEDS: Furosemide 20 MG TAB PO SCH (10:07)
[2019-10-21] MEDS: metFORMIN 500 MG TAB PO SCH ×2 (10:07→19:16)
[2019-10-21] MEDS: Tamsulosin HCl 0.4 MG CAP PO SCH ×2 (10:08→23:32)
[2019-10-21] MEDS: Gabapentin 300 MG CAP PO SCH ×2 (10:08→23:32)
[2019-10-21] MEDS: Hydrocortisone 10 mg Tablet PO SCH ×2 (10:08→15:17)
--- NOTE | 2019-10-21 10:25 | PRG ---
DATE OF SERVICE: 10/18/2019 SUBJECTIVE: This is a followup for hypoxic respiratory failure, right pleural effusion, metastatic melanoma. the patient at the bedside. The patient is still short of breath with increased work of breathing, on nasal cannula 2 L/minutes. The patient was seen earlier by radiation oncologist, and the plan is to wait for the family decision regarding starting radiation therapy. I spoke with the and the patient, and they are agreeable to start radiation therapy. PHYSICAL EXAMINATION: GENERAL: The patient is awake, alert, in moderate distress. VITAL SIGNS: Pulse oximetry 98% on 2 L/minute nasal cannula, blood pressure is 140/90, temperature is 98, pulse is 109, and respiratory rate is 20. HEAD AND NECK: Normocephalic, atraumatic. NECK: Supple. CHEST: Decreased air entry, right base. HEART: Irregularly irregular. ABDOMEN: Soft, nontender. NEUROLOGIC: Awake, alert, oriented. PSYCH: Unable to assess. EXTREMITIES: No clubbing, no cyanosis. CURRENT MEDICATIONS: Reviewed. IMAGING DATA: Chest x-ray reviewed. Consultants report including Oncology, Radiation Oncology, and Pulmonary reviewed. ASSESSMENT: 1. Acute respiratory failure with hypoxia secondary to metastatic melanoma to the lung with right pleural effusion. The patient had thoracentesis with 1.5 L on 10/14/2019 by Pulmonary, which was suggestive of exudative effusion. 2. Melanoma, metastatic, Oncology and Radiation Oncology following. 3. Large right pleural effusion, status post bedside thoracentesis on 10/14/2019. 4. 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 Oncology recommended outpatient followup with [facility] to discuss chemotherapy options. The Radiation Oncology saw the patient today and waiting for the family decision regarding starting radiation therapy. 5. Chronic atrial fibrillation. Continue on current medications. The patient is on sotalol. 6. Generalized weakness and deconditioning. PT and OT on consult waiting now regarding the decision to start radiation therapy, Case Management on the case. 7. Deep venous thrombosis prophylaxis. SCDs, low molecular weight heparin. 8. Code status. Full code. 9. Disposition. Continue with to start radiation as per the family and Radiation Oncology . Job ID: [id number]
[2019-10-21] MEDS: Acetaminophen/Codeine 30-300mg Tablet PO PRN (11:20)
[2019-10-21] MEDS ORDERED: CEFAZOLIN 1 GM VIAL SLOW IVP SCH (12:00)
--- NOTE | 2019-10-21 12:11 | PDOC.EVN ---
Event Note - Event Note Event Note: [id number] progress
[2019-10-21] MEDS ORDERED: Midazolam HCl 2 mg/2 ml Vial ONE (12:18)
[2019-10-21] MEDS ORDERED: Fentanyl 100 MCG/2 ML VIAL ONE (12:18)
[2019-10-21] MEDS ORDERED: Propofol 500 MG/50 ML VIAL ONE (12:19)
[2019-10-21] MEDS ORDERED: Ketamine 50 MG/ML (10ML VIAL) ONE (12:19)
--- NOTE | 2019-10-21 12:27 | PRG ---
DATE OF SERVICE: 10/21/2019 SUBJECTIVE: The patient continues to be short of breath, but overall better after thoracentesis. The patient is for PleurX insertion today. OBJECTIVE: GENERAL: The patient is awake and alert, in mild respiratory distress. VITAL SIGNS: Temperature is 97.6, pulse is 88, respiratory rate is 22, and blood pressure is 177/91. HEAD AND NECK: Normocephalic and atraumatic. NECK: Supple. CHEST: Decreased air entry right lung. HEART: S1 and S2. Regular. ABDOMEN: Soft and nontender. Bowel sounds present. NEUROLOGIC: Awake, alert, and oriented. PSYCH: Unable to assess. EXTREMITIES: No clubbing or cyanosis. REVIEW OF SYSTEMS: Negative except what is mentioned in the history of present illness. MEDICATIONS: Reviewed. ASSESSMENT: 1. Acute respiratory failure with hypoxia due to metastatic melanoma to the lung and right pleural effusion, status post thoracentesis with symptomatic improvement. 2. Large right pleural effusion, status post thoracentesis. Management as per Pulmonary. 3. Poorly differentiated metastatic melanoma. 4. Chronic atrial fibrillation. 5. Generalized weakness and deconditioning. 6. Deep venous thrombosis prophylaxis as appropriate. 7. Code status. The patient is currently DNR. PLAN: 1. Continue supportive care, oxygen, appreciate Oncology, Radiation Oncology, and Pulmonary input and help. 2. The patient is for PleurX insertion today. 3. Case management was consulted for placement. Job ID: [id number]
[2019-10-21] MEDS ORDERED: Labetalol HCl 100 MG/20 ML VIAL ONE (13:42)
--- NOTE | 2019-10-21 14:07 | OP ---
DATE OF PROCEDURE: 10/21/2019 PREOPERATIVE DIAGNOSIS: Recurrent right malignant pleural effusion. POSTOPERATIVE DIAGNOSIS: Recurrent right malignant pleural effusion. PROCEDURE PERFORMED: Right PleurX catheter placement. ANESTHESIA: 1% lidocaine for local with IV sedation, provided by José Garcia MD. ESTIMATED BLOOD LOSS: Minimal. DESCRIPTION OF PROCEDURE: After consent was obtained, the patient was brought to the operating room, placed in supine position on the operating table. Appropriate central line and monitors were placed. IV sedation was begun. Right chest wall was prepped and draped in usual sterile fashion. The chest wall was anesthetized with 1% lidocaine. Percutaneous access to the chest cavity was obtained and a guidewire placed. The catheter was tunneled from anterior midclavicular line to the access point located more posteriorly. The cuff was buried. The tract was dilated over the guidewire and the catheter passed through the peel-away dilator, which was removed. Catheter was secured in place. Catheter was aspirated and a liter of bloody fluid was aspirated. Sterile dressing was applied. The patient tolerated the procedure well, was transferred to recovery room in stable condition. Job ID: [id number]
[2019-10-21] MEDS ORDERED: hydrALAZINE 20 MG/ML VIAL ONE (14:24)
[2019-10-21] MEDS: Fluticasone Propionate Nasal Spray 16 gm Bottle NASAL SCH (15:17)
[2019-10-21] MEDS ORDERED: hydrALAZINE 20 MG/ML VIAL SLOW IVP SCH (15:30)
[2019-10-21] MEDS ORDERED: Labetalol HCl 100 MG/20 ML VIAL SLOW IVP PRN (15:34)
[2019-10-21] MEDS: Ondansetron ODT 4 MG TAB PO PRN (15:42)
[2019-10-21] MEDS: hydrALAZINE 20 MG/ML VIAL SLOW IVP PRN (23:23)
[2019-10-22] MEDS ORDERED: Metoprolol Tartrate 5 MG/5 ML VIAL IVP SCH (00:45)
[2019-10-22] MEDS ORDERED: Labetalol HCl 100 MG/20 ML VIAL SLOW IVP SCH ×2 (01:00→05:30)
[2019-10-22 01:20] LABS: Anion Gap 14 mmol/L (10-20); BUN (Urea Nitrogen) 9 mg/dL (8.4-25.7); Calc. Creatinine Clearance 116 mL/min (70-130); Calcium 8.6 mg/dL (7.8-10.44); Carbon Dioxide 30 mmol/L (23-31); Chloride 92 mmol/L (98-107); Estimated GFR-MDRD Greater than 90; Glucose 176 mg/dL (83-110); Magnesium 1.7 mg/dL (1.6-2.6); Potassium 3.7 mmol/L (3.5-5.1); Sodium 132 mmol/L (136-145)
[2019-10-22 01:25] LABS: #Basophils 0.1 thou/uL (0.0-0.2); #Eosinphils 1.3 thou/uL (0.0-0.7); #Lymphocytes 0.9 thou/uL (1.20-3.40); #Monocytes 1.1 thou/uL (0.11-0.59); #Neutrophils 6.8 thou/uL (1.40-6.50); %Basophils 0.5 % (0.0-1.0); %Eosinophils 12.6 % (0.0-10.0); %Lymphocytes 8.6 % (21.0-51.0); %Neutrophils 67.4 % (42.0-75.0); Hemoglobin 12.7 g/dL (14.0-18.0); Mean Corpuscular HGB CONC 33.5 g/dL (32.0-36.0); Mean Corpuscular Hemoglobin 29.6 pg (27.0-31.0); Mean Corpuscular Volume 88.3 fL (78.0-98.0); Mean Platelet Volume 6.7 fL (7.4-10.4); Platelet Count 186 thou/uL (130-400); RBC Distribution Width 12.4 % (11.5-14.5); Red Blood Cell (RBC) Count 4.28 mill/uL (4.70-6.10); Troponin I Less than 0.010 ng/mL (< 0.028); White Blood Cell (WBC) Count 10.1 thou/uL (4.8-10.8)
[2019-10-22] MEDS: hydrALAZINE 20 MG/ML VIAL SLOW IVP PRN (04:08)
[2019-10-22] MEDS: CEFAZOLIN 2 GM in Premix Bag 1 BAG IVPB SCH ×3 (06:24→23:04)
[2019-10-22] MEDS: Mometasone/Formoterol 120 PUFF INHALER INH SCH ×2 (06:32→18:50)
[2019-10-22] MEDS: Levothyroxine Sodium 100 MCG TAB PO SCH (06:35)
--- NOTE | 2019-10-22 07:51 | CT ---
PRELIMINARY REPORT/[facility]/AFTER HOURS PROCEDURE CT HEAD WITHOUT INTRAVENOUS CONTRAST: CLINICAL HISTORY: M78, AMS. UNABLE TO WAKE PATIENT, HAD SURGERY ON 10/21 TECHNIQUE: Axial computed tomography images of the head/brain without intravenous contrast. COMPARISON: None provided. FINDINGS: BRAIN: No acute intraparenchymal hemorrhage. No mass lesion. No CT evidence for acute territorial inf arct. No midline shift or extra-axial collection. VENTRICLES: No hydrocephalus. ORBITS: The orbits are unremarkable. SINUSES AND MASTOIDS: There is complete opacification right maxillary sinus. SOFT TISSUES: No significant facial or scalp soft tissue swelling evident. No radiopaque foreign body is seen. BONES: No acute skull fracture. IMPRESSION: No acute intracranial abnormality. Right maxillary sinusitis. ELECTRONICALLY SIGNED BY: Dulce Riddle D.O. Oct 22, 2019 1:56:53 AM [employer] This report is intended for review by the ordering physician only, in accordance of law. If you recei ve this report in error, please call [facility] at [phone]. FINAL REPORT CT BRAIN WITHOUT CONTRAST: I agree with the preliminary report given by Dr. Dulce Riddle of [facility]. CODE QA POS: [facility]
[2019-10-22] MEDS: Diltiazem 125 MG in Sodium Chloride 0.9% 100 ML IVPB SCH ×2 (07:59→21:42)
[2019-10-22] MEDS: metFORMIN 500 MG TAB PO SCH ×2 (08:43→17:20)
[2019-10-22] MEDS: DULoxetine 60 MG CAP PO SCH (08:48)
[2019-10-22] MEDS: Aspirin 81 mg Enteric Coated Tablet PO SCH (08:48)
[2019-10-22] MEDS: Enoxaparin Sodium 40 MG/0.4 ML SYRINGE SC SCH (08:48)
[2019-10-22] MEDS: Furosemide 20 MG TAB PO SCH (08:49)
[2019-10-22] MEDS: Gabapentin 300 MG CAP PO SCH ×2 (08:49→23:03)
[2019-10-22] MEDS: Finasteride 5 MG TAB PO SCH (08:49)
[2019-10-22] MEDS: Hydrocortisone 10 mg Tablet PO SCH ×2 (08:49→14:08)
[2019-10-22] MEDS: Metoprolol Tartrate 25 MG TAB PO SCH ×2 (08:50→23:04)
[2019-10-22] MEDS: Fluticasone Propionate Nasal Spray 16 gm Bottle NASAL SCH (08:50)
[2019-10-22] MEDS: Sotalol HCl 80 MG TAB PO SCH ×2 (08:50→23:04)
[2019-10-22] MEDS: Tamsulosin HCl 0.4 MG CAP PO SCH ×2 (08:50→23:04)
--- NOTE | 2019-10-22 09:57 | PDOC.HOSPP ---
- Subjective Encounter Date: 10/22/19 Encounter Time: 07:40 Subjective: last night pt was lethargic, he was hypertensive and tachycardic so transferred to tele - Objective Vital Signs & Weight: Vital Signs (12 hours) Temp Pulse Resp BP BP Pulse Ox 10/22/19 08:00 97.8 F 124 H 18 164/85 H 96 10/22/19 06:32 117 H 16 10/22/19 06:17 113 H 202/98 H 96 10/22/19 05:38 127 H 190/111 H 10/22/19 04:08 106 H 186/111 H 10/22/19 04:00 111 H 20 174/96 H 96 10/22/19 02:21 98.3 F 118 H 22 H 178/93 H 96 10/22/19 00:58 109 H 191/105 H 10/22/19 00:15 191/107 H 10/22/19 00:00 98.5 F 105 H 18 191/105 H 94 L 10/21/19 23:23 108 H 208/101 H Weight Weight 210 lb I&O: 10/21/19 10/22/19 10/23/19 06:59 06:59 06:59 Intake Total 1300 700 Balance 1300 700 Result Diagrams: 10/22/19 00:59 10/22/19 00:59 Additional Labs: Accuchecks 10/22/19 10/21/19 10/21/19 04:48 19:44 17:06 POC Glucose 178 H 163 H 179 H Radiology Reviewed by me: Yes EKG Reviewed by me: Yes Hospitalist ROS - Review of Systems ROS unobtainable: due to mental status - Medication Medications: Active Medications Generic Name Dose Route Start Last Admin Trade Name Freq PRN Reason Stop Dose Admin Acetaminophen 650 mg 10/13/19 04:02 10/21/19 00:32 Tylenol PO 650 mg Q4H PRN Administration Headache/Fever/Mild Pain (1-3) Acetaminophen/Codeine Phosphate 1 tab 10/13/19 19:19 10/21/19 11:20 Tylenol #3 PO 1 tab Q6H PRN Administration Severe Pain (7-10) Albuterol/Ipratropium 3 ml 10/14/19 01:42 10/18/19 11:24 Duoneb NEB 3 ml [id number] PRN Administration SOB &/or Wheezing Aspirin 81 mg 10/13/19 09:00 10/22/19 08:48 Ecotrin PO 81 mg DAILY ROBERT Administration Duloxetine HCl 120 mg 10/13/19 09:00 10/22/19 08:48 Cymbalta PO 120 mg DAILY ROBERT Administration Enoxaparin Sodium 40 mg 10/16/19 09:00 10/22/19 08:48 Lovenox SC 40 mg 0900 ROBERT Administration Finasteride 5 mg 10/13/19 09:00 10/22/19 08:49 Proscar PO 5 mg DAILY ROBERT Administration Fluticasone Propionate 0 gm 10/20/19 09:00 10/22/19 08:50 Flonase Nasal [place] NASAL Not Given DAILY ROBERT Furosemide 20 mg 10/13/19 09:00 10/22/19 08:49 Lasix PO 20 mg DAILY ROBERT Administration Gabapentin 300 mg 10/13/19 09:00 10/22/19 08:49 Neurontin PO 300 mg QAM ROBERT Administration Gabapentin 600 mg 10/13/19 21:00 10/21/19 23:32 Neurontin PO Not Given HS ROBERT Hydrocortisone 20 mg 10/14/19 09:00 10/22/19 08:49 Cortef PO 20 mg QAM ROBERT Administration Hydrocortisone 10 mg 10/14/19 14:00 10/21/19 15:17 Cortef PO Not Given 1400 [facility] Cefazolin Sodium/Dextrose 2 gm 50 mls @ 100 mls/hr 10/20/19 14:00 10/22/19 06 :24 / Device IVPB 50 mls Q8HR ROBERT Administration Diltiazem HCl 125 mg/ Sodium 125 mls @ 10 mls/hr 10/22/19 06:30 10/22/19 07: 59 Chloride IVPB 125 mls INF ROBERT Administration Protocol 10 MG/HR Insulin Human Lispro 0 units 10/18/19 16:20 10/20/19 17:41 Humalog SC 2 unit .MILD SLIDING SCALE PRN Administration Mild Correctional Scale Levothyroxine Sodium 200 mcg 10/13/19 06:00 10/22/19 06:35 Synthroid PO Not Given 0600 ROBERT Metformin HCl 500 mg 10/13/19 08:00 10/22/19 08:43 Glucophage PO 500 mg BID-WM ROBERT Administration Metoprolol Tartrate 25 mg 10/13/19 09:00 10/22/19 08:50 Lopressor PO 25 mg BID ROBERT Administration Mometasone Furoate/Formoterol Fumar 2 puff 10/13/19 06:30 10/22/19 06:32 Dulera 200 Mcg/5 Mcg Inhaler INH 2 puff BID-RT ROBERT Administration Ondansetron HCl 4 mg 10/13/19 19:20 10/21/19 15:42 Zofran Odt PO 4 mg Q6H PRN Administration Nausea/Vomiting Sotalol HCl 80 mg 10/13/19 09:00 10/22/19 08:50 Betapace PO 80 mg BID ROBERT Administration Tamsulosin HCl 0.4 mg 10/13/19 09:00 10/22/19 08:50 Flomax PO 0.4 mg BID ROBERT Administration - Exam General Appearance: NAD, ill appearing Eye: PERRL, anicteric sclera ENT: normocephalic atraumatic, no oropharyngeal lesions Neck: supple, symmetric, no JVD, no thyromegaly Heart: no murmur, irregular Respiratory - other findings: pleurex catheter on right side, reduced air entry both side Gastrointestinal: soft, non-tender, non-distended Extremities: no cyanosis, no clubbing Skin: normal turgor, no lesions Musculoskeletal: normal tone, normal strength Hosp A/P (1) Acute respiratory failure with hypoxia Code(s): J96.01 - ACUTE RESPIRATORY FAILURE WITH HYPOXIA Status: Acute (2) Malignant pleural effusion Code(s): J91.0 - MALIGNANT PLEURAL EFFUSION Status: Acute (3) Atrial fibrillation with rapid ventricular response Code(s): I48.91 - UNSPECIFIED ATRIAL FIBRILLATION Status: Acute (4) Metastatic melanoma to lung Code(s): C78.00 - SECONDARY MALIGNANT NEOPLASM OF UNSPECIFIED LUNG Status: Acute (5) Adrenal insufficiency (Kaufman's disease) Code(s): E27.1 - PRIMARY ADRENOCORTICAL INSUFFICIENCY Status: Chronic (6) Anemia, normocytic normochromic Code(s): D64.9 - ANEMIA, UNSPECIFIED Status: Chronic (7) BPH (benign prostatic hypertrophy) Code(s): N40.0 - BENIGN PROSTATIC HYPERPLASIA WITHOUT LOWER URINRY TRACT SYMP Status: Chronic (8) Bladder outlet obstruction Code(s): N32.0 - BLADDER-NECK OBSTRUCTION Status: Chronic (9) CAD (coronary artery disease) Code(s): I25.10 - ATHSCL HEART DISEASE OF [place] CORONARY ARTERY W/O ANG PCTRS Status: Chronic (10) Chronic low back pain Code(s): M54.5 - LOW BACK PAIN; G89.29 - OTHER CHRONIC PAIN Status: Chronic (11) DM type 2 (diabetes mellitus, type 2) Status: Chronic (12) Diverticulosis of colon Code(s): K57.30 - DVRTCLOS OF LG INT W/O PERFORATION OR ABSCESS W/O BLEEDING Status: Chronic (13) Dyslipidemia Code(s): E78.5 - HYPERLIPIDEMIA, UNSPECIFIED Status: Chronic (14) HTN (hypertension) Code(s): I10 - ESSENTIAL (PRIMARY) HYPERTENSION Status: Chronic - Plan old records reviewed/req, plan discussed w/ family MRI brain today, continue cardizem drip for rate control, continue radiation therapy, prognosis is poor, discussed with bedside, medication reviewed and continue to provide symptomatic treatment and supportive care
--- NOTE | 2019-10-22 10:22 | MRI ---
MRI BRAIN WITH AND WITHOUT IV CONTRAST: HISTORY: Altered mental status. Metastatic melanoma CORRELATION:Noncontrasted CT brain of same date FINDINGS: No restricted diffusion is seen. No evidence of infarct, hemorrhage, mass, midline shift or abnormal extra-axial fluid collections is noted. No abnormal postcontrast enhancement is seen. The ventricular size is appropriate and the basilar cisterns are patent. There is mucosal disease in the paranasal sinuses. There is a tiny amount of fluid in the mastoid air cells. IMPRESSION: No evidence of acute intracranial process or mass.
[2019-10-22] MEDS ORDERED: Magnevist 469MG/ML 20 ML VIAL ONE (11:42)
[2019-10-22] MEDS: HumaLOG 300 UNITS/3 ML VIAL SC PRN (17:18)
[2019-10-22] MEDS ORDERED: Potassium Chloride 20 MEQ TAB PO SCH (21:00)
[2019-10-23] MEDS: Levothyroxine Sodium 100 MCG TAB PO SCH (06:25)
[2019-10-23] MEDS: CEFAZOLIN 2 GM in Premix Bag 1 BAG IVPB SCH ×3 (06:25→20:39)
[2019-10-23] MEDS: Mometasone/Formoterol 120 PUFF INHALER INH SCH ×2 (08:00→19:10)
[2019-10-23] MEDS: Metoprolol Tartrate 25 MG TAB PO SCH ×2 (08:56→20:53)
[2019-10-23] MEDS: Gabapentin 300 MG CAP PO SCH ×4 (08:56→20:58)
[2019-10-23] MEDS: Tamsulosin HCl 0.4 MG CAP PO SCH ×2 (08:56→20:59)
[2019-10-23] MEDS: Enoxaparin Sodium 40 MG/0.4 ML SYRINGE SC SCH (08:56)
[2019-10-23] MEDS: Finasteride 5 MG TAB PO SCH (08:56)
[2019-10-23] MEDS: metFORMIN 500 MG TAB PO SCH ×2 (08:56→17:44)
[2019-10-23] MEDS: Aspirin 81 mg Enteric Coated Tablet PO SCH (08:56)
[2019-10-23] MEDS: DULoxetine 60 MG CAP PO SCH (08:56)
[2019-10-23] MEDS: Furosemide 20 MG TAB PO SCH (08:56)
[2019-10-23] MEDS: Hydrocortisone 10 mg Tablet PO SCH ×2 (08:56→13:05)
[2019-10-23] MEDS: Sotalol HCl 80 MG TAB PO SCH ×2 (08:56→20:53)
[2019-10-23] MEDS: Fluticasone Propionate Nasal Spray 16 gm Bottle NASAL SCH (09:08)
--- NOTE | 2019-10-23 11:33 | PDOC.HOSPP ---
- Subjective Encounter Date: 10/23/19 Encounter Time: 08:00 Subjective: Patient seen and examined. No new complaints. No overnight events - Objective Vital Signs & Weight: Vital Signs (12 hours) Temp Pulse Resp BP Pulse Ox 10/23/19 08:00 73 16 10/23/19 07:00 97.7 F 83 18 146/69 H 95 10/23/19 03:06 98.1 F 86 18 134/66 96 Weight Weight 210 lb I&O: 10/22/19 10/23/19 10/24/19 06:59 06:59 06:59 Intake Total 700 710 Balance 700 710 Result Diagrams: 10/22/19 00:59 10/22/19 00:59 Additional Labs: Accuchecks 10/23/19 10/22/19 10/22/19 05:48 20:19 16:32 POC Glucose 182 H 181 H 233 H 10/22/19 11:09 POC Glucose 189 H Hospitalist ROS - Review of Systems ENT: denies: ear pain, ear discharge, nose pain, nose discharge, nose congestion , mouth pain, mouth swelling, throat pain, throat swelling, other Respiratory: denies: cough, dry, shortness of breath, hemoptysis, SOB with excertion, pleuritic pain, sputum, wheezing, other Cardiovascular: denies: chest pain, palpitations, orthopnea, paroxysmal noc. dyspnea, edema, light headedness, other Gastrointestinal: denies: nausea, vomiting, abdominal pain, diarrhea, constipation, melena, hematochezia, other Genitourinary: denies: dysuria, frequency, incontinence, hematuria, retention, other Musculoskeletal: denies: neck pain, shoulder pain, arm pain, back pain, hand pain, leg pain, foot pain, other - Medication Medications: Active Medications Generic Name Dose Route Start Last Admin Trade Name Freq PRN Reason Stop Dose Admin Acetaminophen 650 mg 10/13/19 04:02 10/21/19 00:32 Tylenol PO 650 mg Q4H PRN Administration Headache/Fever/Mild Pain (1-3) Acetaminophen/Codeine Phosphate 1 tab 10/13/19 19:19 10/21/19 11:20 Tylenol #3 PO 1 tab Q6H PRN Administration Severe Pain (7-10) Albuterol/Ipratropium 3 ml 10/14/19 01:42 10/18/19 11:24 Duoneb NEB 3 ml [id number] PRN Administration SOB &/or Wheezing Aspirin 81 mg 10/13/19 09:00 10/23/19 08:56 Ecotrin PO 81 mg DAILY ROBERT Administration Duloxetine HCl 120 mg 10/13/19 09:00 10/23/19 08:56 Cymbalta PO 120 mg DAILY ROBERT Administration Enoxaparin Sodium 40 mg 10/16/19 09:00 10/23/19 08:56 Lovenox SC 40 mg 0900 ROBERT Administration Finasteride 5 mg 10/13/19 09:00 10/23/19 08:56 Proscar PO 5 mg DAILY ROBERT Administration Fluticasone Propionate 0 gm 10/20/19 09:00 10/23/19 09:08 Flonase Nasal [place] NASAL Not Given DAILY ROBERT Furosemide 20 mg 10/13/19 09:00 10/23/19 08:56 Lasix PO 20 mg DAILY ROBERT Administration Gabapentin 300 mg 10/13/19 09:00 10/23/19 08:56 Neurontin PO 300 mg QAM ROBERT Administration Gabapentin 600 mg 10/13/19 21:00 10/22/19 23:03 Neurontin PO 600 mg HS ROBERT Administration Hydrocortisone 20 mg 10/14/19 09:00 10/23/19 08:56 Cortef PO 20 mg QAM ROBERT Administration Hydrocortisone 10 mg 10/14/19 14:00 10/22/19 14:08 Cortef PO 10 mg 1400 ROBERT Administration Cefazolin Sodium/Dextrose 2 gm 50 mls @ 100 mls/hr 10/20/19 14:00 10/23/19 06 :25 / Device IVPB 50 mls Q8HR ROBERT Administration Diltiazem HCl 125 mg/ Sodium 125 mls @ 10 mls/hr 10/22/19 06:30 10/22/19 21: 42 Chloride IVPB 125 mls INF ROBERT Administration Protocol 10 MG/HR Insulin Human Lispro 0 units 10/18/19 16:20 10/22/19 17:18 Humalog SC 3 unit .MILD SLIDING SCALE PRN Administration Mild Correctional Scale Levothyroxine Sodium 200 mcg 10/13/19 06:00 10/23/19 06:25 Synthroid PO 200 mcg 0600 ROBERT Administration Metformin HCl 500 mg 10/13/19 08:00 01/05/20 08:56 Glucophage PO 500 mg BID-WM ROBERT Administration Metoprolol Tartrate 25 mg 10/13/19 09:00 10/23/19 08:56 Lopressor PO 25 mg BID ROBERT Administration Mometasone Furoate/Formoterol Fumar 2 puff 10/13/19 06:30 10/23/19 08:00 Dulera 200 Mcg/5 Mcg Inhaler INH 2 puff BID-RT ROBERT Administration Ondansetron HCl 4 mg 10/13/19 19:20 10/21/19 15:42 Zofran Odt PO 4 mg Q6H PRN Administration Nausea/Vomiting Sotalol HCl 80 mg 10/13/19 09:00 10/23/19 08:56 Betapace PO 80 mg BID ROBERT Administration Tamsulosin HCl 0.4 mg 10/13/19 09:00 10/23/19 08:56 Flomax PO 0.4 mg BID ROBERT Administration - Exam General Appearance: NAD, awake alert Eye: PERRL, anicteric sclera ENT: normocephalic atraumatic, no oropharyngeal lesions Neck: supple, symmetric, no JVD Heart: RRR, no murmur, no gallops, no rubs Respiratory: CTAB, no wheezes, no rales, no ronchi Gastrointestinal: soft, non-tender, non-distended Extremities: no cyanosis, no clubbing Skin: normal turgor, no lesions Neurological: no focal deficits Musculoskeletal: normal tone, normal strength Psychiatric: normal affect, normal behavior Hosp A/P (1) Acute respiratory failure with hypoxia Code(s): J96.01 - ACUTE RESPIRATORY FAILURE WITH HYPOXIA Status: Acute (2) Malignant pleural effusion Code(s): J91.0 - MALIGNANT PLEURAL EFFUSION Status: Acute (3) Atrial fibrillation with rapid ventricular response Code(s): I48.91 - UNSPECIFIED ATRIAL FIBRILLATION Status: Acute (4) Metastatic melanoma to lung Code(s): C78.00 - SECONDARY MALIGNANT NEOPLASM OF UNSPECIFIED LUNG Status: Acute (5) Adrenal insufficiency ([place]'s disease) Code(s): E27.1 - PRIMARY ADRENOCORTICAL INSUFFICIENCY Status: Chronic (6) Anemia, normocytic normochromic Code(s): D64.9 - ANEMIA, UNSPECIFIED Status: Chronic (7) BPH (benign prostatic hypertrophy) Code(s): N40.0 - BENIGN PROSTATIC HYPERPLASIA WITHOUT LOWER URINRY TRACT SYMP Status: Chronic (8) Bladder outlet obstruction Code(s): N32.0 - BLADDER-NECK OBSTRUCTION Status: Chronic (9) CAD (coronary artery disease) Code(s): I25.10 - ATHSCL HEART DISEASE OF [place] CORONARY ARTERY W/O ANG PCTRS Status: Chronic (10) Chronic low back pain Code(s): M54.5 - LOW BACK PAIN; G89.29 - OTHER CHRONIC PAIN Status: Chronic (11) DM type 2 (diabetes mellitus, type 2) Status: Chronic (12) Diverticulosis of colon Code(s): K57.30 - DVRTCLOS OF LG INT W/O PERFORATION OR ABSCESS W/O BLEEDING Status: Chronic (13) Dyslipidemia Code(s): E78.5 - HYPERLIPIDEMIA, UNSPECIFIED Status: Chronic (14) HTN (hypertension) Code(s): I10 - ESSENTIAL (PRIMARY) HYPERTENSION Status: Chronic - Plan old records reviewed/req MRI brain today, continue cardizem drip for rate control, continue radiation therapy, prognosis is poor, discussed with bedside, medication reviewed and continue to provide symptomatic treatment and supportive care 10/23/19, at this time no new recommendation, his rate controlled with cardizem drip, his BP is well controlled, he needs placement but as he is on radiation therapy placement is challenging
[2019-10-23] MEDS: Acetaminophen 325 MG TAB PO PRN (11:58)
[2019-10-23] MEDS: HumaLOG 300 UNITS/3 ML VIAL SC PRN (11:58)
[2019-10-23] MEDS: Acetaminophen/Codeine 30-300mg Tablet PO PRN (13:05)
--- NOTE | 2019-10-23 20:45 | PRG ---
DATE OF SERVICE: 10/23/2019 SERVICE: Pulmonary Medicine. INTERVAL HISTORY: The patient indicates that he has increased work of breathing, though he is getting by just fine. He does not have any conversational dyspnea. He denies any fevers or chills. There were no overnight events. He has fairly significant weakness. He was able to stand with physical therapy on a couple of occasions today. He was hoping to go for a walk, but he did not have the strength to make that happen. PHYSICAL EXAMINATION: VITAL SIGNS: Afebrile, pulse 77, blood pressure 98/54, respirations 17, and saturation 96% on 2 L nasal cannula. GENERAL: The patient is awake and alert, in no apparent distress. LUNGS: Decent air entry on the left. No prolonged expiratory phase. There is a lack of air entry on the right. HEART: Normal rate, regular. ABDOMEN: Soft, nontender, nondistended. Bowel sounds are positive. MUSCULOSKELETAL: No cyanosis or clubbing. There is no pitting in the bilateral lower extremities. NEUROLOGIC: Grossly nonfocal. IMAGING DATA: MRI of the brain demonstrates no acute intracranial abnormality. ASSESSMENT: 1. Acute hypoxic respiratory failure. 2. Malignant pleural effusion. 3. Malignant melanoma. DISCUSSION AND PLAN: We will continue to drain the PleurX on a daily basis. Once the drain starts to decrease, we can go to every other day. Pulmonary/Critical Care will continue to follow along. It is my understanding that he is in line for some radiation therapy starting tomorrow morning. Job ID: [id number]
[2019-10-24] MEDS: Levothyroxine Sodium 100 MCG TAB PO SCH (05:44)
[2019-10-24] MEDS: CEFAZOLIN 2 GM in Premix Bag 1 BAG IVPB SCH ×3 (05:44→21:39)
--- NOTE | 2019-10-24 08:12 | PRG ---
DATE OF SERVICE: 10/24/2019 SUBJECTIVE: The patient remains in the hospital. He has developed atrial fibrillation with rapid ventricular response and is now on a Cardizem drip. He does have a PleurX catheter, and on the right side, he does not feel very well. PHYSICAL EXAMINATION: VITAL SIGNS: Temperature 98.1, pulse 72, blood pressure 117/62, O2 saturation 96% on 2 L. HEENT: Unremarkable. NECK: No adenopathy or JVD. LUNGS: Diminished breath sounds globally on the right. CARDIOVASCULAR: S1 and S2 irregular. ABDOMEN: Soft and nontender. EXTREMITIES: No clubbing, cyanosis, or edema. LABORATORY DATA: No new labs were done today. ASSESSMENT: 1. Metastatic malignant melanoma. 2. Malignant right pleural effusion. 3. Atrial fibrillation. 4. Generalized failure to thrive. PLAN: I have instructed the patient to use the PleurX catheter. Overall, it will be very difficult to get him the radiation as long he is on the Cardizem drip. That aspect of his care is being managed by the hospitalist group. His prognosis is extremely poor. Job ID: [id number]
[2019-10-24] MEDS: Mometasone/Formoterol 120 PUFF INHALER INH SCH ×2 (08:15→19:43)
[2019-10-24] MEDS: Acetaminophen 325 MG TAB PO PRN ×2 (08:51→19:49)
[2019-10-24] MEDS: Enoxaparin Sodium 40 MG/0.4 ML SYRINGE SC SCH (08:51)
[2019-10-24] MEDS: Aspirin 81 mg Enteric Coated Tablet PO SCH (08:52)
[2019-10-24] MEDS: Sotalol HCl 80 MG TAB PO SCH ×2 (08:52→19:49)
[2019-10-24] MEDS: Tamsulosin HCl 0.4 MG CAP PO SCH ×2 (08:52→19:49)
[2019-10-24] MEDS: DULoxetine 60 MG CAP PO SCH (08:52)
[2019-10-24] MEDS: Furosemide 20 MG TAB PO SCH (08:52)
[2019-10-24] MEDS: Gabapentin 300 MG CAP PO SCH ×2 (08:52→19:48)
[2019-10-24] MEDS: Hydrocortisone 10 mg Tablet PO SCH ×2 (08:52→13:18)
[2019-10-24] MEDS: metFORMIN 500 MG TAB PO SCH ×2 (08:52→16:55)
[2019-10-24] MEDS: Finasteride 5 MG TAB PO SCH (08:53)
[2019-10-24] MEDS: Metoprolol Tartrate 25 MG TAB PO SCH ×2 (08:53→19:49)
[2019-10-24] MEDS: Fluticasone Propionate Nasal Spray 16 gm Bottle NASAL SCH (08:53)
--- NOTE | 2019-10-24 10:18 | PDOC.HOSPP ---
- Subjective Encounter Date: 10/24/19 Encounter Time: 08:00 Subjective: Patient seen and examined. No new complaints. No overnight events - Objective Vital Signs & Weight: Vital Signs (12 hours) Temp Pulse Resp BP Pulse Ox 10/24/19 03:55 98.1 F 72 16 117/62 96 10/23/19 23:30 71 17 118/61 96 Weight Admit Weight 210 lb Weight 210 lb I&O: 10/23/19 10/24/19 10/25/19 06:59 06:59 06:59 Intake Total 710 910 Output Total 201 Balance 710 709 Result Diagrams: 10/22/19 00:59 10/22/19 00:59 Additional Labs: Accuchecks 10/24/19 10/23/19 10/23/19 04:07 21:36 16:51 POC Glucose 160 H 172 H 188 H 10/23/19 11:08 POC Glucose 204 H EKG Reviewed by me: Yes Hospitalist ROS - Review of Systems Eyes: denies: pain, vision change, conjunctivae inflammation, eyelid inflammation, redness, other ENT: denies: ear pain, ear discharge, nose pain, nose discharge, nose congestion , mouth pain, mouth swelling, throat pain, throat swelling, other Respiratory: denies: cough, dry, shortness of breath, hemoptysis, SOB with excertion, pleuritic pain, sputum, wheezing, other Cardiovascular: denies: chest pain, palpitations, orthopnea, paroxysmal noc. dyspnea, edema, light headedness, other Gastrointestinal: denies: nausea, vomiting, abdominal pain, diarrhea, constipation, melena, hematochezia, other Genitourinary: denies: dysuria, frequency, incontinence, hematuria, retention, other Musculoskeletal: denies: neck pain, shoulder pain, arm pain, back pain, hand pain, leg pain, foot pain, other - Medication Medications: Active Medications Generic Name Dose Route Start Last Admin Trade Name Freq PRN Reason Stop Dose Admin Acetaminophen 650 mg 10/13/19 04:02 10/24/19 08:51 Tylenol PO 650 mg Q4H PRN Administration Headache/Fever/Mild Pain (1-3) Albuterol/Ipratropium 3 ml 10/14/19 01:42 10/18/19 11:24 Duoneb NEB 3 ml [id number] PRN Administration SOB &/or Wheezing Aspirin 81 mg 10/13/19 09:00 10/24/19 08:52 Ecotrin PO 81 mg DAILY ROBERT Administration Duloxetine HCl 120 mg 10/13/19 09:00 10/24/19 08:52 Cymbalta PO 120 mg DAILY ROBERT Administration Enoxaparin Sodium 40 mg 10/16/19 09:00 10/24/19 08:51 Lovenox SC 40 mg 0900 ROBERT Administration Finasteride 5 mg 10/13/19 09:00 10/24/19 08:53 Proscar PO 5 mg DAILY ROBERT Administration Fluticasone Propionate 0 gm 10/20/19 09:00 10/24/19 08:53 Flonase Nasal [place] NASAL 1 spr DAILY ROBERT Administration Furosemide 20 mg 10/13/19 09:00 10/24/19 08:52 Lasix PO 20 mg DAILY ROBERT Administration Gabapentin 300 mg 10/13/19 09:00 10/24/19 08:52 Neurontin PO 300 mg QAM ROBERT Administration Gabapentin 600 mg 10/13/19 21:00 10/23/19 20:53 Neurontin PO 600 mg HS ROBERT Administration Hydrocortisone 20 mg 10/14/19 09:00 10/24/19 08:52 Cortef PO 20 mg QAM ROBERT Administration Hydrocortisone 10 mg 10/14/19 14:00 10/23/19 13:05 Cortef PO 10 mg 1400 ROBERT Administration Cefazolin Sodium/Dextrose 2 gm 50 mls @ 100 mls/hr 10/20/19 14:00 10/24/19 05 :44 / Device IVPB 50 mls Q8HR ROBERT Administration Insulin Human Lispro 0 units 10/18/19 16:20 10/23/19 11:58 Humalog SC 3 unit .MILD SLIDING SCALE PRN Administration Mild Correctional Scale Levothyroxine Sodium 200 mcg 10/13/19 06:00 10/24/19 05:44 Synthroid PO 200 mcg 0600 ROBERT Administration Metformin HCl 500 mg 10/13/19 08:00 10/24/19 08:52 Glucophage PO 500 mg BID-WM ROBERT Administration Metoprolol Tartrate 25 mg 10/13/19 09:00 10/24/19 08:53 Lopressor PO 25 mg BID ROBERT Administration Mometasone Furoate/Formoterol Fumar 2 puff 10/13/19 06:30 10/24/19 08:15 Dulera 200 Mcg/5 Mcg Inhaler INH 2 puff BID-RT ROBERT Administration Ondansetron HCl 4 mg 10/13/19 19:20 10/21/19 15:42 Zofran Odt PO 4 mg Q6H PRN Administration Nausea/Vomiting Sotalol HCl 80 mg 10/13/19 09:00 10/24/19 08:52 Betapace PO 80 mg BID ROBERT Administration Tamsulosin HCl 0.4 mg 10/13/19 09:00 10/24/19 08:52 Flomax PO 0.4 mg BID ROBERT Administration - Exam General Appearance: NAD, awake alert Eye: PERRL, anicteric sclera ENT: normocephalic atraumatic, no oropharyngeal lesions Neck: supple, symmetric, no JVD Heart: no murmur, no gallops, no rubs, irregular Respiratory: CTAB, no wheezes, no rales, no ronchi Gastrointestinal: soft, non-tender, non-distended, normal bowel sounds Extremities: no cyanosis, no clubbing Skin: normal turgor, no lesions Neurological: no focal deficits Musculoskeletal: normal tone, normal strength Psychiatric: normal affect, normal behavior Hosp A/P (1) Acute respiratory failure with hypoxia Code(s): J96.01 - ACUTE RESPIRATORY FAILURE WITH HYPOXIA Status: Acute (2) Malignant pleural effusion Code(s): J91.0 - MALIGNANT PLEURAL EFFUSION Status: Acute (3) Atrial fibrillation with rapid ventricular response Code(s): I48.91 - UNSPECIFIED ATRIAL FIBRILLATION Status: Acute (4) Metastatic melanoma to lung Code(s): C78.00 - SECONDARY MALIGNANT NEOPLASM OF UNSPECIFIED LUNG Status: Acute (5) Adrenal insufficiency ([place]'s disease) Code(s): E27.1 - PRIMARY ADRENOCORTICAL INSUFFICIENCY Status: Chronic (6) Anemia, normocytic normochromic Code(s): D64.9 - ANEMIA, UNSPECIFIED Status: Chronic (7) BPH (benign prostatic hypertrophy) Code(s): N40.0 - BENIGN PROSTATIC HYPERPLASIA WITHOUT LOWER URINRY TRACT SYMP Status: Chronic (8) Bladder outlet obstruction Code(s): N32.0 - BLADDER-NECK OBSTRUCTION Status: Chronic (9) CAD (coronary artery disease) Code(s): I25.10 - ATHSCL HEART DISEASE OF [place] CORONARY ARTERY W/O ANG PCTRS Status: Chronic (10) Chronic low back pain Code(s): M54.5 - LOW BACK PAIN; G89.29 - OTHER CHRONIC PAIN Status: Chronic (11) DM type 2 (diabetes mellitus, type 2) Status: Chronic (12) Diverticulosis of colon Code(s): K57.30 - DVRTCLOS OF LG INT W/O PERFORATION OR ABSCESS W/O BLEEDING Status: Chronic (13) Dyslipidemia Code(s): E78.5 - HYPERLIPIDEMIA, UNSPECIFIED Status: Chronic (14) HTN (hypertension) Code(s): I10 - ESSENTIAL (PRIMARY) HYPERTENSION Status: Chronic - Plan old records reviewed/req MRI brain today, continue cardizem drip for rate control, continue radiation therapy, prognosis is poor, discussed with bedside, medication reviewed and continue to provide symptomatic treatment and supportive care 10/23/19, at this time no new recommendation, his rate controlled with cardizem drip, his BP is well controlled, he needs placement but as he is on radiation therapy placement is challenging 10/24/19, today will dc cardizem drip, start oral cardizem, today plan for radiation therapy, pt's family member will need teaching to manage pleurex catheter, overall stable and improving, but overall fdc prognosis is not good
--- NOTE | 2019-10-24 11:37 | PRG ---
DATE OF SERVICE: 10/22/2019 SERVICE: Pulmonary Medicine. INTERVAL HISTORY: Because of some elevated blood pressure, the patient ended up being transferred. This has been controlled over the last 24 hours. Denies any fevers or chills. He does not have much of an appetite. That being said, he has no difficulty with breathing, chest pain, or shortness of breath currently. Apparently, the patient and his got an earful from their son. He is very upset that they had elected to pursue DNAR status. As such, they like to revert. This is perfectly reasonable, and we will go ahead and make that adjustment. I have asked that they have further discussions with their son about the meaning of DNAR. It is very clear that we are not going to stop treating the melanoma just because of DNAR status. I wonder whether or not he is confusing this with comfort care only. Either way, they have elected to go back to a full code status. PHYSICAL EXAMINATION: VITAL SIGNS: Afebrile. Pulse 89, blood pressure 119/77, respirations 18, saturation 94% on 2.5 L nasal cannula. HEENT: Normocephalic and atraumatic. Sclerae white. Conjunctivae pink. Oral mucosa is moist without lesions. LUNGS: Decreased air entry on the right. There is good air entry on the left with no prolonged expiratory phase or wheezing. No crackling is appreciated. HEART: Normal rate. Regular. ABDOMEN: Soft, nontender, nondistended. Bowel sounds are positive. MUSCULOSKELETAL: No cyanosis or clubbing. There is no pitting edema. NEUROLOGIC: Grossly nonfocal. LABORATORY DATA: WBC 10.1, hemoglobin 12.7, platelets 186,000. INR 1.0. Basic metabolic profile is completely unremarkable except for potassium of 3.7. Troponin is negative. Blood sugars ranged from 178 to 233. AFB smear and culture, and body fluid culture negative to date. IMAGING DATA: MRI of the brain demonstrates no intracranial abnormalities. There is certainly no metastatic melanoma identified there. ASSESSMENT: 1. Malignant melanoma, widely metastatic. 2. Malignant effusion, status post PleurX catheter on the right. 3. Acute hypoxic respiratory failure. DISCUSSION AND PLAN: We will transition the patient back to full code status. I will give him a dose of potassium. Otherwise, supportive measures will be continued. Pulmonary will continue to follow, intermittently during the hospital stay. Job ID: [id number] [email or web address]
[2019-10-24] MEDS: Ondansetron ODT 4 MG TAB PO PRN (21:39)
[2019-10-24] MEDS: Senokot S 8.6-50 MG TAB PO SCH (22:06)
[2019-10-25] MEDS: CEFAZOLIN 2 GM in Premix Bag 1 BAG IVPB SCH ×3 (05:32→21:02)
[2019-10-25] MEDS: Levothyroxine Sodium 100 MCG TAB PO SCH (05:32)
[2019-10-25] MEDS: Mometasone/Formoterol 120 PUFF INHALER INH SCH ×2 (07:47→19:44)
--- NOTE | 2019-10-25 08:32 | PRG ---
DATE OF SERVICE: 10/25/2019 SUBJECTIVE: The patient is sleeping. He looks extremely tired and lethargic. OBJECTIVE: VITAL SIGNS: Temperature 98.2, pulse 98, respirations 16, O2 saturation 94% on 2 L, blood pressure 116/79. HEENT: Unremarkable NECK: No adenopathy or JVD. LUNGS: Diminished breath sounds in the right base. He has radiation port drawn on the right chest. CARDIAC: S1 and S2. Regular. ABDOMEN: Soft. EXTREMITIES: No edema. LABORATORY DATA: None. ASSESSMENT: Metastatic melanoma with right-sided pleural effusion. PLAN: Continuing PleurX catheter drainage and radiation therapy. Prognosis for recovery looks quite dismal. Job ID: [id number]
[2019-10-25] MEDS: Enoxaparin Sodium 40 MG/0.4 ML SYRINGE SC SCH (08:46)
[2019-10-25] MEDS: Furosemide 20 MG TAB PO SCH (08:46)
[2019-10-25] MEDS: Aspirin 81 mg Enteric Coated Tablet PO SCH (08:46)
[2019-10-25] MEDS: DULoxetine 60 MG CAP PO SCH (08:46)
[2019-10-25] MEDS: Finasteride 5 MG TAB PO SCH (08:46)
[2019-10-25] MEDS: metFORMIN 500 MG TAB PO SCH ×2 (08:46→17:05)
[2019-10-25] MEDS: Hydrocortisone 10 mg Tablet PO SCH ×2 (08:47→13:18)
[2019-10-25] MEDS: Senokot S 8.6-50 MG TAB PO SCH ×2 (08:47→20:54)
[2019-10-25] MEDS: Sotalol HCl 80 MG TAB PO SCH ×2 (08:47→20:54)
[2019-10-25] MEDS: Gabapentin 300 MG CAP PO SCH ×2 (08:47→20:54)
[2019-10-25] MEDS: Metoprolol Tartrate 25 MG TAB PO SCH ×2 (08:47→20:54)
[2019-10-25] MEDS: Tamsulosin HCl 0.4 MG CAP PO SCH ×2 (08:48→20:54)
[2019-10-25] MEDS: Fluticasone Propionate Nasal Spray 16 gm Bottle NASAL SCH (08:53)
[2019-10-25] MEDS: HumaLOG 300 UNITS/3 ML VIAL SC PRN ×2 (11:36→16:59)
--- NOTE | 2019-10-25 18:43 | PDOC.HOSPP ---
- Subjective Encounter Date: 10/25/19 Encounter Time: 18:35 Subjective: f/u for metastatic melanoma with R pleural effusion s/p Pleur-X catheter placement and continuing daily XRT. Feels weak and fatigued. - Objective Vital Signs & Weight: Vital Signs (12 hours) Temp Pulse Resp BP Pulse Ox 10/25/19 16:40 98.0 F 84 20 136/70 94 L 10/25/19 16:00 98.1 F 70 16 138/69 96 10/25/19 11:34 97.9 F 81 17 141/67 H 94 L 10/25/19 10:15 82 17 148/68 H 96 10/25/19 07:32 98.2 F 90 16 169/79 H 94 L Weight Admit Weight 210 lb Weight 195 lb I&O: 10/24/19 10/25/19 10/26/19 06:59 06:59 06:59 Intake Total 910 950 Output Total 201 200 Balance 709 750 Result Diagrams: 10/22/19 00:59 10/22/19 00:59 Additional Labs: Accuchecks 10/25/19 10/25/19 10/25/19 16:59 10:56 05:25 POC Glucose 204 H 213 H 140 H 10/24/19 20:32 POC Glucose 236 H EKG Reviewed by me: Yes (Tele - A-fib) Hospitalist ROS - Medication Medications: Active Medications Generic Name Dose Route Start Last Admin Trade Name Freq PRN Reason Stop Dose Admin Acetaminophen 650 mg 10/13/19 04:02 10/24/19 19:49 Tylenol PO 650 mg Q4H PRN Administration Headache/Fever/Mild Pain (1-3) Albuterol/Ipratropium 3 ml 10/14/19 01:42 10/18/19 11:24 Duoneb NEB 3 ml [id number] PRN Administration SOB &/or Wheezing Aspirin 81 mg 10/13/19 09:00 10/25/19 08:46 Ecotrin PO 81 mg DAILY ROBERT Administration Diltiazem HCl 30 mg 10/24/19 11:30 10/25/19 17:15 Cardizem PO 30 mg ACHS ROBERT Administration Duloxetine HCl 120 mg 10/13/19 09:00 10/25/19 08:46 Cymbalta PO 120 mg DAILY ROBERT Administration Enoxaparin Sodium 40 mg 10/16/19 09:00 10/25/19 08:46 Lovenox SC 40 mg 0900 ROBERT Administration Finasteride 5 mg 10/13/19 09:00 10/25/19 08:46 Proscar PO 5 mg DAILY ROBERT Administration Fluticasone Propionate 0 gm 10/20/19 09:00 10/25/19 08:53 Flonase Nasal [place] NASAL Not Given DAILY ROBERT Furosemide 20 mg 10/13/19 09:00 10/25/19 08:46 Lasix PO 20 mg DAILY ROBERT Administration Gabapentin 300 mg 10/13/19 09:00 10/25/19 08:47 Neurontin PO 300 mg QAM ROBERT Administration Gabapentin 600 mg 10/13/19 21:00 10/24/19 19:48 Neurontin PO 600 mg HS ROBERT Administration Hydrocortisone 20 mg 10/14/19 09:00 10/25/19 08:47 Cortef PO 20 mg QAM ROBERT Administration Hydrocortisone 10 mg 10/14/19 14:00 10/25/19 13:18 Cortef PO 10 mg 1400 ROBERT Administration Cefazolin Sodium/Dextrose 2 gm 50 mls @ 100 mls/hr 10/20/19 14:00 10/25/19 13 :18 / Device IVPB 50 mls Q8HR ROBERT Administration Insulin Human Lispro 0 units 10/18/19 16:20 10/25/19 16:59 Humalog SC 3 unit .MILD SLIDING SCALE PRN Administration Mild Correctional Scale Levothyroxine Sodium 200 mcg 10/13/19 06:00 10/25/19 05:32 Synthroid PO 200 mcg 0600 ROBERT Administration Metformin HCl 500 mg 10/13/19 08:00 10/25/19 17:05 Glucophage PO 500 mg BID-WM ROBERT Administration Metoprolol Tartrate 25 mg 10/13/19 09:00 10/25/19 08:47 Lopressor PO 25 mg BID ROBERT Administration Mometasone Furoate/Formoterol Fumar 2 puff 10/13/19 06:30 10/25/19 07:47 Dulera 200 Mcg/5 Mcg Inhaler INH 2 puff BID-RT ROBERT Administration Ondansetron HCl 4 mg 10/13/19 19:20 10/24/19 21:39 Zofran Odt PO 4 mg Q6H PRN Administration Nausea/Vomiting Senna/Docusate Sodium 2 tab 10/24/19 21:00 10/25/19 08:47 Senokot S PO 2 tab BID ROBERT Administration Sotalol HCl 80 mg 10/13/19 09:00 10/25/19 08:47 Betapace PO 80 mg BID ROBERT Administration Tamsulosin HCl 0.4 mg 10/13/19 09:00 10/25/19 08:48 Flomax PO 0.4 mg BID ROBERT Administration - Exam General Appearance: awake alert, ill appearing Eye: PERRL, anicteric sclera ENT: normocephalic atraumatic, no oropharyngeal lesions Neck: supple, symmetric, no JVD, no thyromegaly Heart: no gallops, normal peripheral pulses, irregular Respiratory - other findings: diminished in R base Gastrointestinal: soft, non-tender, non-distended, normal bowel sounds, no palpable masses Extremities: no cyanosis, no clubbing Skin: normal turgor, no lesions Neurological: cranial nerve grossly intact, no new deficit Musculoskeletal: generalized weakness Psychiatric: A&O x 3 Hosp A/P (1) Malignant pleural effusion Code(s): J91.0 - MALIGNANT PLEURAL EFFUSION Status: Acute Plan: s/p R Pleur-X catheter placement, continue to monitor clinically (2) Acute respiratory failure with hypoxia Code(s): J96.01 - ACUTE RESPIRATORY FAILURE WITH HYPOXIA Status: Acute Plan: Improved with pleural effusion mgmt, continue O2 @ 2L/min (3) Atrial fibrillation with rapid ventricular response Code(s): I48.91 - UNSPECIFIED ATRIAL FIBRILLATION Status: Chronic Plan: Rate-controlled, continue Metoprolol/Diltiazem/Sotalol/ASA (4) Metastatic melanoma to lung Code(s): C78.00 - SECONDARY MALIGNANT NEOPLASM OF UNSPECIFIED LUNG Status: Acute Qualifiers: Laterality: right Qualified Code(s): C78.01 - Secondary malignant neoplasm of right lung Plan: XRT 4 of 10 tx completed - Plan plan discussed w/ family, continue antibiotics, PT/OT, 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
[2019-10-25] MEDS: Acetaminophen 325 MG TAB PO PRN (22:01)
[2019-10-26] MEDS: CEFAZOLIN 2 GM in Premix Bag 1 BAG IVPB SCH ×3 (05:53→20:24)
[2019-10-26] MEDS: Levothyroxine Sodium 100 MCG TAB PO SCH (05:53)
--- NOTE | 2019-10-26 08:27 | PDOC.MOPN ---
Interval History: Pt says his breathing has improved, however still appears dyspneic when speaking. He is not eating very much at all, very fatigued. - Vital Signs Vital Signs: Vital Signs (12 hours) Temp Pulse Resp BP Pulse Ox 10/26/19 08:04 97.6 F 90 18 123/63 96 10/26/19 04:00 97.7 F 84 16 135/71 98 10/26/19 00:00 98.4 F 76 16 118/62 95 10/25/19 20:54 91 Weight Admit Weight 210 lb Weight 195 lb - Physical Exam General: No acute distress HEENT: EOMI Lungs: Other (markedly decreased breath sounds in right lung field) Cardiovascular: Regular rate, No murmurs Abdomen: Soft, No tenderness Neurological: Cranial nerves 3-12 NL - Labs Result Diagrams: 10/22/19 00:59 10/22/19 00:59 Lab results: Laboratory Results - last 24 hr 10/26/19 05:26: POC Glucose 141 H 10/25/19 20:12: POC Glucose 193 H 10/25/19 16:59: POC Glucose 204 H 10/25/19 10:56: POC Glucose 213 H A/P - Problem (1) 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
[2019-10-26] MEDS: Mometasone/Formoterol 120 PUFF INHALER INH SCH ×2 (08:29→19:45)
[2019-10-26] MEDS: Enoxaparin Sodium 40 MG/0.4 ML SYRINGE SC SCH (10:49)
[2019-10-26] MEDS: Sotalol HCl 80 MG TAB PO SCH ×2 (10:49→20:24)
[2019-10-26] MEDS: metFORMIN 500 MG TAB PO SCH ×2 (10:50→16:45)
[2019-10-26] MEDS: DULoxetine 60 MG CAP PO SCH (10:51)
[2019-10-26] MEDS: Metoprolol Tartrate 25 MG TAB PO SCH ×2 (10:52→20:24)
[2019-10-26] MEDS: Aspirin 81 mg Enteric Coated Tablet PO SCH (10:52)
[2019-10-26] MEDS: Gabapentin 300 MG CAP PO SCH ×2 (10:53→20:24)
[2019-10-26] MEDS: Tamsulosin HCl 0.4 MG CAP PO SCH ×2 (10:53→20:24)
[2019-10-26] MEDS: Hydrocortisone 10 mg Tablet PO SCH ×2 (10:53→14:38)
[2019-10-26] MEDS: Finasteride 5 MG TAB PO SCH (10:53)
[2019-10-26] MEDS: Furosemide 20 MG TAB PO SCH (10:54)
[2019-10-26] MEDS: Fluticasone Propionate Nasal Spray 16 gm Bottle NASAL SCH (10:55)
[2019-10-26] MEDS: Senokot S 8.6-50 MG TAB PO SCH ×2 (10:56→20:16)
[2019-10-26] MEDS: HumaLOG 300 UNITS/3 ML VIAL SC PRN ×2 (11:15→16:42)
[2019-10-26] MEDS: Acetaminophen 325 MG TAB PO PRN ×2 (12:28→20:24)
[2019-10-26 14:25] VITALS: BMI 30.5
--- NOTE | 2019-10-26 19:08 | PDOC.HOSPP ---
- Subjective Encounter Date: 10/26/19 Encounter Time: 19:00 Subjective: f/u for metastatic melanoma to lung with pleural effusion and Pleur-X catheter placement. Feels fatigued and weak. - Objective Vital Signs & Weight: Vital Signs (12 hours) Temp Pulse Pulse Pulse Resp BP BP 10/26/19 16:30 97.2 F L 88 16 10/26/19 11:40 98.3 F 89 18 10/26/19 10:49 90 10/26/19 08:35 97 100 140/73 149/71 H 10/26/19 08:04 97.6 F 90 18 BP Pulse Ox Pulse Ox 10/26/19 16:30 117/58 L 96 10/26/19 11:40 120/60 96 10/26/19 10:49 10/26/19 08:35 98 10/26/19 08:04 123/63 96 Weight Admit Weight 210 lb Weight 195 lb I&O: 10/25/19 10/26/19 10/27/19 06:59 06:59 06:59 Intake Total 950 440 Output Total 200 900 Balance 750 -460 Result Diagrams: 10/22/19 00:59 10/22/19 00:59 Additional Labs: Accuchecks 10/26/19 10/26/19 10/26/19 16:29 11:05 05:26 POC Glucose 162 H 171 H 141 H 10/25/19 20:12 POC Glucose 193 H Hospitalist ROS - Medication Medications: Active Medications Generic Name Dose Route Start Last Admin Trade Name Freq PRN Reason Stop Dose Admin Acetaminophen 650 mg 10/13/19 04:02 10/26/19 12:28 Tylenol PO 650 mg Q4H PRN Administration Headache/Fever/Mild Pain (1-3) Albuterol/Ipratropium 3 ml 10/14/19 01:42 10/18/19 11:24 Duoneb NEB 3 ml [id number] PRN Administration SOB &/or Wheezing Aspirin 81 mg 10/13/19 09:00 10/26/19 10:52 Ecotrin PO 81 mg DAILY ROBERT Administration Diltiazem HCl 30 mg 10/24/19 11:30 10/26/19 16:45 Cardizem PO 30 mg ACHS ROBERT Administration Duloxetine HCl 120 mg 10/13/19 09:00 10/26/19 10:51 Cymbalta PO 120 mg DAILY ROBERT Administration Enoxaparin Sodium 40 mg 10/16/19 09:00 10/26/19 10:49 Lovenox SC 40 mg 0900 ROBERT Administration Finasteride 5 mg 10/13/19 09:00 10/26/19 10:53 Proscar PO 5 mg DAILY ROBERT Administration Fluticasone Propionate 0 gm 10/20/19 09:00 10/26/19 10:55 Flonase Nasal [place] NASAL 1 spr DAILY ROBERT Administration Furosemide 20 mg 10/13/19 09:00 10/26/19 10:54 Lasix PO 20 mg DAILY ROBERT Administration Gabapentin 300 mg 10/13/19 09:00 10/26/19 10:53 Neurontin PO 300 mg QAM ROBERT Administration Gabapentin 600 mg 10/13/19 21:00 10/25/19 20:54 Neurontin PO 600 mg HS ROBERT Administration Hydrocortisone 20 mg 10/14/19 09:00 10/26/19 10:53 Cortef PO 20 mg QAM ROBERT Administration Hydrocortisone 10 mg 10/14/19 14:00 10/26/19 14:38 Cortef PO 10 mg 1400 ROBERT Administration Cefazolin Sodium/Dextrose 2 gm 50 mls @ 100 mls/hr 10/20/19 14:00 10/26/19 14 :38 / Device IVPB 50 mls Q8HR ROBERT Administration Insulin Human Lispro 0 units 10/18/19 16:20 10/26/19 16:42 Humalog SC 2 unit .MILD SLIDING SCALE PRN Administration Mild Correctional Scale Levothyroxine Sodium 200 mcg 10/13/19 06:00 10/26/19 05:53 Synthroid PO 200 mcg 0600 ROBERT Administration Metformin HCl 500 mg 10/13/19 08:00 10/26/19 16:45 Glucophage PO 500 mg BID-WM ROBERT Administration Metoprolol Tartrate 25 mg 10/13/19 09:00 10/26/19 10:52 Lopressor PO 25 mg BID ROBERT Administration Mometasone Furoate/Formoterol Fumar 2 puff 10/13/19 06:30 10/26/19 08:29 Dulera 200 Mcg/5 Mcg Inhaler INH 2 puff BID-RT ROBERT Administration Ondansetron HCl 4 mg 10/13/19 19:20 10/24/19 21:39 Zofran Odt PO 4 mg Q6H PRN Administration Nausea/Vomiting Senna/Docusate Sodium 2 tab 10/24/19 21:00 10/26/19 10:56 Senokot S PO Not Given BID [facility] Sotalol HCl 80 mg 10/13/19 09:00 10/26/19 10:49 Betapace PO 80 mg BID ROBERT Administration Tamsulosin HCl 0.4 mg 10/13/19 09:00 10/26/19 10:53 Flomax PO 0.4 mg BID ROBERT Administration - Exam General Appearance: NAD, awake alert Eye: PERRL, anicteric sclera ENT: normocephalic atraumatic, no oropharyngeal lesions Neck: supple, symmetric, no JVD, no thyromegaly Heart: no gallops, no rubs, normal peripheral pulses, irregular Respiratory - other findings: diminished in R base Gastrointestinal: soft, non-tender, non-distended, normal bowel sounds Extremities: no cyanosis, no clubbing, no edema Skin: normal turgor, no lesions, no rashes Neurological: cranial nerve grossly intact, no new deficit Musculoskeletal: normal tone, generalized weakness Psychiatric: A&O x 3, flat affect Hosp A/P (1) Malignant pleural effusion Code(s): J91.0 - MALIGNANT PLEURAL EFFUSION Status: Acute Plan: Continue Pleur-X catheter drainage (2) Acute respiratory failure with hypoxia Code(s): J96.01 - ACUTE RESPIRATORY FAILURE WITH HYPOXIA Status: Acute Plan: Continue O2 supplementation, see above (3) Atrial fibrillation with rapid ventricular response Code(s): I48.91 - UNSPECIFIED ATRIAL FIBRILLATION Status: Chronic Plan: Rate-controlled (4) 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
[2019-10-27] MEDS: Levothyroxine Sodium 100 MCG TAB PO SCH (05:29)
[2019-10-27] MEDS: CEFAZOLIN 2 GM in Premix Bag 1 BAG IVPB SCH ×3 (05:29→22:41)
[2019-10-27] MEDS: Mometasone/Formoterol 120 PUFF INHALER INH SCH ×2 (06:42→18:43)
[2019-10-27] MEDS: Furosemide 20 MG TAB PO SCH (08:51)
[2019-10-27] MEDS: Finasteride 5 MG TAB PO SCH (08:51)
[2019-10-27] MEDS: Metoprolol Tartrate 25 MG TAB PO SCH ×2 (08:51→20:34)
[2019-10-27] MEDS: Gabapentin 300 MG CAP PO SCH ×2 (08:51→20:33)
[2019-10-27] MEDS: DULoxetine 60 MG CAP PO SCH (08:51)
[2019-10-27] MEDS: Tamsulosin HCl 0.4 MG CAP PO SCH ×2 (08:51→20:34)
[2019-10-27] MEDS: Sotalol HCl 80 MG TAB PO SCH ×2 (08:51→20:33)
[2019-10-27] MEDS: metFORMIN 500 MG TAB PO SCH ×2 (08:51→15:45)
[2019-10-27] MEDS: Aspirin 81 mg Enteric Coated Tablet PO SCH (08:51)
[2019-10-27] MEDS: Fluticasone Propionate Nasal Spray 16 gm Bottle NASAL SCH (08:52)
[2019-10-27] MEDS: Hydrocortisone 10 mg Tablet PO SCH ×3 (08:52→15:45)
[2019-10-27] MEDS: Enoxaparin Sodium 40 MG/0.4 ML SYRINGE SC SCH (08:52)
[2019-10-27] MEDS: Senokot S 8.6-50 MG TAB PO SCH ×2 (08:53→20:30)
[2019-10-27] MEDS: HumaLOG 300 UNITS/3 ML VIAL SC PRN ×3 (12:56→20:34)
--- NOTE | 2019-10-27 13:45 | PDOC.HOSPP ---
- Subjective Encounter Date: 10/27/19 Encounter Time: 13:35 Subjective: f/u for metastastic melanoma to R lung with malignant effusion s/p Pleur-X catheter placement on 10/21/19. Receiving XRT 6 of 10 today. Remains sleepy, fatigued and not getting out of bed per nursing. - Objective Vital Signs & Weight: Vital Signs (12 hours) Pulse 10/27/19 08:51 88 Weight Admit Weight 210 lb Weight 195 lb I&O: 10/26/19 10/27/19 10/28/19 06:59 06:59 06:59 Intake Total 440 650 Output Total 900 200 Balance -460 450 Result Diagrams: 10/22/19 00:59 10/22/19 00:59 Additional Labs: Accuchecks 10/27/19 10/26/19 10/26/19 05:21 20:29 16:29 POC Glucose 117 H 185 H 162 H Hospitalist ROS - Medication Medications: Active Medications Generic Name Dose Route Start Last Admin Trade Name Freq PRN Reason Stop Dose Admin Acetaminophen 650 mg 10/13/19 04:02 10/26/19 20:24 Tylenol PO 650 mg Q4H PRN Administration Headache/Fever/Mild Pain (1-3) Albuterol/Ipratropium 3 ml 10/14/19 01:42 10/18/19 11:24 Duoneb NEB 3 ml [id number] PRN Administration SOB &/or Wheezing Aspirin 81 mg 10/13/19 09:00 10/27/19 08:51 Ecotrin PO 81 mg DAILY ROBERT Administration Diltiazem HCl 30 mg 10/24/19 11:30 10/27/19 12:57 Cardizem PO 30 mg ACHS ROBERT Administration Duloxetine HCl 120 mg 10/13/19 09:00 10/27/19 08:51 Cymbalta PO 120 mg DAILY ROBERT Administration Enoxaparin Sodium 40 mg 10/16/19 09:00 10/27/19 08:52 Lovenox SC 40 mg 09 ROBERT Administration Finasteride 5 mg 10/13/19 09:00 10/27/19 08:51 Proscar PO 5 mg DAILY ROBERT Administration Fluticasone Propionate 0 gm 10/20/19 09:00 10/27/19 08:52 Flonase Nasal [place] NASAL 1 spr DAILY ROBERT Administration Furosemide 20 mg 10/13/19 09:00 10/27/19 08:51 Lasix PO 20 mg DAILY ROBERT Administration Gabapentin 300 mg 10/13/19 09:00 10/27/19 08:51 Neurontin PO 300 mg QAM ROBERT Administration Gabapentin 600 mg 10/13/19 21:00 10/26/19 20:24 Neurontin PO 600 mg HS ROBERT Administration Hydrocortisone 20 mg 10/14/19 09:00 10/27/19 12:57 Cortef PO 20 mg QAM ROBERT Administration Hydrocortisone 10 mg 10/14/19 14:00 10/26/19 14:38 Cortef PO 10 mg 1400 ORBERT Administration Cefazolin Sodium/Dextrose 2 gm 50 mls @ 100 mls/hr 10/20/19 14:00 10/27/19 12 :57 / Device IVPB 50 mls Q8HR ROBERT Administration Insulin Human Lispro 0 units 10/18/19 16:20 10/27/19 12:56 Humalog SC 4 unit .MILD SLIDING SCALE PRN Administration Mild Correctional Scale Levothyroxine Sodium 200 mcg 10/13/19 06:00 10/27/19 05:29 Synthroid PO 200 mcg 0600 ROBERT Administration Metformin HCl 500 mg 10/13/19 08:00 10/27/19 08:51 Glucophage PO 500 mg BID-WM ROBERT Administration Metoprolol Tartrate 25 mg 10/13/19 09:00 10/27/19 08:51 Lopressor PO 25 mg BID [facility] Administration Mometasone Furoate/Formoterol Fumar 2 puff 10/13/19 06:30 10/27/19 06:42 Dulera 200 Mcg/5 Mcg Inhaler INH 2 puff BID-RT ROBERT Administration Ondansetron HCl 4 mg 10/13/19 19:20 10/24/19 21:39 Zofran Odt PO 4 mg Q6H PRN Administration Nausea/Vomiting Senna/Docusate Sodium 2 tab 10/24/19 21:00 10/27/19 08:53 Senokot S PO Not Given BID [facility] Sotalol HCl 80 mg 10/13/19 09:00 10/27/19 08:51 Betapace PO 80 mg BID ROBERT Administration Tamsulosin HCl 0.4 mg 10/13/19 09:00 10/27/19 08:51 Flomax PO 0.4 mg BID ROBERT Administration - Exam General - other findings: tired, awake Eye: PERRL, anicteric sclera ENT: normocephalic atraumatic, no oropharyngeal lesions Neck: supple, symmetric, no JVD, no thyromegaly Heart: no gallops, no rubs, normal peripheral pulses, irregular Respiratory: no ronchi Respiratory - other findings: diminished in R base, R Pleur-X catheter in place Gastrointestinal: soft, non-tender, non-distended, normal bowel sounds Extremities: no cyanosis, no clubbing, no edema Skin: normal turgor, no lesions Neurological: no new deficit Musculoskeletal: generalized weakness Psychiatric: oriented to person, flat affect, somnolent Hosp A/P (1) Malignant pleural effusion Code(s): J91.0 - MALIGNANT PLEURAL EFFUSION Status: Acute Plan: s/p Pleur-X catheter placement with drainage q48h (2) Acute respiratory failure with hypoxia Code(s): J96.01 - ACUTE RESPIRATORY FAILURE WITH HYPOXIA Status: Acute Plan: Improved, continue O2 supplementation (3) Atrial fibrillation with rapid ventricular response Code(s): I48.91 - UNSPECIFIED ATRIAL FIBRILLATION Status: Chronic (4) 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
[2019-10-27] MEDS: Simethicone Chewable 80 MG TAB PO PRN (22:48)
[2019-10-28] MEDS: CEFAZOLIN 2 GM in Premix Bag 1 BAG IVPB SCH ×3 (04:59→21:42)
[2019-10-28] MEDS: Acetaminophen 325 MG TAB PO PRN ×2 (05:00→12:47)
[2019-10-28] MEDS: Levothyroxine Sodium 100 MCG TAB PO SCH (05:00)
[2019-10-28] MEDS: Mometasone/Formoterol 120 PUFF INHALER INH SCH ×2 (07:31→18:31)
[2019-10-28] MEDS: Sotalol HCl 80 MG TAB PO SCH ×2 (08:42→21:37)
[2019-10-28] MEDS: Metoprolol Tartrate 25 MG TAB PO SCH ×2 (08:42→21:38)
[2019-10-28] MEDS: Senokot S 8.6-50 MG TAB PO SCH ×2 (08:42→21:07)
[2019-10-28] MEDS: Tamsulosin HCl 0.4 MG CAP PO SCH ×2 (08:42→21:06)
[2019-10-28] MEDS: Gabapentin 300 MG CAP PO SCH ×2 (08:42→21:06)
[2019-10-28] MEDS: Finasteride 5 MG TAB PO SCH (08:43)
[2019-10-28] MEDS: Aspirin 81 mg Enteric Coated Tablet PO SCH (08:43)
[2019-10-28] MEDS: metFORMIN 500 MG TAB PO SCH ×2 (08:43→16:50)
[2019-10-28] MEDS: DULoxetine 60 MG CAP PO SCH (08:43)
[2019-10-28] MEDS: Furosemide 20 MG TAB PO SCH (08:43)
[2019-10-28] MEDS: Fluticasone Propionate Nasal Spray 16 gm Bottle NASAL SCH (08:44)
[2019-10-28] MEDS: Enoxaparin Sodium 40 MG/0.4 ML SYRINGE SC SCH (08:44)
[2019-10-28] MEDS: HumaLOG 300 UNITS/3 ML VIAL SC PRN ×2 (11:12→16:50)
--- NOTE | 2019-10-28 12:35 | PDOC.HOSPP ---
- Subjective Encounter Date: 10/28/19 Encounter Time: 12:20 Subjective: f/u for resp failure and R malignant pleural effusion s/p Pleur-x catheter placement. Feels weak and fatigued. Received XRT 7 of 10 tx today. - Objective Vital Signs & Weight: Vital Signs (12 hours) Temp Pulse Resp BP BP Pulse Ox 10/28/19 08:43 100 10/28/19 08:42 84 128/68 10/28/19 07:48 97.4 F L 84 20 128/68 100 10/28/19 04:00 98.5 F Weight Admit Weight 210 lb Weight 195 lb I&O: 10/27/19 10/28/19 10/29/19 06:59 06:59 06:59 Intake Total 650 1830 Output Total 200 150 Balance 450 1680 Result Diagrams: 10/22/19 00:59 10/22/19 00:59 Additional Labs: Accuchecks 10/28/19 10/28/19 10/27/19 11:08 05:04 20:07 POC Glucose 185 H 143 H 282 H 10/27/19 10/27/19 16:43 11:52 POC Glucose 301 H 197 H Hospitalist ROS - Medication Medications: Active Medications Generic Name Dose Route Start Last Admin Trade Name Freq PRN Reason Stop Dose Admin Acetaminophen 650 mg 10/13/19 04:02 10/28/19 05:00 Tylenol PO 650 mg Q4H PRN Administration Headache/Fever/Mild Pain (1-3) Albuterol/Ipratropium 3 ml 10/14/19 01:42 10/18/19 11:24 Duoneb NEB 3 ml [id number] PRN Administration SOB &/or Wheezing Aspirin 81 mg 10/13/19 09:00 10/28/19 08:43 Ecotrin PO 81 mg DAILY ROBERT Administration Diltiazem HCl 30 mg 10/24/19 11:30 10/28/19 11:12 Cardizem PO 30 mg ACHS ROBERT Administration Duloxetine HCl 120 mg 10/13/19 09:00 10/28/19 08:43 Cymbalta PO 120 mg DAILY ROBERT Administration Enoxaparin Sodium 40 mg 10/16/19 09:00 10/28/19 08:44 Lovenox SC 40 mg 0900 ROBERT Administration Finasteride 5 mg 10/13/19 09:00 10/28/19 08:43 Proscar PO 5 mg DAILY ROBERT Administration Fluticasone Propionate 0 gm 10/20/19 09:00 10/28/19 08:44 Flonase Nasal [place] NASAL 1 spr DAILY ROBERT Administration Furosemide 20 mg 10/13/19 09:00 10/28/19 08:43 Lasix PO 20 mg DAILY ROBERT Administration Gabapentin 300 mg 10/13/19 09:00 10/28/19 08:42 Neurontin PO 300 mg QAM ROBERT Administration Gabapentin 600 mg 10/13/19 21:00 10/27/19 20:33 Neurontin PO 600 mg HS ROBERT Administration Hydrocortisone 20 mg 10/14/19 09:00 10/27/19 12:57 Cortef PO 20 mg QAM ROBERT Administration Hydrocortisone 10 mg 10/14/19 14:00 10/27/19 15:45 Cortef PO 10 mg 1400 ROBERT Administration Cefazolin Sodium/Dextrose 2 gm 50 mls @ 100 mls/hr 10/20/19 14:00 10/28/19 04 :59 / Device IVPB 50 mls Q8HR ROBERT Administration Insulin Human Lispro 0 units 10/18/19 16:20 10/28/19 11:12 Humalog SC 2 unit .MILD SLIDING SCALE PRN Administration Mild Correctional Scale Levothyroxine Sodium 200 mcg 10/13/19 06:00 10/28/19 05:00 Synthroid PO 200 mcg 0600 ROBERT Administration Metformin HCl 500 mg 10/13/19 08:00 10/28/19 08:43 Glucophage PO 500 mg BID-WM ROBERT Administration Metoprolol Tartrate 25 mg 10/13/19 09:00 10/28/19 08:42 Lopressor PO 25 mg BID ROBERT Administration Mometasone Furoate/Formoterol Fumar 2 puff 10/13/19 06:30 10/28/19 07:31 Dulera 200 Mcg/5 Mcg Inhaler INH 2 puff BID-RT ROBERT Administration Ondansetron HCl 4 mg 10/13/19 19:20 10/24/19 21:39 Zofran Odt PO 4 mg Q6H PRN Administration Nausea/Vomiting Senna/Docusate Sodium 2 tab 10/24/19 21:00 10/28/19 08:42 Senokot S PO 2 tab BID ROBERT Administration Simethicone 80 mg 10/27/19 22:16 10/27/19 22:48 Mylicon Chewable PO 80 mg TID PRN Administration Gas Pain Sotalol HCl 80 mg 10/13/19 09:00 10/28/19 08:42 Betapace PO 80 mg BID ROBERT Administration Tamsulosin HCl 0.4 mg 10/13/19 09:00 10/28/19 08:42 Flomax PO 0.4 mg BID ROBERT Administration - Exam General Appearance: ill appearing General - other findings: pale Eye: PERRL, anicteric sclera ENT: normocephalic atraumatic, no oropharyngeal lesions Neck: supple, symmetric, no JVD, no thyromegaly Heart: RRR, no gallops, no rubs, normal peripheral pulses Respiratory: CTAB, no wheezes, no rales, no ronchi Respiratory - other findings: diminished in R base Gastrointestinal: soft, non-tender, non-distended, normal bowel sounds, no palpable masses Extremities: no cyanosis, no clubbing, no edema Skin: normal turgor, no lesions Skin - other findings: pale Neurological: cranial nerve grossly intact, no new deficit Musculoskeletal: normal tone, generalized weakness Psychiatric: A&O x 3, flat affect Hosp A/P (1) Malignant pleural effusion Code(s): J91.0 - MALIGNANT PLEURAL EFFUSION Status: Acute Plan: s/p Pleur-X catheter 10/21/19, decreasing drainage noted per nursing (2) Acute respiratory failure with hypoxia Code(s): J96.01 - ACUTE RESPIRATORY FAILURE WITH HYPOXIA Status: Acute Plan: Improved after effusion evacuated, continue O2 via NC (3) Atrial fibrillation with rapid ventricular response Code(s): I48.91 - UNSPECIFIED ATRIAL FIBRILLATION Status: Chronic Plan: Stable currently, rate-control measures (4) 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
[2019-10-28] MEDS: Hydrocortisone 10 mg Tablet PO SCH (13:40)
[2019-10-28] MEDS: Acetaminophen/Codeine 30-300mg Tablet PO PRN (21:40)
[2019-10-29 04:36] LABS: Hemoglobin 10.5 g/dL (14.0-18.0); Platelet Count 262 thou/uL (130-400)
[2019-10-29] MEDS: Levothyroxine Sodium 100 MCG TAB PO SCH (05:47)
[2019-10-29] MEDS: CEFAZOLIN 2 GM in Premix Bag 1 BAG IVPB SCH ×3 (05:47→22:08)
[2019-10-29] MEDS: Acetaminophen/Codeine 30-300mg Tablet PO PRN (05:48)
[2019-10-29] MEDS: Mometasone/Formoterol 120 PUFF INHALER INH SCH ×2 (07:53→18:09)
[2019-10-29] MEDS: Sotalol HCl 80 MG TAB PO SCH ×2 (08:36→20:06)
[2019-10-29] MEDS: Furosemide 20 MG TAB PO SCH (08:36)
[2019-10-29] MEDS: Aspirin 81 mg Enteric Coated Tablet PO SCH (08:36)
[2019-10-29] MEDS: Enoxaparin Sodium 40 MG/0.4 ML SYRINGE SC SCH (08:36)
[2019-10-29] MEDS: DULoxetine 60 MG CAP PO SCH (08:36)
[2019-10-29] MEDS: metFORMIN 500 MG TAB PO SCH ×2 (08:36→16:54)
[2019-10-29] MEDS: Finasteride 5 MG TAB PO SCH (08:36)
[2019-10-29] MEDS: Gabapentin 300 MG CAP PO SCH ×2 (08:36→20:11)
[2019-10-29] MEDS: Fluticasone Propionate Nasal Spray 16 gm Bottle NASAL SCH (08:37)
[2019-10-29] MEDS: Metoprolol Tartrate 25 MG TAB PO SCH ×2 (08:37→20:11)
[2019-10-29] MEDS: Tamsulosin HCl 0.4 MG CAP PO SCH ×2 (08:37→20:10)
[2019-10-29] MEDS: Hydrocortisone 10 mg Tablet PO SCH ×2 (08:37→12:57)
[2019-10-29] MEDS: Senokot S 8.6-50 MG TAB PO SCH ×2 (08:38→20:11)
--- NOTE | 2019-10-29 11:09 | PDOC.HOSPP ---
- Subjective Encounter Date: 10/29/19 Encounter Time: 07:30 Subjective: No specific complaint.. - Objective Vital Signs & Weight: Vital Signs (12 hours) Temp Pulse Resp BP Pulse Ox 10/29/19 08:36 97 10/29/19 07:44 98.7 F 97 14 123/60 95 Weight Admit Weight 210 lb Weight 195 lb I&O: 10/28/19 10/29/19 10/30/19 06:59 06:59 06:59 Intake Total 1730 1407 Output Total 150 Balance 1580 1407 Result Diagrams: 10/29/19 04:27 10/22/19 00:59 Additional Labs: Accuchecks 10/29/19 10/28/19 10/28/19 04:30 20:08 16:40 POC Glucose 138 H 174 H 224 H 10/28/19 11:08 POC Glucose 185 H Hospitalist ROS - Medication Medications: Active Medications Generic Name Dose Route Start Last Admin Trade Name Freq PRN Reason Stop Dose Admin Acetaminophen 650 mg 10/13/19 04:02 10/28/19 12:47 Tylenol PO 650 mg Q4H PRN Administration Headache/Fever/Mild Pain (1-3) Acetaminophen/Codeine Phosphate 1 tab 10/28/19 12:42 10/29/19 05:48 Tylenol #3 PO 1 tab Q4H PRN Administration Moderate Pain (4-6) Albuterol/Ipratropium 3 ml 10/14/19 01:42 10/18/19 11:24 Duoneb NEB 3 ml [id number] PRN Administration SOB &/or Wheezing Aspirin 81 mg 10/13/19 09:00 10/29/19 08:36 Ecotrin PO 81 mg DAILY ROBERT Administration Diltiazem HCl 30 mg 10/24/19 11:30 10/29/19 08:35 Cardizem PO 30 mg ACHS ROBERT Administration Duloxetine HCl 120 mg 10/13/19 09:00 10/29/19 08:36 Cymbalta PO 120 mg DAILY ROBERT Administration Enoxaparin Sodium 40 mg 10/16/19 09:00 10/29/19 08:36 Lovenox SC 40 mg 0900 ROBERT Administration Finasteride 5 mg 10/13/19 09:00 10/29/19 08:36 Proscar PO 5 mg DAILY ROBERT Administration Fluticasone Propionate 0 gm 10/20/19 09:00 10/29/19 08:37 Flonase Nasal [place] NASAL 1 spr DAILY ROBERT Administration Furosemide 20 mg 10/13/19 09:00 10/29/19 08:36 Lasix PO 20 mg DAILY ROBERT Administration Gabapentin 300 mg 10/13/19 09:00 10/29/19 08:36 Neurontin PO 300 mg QAM ROBERT Administration Gabapentin 600 mg 10/13/19 21:00 10/28/19 21:06 Neurontin PO 600 mg HS ROBERT Administration Hydrocortisone 20 mg 10/14/19 09:00 10/29/19 08:37 Cortef PO 20 mg QAM ROBERT Administration Hydrocortisone 10 mg 10/14/19 14:00 10/28/19 13:40 Cortef PO 10 mg 1400 ROBERT Administration Cefazolin Sodium/Dextrose 2 gm 50 mls @ 100 mls/hr 10/20/19 14:00 10/29/19 05 :47 / Device IVPB 50 mls Q8HR ROBERT Administration Insulin Human Lispro 0 units 10/18/19 16:20 10/28/19 16:50 Humalog SC 3 unit .MILD SLIDING SCALE PRN Administration Mild Correctional Scale Levothyroxine Sodium 200 mcg 10/13/19 06:00 10/29/19 05:47 Synthroid PO 200 mcg 0600 ROBERT Administration Metformin HCl 500 mg 10/13/19 08:00 10/29/19 08:36 Glucophage PO 500 mg BID-WM ROBERT Administration Metoprolol Tartrate 25 mg 10/13/19 09:00 10/29/19 08:37 Lopressor PO 25 mg BID ROBERT Administration Mometasone Furoate/Formoterol Fumar 2 puff 10/13/19 06:30 10/29/19 07:53 Dulera 200 Mcg/5 Mcg Inhaler INH 2 puff BID-RT ROBERT Administration Ondansetron HCl 4 mg 10/13/19 19:20 10/24/19 21:39 Zofran Odt PO 4 mg Q6H PRN Administration Nausea/Vomiting Senna/Docusate Sodium 2 tab 10/24/19 21:00 10/29/19 08:38 Senokot S PO Not Given BID ROBERT Simethicone 80 mg 10/27/19 22:16 10/27/19 22:48 Mylicon Chewable PO 80 mg TID PRN Administration Gas Pain Sodium Chloride 10 ml 10/29/19 02:47 10/29/19 05:47 Flush - Normal Saline IVF 10 ml PRN PRN Administration Saline Flush Sotalol HCl 80 mg 10/13/19 09:00 10/29/19 08:36 Betapace PO 80 mg BID RBOERT Administration Tamsulosin HCl 0.4 mg 10/13/19 09:00 10/29/19 08:37 Flomax PO 0.4 mg BID ROBERT Administration - Exam General Appearance: NAD Neck: no JVD Heart: irregular Respiratory: rhonchi Gastrointestinal: soft Extremities: no edema Neurological: no weakness Psychiatric: normal affect Hosp A/P (1) Atrial fibrillation with RVR Code(s): I48.91 - UNSPECIFIED ATRIAL FIBRILLATION Status: Acute Plan: Rate controlled... 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 f/u with oncology.. SNF placement when cycle of radiation completed.
[2019-10-29] MEDS: HumaLOG 300 UNITS/3 ML VIAL SC PRN ×2 (12:48→16:54)
[2019-10-29] MEDS: Simethicone Chewable 80 MG TAB PO PRN (15:39)
[2019-10-30] MEDS: Levothyroxine Sodium 100 MCG TAB PO SCH (05:55)
[2019-10-30] MEDS: CEFAZOLIN 2 GM in Premix Bag 1 BAG IVPB SCH ×3 (05:55→21:21)
[2019-10-30] MEDS: Acetaminophen/Codeine 30-300mg Tablet PO PRN ×2 (06:13→13:50)
[2019-10-30] MEDS: Mometasone/Formoterol 120 PUFF INHALER INH SCH ×2 (07:45→19:35)
[2019-10-30] MEDS: Senokot S 8.6-50 MG TAB PO SCH ×2 (08:19→21:22)
[2019-10-30] MEDS: Aspirin 81 mg Enteric Coated Tablet PO SCH (08:19)
[2019-10-30] MEDS: metFORMIN 500 MG TAB PO SCH ×2 (08:19→16:45)
[2019-10-30] MEDS: Tamsulosin HCl 0.4 MG CAP PO SCH ×2 (08:19→21:22)
[2019-10-30] MEDS: Metoprolol Tartrate 25 MG TAB PO SCH ×2 (08:24→21:21)
[2019-10-30] MEDS: DULoxetine 60 MG CAP PO SCH (08:24)
[2019-10-30] MEDS: Sotalol HCl 80 MG TAB PO SCH ×2 (08:24→21:21)
[2019-10-30] MEDS: Furosemide 20 MG TAB PO SCH (08:25)
[2019-10-30] MEDS: Hydrocortisone 10 mg Tablet PO SCH ×2 (08:26→13:54)
[2019-10-30] MEDS: Enoxaparin Sodium 40 MG/0.4 ML SYRINGE SC SCH (08:27)
[2019-10-30] MEDS: Gabapentin 300 MG CAP PO SCH ×2 (08:27→21:21)
[2019-10-30] MEDS: Finasteride 5 MG TAB PO SCH (08:27)
[2019-10-30] MEDS: Fluticasone Propionate Nasal Spray 16 gm Bottle NASAL SCH (08:29)
--- NOTE | 2019-10-30 09:29 | PDOC.HOSPP ---
- Subjective Encounter Date: 10/30/19 Encounter Time: 07:30 Subjective: no new complaint.. - Objective Vital Signs & Weight: Vital Signs (12 hours) Temp Pulse Resp BP BP Pulse Ox 10/30/19 08:24 76 125/66 10/30/19 08:15 97.8 F 87 16 125/66 99 Weight Admit Weight 210 lb Weight 195 lb I&O: 10/29/19 10/30/19 10/31/19 06:59 06:59 06:59 Intake Total 1407 850 Output Total 100 Balance 1407 750 Result Diagrams: 10/29/19 04:27 10/22/19 00:59 Additional Labs: Accuchecks 10/30/19 10/29/19 10/29/19 05:58 20:08 16:11 POC Glucose 133 H 168 H 231 H 10/29/19 12:16 POC Glucose 219 H Hospitalist ROS - Medication Medications: Active Medications Generic Name Dose Route Start Last Admin Trade Name Freq PRN Reason Stop Dose Admin Acetaminophen 650 mg 10/13/19 04:02 10/28/19 12:47 Tylenol PO 650 mg Q4H PRN Administration Headache/Fever/Mild Pain (1-3) Acetaminophen/Codeine Phosphate 1 tab 10/28/19 12:42 10/30/19 06:13 Tylenol #3 PO 1 tab Q4H PRN Administration Moderate Pain (4-6) Albuterol/Ipratropium 3 ml 10/14/19 01:42 10/18/19 11:24 Duoneb NEB 3 ml [id number] PRN Administration SOB &/or Wheezing Aspirin 81 mg 10/13/19 09:00 10/30/19 08:19 Ecotrin PO 81 mg DAILY ROBERT Administration Diltiazem HCl 30 mg 10/24/19 11:30 10/30/19 08:19 Cardizem PO 30 mg ACHS ROBERT Administration Duloxetine HCl 120 mg 10/13/19 09:00 10/30/19 08:24 Cymbalta PO 120 mg DAILY ROBERT Administration Enoxaparin Sodium 40 mg 10/16/19 09:00 10/30/19 08:27 Lovenox SC 40 mg 0900 ROBERT Administration Finasteride 5 mg 10/13/19 09:00 10/30/19 08:27 Proscar PO 5 mg DAILY ROBERT Administration Fluticasone Propionate 0 gm 10/20/19 09:00 10/30/19 08:29 Flonase Nasal [place] NASAL 1 spr DAILY ROBERT Administration Furosemide 20 mg 10/13/19 09:00 10/30/19 08:25 Lasix PO 20 mg DAILY ROBERT Administration Gabapentin 300 mg 10/13/19 09:00 10/30/19 08:27 Neurontin PO 300 mg QAM ROBERT Administration Gabapentin 600 mg 10/13/19 21:00 10/29/19 20:11 Neurontin PO 600 mg HS ROBERT Administration Hydrocortisone 20 mg 10/14/19 09:00 10/30/19 08:26 Cortef PO 20 mg QAM ROBERT Administration Hydrocortisone 10 mg 10/14/19 14:00 10/29/19 12:57 Cortef PO 10 mg 1400 ROBERT Administration Cefazolin Sodium/Dextrose 2 gm 50 mls @ 100 mls/hr 10/20/19 14:00 10/30/19 05 :55 / Device IVPB 50 mls Q8HR ROBERT Administration Insulin Human Lispro 0 units 10/18/19 16:20 10/29/19 16:54 Humalog SC 4 unit .MILD SLIDING SCALE PRN Administration Mild Correctional Scale Levothyroxine Sodium 200 mcg 10/13/19 06:00 10/30/19 05:55 Synthroid PO 200 mcg 0600 ROBERT Administration Metformin HCl 500 mg 10/13/19 08:00 10/30/19 08:19 Glucophage PO 500 mg BID-WM ROBERT Administration Metoprolol Tartrate 25 mg 10/13/19 09:00 10/30/19 08:24 Lopressor PO 25 mg BID ROBERT Administration Mometasone Furoate/Formoterol Fumar 2 puff 10/13/19 06:30 10/30/19 07:45 Dulera 200 Mcg/5 Mcg Inhaler INH 2 puff BID-RT ROBERT Administration Ondansetron HCl 4 mg 10/13/19 19:20 10/24/19 21:39 Zofran Odt PO 4 mg Q6H PRN Administration Nausea/Vomiting Senna/Docusate Sodium 2 tab 10/24/19 21:00 10/30/19 08:19 Senokot S PO 2 tab BID ROBERT Administration Simethicone 80 mg 10/27/19 22:16 10/29/19 15:39 Mylicon Chewable PO 80 mg TID PRN Administration Gas Pain Sodium Chloride 10 ml 10/29/19 02:47 10/30/19 08:28 Flush - Normal Saline IVF 10 ml PRN PRN Administration Saline Flush Sotalol HCl 80 mg 10/13/19 09:00 10/30/19 08:24 Betapace PO 80 mg BID ROBERT Administration Tamsulosin HCl 0.4 mg 10/13/19 09:00 10/30/19 08:19 Flomax PO 0.4 mg BID ROBERT Administration - Exam Neck: no JVD Heart: RRR Respiratory: rhonchi Gastrointestinal: soft Extremities: no edema Neurological: no weakness Psychiatric: normal affect Hosp A/P (1) Atrial fibrillation with RVR Code(s): I48.91 - UNSPECIFIED ATRIAL FIBRILLATION Status: Acute (2) Acute respiratory failure with hypoxia Code(s): J96.01 - ACUTE RESPIRATORY FAILURE WITH HYPOXIA Status: Acute (3) Malignant pleural effusion Code(s): J91.0 - MALIGNANT PLEURAL EFFUSION Status: Acute (4) Metastatic melanoma to lung Code(s): C78.00 - SECONDARY MALIGNANT NEOPLASM OF UNSPECIFIED LUNG Status: Acute Qualifiers: Laterality: right Qualified Code(s): C78.01 - Secondary malignant neoplasm of right lung (5) Hyponatremia Code(s): E87.1 - HYPO-OSMOLALITY AND HYPONATREMIA Status: Acute - Plan Continue radiation therapy... f/u with oncology.. SNF placement when cycle of radiation completed. Change IV to D5NS in view of hyponatremia.
[2019-10-30] MEDS: Dextrose 5 % And 0.9 % NaCl 1,000 ML IV SCH (10:15)
[2019-10-30] MEDS: HumaLOG 300 UNITS/3 ML VIAL SC PRN (16:49)
[2019-10-31] MEDS: Dextrose 5 % And 0.9 % NaCl 1,000 ML IV SCH (05:41)
[2019-10-31] MEDS: Levothyroxine Sodium 100 MCG TAB PO SCH (05:42)
[2019-10-31 05:53] LABS: Anion Gap 10 mmol/L (10-20); BUN (Urea Nitrogen) 14 mg/dL (8.4-25.7); Calc. Creatinine Clearance 117 mL/min (70-130); Calcium 8.5 mg/dL (7.8-10.44); Carbon Dioxide 36 mmol/L (23-31); Chloride 92 mmol/L (98-107); Estimated GFR-MDRD Greater than 90; Glucose 160 mg/dL (83-110); Potassium 3.9 mmol/L (3.5-5.1); Sodium 134 mmol/L (136-145)
--- NOTE | 2019-10-31 07:26 | PDOC.HOSPP ---
- Subjective Encounter Date: 10/31/19 Encounter Time: 13:00 Subjective: Patient had XRT this AM. States he is feeling a bit better. Still not eating much and a bit nauseated. - Objective Vital Signs & Weight: Vital Signs (12 hours) Temp Pulse Resp BP Pulse Ox 10/30/19 21:21 77 10/30/19 20:00 98.3 F 77 16 131/64 100 Weight Admit Weight 210 lb Weight 195 lb I&O: 10/30/19 10/31/19 11/01/19 06:59 06:59 06:59 Intake Total 850 450 Output Total 100 Balance 750 450 Result Diagrams: 10/29/19 04:27 10/31/19 04:45 Additional Labs: Accuchecks 10/30/19 10/30/19 10/30/19 20:41 16:41 12:18 POC Glucose 195 H 332 H 218 H Hospitalist ROS - Review of Systems Constitutional: denies: fever, chills Respiratory: denies: cough, shortness of breath Cardiovascular: denies: chest pain, palpitations Gastrointestinal: reports: nausea. denies: vomiting, abdominal pain - Medication Medications: Active Medications Generic Name Dose Route Start Last Admin Trade Name Freq PRN Reason Stop Dose Admin Acetaminophen 650 mg 10/13/19 04:02 10/28/19 12:47 Tylenol PO 650 mg Q4H PRN Administration Headache/Fever/Mild Pain (1-3) Acetaminophen/Codeine Phosphate 1 tab 10/28/19 12:42 10/30/19 13:50 Tylenol #3 PO 1 tab Q4H PRN Administration Moderate Pain (4-6) Albuterol/Ipratropium 3 ml 10/14/19 01:42 10/18/19 11:24 Duoneb NEB 3 ml Q6RH-DL PRN Administration SOB &/or Wheezing Aspirin 81 mg 10/13/19 09:00 10/30/19 08:19 Ecotrin PO 81 mg DAILY ROBERT Administration Diltiazem HCl 30 mg 10/24/19 11:30 10/30/19 21:21 Cardizem PO 30 mg ACHS ROBERT Administration Duloxetine HCl 120 mg 10/13/19 09:00 10/30/19 08:24 Cymbalta PO 120 mg DAILY ROBERT Administration Enoxaparin Sodium 40 mg 10/16/19 09:00 10/30/19 08:27 Lovenox SC 40 mg 0900 ROBERT Administration Finasteride 5 mg 10/13/19 09:00 10/30/19 08:27 Proscar PO 5 mg DAILY ROBERT Administration Fluticasone Propionate 0 gm 10/20/19 09:00 10/30/19 08:29 Flonase Nasal [place] NASAL 1 spr DAILY ROBERT Administration Furosemide 20 mg 10/13/19 09:00 10/30/19 08:25 Lasix PO 20 mg DAILY ROBERT Administration Gabapentin 300 mg 10/13/19 09:00 10/30/19 08:27 Neurontin PO 300 mg QAM ROBERT Administration Gabapentin 600 mg 10/13/19 21:00 10/30/19 21:21 Neurontin PO 600 mg HS ROBERT Administration Hydrocortisone 20 mg 10/14/19 09:00 10/30/19 08:26 Cortef PO 20 mg QAM ROBERT Administration Hydrocortisone 10 mg 10/14/19 14:00 10/30/19 13:54 Cortef PO 10 mg 1400 ROBERT Administration Dextrose/Sodium Chloride 1,000 mls @ 50 mls/hr 10/30/19 09:30 10/31/19 05:41 D5 0.9% Ns IV 1,000 mls .Q20H ROBERT Administration Insulin Human Lispro 0 units 10/18/19 16:20 10/30/19 16:49 Humalog SC 5 unit .MILD SLIDING SCALE PRN Administration Mild Correctional Scale Levothyroxine Sodium 200 mcg 10/13/19 06:00 10/31/19 05:42 Synthroid PO 200 mcg 0600 ROBERT Administration Metformin HCl 500 mg 10/13/19 08:00 10/30/19 16:45 Glucophage PO 500 mg BID-WM ROBERT Administration Metoprolol Tartrate 25 mg 10/13/19 09:00 10/30/19 21:21 Lopressor PO 25 mg BID ROBERT Administration Mometasone Furoate/Formoterol Fumar 2 puff 10/13/19 06:30 10/30/19 19:35 Dulera 200 Mcg/5 Mcg Inhaler INH 2 puff BID-RT ROBERT Administration Ondansetron HCl 4 mg 10/13/19 19:20 10/24/19 21:39 Zofran Odt PO 4 mg Q6H PRN Administration Nausea/Vomiting Senna/Docusate Sodium 2 tab 10/24/19 21:00 10/30/19 21:22 Senokot S PO 2 tab BID ROBERT Administration Simethicone 80 mg 10/27/19 22:16 10/29/19 15:39 Mylicon Chewable PO 80 mg TID PRN Administration Gas Pain Sodium Chloride 10 ml 10/29/19 02:47 10/30/19 08:28 Flush - Normal Saline IVF 10 ml PRN PRN Administration Saline Flush Sotalol HCl 80 mg 10/13/19 09:00 10/30/19 21:21 Betapace PO 80 mg BID ROBERT Administration Tamsulosin HCl 0.4 mg 10/13/19 09:00 10/30/19 21:22 Flomax PO 0.4 mg BID ROBERT Administration - Exam General - other findings: sleeping, easily arousable ENT: moist mucosa Heart: no murmur, no gallops, no rubs, irregular Respiratory: CTAB, no wheezes, no rales, no ronchi Gastrointestinal: soft, non-tender, non-distended, normal bowel sounds Psychiatric: normal affect, normal behavior Hosp A/P (1) Acute respiratory failure with hypoxia Code(s): J96.01 - ACUTE RESPIRATORY FAILURE WITH HYPOXIA Status: Acute (2) Malignant pleural effusion Code(s): J91.0 - MALIGNANT PLEURAL EFFUSION Status: Acute (3) Metastatic melanoma to lung Code(s): C78.00 - SECONDARY MALIGNANT NEOPLASM OF UNSPECIFIED LUNG Status: Acute Qualifiers: Laterality: right Qualified Code(s): C78.01 - Secondary malignant neoplasm of right lung (4) Adrenal insufficiency ([place]'s disease) Code(s): E27.1 - PRIMARY ADRENOCORTICAL INSUFFICIENCY Status: Chronic (5) Anemia, normocytic normochromic Code(s): D64.9 - ANEMIA, UNSPECIFIED Status: Chronic (6) BPH (benign prostatic hypertrophy) Code(s): N40.0 - BENIGN PROSTATIC HYPERPLASIA WITHOUT LOWER URINRY TRACT SYMP Status: Chronic (7) CAD (coronary artery disease) Code(s): I25.10 - ATHSCL HEART DISEASE OF [place] CORONARY ARTERY W/O ANG PCTRS Status: Chronic (8) DM type 2 (diabetes mellitus, type 2) Status: Chronic (9) Dyslipidemia Code(s): E78.5 - HYPERLIPIDEMIA, UNSPECIFIED Status: Chronic (10) HTN (hypertension) Code(s): I10 - ESSENTIAL (PRIMARY) HYPERTENSION Status: Chronic (11) Paroxysmal atrial fibrillation Code(s): I48.0 - PAROXYSMAL ATRIAL FIBRILLATION Status: Chronic - Plan PT/OT Consults: Palliative Care Patient continuing XRT for metastatic melanoma Pleurex catheter drainage of malignant pleural effusion Poor po intake PT/OT Palliative care following DVT proph: Lovenox Disp plan: SNF after Radiaion treatments vs. hospice with [facility] if no improvement
[2019-10-31] MEDS: Acetaminophen/Codeine 30-300mg Tablet PO PRN ×2 (08:13→18:59)
[2019-10-31] MEDS: Enoxaparin Sodium 40 MG/0.4 ML SYRINGE SC SCH (08:14)
[2019-10-31] MEDS: Gabapentin 300 MG CAP PO SCH ×2 (08:15→20:41)
[2019-10-31] MEDS: Finasteride 5 MG TAB PO SCH (08:15)
[2019-10-31] MEDS: Metoprolol Tartrate 25 MG TAB PO SCH ×2 (08:15→20:41)
[2019-10-31] MEDS: Furosemide 20 MG TAB PO SCH (08:16)
[2019-10-31] MEDS: Fluticasone Propionate Nasal Spray 16 gm Bottle NASAL SCH (08:16)
[2019-10-31] MEDS: Tamsulosin HCl 0.4 MG CAP PO SCH ×2 (08:16→20:41)
[2019-10-31] MEDS: DULoxetine 60 MG CAP PO SCH (08:16)
[2019-10-31] MEDS: Senokot S 8.6-50 MG TAB PO SCH ×2 (08:16→20:41)
[2019-10-31] MEDS: Aspirin 81 mg Enteric Coated Tablet PO SCH (08:16)
[2019-10-31] MEDS: Sotalol HCl 80 MG TAB PO SCH ×2 (08:17→20:41)
[2019-10-31] MEDS: Hydrocortisone 10 mg Tablet PO SCH ×2 (08:18→15:49)
[2019-10-31] MEDS: metFORMIN 500 MG TAB PO SCH ×2 (08:29→16:55)
[2019-10-31] MEDS: Mometasone/Formoterol 120 PUFF INHALER INH SCH ×2 (08:55→19:04)
[2019-10-31] MEDS: HumaLOG 300 UNITS/3 ML VIAL SC PRN (15:59)
[2019-10-31] MEDS: Simethicone Chewable 80 MG TAB PO PRN (19:01)
[2019-11-01] MEDS: Dextrose 5 % And 0.9 % NaCl 1,000 ML IV SCH ×2 (02:09→20:04)
[2019-11-01] MEDS: Levothyroxine Sodium 100 MCG TAB PO SCH (05:15)
--- NOTE | 2019-11-01 07:27 | PDOC.HOSPP ---
- Subjective Encounter Date: 11/01/19 Encounter Time: 13:00 Subjective: Patient had second to last radiation treatment this AM. States he feels a little better this morning than yesterday. No specific complaints. Not eating much per family, just a few bites of fruit, going to try to eat some fajitas that he just ordered. - Objective Vital Signs & Weight: Vital Signs (12 hours) Temp Pulse Resp BP Pulse Ox 10/31/19 20:41 78 10/31/19 19:55 97.8 F 78 16 158/73 H 99 Weight Admit Weight 210 lb Weight 195 lb I&O: 10/31/19 11/01/19 11/02/19 06:59 06:59 06:59 Intake Total 450 Output Total 150 Balance 450 -150 Result Diagrams: 10/29/19 04:27 10/31/19 04:45 Additional Labs: Accuchecks 11/01/19 10/31/19 10/31/19 05:18 20:35 16:02 POC Glucose 157 H 215 H 207 H 10/31/19 10/30/19 10:57 16:35 POC Glucose 195 H 336 H Hospitalist ROS - Review of Systems Constitutional: denies: fever, chills Respiratory: denies: cough, shortness of breath Cardiovascular: denies: chest pain, palpitations Gastrointestinal: denies: nausea, vomiting, abdominal pain - Medication Medications: Active Medications Generic Name Dose Route Start Last Admin Trade Name Freq PRN Reason Stop Dose Admin Acetaminophen 650 mg 10/13/19 04:02 10/28/19 12:47 Tylenol PO 650 mg Q4H PRN Administration Headache/Fever/Mild Pain (1-3) Acetaminophen/Codeine Phosphate 1 tab 10/28/19 12:42 10/31/19 18:59 Tylenol #3 PO 1 tab Q4H PRN Administration Moderate Pain (4-6) Albuterol/Ipratropium 3 ml 10/14/19 01:42 10/18/19 11:24 Duoneb NEB 3 ml [id number] PRN Administration SOB &/or Wheezing Aspirin 81 mg 10/13/19 09:00 10/31/19 08:16 Ecotrin PO 81 mg DAILY ROBERT Administration Diltiazem HCl 30 mg 10/24/19 11:30 10/31/19 20:41 Cardizem PO 30 mg ACHS ROBERT Administration Duloxetine HCl 120 mg 10/13/19 09:00 10/31/19 08:16 Cymbalta PO 120 mg DAILY ROBERT Administration Enoxaparin Sodium 40 mg 10/16/19 09:00 10/31/19 08:14 Lovenox SC 40 mg 0900 ROBERT Administration Finasteride 5 mg 10/13/19 09:00 10/31/19 08:15 Proscar PO 5 mg DAILY ROBERT Administration Fluticasone Propionate 0 gm 10/20/19 09:00 10/31/19 08:16 Flonase Nasal [place] NASAL 1 spr DAILY ROBERT Administration Furosemide 20 mg 10/13/19 09:00 10/31/19 08:16 Lasix PO 20 mg DAILY ROBERT Administration Gabapentin 300 mg 10/13/19 09:00 10/31/19 08:15 Neurontin PO 300 mg QAM ROBERT Administration Gabapentin 600 mg 10/13/19 21:00 10/31/19 20:41 Neurontin PO 600 mg HS ROBERT Administration Hydrocortisone 20 mg 10/14/19 09:00 10/31/19 08:18 Cortef PO 20 mg QAM ROBERT Administration Hydrocortisone 10 mg 10/14/19 14:00 10/31/19 15:49 Cortef PO 10 mg 1400 ROBERT Administration Dextrose/Sodium Chloride 1,000 mls @ 50 mls/hr 10/30/19 09:30 11/01/19 02:09 D5 0.9% Ns IV 1,000 mls .Q20H ROBERT Administration Insulin Human Lispro 0 units 10/18/19 16:20 10/31/19 15:59 Humalog SC 3 unit .MILD SLIDING SCALE PRN Administration Mild Correctional Scale Levothyroxine Sodium 200 mcg 10/13/19 06:00 11/01/19 05:15 Synthroid PO 200 mcg 0600 ROBERT Administration Metformin HCl 500 mg 10/13/19 08:00 10/31/19 16:55 Glucophage PO 500 mg BID-WM ROBERT Administration Metoprolol Tartrate 25 mg 10/13/19 09:00 10/31/19 20:41 Lopressor PO 25 mg BID ROBERT Administration Mometasone Furoate/Formoterol Fumar 2 puff 10/13/19 06:30 10/31/19 19:04 Dulera 200 Mcg/5 Mcg Inhaler INH 2 puff BID-RT ROBERT Administration Ondansetron HCl 4 mg 10/13/19 19:20 10/24/19 21:39 Zofran Odt PO 4 mg Q6H PRN Administration Nausea/Vomiting Senna/Docusate Sodium 2 tab 10/24/19 21:00 10/31/19 20:41 Senokot S PO 2 tab BID ROBERT Administration Simethicone 80 mg 10/27/19 22:16 10/31/19 19:01 Mylicon Chewable PO 80 mg TID PRN Administration Gas Pain Sodium Chloride 10 ml 10/29/19 02:47 10/30/19 08:28 Flush - Normal Saline IVF 10 ml PRN PRN Administration Saline Flush Sotalol HCl 80 mg 10/13/19 09:00 10/31/19 20:41 Betapace PO 80 mg BID ROBERT Administration Tamsulosin HCl 0.4 mg 10/13/19 09:00 10/31/19 20:41 Flomax PO 0.4 mg BID ROBERT Administration - Exam General Appearance: NAD ENT: moist mucosa Heart: RRR, no murmur, no gallops, no rubs Respiratory: CTAB, no wheezes, no rales, no ronchi Gastrointestinal: soft, non-tender, non-distended, normal bowel sounds Psychiatric: normal affect, normal behavior, A&O x 3 Hosp A/P (1) Acute respiratory failure with hypoxia Code(s): J96.01 - ACUTE RESPIRATORY FAILURE WITH HYPOXIA Status: Acute (2) Malignant pleural effusion Code(s): J91.0 - MALIGNANT PLEURAL EFFUSION Status: Acute (3) Metastatic melanoma to lung Code(s): C78.00 - SECONDARY MALIGNANT NEOPLASM OF UNSPECIFIED LUNG Status: Acute Qualifiers: Laterality: right Qualified Code(s): C78.01 - Secondary malignant neoplasm of right lung (4) Adrenal insufficiency ([place]'s disease) Code(s): E27.1 - PRIMARY ADRENOCORTICAL INSUFFICIENCY Status: Chronic (5) Anemia, normocytic normochromic Code(s): D64.9 - ANEMIA, UNSPECIFIED Status: Chronic (6) BPH (benign prostatic hypertrophy) Code(s): N40.0 - BENIGN PROSTATIC HYPERPLASIA WITHOUT LOWER URINRY TRACT SYMP Status: Chronic (7) CAD (coronary artery disease) Code(s): I25.10 - ATHSCL HEART DISEASE OF [place] CORONARY ARTERY W/O ANG PCTRS Status: Chronic (8) DM type 2 (diabetes mellitus, type 2) Status: Chronic (9) Dyslipidemia Code(s): E78.5 - HYPERLIPIDEMIA, UNSPECIFIED Status: Chronic (10) HTN (hypertension) Code(s): I10 - ESSENTIAL (PRIMARY) HYPERTENSION Status: Chronic (11) Paroxysmal atrial fibrillation Code(s): I48.0 - PAROXYSMAL ATRIAL FIBRILLATION Status: Chronic - Plan Patient continuing XRT for metastatic melanoma, last treatment tomorrow Pleurex catheter drainage of malignant pleural effusion Poor po intake PT/OT Palliative care following DVT proph: Lovenox Disp plan: SNF after Radiation treatments tomorrow. Case management arranging SNF at [facility]. Patient and family not ready for hospice. They realize he needs to eventually get back home before they can try chemotherapy.
[2019-11-01] MEDS: Mometasone/Formoterol 120 PUFF INHALER INH SCH ×2 (08:21→19:08)
[2019-11-01] MEDS: Sotalol HCl 80 MG TAB PO SCH ×2 (08:53→19:54)
[2019-11-01] MEDS: Metoprolol Tartrate 25 MG TAB PO SCH ×2 (08:54→19:55)
[2019-11-01] MEDS: metFORMIN 500 MG TAB PO SCH ×2 (08:54→18:04)
[2019-11-01] MEDS: DULoxetine 60 MG CAP PO SCH (08:54)
[2019-11-01] MEDS: Aspirin 81 mg Enteric Coated Tablet PO SCH (08:54)
[2019-11-01] MEDS: Tamsulosin HCl 0.4 MG CAP PO SCH ×2 (08:54→19:55)
[2019-11-01] MEDS: Senokot S 8.6-50 MG TAB PO SCH ×2 (08:55→19:54)
[2019-11-01] MEDS: Furosemide 20 MG TAB PO SCH (08:55)
[2019-11-01] MEDS: Acetaminophen/Codeine 30-300mg Tablet PO PRN ×2 (08:55→20:10)
[2019-11-01] MEDS: Enoxaparin Sodium 40 MG/0.4 ML SYRINGE SC SCH (08:56)
[2019-11-01] MEDS: Gabapentin 300 MG CAP PO SCH ×2 (08:56→19:54)
[2019-11-01] MEDS: Finasteride 5 MG TAB PO SCH (08:56)
[2019-11-01] MEDS: Hydrocortisone 10 mg Tablet PO SCH ×2 (08:58→13:55)
[2019-11-01] MEDS: Fluticasone Propionate Nasal Spray 16 gm Bottle NASAL SCH (12:24)
[2019-11-01] MEDS: HumaLOG 300 UNITS/3 ML VIAL SC PRN (12:30)
--- NOTE | 2019-11-01 13:14 | PDOC.PALCO ---
Palliative Care Consult - Consult Details Reason for Consult: symptom management, family support, complex decision-making Family Members Present: Patient - Pertinent HPI 78 year old male who has a history of melanoma and has been treated in the past at [facility] and is also followed by Dr Mederos. 09/22/19 Mr Bernal underwent an open biopsy of a lung lesion and was found to have malignant melanoma. He returned home and continued to experience weakness and had an onsent of chest pain and shortness of breath that lead to presentation to emergency room for evaluation. He was admitted initially to telemetry for monitoring, and subsequently transferred to oncology for management and radiation. - Social History Smoking Status: Former smoker Smoking: quit greater than 1 year Alcohol Use: none Drug Use History: none Living Situation: - Medications MAR Reviewed: Yes - Allergies Allergies/Adverse Reactions: Allergies Allergy/AdvReac Type Severity Reaction Status Date / Time hydrocodone AdvReac Severe Anxiety Verified 10/13/19 13:35 - Subjective Awake, alert, soft speech and slightly slurred/delayed, fully oriented. Complains of poor appetite and difficulty swallowing, weakness - ROS Constitutional: loss appetite, weakness Eyes: other (denies visual changes) ENT: difficulty swallowing Respiratory: other (denies cough, congestion) Cardiology: other (denies chest pain or papitation) Gastrointestinal: other (denies nausea, vomiting, diarrhea) Musculoskeletal: other Skin: other (negative for brusing) - Objective Vital Signs: Vital Signs - Most Recent Temp Pulse Resp BP Pulse Ox 97.9 F 90 18 158/76 H 100 11/01/19 07:44 11/01/19 09:08 11/01/19 07:44 11/01/19 09:08 11/01/19 07:44 Palliative Performance Scale: 40 - Advance Directives Medical Power of Dry Room Operator: Patient - Physical Exam Constitutional: NAD HEENT: moist MMs, sclera anicteric Deviation from normal: Ectroprion to right eye Respiratory: unlabored breathing Cardiovascular: RRR Gastrointestinal: soft, positive bowel sounds Musculoskeletal: edema present Neurology: moves all 4 limbs Skin: cap refill <2 seconds Psychiatric: A&O x 3 Deviation from normal: mildly flat affect - Problem List (1) Palliative care encounter Code(s): Z51.5 - ENCOUNTER FOR PALLIATIVE CARE Current Visit: Yes Status: Acute (2) Poor appetite Code(s): R63.0 - ANOREXIA Current Visit: Yes Status: Acute (3) Physical deconditioning Code(s): R53.81 - OTHER MALAISE Current Visit: Yes Status: Acute (4) Malignant pleural effusion Code(s): J91.0 - MALIGNANT PLEURAL EFFUSION Current Visit: Yes Status: Acute (5) Metastatic melanoma to lung Code(s): C78.00 - SECONDARY MALIGNANT NEOPLASM OF UNSPECIFIED LUNG Current Visit: No Status: Acute Qualifiers: Laterality: right Qualified Code(s): C78.01 - Secondary malignant neoplasm of right lung - Plan/Recommendations Plan: provided a overall life review, they met when she was 14 at a [employer] r[place] in [place], later officially meeting at [facility]. They have been 52 years. Discussed "hope for the best and plan for the worst" asked "what if the radiation does not give the response they desire"? The states they will go to rehab for Mr Bernal to gain strength, then try more chemo. Asked if they had thought about hospice ever playing a role in his care, she states they are "not there". Poor appetite paired with difficulty swallowing. Will order Marinol prior to meals. Discussed small meals in small portions, and eat what he enjoys. Goal of Care: Assess response of radiation, go to rehab to gain strength, if needed proceed to home setting and attempt more chemo. Please also see Palliative Care RN notes in note section of chart. Communicated with Zoran Tobin ACNP Oncology [60] minutes spent on this encounter with >50% of the time in counseling and coordination of care. Thank you for this very appropriate consult.
--- NOTE | 2019-11-01 13:44 | PDOC.MOPN ---
Interval History: patient slow to respond today, although alert. Eating poorly. - Vital Signs Vital Signs: Vital Signs (12 hours) Temp Pulse Pulse Resp BP BP BP 11/01/19 09:08 90 158/76 H 11/01/19 08:53 86 145/86 H 11/01/19 07:44 97.9 F 86 18 145/86 H Pulse Ox 11/01/19 09:08 11/01/19 08:53 11/01/19 07:44 100 Weight Admit Weight 210 lb Weight 195 lb - Physical Exam General: Alert, No acute distress HEENT: Atraumatic, Other (right eyelid droop) Lungs: Other (pleurx cath) Cardiovascular: Regular rate, Normal S1, Normal S2, No murmurs, Gallops, Rubs Extremities: No clubbing, No cyanosis, No edema, Normal pulses, No tenderness/ swelling Skin: No rashes, No breakdown, No significant lesion Neurological: Other - Labs Result Diagrams: 10/29/19 04:27 10/31/19 04:45 Lab results: Laboratory Results - last 24 hr 11/01/19 11:28: POC Glucose 193 H 11/01/19 05:18: POC Glucose 157 H 10/31/19 20:35: POC Glucose 215 H 10/31/19 16:02: POC Glucose 207 H Status: lab reviewed by me A/P - Problem (1) Metastatic melanoma to lung Current Visit: No Code(s): C78.00 - SECONDARY MALIGNANT NEOPLASM OF UNSPECIFIED LUNG Status: Acute Qualifiers: Laterality: right Qualified Code(s): C78.01 - Secondary malignant neoplasm of right lung - Plan Plan: Continue pleurx catheter drainage last XRT tomorrow plan to go to SNF after radiation discussed treatment vs hospice, understands patient must be at home to get chemo as SNF unlikely to allow treatment. Discussed hospice as well, they are not ready.
[2019-11-01] MEDS: Dronabinol 2.5 MG CAP PO SCH (18:04)
[2019-11-01] MEDS: Simethicone Chewable 80 MG TAB PO PRN (20:10)
[2019-11-02] MEDS: Levothyroxine Sodium 100 MCG TAB PO SCH (05:04)
[2019-11-02] MEDS: Acetaminophen/Codeine 30-300mg Tablet PO PRN ×2 (05:04→14:41)
[2019-11-02] MEDS: Enoxaparin Sodium 40 MG/0.4 ML SYRINGE SC SCH (08:13)
[2019-11-02] MEDS: DULoxetine 60 MG CAP PO SCH (08:13)
[2019-11-02] MEDS: Senokot S 8.6-50 MG TAB PO SCH ×2 (08:14→20:07)
[2019-11-02] MEDS: metFORMIN 500 MG TAB PO SCH ×2 (08:14→16:46)
[2019-11-02] MEDS: Aspirin 81 mg Enteric Coated Tablet PO SCH (08:14)
[2019-11-02] MEDS: Finasteride 5 MG TAB PO SCH (08:14)
[2019-11-02] MEDS: Sotalol HCl 80 MG TAB PO SCH ×2 (08:14→20:06)
[2019-11-02] MEDS: Tamsulosin HCl 0.4 MG CAP PO SCH ×2 (08:14→20:06)
[2019-11-02] MEDS: Furosemide 20 MG TAB PO SCH (08:14)
[2019-11-02] MEDS: Gabapentin 300 MG CAP PO SCH ×2 (08:15→20:06)
[2019-11-02] MEDS: Fluticasone Propionate Nasal Spray 16 gm Bottle NASAL SCH (08:15)
[2019-11-02] MEDS: Hydrocortisone 10 mg Tablet PO SCH ×2 (08:16→14:39)
[2019-11-02] MEDS: Mometasone/Formoterol 120 PUFF INHALER INH SCH ×3 (09:55→18:07)
[2019-11-02] MEDS: Dronabinol 2.5 MG CAP PO SCH ×2 (10:07→17:29)
[2019-11-02] MEDS: Metoprolol Tartrate 25 MG TAB PO SCH ×2 (10:08→20:06)
[2019-11-02] MEDS: HumaLOG 300 UNITS/3 ML VIAL SC PRN ×2 (11:36→16:46)
[2019-11-02] MEDS: Simethicone Chewable 80 MG TAB PO PRN (14:41)
--- NOTE | 2019-11-02 18:55 | PDOC.HOSPP ---
- Subjective Encounter Date: 11/02/19 Encounter Time: 18:20 Subjective: f/u for metastatic melanoma with R malignant pleural effusion s/p Pleur-X catheter placement. Completed 10 XRT's this hospital stay. Pt was denied transfer to SNF today. - Objective Vital Signs & Weight: Vital Signs (12 hours) Temp Pulse Resp BP Pulse Ox 11/02/19 18:07 82 16 98 11/02/19 11:00 73 20 94 L 11/02/19 09:21 94 L 11/02/19 08:14 82 11/02/19 08:00 97.8 F 84 20 189/97 H 94 L Weight Admit Weight 210 lb Weight 195 lb I&O: 11/01/19 11/02/19 11/03/19 06:59 06:59 06:59 Intake Total 1020 1390 Output Total 150 Balance -150 1020 1390 Result Diagrams: 10/29/19 04:27 10/31/19 04:45 Additional Labs: Accuchecks 11/02/19 11/02/19 11/02/19 16:29 11:24 04:59 POC Glucose 185 H 204 H 147 H 11/01/19 19:43 POC Glucose 188 H Hospitalist ROS - Medication Medications: Active Medications Generic Name Dose Route Start Last Admin Trade Name Freq PRN Reason Stop Dose Admin Acetaminophen 650 mg 10/13/19 04:02 10/28/19 12:47 Tylenol PO 650 mg Q4H PRN Administration Headache/Fever/Mild Pain (1-3) Acetaminophen/Codeine Phosphate 1 tab 10/28/19 12:42 11/02/19 14:41 Tylenol #3 PO 1 tab Q4H PRN Administration Moderate Pain (4-6) Albuterol/Ipratropium 3 ml 10/14/19 01:42 10/18/19 11:24 Duoneb NEB 3 ml [id number] PRN Administration SOB &/or Wheezing Aspirin 81 mg 10/13/19 09:00 11/02/19 08:14 Ecotrin PO 81 mg DAILY ROBERT Administration Diltiazem HCl 30 mg 10/24/19 11:30 11/02/19 16:46 Cardizem PO 30 mg ACHS ROBERT Administration Dronabinol 2.5 mg 11/01/19 16:30 11/02/19 17:29 Marinol PO 2.5 mg BID-AC ROBERT Administration Duloxetine HCl 120 mg 10/13/19 09:00 11/02/19 08:13 Cymbalta PO 120 mg DAILY ROBERT Administration Enoxaparin Sodium 40 mg 10/16/19 09:00 11/02/19 08:13 Lovenox SC 40 mg 0900 ROBERT Administration Finasteride 5 mg 10/13/19 09:00 11/02/19 08:14 Proscar PO 5 mg DAILY ROBERT Administration Fluticasone Propionate 0 gm 10/20/19 09:00 11/02/19 08:15 Flonase Nasal [place] NASAL 1 spr DAILY ROBERT Administration Furosemide 20 mg 10/13/19 09:00 11/02/19 08:14 Lasix PO 20 mg DAILY ROBERT Administration Gabapentin 300 mg 10/13/19 09:00 11/02/19 08:15 Neurontin PO 300 mg QAM ROBERT Administration Gabapentin 600 mg 10/13/19 21:00 11/01/19 19:54 Neurontin PO 600 mg HS ROBERT Administration Hydrocortisone 20 mg 10/14/19 09:00 11/02/19 08:16 Cortef PO 20 mg QAM ROBERT Administration Hydrocortisone 10 mg 10/14/19 14:00 11/02/19 14:39 Cortef PO 10 mg 1400 ROBERT Administration Dextrose/Sodium Chloride 1,000 mls @ 50 mls/hr 10/30/19 09:30 11/01/19 20:04 D5 0.9% Ns IV Not Given .Q20H [facility] Insulin Human Lispro 0 units 10/18/19 16:20 11/02/19 16:46 Humalog SC 3 unit .MILD SLIDING SCALE PRN Administration Mild Correctional Scale Levothyroxine Sodium 200 mcg 10/13/19 06:00 11/02/19 05:04 Synthroid PO 200 mcg 0600 ROBERT Administration Metformin HCl 500 mg 10/13/19 08:00 11/02/19 16:46 Glucophage PO 500 mg BID-WM ROBERT Administration Metoprolol Tartrate 25 mg 10/13/19 09:00 11/02/19 10:08 Lopressor PO 25 mg BID ROBERT Administration Mometasone Furoate/Formoterol Fumar 2 puff 10/13/19 06:30 11/02/19 18:07 Dulera 200 Mcg/5 Mcg Inhaler INH 2 puff BID-RT ROBERT Administration Ondansetron HCl 4 mg 10/13/19 19:20 10/24/19 21:39 Zofran Odt PO 4 mg Q6H PRN Administration Nausea/Vomiting Senna/Docusate Sodium 2 tab 10/24/19 21:00 11/02/19 08:14 Senokot S PO 2 tab BID ROBERT Administration Simethicone 80 mg 10/27/19 22:16 11/02/19 14:41 Mylicon Chewable PO 80 mg TID PRN Administration Gas Pain Sodium Chloride 10 ml 10/29/19 02:47 10/30/19 08:28 Flush - Normal Saline IVF 10 ml PRN PRN Administration Saline Flush Sotalol HCl 80 mg 10/13/19 09:00 11/02/19 08:14 Betapace PO 80 mg BID ROBERT Administration Tamsulosin HCl 0.4 mg 10/13/19 09:00 11/02/19 08:14 Flomax PO 0.4 mg BID ROBERT Administration - Exam General Appearance: ill appearing General - other findings: Weak, frail Eye: PERRL, anicteric sclera ENT: normocephalic atraumatic, no oropharyngeal lesions Neck: supple, symmetric, no JVD, no thyromegaly Heart: RRR, no gallops, no rubs, normal peripheral pulses Respiratory: no rales, no ronchi Respiratory - other findings: diminished in R base, R hemithorax with Pleur-X catheter in place Gastrointestinal: soft, non-tender, non-distended, normal bowel sounds, no palpable masses Extremities: no cyanosis, no clubbing, no edema Skin: normal turgor, no lesions Neurological: cranial nerve grossly intact, no new deficit Musculoskeletal: generalized weakness Psychiatric: oriented to person, oriented to place Hosp A/P (1) Malignant pleural effusion Code(s): J91.0 - MALIGNANT PLEURAL EFFUSION Status: Acute Plan: s/p Pleur-X catheter with drainage q48h (2) Acute respiratory failure with hypoxia Code(s): J96.01 - ACUTE RESPIRATORY FAILURE WITH HYPOXIA Status: Acute Plan: Improved with decompression of R pleural effusion, O2 via NC (3) Atrial fibrillation with rapid ventricular response Code(s): I48.91 - UNSPECIFIED ATRIAL FIBRILLATION Status: Chronic Plan: Continue rate-control measures, Betapace (4) 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
[2019-11-02] MEDS: Dextrose 5 % And 0.9 % NaCl 1,000 ML IV SCH (20:05)
[2019-11-03] MEDS: Acetaminophen/Codeine 30-300mg Tablet PO PRN (04:23)
[2019-11-03] MEDS: Simethicone Chewable 80 MG TAB PO PRN (04:48)
[2019-11-03] MEDS: Levothyroxine Sodium 100 MCG TAB PO SCH (06:15)
[2019-11-03] MEDS: Mometasone/Formoterol 120 PUFF INHALER INH SCH (07:48)
[2019-11-03] MEDS: Dronabinol 2.5 MG CAP PO SCH ×2 (08:02→11:58)
[2019-11-03] MEDS: Hydrocortisone 10 mg Tablet PO SCH ×3 (08:03→15:24)
[2019-11-03] MEDS: Sotalol HCl 80 MG TAB PO SCH ×2 (08:03→11:57)
[2019-11-03] MEDS: Furosemide 20 MG TAB PO SCH ×2 (08:16→11:56)
[2019-11-03] MEDS: Senokot S 8.6-50 MG TAB PO SCH ×2 (08:16→11:57)
[2019-11-03] MEDS: DULoxetine 60 MG CAP PO SCH ×2 (08:16→11:55)
[2019-11-03] MEDS: Tamsulosin HCl 0.4 MG CAP PO SCH ×2 (08:16→11:58)
[2019-11-03] MEDS: Aspirin 81 mg Enteric Coated Tablet PO SCH ×2 (08:16→11:55)
[2019-11-03] MEDS: metFORMIN 500 MG TAB PO SCH ×2 (08:16→11:54)
[2019-11-03] MEDS: Finasteride 5 MG TAB PO SCH ×2 (08:17→11:55)
[2019-11-03] MEDS: Enoxaparin Sodium 40 MG/0.4 ML SYRINGE SC SCH ×2 (08:17→08:40)
[2019-11-03] MEDS: Gabapentin 300 MG CAP PO SCH ×2 (08:17→11:56)
[2019-11-03] MEDS: Fluticasone Propionate Nasal Spray 16 gm Bottle NASAL SCH ×2 (08:18→11:55)
[2019-11-03 08:47] VITALS: TEMP 98
--- NOTE | 2019-11-03 09:06 | PDOC.HOSPP ---
- Subjective Encounter Date: 11/03/19 Encounter Time: 08:50 Subjective: Called per nursing regarding labored breathing, somnolence and diaphoresis. No fever noted and maintaining O2 sat in the 92% range on 2L/min NC. - Objective Vital Signs & Weight: Vital Signs (12 hours) Temp Pulse Resp BP Pulse Ox 11/03/19 08:44 98.0 F 182/91 H 92 L 11/03/19 08:20 193/96 H 11/03/19 07:49 98 11/03/19 07:48 82 16 98 Weight Admit Weight 210 lb Weight 195 lb I&O: 11/02/19 11/03/19 11/04/19 06:59 06:59 06:59 Intake Total 1020 2130 Balance 1020 2130 Result Diagrams: 10/29/19 04:27 10/31/19 04:45 Additional Labs: Accuchecks 11/03/19 11/02/19 11/02/19 04:51 19:55 16:29 POC Glucose 188 H 212 H 185 H 11/02/19 11:24 POC Glucose 204 H Glucose 208 Radiology Reviewed by me: Yes (PCXR - ) EKG Reviewed by me: Yes (A-fib in 80's) Hospitalist ROS - Medication Medications: Active Medications Generic Name Dose Route Start Last Admin Trade Name Freq PRN Reason Stop Dose Admin Acetaminophen 650 mg 10/13/19 04:02 10/28/19 12:47 Tylenol PO 650 mg Q4H PRN Administration Headache/Fever/Mild Pain (1-3) Acetaminophen/Codeine Phosphate 1 tab 10/28/19 12:42 11/03/19 04:23 Tylenol #3 PO 1 tab Q4H PRN Administration Moderate Pain (4-6) Albuterol/Ipratropium 3 ml 10/14/19 01:42 10/18/19 11:24 Duoneb NEB 3 ml [id number] PRN Administration SOB &/or Wheezing Aspirin 81 mg 10/13/19 09:00 11/02/19 08:14 Ecotrin PO 81 mg DAILY ROBERT Administration Diltiazem HCl 30 mg 10/24/19 11:30 11/02/19 20:06 Cardizem PO 30 mg ACHS ROBERT Administration Duloxetine HCl 120 mg 10/13/19 09:00 11/02/19 08:13 Cymbalta PO 120 mg DAILY ROBERT Administration Enoxaparin Sodium 40 mg 10/16/19 09:00 11/02/19 08:13 Lovenox SC 40 mg 0900 ROBERT Administration Finasteride 5 mg 10/13/19 09:00 11/02/19 08:14 Proscar PO 5 mg DAILY ROBERT Administration Fluticasone Propionate 0 gm 10/20/19 09:00 11/02/19 08:15 Flonase Nasal [place] NASAL 1 spr DAILY ROBERT Administration Furosemide 20 mg 10/13/19 09:00 11/02/19 08:14 Lasix PO 20 mg DAILY ROBERT Administration Gabapentin 300 mg 10/13/19 09:00 11/02/19 08:15 Neurontin PO 300 mg QAM ROBERT Administration Gabapentin 600 mg 10/13/19 21:00 11/02/19 20:06 Neurontin PO 600 mg HS ROBERT Administration Hydrocortisone 20 mg 10/14/19 09:00 11/02/19 08:16 Cortef PO 20 mg QAM ROBERT Administration Hydrocortisone 10 mg 10/14/19 14:00 11/02/19 14:39 Cortef PO 10 mg 1400 ROBERT Administration Dextrose/Sodium Chloride 1,000 mls @ 50 mls/hr 10/30/19 09:30 11/02/19 20:05 D5 0.9% Ns IV 1,000 mls .Q20H ROBERT Administration Insulin Human Lispro 0 units 10/18/19 16:20 11/02/19 16:46 Humalog SC 3 unit .MILD SLIDING SCALE PRN Administration Mild Correctional Scale Levothyroxine Sodium 200 mcg 10/13/19 06:00 11/03/19 06:15 Synthroid PO 200 mcg 0600 ROBERT Administration Metformin HCl 500 mg 10/13/19 08:00 11/02/19 16:46 Glucophage PO 500 mg BID-WM ROBERT Administration Metoprolol Tartrate 25 mg 10/13/19 09:00 11/02/19 20:06 Lopressor PO 25 mg BID ROBERT Administration Mometasone Furoate/Formoterol Fumar 2 puff 10/13/19 06:30 11/03/19 07:48 Dulera 200 Mcg/5 Mcg Inhaler INH 2 puff BID-RT ROBERT Administration Ondansetron HCl 4 mg 10/13/19 19:20 10/24/19 21:39 Zofran Odt PO 4 mg Q6H PRN Administration Nausea/Vomiting Senna/Docusate Sodium 2 tab 10/24/19 21:00 11/02/19 20:07 Senokot S PO 2 tab BID ROBERT Administration Simethicone 80 mg 10/27/19 22:16 11/03/19 04:48 Mylicon Chewable PO 80 mg TID PRN Administration Gas Pain Sodium Chloride 10 ml 10/29/19 02:47 10/30/19 08:28 Flush - Normal Saline IVF 10 ml PRN PRN Administration Saline Flush Sotalol HCl 80 mg 10/13/19 09:00 11/02/19 20:06 Betapace PO 80 mg BID ROBERT Administration Tamsulosin HCl 0.4 mg 10/13/19 09:00 11/02/19 20:06 Flomax PO 0.4 mg BID ROBERT Administration - Exam General Appearance: ill appearing General - other findings: opens eyes to name, weak Eye: PERRL, anicteric sclera ENT: normocephalic atraumatic, no oropharyngeal lesions Neck: supple, symmetric, no JVD, no thyromegaly Heart: no gallops, no rubs, normal peripheral pulses, irregular Respiratory: tachypneic Respiratory - other findings: diminished/absent breath sounds on R, Pleur-x catheter in place Gastrointestinal: soft, non-tender, non-distended, normal bowel sounds, no palpable masses Extremities: no cyanosis, no clubbing, no edema Skin: normal turgor, no lesions Neurological - other findings: nods to name, shakes hand, opens eyes to name Musculoskeletal: generalized weakness Psychiatric: oriented to person, somnolent, lethargic Hosp A/P (1) Dyspnea Code(s): R06.00 - DYSPNEA, UNSPECIFIED Status: Acute Qualifiers: Dyspnea type: acute respiratory distress Qualified Code(s): R06.03 - Acute respiratory distress Plan: Likely due to R-sided malignant effusion, PCXR now, ABG, Blood/Urine cx, O2 support, consider transfer to [facility], notify Pulmonology (2) Acute respiratory failure with hypoxia Code(s): J96.01 - ACUTE RESPIRATORY FAILURE WITH HYPOXIA Status: Acute Plan: See #1 above (3) Malignant pleural effusion Code(s): J91.0 - MALIGNANT PLEURAL EFFUSION Status: Acute Plan: Pleur-X catheter in place, 200ml drained this am, PCXR now, ABG (4) Atrial fibrillation with rapid ventricular response Code(s): I48.91 - UNSPECIFIED ATRIAL FIBRILLATION Status: Chronic Plan: Chronic A-fib with controlled rate, continue rate-control therapy, consider tele monitoring (5) 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
[2019-11-03 09:44] LABS: Actual Bicarbonate (HCO3a) 36.7 mEq/L (22-28); Analyzer IN Cardio OR; Base Excess (BEa) 10.5 mEq/L (-2.0 to +3.0); CO2 Tension 58.5 mmHg (35.0-45.0); Calcium, Ionized 1.12 mmol/L (1.12-1.30); Carboxyhemoglobin (COHb) 0.5 gm% (0.0-3.0); Hemoglobin (Hb) 10.2 g/dL (14.0-18.0); O2 Tension (PaO2) 95.1 mmHg (> 70.0); Potassium - ABG Lab 3.64 mmol/L (3.70-5.30); pH, Arterial 7.42 (7.35-7.45)
[2019-11-03 09:51] LABS: Puncture Site RR
[2019-11-03 10:03] LABS: ALT (SGPT) Less than 7 U/L (8-55); AST (SGOT) 14 U/L (5-34); Albumin 2.8 g/dL (3.4-4.8); Alkaline Phosphatase 73 U/L (40-110); Anion Gap 13 mmol/L (10-20); BUN (Urea Nitrogen) 11 mg/dL (8.4-25.7); Bilirubin, Total 0.4 mg/dL (0.2-1.2); Calc. Creatinine Clearance 116 mL/min (70-130); Calcium 8.6 mg/dL (7.8-10.44); Carbon Dioxide 31 mmol/L (23-31); Chloride 96 mmol/L (98-107); Estimated GFR-MDRD Greater than 90; Globulin 3.4 g/dL (2.4-3.5); Glucose 189 mg/dL (83-110); Protein, Total 6.2 g/dL (5.8-8.1); Sodium 136 mmol/L (136-145)
[2019-11-03 10:04] LABS: Hemoglobin 10.3 g/dL (14.0-18.0); Mean Corpuscular HGB CONC 32.3 g/dL (32.0-36.0); Mean Corpuscular Hemoglobin 29.9 pg (27.0-31.0); Mean Corpuscular Volume 92.5 fL (78.0-98.0); Mean Platelet Volume 6.4 fL (7.4-10.4); Platelet Count 276 thou/uL (130-400); RBC Distribution Width 12.5 % (11.5-14.5); Red Blood Cell (RBC) Count 3.44 mill/uL (4.70-6.10); White Blood Cell (WBC) Count 5.7 thou/uL (4.8-10.8)
--- NOTE | 2019-11-03 10:13 | RAD ---
CHEST 1 VIEW: HISTORY: Chest pain. COMPARISON: CT 10/20/2019. FINDINGS: There appears to be a right-sided thoracostomy tube with tip poorly seen. Multiple surgical clips in the right side of the mediastinum. Large right perihilar suprahilar anterior middle mediastinal mass. Large layering right effusion. T he left lung is relatively clear. IMPRESSION: 1. Right-sided thoracostomy tube with continued moderate right layering pleural effusion. 2. Large right anterior and middle mediastinal mass. POS: TPC
[2019-11-03 11:05] LABS: Band 1 % (5-11); Eosinophils 1 % (0-10); Lymphocytes 10 % (21-51); MDiff Complete? YES; Monocytes 8 % (0-10); Neutrophil 79 % (42-75); Platelet Morphology Comment Appears Adequate; RBC Morphology Normal
[2019-11-03 11:36] VITALS: BP 184/108
[2019-11-03] MEDS ORDERED: hydrALAZINE 20 MG/ML VIAL ONE (11:45)
[2019-11-03] MEDS: Metoprolol Tartrate 25 MG TAB PO SCH (11:56)
[2019-11-03] MEDS ORDERED: hydrALAZINE 20 MG/ML VIAL SLOW IVP SCH (12:00)
--- NOTE | 2019-11-03 12:26 | PDOC.PALPN ---
Palliative Progress Note - Subjective Patient with increase in respiratory effort, decreased lung sounds, lethargy. Not able to tolerate any po liquids/medications. now at bedside. - Objective Vital Signs: Vital Signs - Most Recent Temp Pulse Resp BP Pulse Ox 98.0 F 82 16 184/108 H 92 L 11/03/19 08:44 11/03/19 11:57 11/03/19 07:48 11/03/19 11:36 11/03/19 08:44 - Physical Exam Constitutional: encephalitic, ill appearing, moderate distress HEENT: moist MMs, sclera anicteric Deviation from normal: slight ectropion to right eye Respiratory: diminished lung sound, labored respirations, tachypnea Deviation from normal: diminished/absent to right. Plurex cath remains to right chest wall Cardiovascular: diminished peripheral pulses Gastrointestinal: soft, positive bowel sounds Genitourinary: incontinent Musculoskeletal: no cyanosis, no clubbing, edema present Deviation from normal: slight to upper Neurology: moves all 4 limbs, no focal deficits Skin: fragile Deviation from normal: pallor to lower extremities Deviation from normal: opens eyes, non verbal - Assessment (1) Palliative care encounter Code(s): Z51.5 - ENCOUNTER FOR PALLIATIVE CARE Current Visit: Yes Status: Acute (2) Poor appetite Code(s): R63.0 - ANOREXIA Current Visit: Yes Status: Acute (3) Physical deconditioning Code(s): R53.81 - OTHER MALAISE Current Visit: Yes Status: Acute (4) Malignant pleural effusion Code(s): J91.0 - MALIGNANT PLEURAL EFFUSION Current Visit: Yes Status: Acute (5) 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 Revisied his wishes, he had stated to her in the past he would not want to be on "a breathing machine". Discussed recent decline and she has elected to transition him to no resuscitation measures. Revisited goals of care and that he is not able to transfer to radiation today and increase in confusion /decrease in oral intake/increase in respiratory effort. She has elected at this time to stop aggressive measures and to seek comfort through hospice care. Communicated with Dr Fischer, Dr Mckinney, Zoran Caballero, Linda Aparicio. DNAR consent, and hospice choice letter signed. CM Notified and coordinating with [facility] to come evaluate patient for hospice care. hopeful for inpatient hospice secondary to lethargic state, respiratory decline, and no oral intake. Comfort medications ordered to mitigate restlessness/agitation/discomfort that may accompany respiratory distress and potential terminal restlessness. Please also refer to Linda Hilario RN notes for Palliative Care in note section. Palliative Care will continue to provide therapeutic listening and emotional support for patient and family. [60] minutes spent on this encounter with >50% of the time in counseling and coordination of care. - ROS Non Response: due to mental status
[2019-11-03] MEDS ORDERED: Lorazepam 2 MG/ML VIAL SLOW IVP SCH (13:00)
[2019-11-03] MEDS: Morphine 2 MG/ML SYRINGE SLOW IVP PRN ×2 (13:09→16:43)
[2019-11-03] MEDS: Lorazepam 2 MG/ML VIAL SLOW IVP PRN ×2 (13:10→16:43)
[2019-11-03] MEDS: Dextrose 5 % And 0.9 % NaCl 1,000 ML IV SCH (16:41)
--- NOTE | 2019-11-04 04:00 | DIS ---
DATE OF ADMISSION: 10/13/2019 DATE OF DISCHARGE: 11/03/2019 DISCHARGE DIAGNOSES: 1. Acute hypoxic respiratory failure, multifactorial including right-sided malignant pleural effusion. 2. Malignant right pleural effusion secondary to metastatic melanoma to the right lung. 3. Atrial fibrillation with variable response. 4. Adrenal insufficiency, chronic. 5. Diabetes mellitus type 2. 6. Severe deconditioning. CONSULTATIONS: 1. Dr. Keller with Pulmonology Critical Care Service. 2. Dr. Mahendra Mota with Radiation Oncology Service. 3. Dr. Eyad Mederos with Medical Oncology Service. 4. Palliative Care/Hospice Service. PERTINENT LABORATORY AND X-RAY FINDINGS: Troponin I negative x4. BNP of 398. Albumin ranging between 2.8 to 3.5. CBC showed a white blood cell count ranging between 5.7 to 10.1, hemoglobin ranging between 10.3 to 12.7. Pleural fluid culture dated 10/14/2019, showed no growth at 5 days. AFB smear and culture negative on 10/14/2019. Portable chest x-ray dated 10/13/2019, showed moderate right pleural effusion with associated atelectasis. Right hilar mass consistent with metastatic melanoma. CT of the chest dated 10/13/2019, showed mass lesion in the right upper lobe extending to the hilum. Nondisplaced right 2nd rib fracture. Loculated right pleural effusion. Pleural fluid cytology dated 10/14/2019, showed no malignant cells. CT of the chest dated 10/20/2019 showed significant enlargement in the right paramediastinal mass extending from the right lung apex to the right hilum. Positive metastatic pleural implants associated with moderate loculated right pleural effusion. Mediastinal lymphadenopathy noted. CT of the brain without contrast dated 10/22/2019 showed right axillary sinusitis without other acute process. MRI of the brain dated 10/22/2019 showed no acute intracranial process or mass. Portable chest x-ray dated 11/03/2019 showed right-sided thoracostomy tube with moderate right layering pleural effusion. Large right anterior and middle mediastinal mass. HOSPITAL COURSE: The patient was initially admitted after presenting with chest pain and shortness of breath. The patient with prior history of melanoma, status post treatment and monitored on an outpatient basis by Dr. Mederos with Medical Oncology Service. The patient with recent thoracotomy with open biopsy confirming recurrent malignant melanoma of the right hemithorax. The patient was noted with [id number] right-sided pleural effusion associated with the melanoma, undergoing evaluation by the Pulmonology Service. The patient underwent subsequent PleurX catheter placement for evacuation of the recurrent effusion. Cultures were unrevealing as to ongoing infection; however patient did receive empiric antibiotic coverage for suspicion of infectious process. The patient was monitored by the Medical Oncology service during the hospital course, undergoing 10 directed radiation treatments to the right lung mass during the hospital course. The patient was unable to transition to [facility] care due to ongoing need for chemotherapy and radiation treatments. The patient became progressively weak over the course of the hospital stay and unable to ambulate or sit at the edge of the bed without assistance. The patient's appetite continued to decline as well as overall energy level and alertness. Multiple attempts were made to modify the diet as well as provide appetite stimulants, which were unsuccessful. The patient continued to decline mentally and physically during the hospital course necessitating palliative care evaluation. Initial discussions with the family were to continue aggressive and long-term medical care with attention directed at the metastatic melanoma. The patient continued to clinically decline in the last 24 hours with increasing somnolence and respiratory distress. Discussions were had with the family regarding ongoing aggressive acute intervention versus palliative measures and consideration for hospice. Family has decided to pursue hospice care and palliative measures at which point patient was converted to do not attempt resuscitation status. Family has decided to pursue inpatient hospice care at this time. I have examined the patient at time of discharge with followup instructions given. The patient ready to transfer to inpatient hospice care on 11/03/2019. DISCHARGE MEDICATIONS: 1. Tylenol No. 3, 300 mg/30 mg 1-2 tablets p.o. q.4 hours p.r.n. pain. 2. Diltiazem 120 mg p.o. daily. 3. Cymbalta 120 mg p.o. daily. 4. Proscar 5 mg p.o. daily. 5. Lasix 20 mg p.o. daily. 6. Neurontin 300 mg p.o. q.a.m. 7. Hydrocortisone 20 mg p.o. q.a.m. and 10 mg p.o. at 1400 p.m. 8. DuoNebs q.6 hours p.r.n. 9. Synthroid 200 mcg p.o. daily. 10. Metformin 500 mg p.o. b.i.d. 11. Metoprolol tartrate 25 mg p.o. b.i.d. 12. Dulera 200/5 mcg two puffs inhaled b.i.d. 13. Betapace 80 mg p.o. b.i.d. 14. Flomax 0.4 mg p.o. b.i.d. FOLLOWUP: The patient to follow up with [facility]patient Unit, 11/03/2019. CONDITION ON DISCHARGE: Guarded. ACTIVITY: Ad-estuardo. Bedbound status currently. DIET: Regular as tolerated. CODE STATUS: Do not attempt resuscitation. DISPOSITION: Transfer to [facility], 11/03/2019. TIME SPENT: Total time preparing and coordinating discharge 33 minutes. Job ID: [id number]
== END 2019-11-03 17:34 | disposition hospice, inpatient (51) | DRG 180 ==
LOC: ERS 01:27 → ERHOLD 03:29 → 2SE 11:55 → T4-A 10-18 22:00 → 2NO 10-22 07:43 → ONC 10-25 16:55
PROVIDERS: ADMIT Internal Medicine; ATTEND Internal Medicine
PROC: 0W9930Z Drainage of Right Pleural Cavity with Drainage Device, Percutaneous Approach (ICD-10-PCS; principal; 2019-10-14)
PROC: 0W993ZZ Drainage of Right Pleural Cavity, Percutaneous Approach (ICD-10-PCS; 2019-10-18)
PROC: 0W9930Z Drainage of Right Pleural Cavity with Drainage Device, Percutaneous Approach (ICD-10-PCS; 2019-10-21)
DX: C78.01 Secondary malignant neoplasm of right lung (principal); J96.01 Acute respiratory failure with hypoxia; J91.0 Malignant pleural effusion; E27.40 Unspecified adrenocortical insufficiency; I48.20 Chronic atrial fibrillation, unspecified; J98.11 Atelectasis; N13.8 Other obstructive and reflux uropathy; E87.1 Hypo-osmolality and hyponatremia; Z66 Do not resuscitate; Z51.5 Encounter for palliative care; I10 Essential (primary) hypertension; I25.10 Atherosclerotic heart disease of native coronary artery without angina pectoris; E11.40 Type 2 diabetes mellitus with diabetic neuropathy, unspecified; E78.5 Hyperlipidemia, unspecified; N40.1 Benign prostatic hyperplasia with lower urinary tract symptoms; D63.0 Anemia in neoplastic disease; M54.5 Low back pain; G89.29 Other chronic pain; K57.30 Diverticulosis of large intestine without perforation or abscess without bleeding; I48.0 Paroxysmal atrial fibrillation; E78.00 Pure hypercholesterolemia, unspecified; R63.0 Anorexia; Z98.52 Vasectomy status; I25.2 Old myocardial infarction; Z95.5 Presence of coronary angioplasty implant and graft; Z85.820 Personal history of malignant melanoma of skin; Z88.5 Allergy status to narcotic agent; Z79.82 Long term (current) use of aspirin; Z79.890 Hormone replacement therapy; Z79.84 Long term (current) use of oral hypoglycemic drugs; Z79.899 Other long term (current) drug therapy; Z87.891 Personal history of nicotine dependence; Z79.01 Long term (current) use of anticoagulants; Z68.30 Body mass index [BMI] 30.0-30.9, adult
CPT/HCPCS: 36415; 36416; 70450; 70553; 71045; 71250; 77290; 77295; 77300; 77334; 77336; 77412; 77417; 80048; 80053; 82150; 82805; 82945; 83615; 83735; 83880; 84157; 84478; 84484; 85007; 85014; 85018; 85025; 85027; 85049; 85060; 85610; 87040; 87070; 87086; 87116; 87149; 87205; 87206; 88112; 88305; 89051; 93005; 93010; 94640; 94664; A9579; C1729; J0360; J0690; J1650; J2060; J2250; J2270; J2704; J3010; J3490; J7620; Q0162; Q0167